=== PATIENT | female | born 1945 | race Caucasian/White ===

== ENCOUNTER 2016-06-07 20:46 | Emergency (ER) | payer MEDICARE, MEDICAID ==
[~2016-06-07] VITALS: Ht 157.5 cm; Wt 67.1 kg
[~2016-06-07 20:46] MED LIST: ASPIRIN 81MG TA81 MG PO; CIPRO 500MG TA500 MG PO; CIPRO500 MG PO; ESTER C 500 MG PO; FLEXERIL10 MG PO; FLUOXETINE20 MG PO; GABAPENTIN300 M1 PO; HYDROCHLOROTHIA25 M1 PO; LEXAPRO20 M1 PO; LISINOPRIL 10MG10 MG PO; LISINOPRIL40 MG PO; MECLIZINE HYDRO25 M2 PO; MELOXICAM15 MG PO; METOPROLOL25 MG PO; PARAFON FORTE500 MG PO; PERCOCET 5/3251 EACH PO; PERCOCET1 TAB PO; PREDNISONE 20MG20 MG PO; QUETIAPINE FUM100 MG PO; TEMAZEPAM15 MG PO; TESSALON PERLE100 M1 PO; Tramadol HCl50 MG PO
[2016-06-07] MEDS ORDERED: LYRICA150 M1 PO (20:59)
[2016-06-07] MEDS ORDERED: ACIDOPHILUS1 CTB PO (21:47)
[2016-06-07] MEDS ORDERED: CLINDAMYCIN HC300 MG PO (21:47)
--- NOTE | 2016-06-07 21:51 | Urgent Treatment Center Report ---
History of Present Issue Date/Time Seen by Provider 06/07/162055 Visit Reason Pt arrived:Wheelchair Presenting Problem:PT NOTED TO HAVE SWELLING TO RIGHT SIDE OF FACE BESIDE EAR THAT SHE STATES BEGAN THIS MORNING. STATES PAIN WITH SWALLOWING AND RIGHT EAR PAIN. STATES HEADACHE. Location if Accident: Onset of symptoms date/time:06/07/16/ or onset unknown for:MEDICAL HX UNKNOWN Have you (or family members/close friends) recently traveled outside the [place]? N If Yes, where/when: Have you had exposure to infectious disease within the past month? TB? Other? Specify: Patient states that she was asleep and when she woke up she notice swelling under right ear and that it was hard to swallow states that she was fine when she laid down and just woke up this way. Statse that after she noticed the swelling she was also having pain in the right ear when she tried to swallow and her family stopped by and was worried and made her come in to be seen. ALLERGIES Coded Allergies: Penicillins (UNKNOWN 04/04/16) Home Medications Active Scripts Oxycodone 5MG/[id number] (Oxycodone-Acetaminophen 5-325) 1 TAB PO TID PRN pain #90 TAB Prov: 02/05/15 Reported Medications ASPIRIN (Aspirin) 81 MG PO DAILY Metoprolol Tartrate (Metoprolol) 25 MG PO DAILY Gabapentin 600 MG PO TID #90 CAPSULE Pregabalin (Lyrica) 150 MG PO BID #60 History Medical History General CAD? No Angina: No DC: No Hypertension? Yes Hyperlipidemia? No CHF? No DVT? No PE? No COPD? No Asthma? No Anemia? No GERD? No Gastric ulcers? No GI Bleed? No Hernia? No Thyroid Problems? No Hypothyroidism? No CVA? No Seizures? No Diabetes? No UTI? No Stones? No GB Disease: No Nephritic Syndrome? No Asplenia? No Hepatitis? No Sickle Cell Disease? No Arthritis? Yes Migraines? No Cataracts? No Glaucoma? No MRSA? No HIV? No TB? No Anxiety? No Depression? No Cancer? No Immunization HX DT/Tetanus NOT SURE Flu UNKNOWN Pneumonia UNKNOWN Surgical Hx Previous Surgery?Y Appendectomy GASTRIC BYPASS TUBUAL Hysterectomy-Total TUBAL Social History Smoking Hx Smoker: Former Smoker Tobacco: No Packs/day N/A Alcohol Alcohol: No Review of Systems All Other Systems Reviewed and Negative Comment Swelling and tenderness on right jaw area just below ear, no reddness Physical Exam Vital Signs Vital Signs Date Time Temp Pulse Resp B/P Pulse O2 O2 Flow FiO2 Ox Delivery Rate 06/07 2052 99.3 77 18 132/78 97 General Appearance Patient sitting in wheelchair no apparent signs of illness with swelling in the right side of face below right ear Respiratory Status Yes: trachea midline, chest symmetrical, non tender chest. No: respiratory distress. 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 Parotid gland swollen, tender no puss observed, no stone felt Medical Decision Making LABS/Meds/Orders Pt receiving controlled substance in ED? No Results/Orders Current Medication Orders Sig/Yani Start time Last Medication Dose Route Stop Time Status Admin Clindamycin HCl 300 MG ONCE ONE 06/08 2199 AC PO 06/08 2200 Clindamycin HCl 300 MG QID 06/08 0900 DC PO 06/15 0859 Clindamycin HCl 0 .STK-MED ONE 06/07 2146 DC PO Orders Procedure Date/time Status MANDIBLES 06/08 2119 Active XRAY/CT/US XRAY/CT/US XRAY mandable XR interpretation by reviewed by me Xray Results no stone observed Departure Departure Time of Disposition 2121 Disposition DC Home or Self Care(routine) Clinical Impression Primary Impression: Parotid gland enlargement Secondary Impressions: Acute parotitis Condition STABLE Referrals German GAITAN,Kaz Morris (Family) Patient Instructions DI for Parotitis-Adult, Parotitis Additional Instructions drinking eight to 10 glasses of water daily with lemon to stimulate saliva and keep glands clear massaging the affected gland applying warm compresses to the affected gland rinsing your mouth with warm salt water sucking on sour augusta or sugar-free lemon candy to encourage saliva flow and reduce swelling Over the counter motrin or tylenol to help with pain Follow up with family doctor if needed or no improvement in symptoms Take medication as prescribed Return if needed Discharge Counseling Counseled pt/family regarding diagnosis, test results, medications/RX, home care, follow up needs Prescriptions Current Visit Scripts Clindamycin Hcl (Clindamycin 300MG) 300 MG PO QID #40 CAP LACTOBACILLUS ACIDOPHILUS (Acidophilus) 1 CTB PO BID #20 CTB at [id number]
[2016-06-07 21:55] VITALS: BP 132/78
--- NOTE | 2016-06-08 08:41 | RADIOLOGY REPORT PS360 ---
MANDIBLES Ordering Physician: RELL BACK APRN Patient Age: 70 years: Female HISTORY: SWELLING TO RIGHT SIDE OF FACE TECHNIQUE: Mandible. series includes 5 images: PA, frontal,, lateral and both oblique views. FINDINGS Swelling in face right side of face. No injury. Mandible series includes AP lateral and oblique views. Panorex can be very helpful in specifically evaluating mandible If concern regarding salivary gland inflammation or stone CT suggested and follow-up. On today's study the osseous mandible bone appears intact although I would note the patient is edentulous. The body, ramus and mentum of mandible all appear intact no destructive lesion. . There 8mm to 4 mm, bone island appearing density projected over I believe the left mandible... No obvious soft tissue calcifications are seen. I would only question some mild fullness radiographically towards the region of the right submandibular gland, right more so than left, but this requires clinical correlation\ Incidental note of engorgement nasal turbinates bilaterally.. Deviation nasal septum convexity to the right. IMPRESSION: -------- The osseous mandible is intact with no significant lesions. Patient is edentulous.. . There is a small sclerotic focus most likely bone island of believe associated with the left mandible Only question some mild soft tissue fullness in the general region of right submandibular gland.- Clinical correlation required. No soft tissue calcifications appreciated here
--- OUTSIDE RECORDS SUMMARY | 2016-06-09 01:48 | External Medical Summary Rpt ---
Author Author , Organization [employer] Address Unknown Phone Unavailable Care Team Providers Care Supervisor Hide House Name Role Phone BEN WEST MD, PSC, Unavailable Unavailable BEN WEST MD, PSC [facility] Unavailable Unavailable MEDICAL GROUP, [facility] ILANA, ILANA Unavailable Unavailable BROWN, BROWN Unavailable Unavailable JOHN REBECA, JOHN Unavailable Unavailable REBECA BUX ANJ, BUX ANJ Unavailable Unavailable BAXTER TARAS, BAXTER Unavailable Unavailable TARAS DAIJA, DAIJA Unavailable Unavailable JAVON STEFAN, Unavailable Unavailable JAVON STEFAN [facility], [facility] Unavailable Unavailable [facility], [facility] [facility] Unavailable Unavailable FALLIS GABRIELA, FALLIS Unavailable Unavailable GABRIELA MARTIN, MARTIN Unavailable Unavailable MARTIN EVELIA, MARTIN Unavailable Unavailable EVELIA [facility] Unavailable Unavailable HOSPITA, [facility], Unavailable Unavailable [facility] Unavailable Unavailable MELV[place], [facility] Unavailable Unavailable CENTER, [facility] Unavailable Unavailable INC, [facility], Unavailable Unavailable [facility] [employer] Unavailable Unavailable CORPORATION, [employer] Unavailable Unavailable CORPORATION, [employer] Unavailable Unavailable CORPORATION, [employer] [facility], [facility] Unavailable Unavailable KALIK, KALIK Unavailable Unavailable [facility] Un[facility] Un[facility], [place] Unavailable Unavailable [facility] YANIV CRI, YANIV CRI Unavailable Unavailable STYLES, STYLES Unavailable Unavailable STYLES NICOLE, STYLES Unavailable Unavailable NICOLE MARJ WEST MD, MARJ Unavailable Unavailable BUX GERAL[facility] ROSE, Unavailable Unavailable [facility], Unavailable [facility]available [facility], [facility] Unavailable Unavailable LAB, [facility] PETTEY JAM, PETTEY Unavailable Unavailable JAM PETTEY JAM, PETTEY Unavailable Unavailable [facility], Unavailable Unavailable [facility] CODY II YINA, CODY Unavailable Unavailable II YINA CODY II YINA, CODY Unavailable Unavailable II DAKOTA DONAHUE, Unavailable Unavailable DAKOTA GAMBLE ANGI, DUANE ANGI Unavailable Unavailable [facility] Unavailable Unavailable [facility], [facility] Unavailable Unavailable [facility], [facility] Purpose Continuity of Care Document - 08-09-2008 through 2016 Problems Code Diagnosis DOS Provider Status G629 POLYNEUROPA 04-23-2016 [facility] THY PHYSICIANS UNSPECIFIED GROUP G8929 OTHER 04-23-2016 [facility] CHRONIC PHYSICIANS PAIN GROUP M5090 CERVICAL 04-23-2016 [facility] DISC PHYSICIANS DISORDER GROUP UNS UNS CERVICAL REGION T14VZED UNSPECIFIED 04-23-2016 [facility] FALL PHYSICIANS INITIAL GROUP ENCOUNTER R0600 DYSPNEA 04-04-2016 [facility] R0602 SHORTNESS 04-04-2016 [facility] R410 DISORIENTAT 04-04-2016 [facility] UNSPECIFIED IMAGING ASS R42 DIZZINESS 04-04-2016 [facility] GIDDINESS [facility] R51 HEADACHE 04-04-2016 [facility] R531 WEAKNESS 04-04-2016 [facility] I10 ESSENTIAL 02-27-2016 [facility] PRIMARY PHYSICIANS HYPERTENSIO GROUP N G83069 WRIST DROP 02-27-2016 [facility] RIGHT WRIST PHYSICIANS GROUP K16935 FOOT DROP 02-27-2016 [facility] RIGHT FOOT PHYSICIANS GROUP M6258 MUSCLE 02-27-2016 [facility] WASTING & PHYSICIANS ATROPHY NEC GROUP OTHER SITE R5383 OTHER 02-27-2016 [facility] FATIGUE PHYSICIANS GROUP T74906 OTHER LONG 02-27-2016 [facility] TERM PHYSICIANS CURRENT GROUP DRUG THERAPY Q55024 DERMATOCHAL 02-19-2016 [facility] RIGHT UPPER INSTITUTE EYELID O40042 DERMATOCHAL 02-19-2016 [facility] LEFT UPPER INSTITUTE EYELID A80014 COMBINED 02-19-2016 [place] [facility] AGE-RELATED INSTITUTE CATARACT LEFT EYE E25723 COMBINED 02-19-2016 [place] CATARACT BILATERAL H538 OTHER 02-19-2016 [facility] DISTURBANCE INSTITUTE S I639 CEREBRAL 01-26-2016 [facility] UNSPECIFIED Z9181 HISTORY OF 01-26-2016 [facility] FALLING CORPORATION R220 LOCALIZED 12-28-2015 [facility] SWELLING PHYSICIANS MASS AND GROUP LUMP HEAD R590 LOCALIZED 12-28-2015 [facility] ENLARGED PHYSICIANS LYMPH NODES GROUP M5030 OTH 12-21-2015 [facility] CERVICAL PHYSICIANS DISC GROUP DEGENERATIO N UNS CERV REGION N289 DISORDER OF 12-21-2015 [facility] KIDNEY AND PHYSICIANS URETER GROUP UNSPECIFIED R269 UNSPECIFIED 12-21-2015 [facility] PHYSICIANS ABNORMALITI GROUP ES OF GAIT AND MOBILITY R296 REPEATED 12-21-2015 [facility] FALLS PHYSICIANS GROUP K116 MUCOCELE OF 12-10-2015 [facility] D1800 HEMANGIOMA 11-16-2015 [facility] UNSPECIFIED PHYSICIANS SITE GROUP Z1211 ENCOUNTER 10-23-2015 [facility] SCREENING PHYSICIANS MALIGNANT GROUP NEOPLASM OF COLON Z23 ENCOUNTER 10-23-2015 [facility] FOR PHYSICIANS IMMUNIZATIO GROUP N D490 NEOPLASM OF 10-19-2015 [facility] BEHAVIOR INC DIGESTIVE SYSTEM G48040E UNSPECIFIED 09-25-2015 [facility] INJURY PHYSICIANS FOOT UNS GROUP SIDE INITIAL ENCNTR K118 OTHER 08-29-2015 [facility] DISEASES OF [facility] SALIVARY INC GLANDS H6123 IMPACTED 07-31-2015 [facility] CERUMEN PHYSICIANS BILATERAL GROUP M9981 OTHER 07-31-2015 [facility] BIOMECHANIC PHYSICIANS AL LESIONS GROUP OF CERVICAL REGION G9050 COMPLEX 07-27-2015 [facility] REGIONAL PHYSICIANS PAIN GROUP SYNDROME I UNSPECIFIED D63362 SPONTANEOUS 04-03-2015 PRO[facility] RUPTURE PODIATRY FLEXOR TENDONS RT ANKLE FOOT M7751 OTHER 04-03-2015 PRO[facility] ENTHESOPATH PODIATRY Y OF RIGHT FOOT F15512 PAIN IN 04-03-2015 PROGR[facility]IVE RIGHT LOWER PODIATRY LEG M5116 INTERVERTEB 04-02-2015 BEN WEST RAL DISC , PSC D/O W/RADICULOP ATHY LUMB RGN M6281 MUSCLE 03-08-2015 [facility] GENERALIZED M5416 RADICULOPAT 02-05-2015 BEN WEST, HY LUMBAR , PSC REGION I959 HYPOTENSION 12-12-2014 [facility] PHYSICIANS UNSPECIFIED GROUP I890 LYMPHEDEMA 11-09-2014 FALLIS GABRIELA NOT ELSEWHERE CLASSIFIED E15317 PAIN IN 11-09-2014 PROGRESSIVE LEFT FOOT PODIATRY I28837R NONDSPL FX 11-09-2014 PROGR[facility]IVE 5TH PODIATRY METATARSAL LT FT INIT ENC CLOS FX 4439 UNSPECIFIED 10-05-2014 FALLIS GABRIELA PERIPHERAL VASCULAR DISEASE 67063 EXOSTOSIS 10-05-2014 FALLIS GABRIELA OF UNSPECIFIED SITE 7295 PAIN IN 10-05-2014 FALLIS GABRIELA SOFT TISSUES OF LIMB 38123 DEGEN 08-07-2014 MARJ WEST LUMBAR/LUMB OSACRANNABELLA INTERVERTEB RAL DISC 7244 THORACIC/PAVEL 08-07-2014 MARJ COTOOSASANTI GAITAN NEURITIS/RA DICULITIS UNSPEC 3559 MONONEURITI 07-31-2014 [facility] S OF PHYSICIANS UNSPECIFIED GROUP SITE 4019 UNSPECIFIED 07-31-2014 [facility] ESSENTIAL PHYSICIANS HYPERTENSIO GROUP N 5939 UNSPECIFIED 07-31-2014 [facility] DISORDER PHYSICIANS OF KIDNEY GROUP AND URETER 07543 OSTEOARTHRO 07-31-2014 [facility] S UNSPEC PHYSICIANS WHETHER GROUP GEN/LOC UNSPEC SITE 7245 UNSPECIFIED 07-31-2014 [facility] BACKACHE PHYSICIANS GROUP 38002 LOSS OF 07-31-2014 [facility] WEIGHT PHYSICIANS GROUP V1588 PERSONAL 07-31-2014 [facility] HISTORY OF PHYSICIANS FALL GROUP 41658 MIGRAINE 07-05-2014 [facility] W/O [facility] W/O INTRACT MEDICAL W/O STAT GROUP MIGRNOSUS 3569 UNSPEC 07-05-2014 [facility] MEDICAL PERIPHERAL GROUP NEUROPATHY 53234 UNSPECIFIED 05-25-2014 [facility] ARTHROPATHY INC , LOWER LEG 7242 LUMBAGO 05-25-2014 [facility] 93401 GEN 02-16-2014 [facility] OSTEOAR[facility] SIS MEDICAL INVOLVING EQUIPME MULTIPLE SITES 82608 PAINFUL 01-14-2014 [facility] RESPIRATION [facility] INC 30339 HYPERTONICI 12-27-2013 [facility] TY OF PHYSICIANS BLADDER GROUP 90564 CYSTOCELE 12-27-2013 [facility] WITHOUT PHYSICIANS MENTION GROUP UTERINE PROLAPSE MIDLN 40161 URGE 12-27-2013 [facility] INCONTINENC PHYSICIANS E GROUP 92114 URINARY 12-27-2013 [facility] FREQUENCY PHYSICIANS GROUP 7804 DIZZINESS 12-15-2013 [facility] GIDDINESS INC 7812 ABNORMALITY 12-14-2013 [facility] OF GAIT [facility] INC V571 OTHER 12-14-2013 [facility] THERAPY INC 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, INC LOWER LEG 5853 CHRONIC 06-14-2013 [facility] [facility] DISEASE INC STAGE III (MODERATE) V069 NEED PROPH 12-07-2012 [facility] VACCINATION HEALTH W/UNSPEC CENTER COMB VACCINE V700 ROUTINE 12-07-2012 [facility] EXAM@HEALTH CARE FACL 4660 ACUTE 04-18-2012 [facility] BRONCHITIS [facility] INC 8796 OPEN WOUND 04-07-2012 C[facility] II OTH&UNSPEC YINA PART TRNK W/O MENTION COMP V1083 PERSONAL 04-07-2012 C[facility] II HISTORY YINA OTHER MALIGNANT NEOPLASM SKIN 7265 ENTHESOPATH 01-15-2012 PETTEY JAM Y OF HIP REGION 11714 PES 01-15-2012 [facility] JAM ANSERINUS TENDINITIS OR BURSITIS V7231 ROUTINE 11-17-2011 PATHOLOGY & GYNECOLOGIC CYTOLOGY AL LAB EXAMINATION 00811 PAIN IN 07-13-2009 [place] JOINT, [facility] LOWER LEG INC 7149 UNSPECIFIED 06-18-2009 A Jose JUSTICE MD PSC INFLAMMATOR Y POLYARTHROP ATHY 17627 INSOMNIA 06-18-2009 A Jose JUSTICE UNSPECIFIED PSC 7840 HEADACHE 03-05-2009 A Jose JUSTICE MD PSC 10992 NUCLEAR 08-09-2008 SOLE, SCLEROSIS GERALD W 20094 UNSPECIFIED 08-09-2008 SOLE SUBJECTIVE GERALD W VISUAL DISTURBANCE R42 DIZZINESS AND GIDDINESS Allergies, Adverse Reactions, Alerts Type Drug Allergy Adverse Reaction to Substance Substance Reaction Severity Penicillin Unknown Unknown Medications Na ND Rx Da Fi Fi Am Da Di Ph RX Ph St me C No te ll ll ou ys ag ar # ys at rm s nt no ma ic us Or Da si cy ia de te s n re d HM 62 12 01 30 30 00 EA Ac 01 -2 -[address] ti 10 6- 7- 00 00 SI ve PI 02 20 20 46 DE RI 00 16 17 49 N 1 96 PH 32 AR 5 MA MG CY TA OF BL CY ET NT HI AN A IN C VE 00 03 0 No NT 17 -1 OL 30 0- Lo IN 68 20 ng 22 13 er HF 4 A Ac 90 ti ve MC G IN JAMES LE R Ae 08 03 0 No ro 37 -1 ch 30 0- Lo am 76 20 ng be 50 13 er r/ 0 Op Ac ti ti james ve le r De 00 03 0 No xa 51 -1 me 74 0- Lo th 90 20 ng as 12 13 er on 5 e Ac 4M ti G/ ve Ml Sd v CE 00 03 0 No FT 78 -1 RI 19 0- Lo AX 32 20 ng ON 89 13 er E 5 1 Ac GM ti ve AL LI 63 03 0 No DO 32 -1 CA 30 0- Lo IN 20 20 ng E 11 13 er HC 0 L Ac 1% ti ve AL Ib 62 03 0 No up 58 -1 ro 40 0- Lo fe 74 20 ng n 70 13 er 60 1 0M Ac G ti Ta ve bl et Immunization Name Date Route CVX Reacti Commen Provid Is Given on t er Refuse d IIV [facility] No ADJUVA 2015 [facility] NTED VACCIN E FOR INTRAM USCULA R USE PCV13 [facility] No VACCIN 2015 EVELIA E FOR INTRAM USCULA R USE Vital Signs 04-18-2012 22:06 Name Value Interpretat Reference Comment ion Range Body 100.8 Temperature [degF] BP 80 mm[Hg] Diastolic BP Systolic 129 mm[Hg] Heart 144 /min Rate/Pulse O2% 98 % Respiratory 22 /min Rate 04-18-2012 19:24 Name Value Interpretat Reference Comment ion Range BP 74 mm[Hg] Diastolic BP Systolic 122 mm[Hg] Heart 112 /min Rate/Pulse O2% 97 % Respiratory 20 /min Rate Results Labs Lab Lab Date Result Refere Interp Status Commen Order Detail nces retati t Range on STREP SCREEN (RAPID) (04-18-2012 19:00) STREP NEGATIV complet SCREEN 013 E ed (RAPID) 19:00 Procedures Procedure [place] [address] [facility] HEAD/BRAI 7 MEDICAL N W/O IMAGING CONTRAST ASS MATERIAL RADIOLOGI 53383 [facility] CHOE C 7 MEDICAL EXAMINATI IMAGING ON [place] [address] [facility] PAT[facility] TROPONIN 7 [facility] QUANTITAT INC INC ANJALI BLOOD 47401 [facility] KENDRICKIK COUNT 7 [facility] COMPLETE INC AUTO&AUTO DIFRNTL WBC NATRIURET 93529 [facility] GARCIA IC 7 [facility] PEPTIDE INC ECG 01995 [facility] ROUTINE 7 [facility] ECG INC INC W/LEAST 12 LDS TRCG ONLY W/O I&R FIBRIN 05899 [facility] DGRADJ 7 [facility] PRODUCTS INC INC D-DIMER QUAL/SEMI KISHAN CREATINE 78740 [facility] KINASE 7 [facility] TOTAL INC INC COMPREHEN 16131 [facility] SIVE 7 [facility] METABOLIC INC INC PANEL CREATINE 65156 J[facility] PAT[facility] KINASE MB 7 [facility] FRACTION INC INC ONLY COMPREHEN 02348 [facility] SIVE 7 [facility] METABOLIC INC INC PANEL BLOOD 69520 [facility] COUNT 7 [facility] COMPLETE INC INC AUTO&AUTO DIFRNTL WBC OPH BMTRY 38839 [facility] 7 EYE ECHOGRAPY INSTITUTE A-SCAN IO LENS PWR SUJATA PWR K0823 [facility] GRP 2 STD 6 CAPTAINS CORPORATI CORPORATI CHAIR PT ON ON TO &=300 LBS PWR K0823 [facility] GRP 2 STD 6 [place] CORPORATI CORPORATI CHAIR PT ON ON TO &=300 [place]BS PET [address] [facility] [address] COMMUNTIY COMMUNTIY ATTENUATI HOSPITA HOSPITA ON SKULL BASE MID-THIGH PWR K0823 [facility] GRP 2 STD 6 CAPTAINS CORPORATI CORPORATI CHAIR PT ON ON TO &=300 LBS PWR K0823 [facility] GRP 2 STD 6 CAPTAINS CORPORATI CORPORATI CHAIR PT ON ON TO &=300 LBS BLOOD 57542 [facility] OCCULT 6 PHYSICIAN EVELIA PEROXIDAS S GROUP E ACTV QUAL FECES 1-3 SPEC PCV13 60448 [facility] VACCINE 6 PHYSICIAN EVELIA FOR S GROUP INTRAMUSC ULAR USE IIV 35218 [facility] ADJUVANTE 6 PHYSICIAN EVELIA D VACCINE S GROUP FOR INTRAMUSC ULAR USE ADMINISTR G0008 [facility] ATION OF 6 PHYSICIAN EVELIA INFLUENZA S GROUP VIRUS VACCINE MRI ORBIT 48020 [facility] PAT[facility] FACE & 6 [facility] NECK W/O INC INC & W/CONTRAS T MATRL COLLECTIO 21641 [facility] STYLES N VENOUS 6 PHYSICIAN NICOLE BLOOD S GROUP VENIPUNCT URE PWR WC K0823 [facility] GRP 2 STD 6 CAPTAINS CORPORATI CORPORATI CHAIR PT ON ON TO &=300 LBS US SOFT 24940 [facility] TISSUE 6 [facility] CARE HEAD & INC NECK REAL TIME IMGE DOCM FINE 59466 [facility] PLASCENCIAON NEEDLE 6 [facility] H[facility] ASPIRATIO INC INC N WITH IMAGING GUIDANCE THERAPEUT 50955 [facility] PAT[facility] IC PX 1/> 6 [facility] AREAS INC INC EACH 15 MIN EXERCISES THERAPEUT 16732 [facility] PATEL IC PX 1/> 6 [facility] AREAS INC INC EACH 15 MIN EXERCISES THERAPEUT 77336 [facility] PATEL IC PX 1/> 6 [facility] AREAS INC INC EACH 15 MIN EXERCISES THERAPEUT 50147 [facility] PAT[facility] IC PX 1/> 6 [facility] AREAS INC INC EACH 15 MIN EXERCISES THERAPEUT 86448 [facility] PATEL IC PX 1/> 6 [facility] AREAS INC INC EACH [address] SOFT 98491 [facility] PLASCENCIAON TISSUE 6 [facility] NECK W/O INC INC CONTRAST MATERIAL THERAPEUT 75695 [facility] PATEL IC PX 1/> 6 [facility] AREAS INC INC EACH 15 MIN EXERCISES THERAPEUT 51241 [facility] PAT[facility] IC PX 1/> 6 [facility] AREAS INC INC EACH 15 MIN EXERCISES 3D 90283 [facility] PAT[facility] RENDERING 6 [facility] W/INTERP INC INC & POSTPROCE SS SUPERVISI ON MRI 36452 [facility] SPINAL 6 [facility] CANAL INC INC CERVICAL W/O CONTRAST MATRL THERAPEUT 78931 [facility] PATEL IC PX 1/> 6 [facility] AREAS INC INC EACH 15 MIN EXERCISES THERAPEUT 06108 [facility] PATEL IC PX 1/> 6 [facility] AREAS INC INC EACH 15 MIN EXERCISES THERAPEUT 74377 [facility] PATEL IC PX 1/> 6 [facility] AREAS INC INC EACH 15 MIN EXERCISES THERAPEUT 87451 [facility] PATEL IC PX 1/> 6 [facility] AREAS INC INC EACH 15 MIN EXERCISES THERAPEUT 36855 [facility] PATEL IC PX 1/> 6 [facility] AREAS INC INC EACH 15 MIN EXERCISES THERAPEUT 57397 [facility] PATEL IC PX 1/> 6 [facility] AREAS INC INC EACH 15 MIN EXERCISES THERAPEUT 53951 [facility] PATEL IC PX 1/> 6 [facility] AREAS INC INC EACH 15 MIN EXERCISES THERAPEUT 60859 [facility] PATEL IC PX 1/> 6 [facility] AREAS INC INC EACH 15 MIN EXERCISES THERAPEUT 81568 [facility] PATEL IC PX 1/> 6 [facility] AREAS INC INC EACH 15 MIN EXERCISES PHYSICAL 01958 JORGEJOEL PATEL THERAPY 6 [facility] EVALUATIO INC INC N COLLECTIO 18395 [facility] N VENOUS 6 PHYSICIAN EVELIA BLOOD S GROUP VENIPUNCT URE INJECTION J3301 PROGRESSI JOHN 6 VE REBECA TRIAMCINO PODIATRY LONE ACETONIDE NOS 10 MG ARTHROCEN 37476 PROGRESSI JOHN TESIS 6 VE REBECA ASPIR&/IN PODIATRY J INTERM JT/BURS W/O US PHYSICAL 37314 [facility] THERAPY 6 [facility] EVALUATIO INC INC N OCCUPATIO 75151 [facility] NAL 6 [facility] THERAPY INC INC EVALUATIO N COLLECTIO 81630 [facility] N VENOUS 6 N N BLOOD COMMUNTIY COMMUNTIY VENIPUNCT HOSPITA HOSPITA URE LIPID 17298 [facility] PANEL 6 N N COMMUNTIY COMMUNTIY HOSPITA HOSPITA HEMOGLOBI 34685 [facility] N 6 N N GLYCOSYLA COMMUNTIY COMMUNTIY CARINA A1C HOSPITA HOSPITA AFO L1970 PROGRESSI JOHN PLASTIC 6 VE REBECA WITH PODIATRY ANKLE JOINT CUSTOM FABRICATE D ADD LW L2275 PROGRESSI JOHN EXTRM 6 VE REBECA VARUS/VUL PODIATRY PAYAL RYAN PLSTC MOD PADD/LN HEEL PAD L3480 PROGRESSI JOHN AND 6 VE REBECA DEPRESSIO PODIATRY N FOR SPUR RADEX 06860 [facility] FOOT 5 [facility] COMPLETE INC INC MINIMUM 3 VIEWS WALKING L4360 PROGRESSI JOHN BOOT 5 VE REBECA PNEUMATC PODIATRY &/ VACUUM PREFAB CUSTM FIT TENS E0730 [facility] EMPI INC DEVICE 5 4/MORE LEADS MULTI NERVE STIMULATI ON APPL 85852 [facility] MODALITY 5 [facility] 1/> AREAS INC INC ELEC STIMJ EA 15 MIN MRI 28972 [facility] SPINAL 5 [facility] CANAL INC INC LUMBAR W/O CONTRAST MATERIAL CANE E0105 [facility] WOLF QUAD/3-ND 5 HOME HOME CHER ALL MEDICAL MEDICAL MATL EQUIPME EQUIPME ADJUSTBL/ FIX W/TIPS RADIOLOGI 74968 [facility] PAT[facility] C EXAM 4 [facility] CHEST 2 INC INC VIEWS FRONTAL&L ATERAL URNLS DIP 53432 [facility] BAXTER 4 PHYSICIAN TARAS STICK/TAB S GROUP LET RGNT NON-AUTO W/O MICRSCP DUPLEX 44698 [facility] SCAN 4 [facility] EXTRACRAN INC INC IAL ART COMPL BI STUDY PHYSICAL 46497 [facility] THERAPY 4 [facility] EVALUATIO INC INC N RADIOLOGI 13669 [facility] C 4 [facility] EXAMINATI INC INC ON KNEE 3 [place] [address] [facility] RETROPERI 4 [facility] TONEAL INC INC REAL TIME W/IMAGE COMPLETE BLOOD 65769 [facility] OCCULT 3 [facility] QUAL FECES 1 DETER THERAPEUT 40222 [facility] IC 3 [facility] PROPHYLAC INC INC TIC/DX INJECTION SUBQ/IM ARTHROCEN PETTEY PETTEY TESIS 2 JAM JAM ASPIR&/IN J MAJOR JT/BURSA W/O US INJ J0702 PETTEY PETTEY BETAMETHA 2 JAM JAM SONE ACETATE & PHOSPHATE 3 MG RADIOLOGI 60788 [facility] PLASCENCIAON C 0 [facility] EXAMINATI INC INC ON KNEE 3 VIEWS RADIOLOGI 42404 [facility] C 9 [facility] EXAMINATI INC INC ON KNEE 3 VIEWS RADEX 91754 [facility] SPINE 9 [facility] LUMBOSACR INC INC AL MINIMUM 4 VIEWS Encounters Encounter Start End Date Code Location Performer Type Date OFFICE 66635 [facility] OUTPATIEN 7 7 PHYSICIAN T VISIT S GROUP 25 MINUTES EMERGENCY 79047 [facility] 7 7 [facility] DEPARTMEN INC T VISIT HIGH/URGE NT SEVERITY HOSPITAL [facility] - 7 7 [facility] OUTPATIEN INC T EMERGENCY 48717 [facility] CISNEROS DEPT 7 7 PHYSICIAN VISIT S, [facility] HIGH SEVERITY& THREAT FUNJ OFFICE 57214 [facility] OUTPATIEN 7 7 PHYSICIAN T VISIT S GROUP 25 MINUTES HOSPITAL [facility] - 7 7 [facility] OUTPATIEN INC T OFFICE 73787 [facility] OUTPATIEN 7 7 EYE T [facility]STITUTE MINUTES OFFICE 18592 [facility] STYLES OUTPATIEN 6 6 PHYSICIAN T VISIT S GROUP 10 MINUTES OFFICE 08646 [facility] OUTPATIEN 6 6 PHYSICIAN T VISIT S GROUP 15 MINUTES HOSPITAL [facility] - 6 6 N OUTPATIEN COMMUNTIY T HOSPITA OFFICE 18682 [facility] OUTPATIEN 6 6 PHYSICIAN T VISIT S GROUP 10 MINUTES OFFICE 03317 [facility] [place] OUT[facility]IEN 6 6 PHYSICIAN EVELIA T VISIT S GROUP 15 MINUTES [facility] - [facility] 6 [facility] INC T OFFICE 14421 [facility] OUTPATIEN 6 6 PHYSICIAN NICOLE T VISIT S GROUP 10 MINUTES OFFICE 79605 [facility] [place] OUT[facility]IEN 6 6 PHYSICIAN EVELIA T VISIT S GROUP 25 MINUTES OFFICE 70829 [facility] OUTPATIEN 6 6 PHYSICIAN NICOLE T VISIT S GROUP 10 MINUTES [facility] - 6 6 [facility] T OFFICE 90431 [facility] [place] OUT[facility]IEN 6 6 PHYSICIAN EVELIA T VISIT S GROUP 10 MINUTES [facility] - 6 6 [facility] T OFFICE 08002 [facility] OUTPATIEN 6 6 PHYSICIAN NICOLE T NEW 20 S GROUP MINUTES [facility] - 6 6 [facility] T OFFICE 47878 [facility] [place] OUT[facility]IEN 6 6 PHYSICIAN EVELIA T VISIT S GROUP 25 MINUTES OFFICE 47607 [facility] [place] OUT[facility]IEN 6 6 PHYSICIAN EVELIA T VISIT S GROUP 15 MINUTES [facility] - 6 6 [facility] T [facility] - 6 6 [facility] INC T OFFICE 45991 [facility] [place] OUT[facility]IEN 6 6 PHYSICIAN EVELIA T VISIT S GROUP 15 MINUTES OFFICE 43438 [facility] [place] OUT[facility]IEN 6 6 PHYSICIAN EVELIA T VISIT S GROUP 10 MINUTES [facility] - 6 6 [facility] T OFFICE 15613 [facility] [place] OUT[facility]IEN 6 6 PHYSICIAN EVELIA T VISIT S GROUP 15 MINUTES OFFICE 89634 [facility] OUTPATIEN 6 6 VE REBECA T VISIT 5 PODIATRY MINUTES OFFICE 37546 [facility] OUTPATIEN 6 6 MD BRETT, T VISIT PSC 10 MINUTES [facility] 6 [facility] INC T OFFICE 02451 [facility] OUTPATIEN 6 6 VE REBECA T VISIT 5 PODIATRY MINUTES HOSPITAL [facility] - 6 6 N OUTPATIEN COMMUNTIY T HOSPITA OFFICE 36189 [facility] OUTPATIEN 6 6 N T NEW 45 NEUROLOGY MINUTES OFFICE 26772 [facility] [place] OUT[facility]IEN 6 6 PHYSICIAN EVELIA T VISIT S GROUP 15 MINUTES OFFICE 84798 [facility] OUTPATIEN 5 5 MD BRETT, T VISIT PSC 25 MINUTES OFFICE 53647 [facility] OUTPATIEN 5 5 GABRIELA REBECA T VISIT 5 MINUTES OFFICE 88880 [facility] OUTPATIEN 5 5 GABRIELA REBECA T VISIT 15 MINUTES OFFICE [id number] [facility] [place] OUTPATIEN 5 5 PHYSICIAN EVELIA T VISIT S GROUP 10 MINUTES OFFICE 34710 [facility] OUTPATIEN 5 5 GABRIELA REBECA T VISIT 15 MINUTES [facility]OSPITAL [facility] - 5 5 [facility] T OFFICE [id number] [facility] OUTPATIEN 5 5 GABRIELA REBECA T NEW 30 MINUTES OFFICE 21359 [facility]TT [facility]UX ANJ OUTPATIEN 5 5 MD T NEW 30 MINUTES OFFICE 07225 [facility] [place] OUTPATIEN 5 5 PHYSICIAN EVELIA T VISIT S GROUP 25 MINUTES OFFICE 41426 [facility] [place] OUTPATIEN 5 5 PHYSICIAN EVELIA T VISIT S GROUP 15 MINUTES OFFICE 50952 YARSANI JAVON OUTPATIEN 5 5 [facility] NEW 45 MEDICAL MINUTES [facility] JORGE - 5 5 [facility]ORGE - 5 5 [facility] JORGE - 4 4 [facility] JORGE - 4 4 [facility] JORGE - 4 4 [facility] JORGE - 4 4 [facility] JORGE - 4 4 [facility] OUTPATIEN [facility] PERIODIC 09082 JORGE PATEL PREVENTIV 3 3 [facility] MED EST CENTER CENTER PATIENT 63YRS& OLDER Emergency SHAAN Porter MD (ER) 3 19:12 3 22:09 [facility] JORGE - 3 3 [facility] OUTPATIEN [facility] OFFICE 94244 CODY II CODY II OUTPATIEN 3 3 [facility] VISIT 10 MINUTES OFFICE 05220 CODY II CODY II OUTPATIEN 3 3 [facility] VISIT 10 MINUTES PERIODIC 05758 JORGE PATEL PREVENTIV 2 2 [facility] EST [facility]IENT 63Y[facility]& O[facility] JORGE - 0 0 [facility] OUTPATIEN [facility] OFFICE 46777 A Jose GAMBLE OUTPATIEN 0 0 [facility] VISIT [facility] 25 MINUTES OFFICE 11738 A Jose GAMBLE OUTPATIEN 0 0 [facility] VISIT P[facility] 15 MINUTES [facility]OSPITAL JORGE - 9 9 [facility] OFFICE 16454 SOLE WHIPPLE, ENRIKE 9 9 GERALD PEREYRA 45 W W MINUTES
--- OUTSIDE RECORDS SUMMARY | 2016-06-09 01:48 | External Medical Summary Rpt ---
Author Author , Organization [employer] Address Unknown Phone Unavailable Care Team Providers Care Scrub Nurse Name Role Phone BEN WEST MD, PSC, Unavailable Unavailable BEN WEST MD, PSC [facility] Unavailable Unavailable MEDICAL GROUP, [facility] ILANA, ILANA Unavailable Unavailable [...] Unavailable MARTIN EVELIA, MARTIN Unavailable Unavailable EVELIA [facility] Unavailable Unavailable HOSPITA, [facility], Unavailable Unavailable [facility] Unavailable Unavailable [facility], [facility] Unavailable Unavailable [facility], [facility] Unavailable Unavailable INC, [facility], Unavailable Unavailable [facility] Unavailable Unavailable CORPORATION, [facility] Unavailable Unavailable [employer]PORATION[facility] [employer] [facility] Unavailable Unavailable CORPORATION, [employer] [facility], [facility] Unavailable Unavailable KALIK, KALIK Unavailable Unavailable [facility], [facility] Unavailable Unavailable [facility], [facility] Unavailable Unavailable [facility] YANIV CRI, YANIV CRI Unavailable Unavailable STYLES, STYLES Unavailable Unavailable STYLES NICOLE, STYLES Unavailable Unavailable NICLOE MARJ WEST MD, MARJ Unavailable Unavailable BUX [...] Diagnosis DOS Provider Status G629 POLYNEUROPA 04-23-2016 [facility] THY PHYSICIANS UNSPECIFIED GROUP G8929 OTHER 04-23-2016 [facility] CHRONIC PHYSICIANS PAIN GROUP M5090 CERVICAL 04-23-2016 [facility] DISC PHYSICIANS DISORDER GROUP UNS UNS CERVICAL REGION [id number] UNSPECIFIED 04-23-2016 [facility] FALL PHYSICIANS INITIAL GROUP ENCOUNTER R0600 DYSPNEA 04-04-2016 [facility] R0602 SHORTNESS 04-04-2016 [facility] R410 DISORIENTAT 04-04-2016 [facility]ON [facility]ICAL UNSPECIFIED IMAGING ASS R42 DIZZINESS 04-04-[address] [facility] [facility] R51 HEADACHE 04-04-2016 [facility] R531 WEAKNESS 04-04-2016 [facility] I10 ESSENTIAL 02-27-2016 [facility] PRIMARY PHYSICIANS HYPERTENSIO GROUP N [id number] WRIST DROP 02-27-2016 [facility] RIGHT WRIST PHYSICIANS GROUP [id number] FOOT DROP 02-27-2016 [facility] RIGHT FOOT PHYSICIANS GROUP M6258 MUSCLE 02-27-2016 [facility] WASTING & PHYSICIANS ATROPHY NEC GROUP OTHER SITE R5383 OTHER 02-27-2016 [facility] FATIGUE PHYSICIANS GROUP [id number] OTHER LONG 02-27-2016 [facility] TERM PHYSICIANS CURRENT GROUP DRUG THERAPY U96361 DERMATOCHAL 02-19-2016 [facility] RIGHT UPPER INSTITUTE EYELID Y04299 DERMATOCHAL 02-19-2016 [facility] LEFT UPPER INSTITUTE EYELID F48487 COMBINED 02-19-2016 [facility] FORMS OF EYE AGE-RELATED INSTITUTE CATARACT LEFT EYE D99864 COMBINED 02-19-2016 [facility]RELATED INSTITUTE CATARACT BILATERAL H538 OTHER 02-19-2016 [facility]ANCE [facility] S I639 CEREBRAL 01-26-2016 [facility] UNSPECIFIED Z9181 HISTORY OF 01-26-2016 [facility] FALLING CORPORATION R220 LOCALIZED 12-28-2015 [facility] SWELLING PHYSICIANS MASS AND GROUP LUMP HEAD R590 LOCALIZED 12-28-2015 [facility] ENLARGED PHYSICIANS LYMPH NODES GROUP M5030 OTH 12-21-2015 [facility] CERVICAL PHYSICIANS DISC GROUP DEGENERATIO N UNS CERV REGION N289 DISORDER OF 12-21-2015 [facility] KIDNEY AND PHYSICIANS URETER GROUP UNSPECIFIED R269 UNSPECIFIED 12-21-2015 [facility] PHYSICIANS ABNORMALITI GROUP ES OF GAIT AND MOBILITY R296 REPEATED 12-21-2015 [facility] FALLS PHYSICIANS GROUP K116 MUCOCELE OF 12-10-2015 [facility] D1800 HEMANGIOMA 11-16-2015 [facility] UNSPECIFIED PHYSICIANS SITE GROUP Z1211 ENCOUNTER 10-23-2015 [facility] SCREENING PHYSICIANS MALIGNANT GROUP NEOPLASM OF COLON Z23 ENCOUNTER 10-23-2015 [facility] FOR PHYSICIANS IMMUNIZATIO GROUP N D490 NEOPLASM OF 10-19-2015 [facility] UNS [facility] BEHAVIOR INC DIGESTIVE SYSTEM S77142O UNSPECIFIED 09-25-2015 [facility] INJURY PHYSICIANS FOOT UNS GROUP SIDE INITIAL ENCNTR K118 OTHER 08-29-2015 [facility] DISEASES OF [facility] SALIVARY INC GLANDS H6123 IMPACTED 07-31-2015 [facility] CERUMEN PHYSICIANS BILATERAL GROUP M9981 OTHER 07-31-2015 [facility] BIOMECHANIC PHYSICIANS AL LESIONS GROUP OF CERVICAL REGION G9050 COMPLEX 07-27-2015 [facility] REGIONAL PHYSICIANS PAIN GROUP SYNDROME I UNSPECIFIED [id number] SPONTANEOUS 04-03-2015 PROGRESSIVE RUPTURE PODIATRY FLEXOR TENDONS RT ANKLE FOOT M7751 OTHER 04-03-2015 PROGRESSIVE ENTHESOPATH PODIATRY Y OF RIGHT FOOT Z32133 PAIN IN 04-03-2015 PROGRESSIVE RIGHT LOWER PODIATRY LEG M5116 INTERVERTEB 04-02-2015 BEN WEST RAL DISC , PSC D/O W/RADICULOP ATHY LUMB RGN M6281 MUSCLE 03-08-2015 [facility] GENERALIZED M5416 RADICULOPAT 02-05-2015 BEN WEST, HY LUMBAR , PSC REGION I959 HYPOTENSION 12-12-2014 [facility] PHYSICIANS UNSPECIFIED GROUP I890 LYMPHEDEMA 11-09-2014 FALL[facility] GABRIELA NOT ELSEWHERE CLASSIFIED N63038 PAIN IN 11-09-2014 PROGRESSIVE LEFT FOOT PODIATRY C06782W NONDSPL FX 11-09-2014 PROGRESSIVE 5TH PODIATRY METATARSAL LT FT INIT ENC CLOS FX 4439 UNSPECIFIED 10-05-2014 [facility] GABRIELA PERIPHERAL VASCULAR DISEASE 48325 EXOSTOSIS 10-05-2014 FALLIS GABRIELA OF UNSPECIFIED SITE 7295 PAIN IN 10-05-2014 [facility] GABRIELA SOFT TISSUES OF LIMB 13054 DEGEN 08-07-2014 MARJ WEST LUMBAR/LUMB OSACRANNABELLA INTERVERTEB RAL DISC 7244 THORACIC/PAVEL 08-07-2014 MARJ COTOOSASANTI GAITAN NEURITIS/RA DICULITIS UNSPEC 3559 MONONEURITI 07-31-2014 [facility] S OF PHYSICIANS UNSPECIFIED GROUP SITE 4019 UNSPECIFIED 07-31-2014 [facility] ESSENTIAL PHYSICIANS HYPERTENSIO GROUP N 5939 UNSPECIFIED 07-31-2014 [facility] DISORDER PHYSICIANS OF KIDNEY GROUP AND URETER 70165 OSTEOARTHRO 07-31-2014 [facility] S UNSPEC PHYSICIANS WHETHER GROUP GEN/LOC UNSPEC SITE 7245 UNSPECIFIED 07-31-2014 [facility] BACKACHE PHYSICIANS GROUP 78719 LOSS OF 07-31-2014 [facility] WEIGHT PHYSICIANS GROUP V1588 PERSONAL 07-31-2014 [facility] HISTORY OF PHYSICIANS FALL GROUP 85136 MIGRAINE 07-05-2014 [facility] W/O [facility] W/O INTRACT MEDICAL W/O STAT GROUP MIGRNOSUS 3569 UNSPEC 07-05-2014 [facility] HEREDIT&IDI HEALTH OPATHIC MEDICAL PERIPHERAL GROUP NEUROPATHY 60905 UNSPECIFIED 05-25-2014 [facility] ARTHROPATHY INC , LOWER LEG 7242 LUMBAGO 05-25-2014 [facility] INC 24638 GEN 02-16-2014 LUCIANO OSTEOARTHRO HOME SIS MEDICAL INVOLVING EQUIPME MULTIPLE SITES 54451 PAINFUL 01-14-2014 [facility] RESPIRATION [facility] INC 21325 HYPERTONICI 12-27-2013 [facility] TY OF PHYSICIANS BLADDER GROUP 37910 CYSTOCELE 12-27-2013 [facility] WITHOUT PHYSICIANS MENTION GROUP UTERINE PROLAPSE MIDLN 84834 URGE 12-27-2013 [facility] INCONTINENC PHYSICIANS E GROUP 00561 URINARY 12-27-2013 [facility] FREQUENCY PHYSICIANS GROUP 7804 DIZZINESS 12-15-2013 [facility] AND [facility] GIDDINESS INC 7812 ABNORMALITY 12-14-2013 [facility] OF GAIT [facility] INC V571 OTHER 12-14-2013 [facility] PHYSICAL [facility] THERAPY INC 94928 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 [facility] RHEUMATISM, INC LOWER LEG 5853 CHRONIC 06-14-2013 [facility]NA[facility] KIDNEY [facility] DISEASE INC STAGE III (MODERATE) V069 NEED PROPH 12-07-2012 [facility] VACCINATION HEALTH W/UNSPEC CENTER COMB VACCINE V700 ROUTINE 12-07-2012 [facility] EXAM@HEALTH CARE FACL 4660 ACUTE 04-18-2012 [facility] BRONCHITIS [facility] INC 8796 OPEN WOUND 04-07-2012 CODY II OTH&UNSPEC YINA PART TRNK W/O MENTION COMP V1083 PERSONAL 04-07-2012 CODY II HISTORY YINA OTHER MALIGNANT NEOPLASM SKIN 7265 ENTHESOPATH 01-15-2012 PETTEY JAM Y OF HIP REGION 52157 PES 01-15-2012 PETTEY JAM ANSERINUS TENDINITIS OR BURSITIS V7231 ROUTINE 11-17-2011 PATHOLOGY & GYNECOLOGIC CYTOLOGY AL LAB EXAMINATION 04942 PAIN IN 07-13-2009 MENAN JOINT, [facility] LOWER LEG INC 7149 UNSPECIFIED 06-18-2009 A Jose JUSTICE MD PSC INFLAMMATOR Y POLYARTHROP ATHY 71538 INSOMNIA 06-18-2009 A Jose JUSTICE UNSPECIFIED PSC 7840 HEADACHE 03-05-2009 A Jose JUSTICE MD PSC 33881 NUCLEAR 08-09-2008 SOLE, [place]OS[place] W 05594 UNSPECIFIED 08-09-2008 SOLE SUBJECTIVE GERALD W VISUAL [...] Given on t er Refuse d IIV [facility] No ADJUVA 2015 EVELIA NTED VACCIN E FOR INTRAM USCULA R USE PCV13 [facility] No VACCIN 2015 EVELIA E FOR INTRAM [...] Procedure [place] [address] [facility]/BRAI 7 MEDICAL N W/O IMAGING CONTRAST ASS MATERIAL RADIOLOGI 11334 [facility] CH[facility] C 7 MEDICAL EXAMINATI IMAGING ON [place] [address] [facility] PATEL TROPONIN 7 [facility] QUANTITAT INC INC ANJALI BLOOD 72449 [facility] KENDRICKIK COUNT 7 [facility] COMPLETE INC AUTO&AUTO DIFRNTL WBC NATRIURET 03197 [facility] GARCIA IC 7 [facility] PEPTIDE INC ECG 07223 [facility] PATEL ROUTINE 7 [facility] ECG INC INC W/LEAST 12 LDS TRCG ONLY W/O I&R FIBRIN 14038 [facility] PATEL DGRADJ 7 [facility] PRODUCTS INC INC D-DIMER QUAL/SEMI KISHAN CREATINE 94131 [facility] PATEL KINASE 7 [facility] TOTAL INC INC COMPREHEN 41429 [facility] PAT[facility] SIVE 7 [facility] METABOLIC INC INC PANEL CREATINE 93178 [facility] PATEL KINASE MB 7 [facility] FRACTION INC INC ONLY COMPREHEN 71439 [facility] PAT[facility] SIVE 7 [facility] METABOLIC INC INC PANEL BLOOD 14253 [facility] PATEL COUNT 7 [facility] COMPLETE INC INC AUTO&AUTO DIFRNTL WBC OPH BMTRY 00030 [facility] 7 EYE ECHOGRAPY INSTITUTE A-SCAN IO LENS PWR SUJATA PWR K0823 [facility] GRP 2 STD 6 CAPTAINS CORPORATI CORPORATI CHAIR PT ON ON TO &=300 LBS PWR K0823 [facility] GRP 2 STD 6 [facility] CORPOR[facility] CORPORATI CHAIR PT ON ON TO &=300 LBS PET 35087 [facility] IMAGING [address] COMMUNTIY COMMUNTIY ATTENUATI HOSPITA HOSPITA ON SKULL BASE MID-THIGH PWR K0823 [facility] GRP 2 STD 6 [facility]TA[facility] CORPORATI CORPORATI CHAIR PT ON ON TO &=300 LBS PWR K0823 [facility] GRP 2 STD 6 CAPTA[place] CORPORATI CORPORATI CHAIR PT ON ON TO &=300 LBS BLOOD 22415 [facility] OCCULT 6 PHYSICIAN EVELIA PEROXIDAS S GROUP E ACTV QUAL FECES 1-3 SPEC PCV13 24190 [facility] VACCINE 6 PHYSICIAN EVELIA FOR S GROUP INTRAMUSC ULAR USE IIV 99490 [facility] ADJUVANTE 6 PHYSICIAN EVELIA D VACCINE S GROUP FOR INTRAMUSC ULAR USE ADMINISTR G0008 [facility] ATION OF 6 PHYSICIAN EVELIA INFLUENZA S GROUP VIRUS VACCINE MRI ORBIT 09326 [facility] PATEL FACE & 6 [facility] NECK W/O INC INC & W/CONTRAS T MATRL COLLECTIO 01129 [facility] STYLES N VENOUS 6 PHYSICIAN NICOLE BLOOD S GROUP VENIPUNCT URE PWR WC K0823 [facility] GRP 2 STD 6 CAPTAINS CORPORATI CORPORATI CHAIR PT ON ON TO &=300 LBS US SOFT 52682 [facility] TISSUE 6 [facility] CARE HEAD & INC NECK REAL TIME IMGE DOCM FINE 44937 [facility] PLASCENCIAON NEEDLE 6 [facility] ASPIRATIO INC INC N WITH IMAGING GUIDANCE THERAPEUT 57655 J[facility] PATEL IC PX 1/> 6 [facility] AREAS INC INC EACH 15 MIN EXERCISES THERAPEUT 15562 JORGE PATEL IC PX 1/> 6 [facility] AREAS INC INC EACH 15 MIN EXERCISES THERAPEUT 91632 JORGE PATEL IC PX 1/> 6 [facility] AREAS INC INC EACH 15 MIN EXERCISES THERAPEUT 03246 JORGE PATEL IC PX 1/> 6 [facility] AREAS INC INC EACH 15 MIN EXERCISES THERAPEUT 62519 JORGE PATEL IC PX 1/> 6 [facility] AREAS INC INC EACH [address] SOFT 59198 [facility] PLASCENCIAON TISSUE 6 [facility] NECK W/O INC INC CONTRAST MATERIAL THERAPEUT 27006 J[facility] PATEL IC PX 1/> 6 [facility] AREAS INC INC EACH 15 MIN EXERCISES THERAPEUT 05641 JORGE PATEL IC PX 1/> 6 [facility] AREAS INC INC EACH 15 MIN EXERCISES 3D 45977 [facility] PATEL RENDERING 6 [facility] W/INTERP INC INC & POSTPROCE SS SUPERVISI ON MRI 85568 [facility] PATEL SPINAL 6 [facility] CANAL INC INC CERVICAL W/O CONTRAST MATRL THERAPEUT 82009 J[facility] PATEL IC PX 1/> 6 [facility] AREAS INC INC EACH 15 MIN EXERCISES THERAPEUT 46880 JORGE PATEL IC PX 1/> 6 [facility] AREAS INC INC EACH 15 MIN EXERCISES THERAPEUT 76212 JORGE PATEL IC PX 1/> 6 [facility] AREAS INC INC EACH 15 MIN EXERCISES THERAPEUT 12303 JORGE PATEL IC PX 1/> 6 [facility] AREAS INC INC EACH 15 MIN EXERCISES THERAPEUT 31521 JORGE PATEL IC PX 1/> 6 [facility] AREAS INC INC EACH 15 MIN EXERCISES THERAPEUT 30288 JORGE PATEL IC PX 1/> 6 [facility] AREAS INC INC EACH 15 MIN EXERCISES THERAPEUT 94679 JORGE PATEL IC PX 1/> 6 [facility] AREAS INC INC EACH 15 MIN EXERCISES THERAPEUT 74072 JORGE PATEL IC PX 1/> 6 [facility] AREAS INC INC EACH 15 MIN EXERCISES THERAPEUT 46118 JORGE PATEL IC PX 1/> 6 [facility] AREAS INC INC EACH 15 MIN EXERCISES PHYSICAL 39871 JORGEJOEL PATEL THERAPY 6 [facility] EVALUATIO INC INC N COLLECTIO 91197 [facility] N VENOUS 6 PHYSICIAN EVELIA BLOOD S GROUP VENIPUNCT URE INJECTION J3301 PROGRESSI JOHN 6 VE REBECA TRIAMCINO PODIATRY LONE ACETONIDE NOS 10 MG ARTHROCEN 83140 PROGRESSI JOHN TESIS 6 VE REBECA ASPIR&/IN PODIATRY J INTERM JT/BURS W/O US PHYSICAL 68666 [facility] PATEL THERAPY 6 [facility] EVALUATIO INC INC N OCCUPATIO 07734 [facility] PATEL NAL 6 [facility] THERAPY INC INC EVALUATIO N COLLECTIO 92579 [facility] N VENOUS 6 N N BLOOD COMMUNTIY COMMUNTIY VENIPUNCT HOSPITA HOSPITA URE LIPID 30990 [facility] PANEL 6 N N COMMUNTIY COMMUNTIY HOSPITA HOSPITA HEMOGLOBI 77138 [facility] N 6 N N GLYCOSYLA COMMUNTIY COMMUNTIY CARINA A1C HOSPITA HOSPITA AFO L1970 PROGRESSI JOHN PLASTIC 6 VE REBECA WITH PODIATRY ANKLE JOINT CUSTOM FABRICATE D ADD LW L2275 PROGRESSI JOHN EXTRM 6 VE REBECA VARUS/VUL PODIATRY PAYAL RYAN PLSTC MOD PADD/LN HEEL PAD L3480 PROGRESSI JOHN AND 6 VE REBECA DEPRESSIO PODIATRY N FOR SPUR RADEX 49989 [facility] FOOT 5 [facility] COMPLETE INC INC MINIMUM 3 VIEWS WALKING L4360 PROGRESSI JOHN BOOT 5 VE REBECA PNEUMATC PODIATRY &/ VACUUM PREFAB CUSTM FIT TENS E0730 EMPI INC EMPI INC DEVICE 5 4/MORE LEADS MULTI NERVE STIMULATI ON APPL 26312 [facility] PATEL MODALITY 5 [facility] 1/> AREAS INC INC ELEC STIMJ EA 15 MIN MRI 49130 [facility] PATEL SPINAL 5 [facility] CANAL INC INC LUMBAR W/O CONTRAST MATERIAL CANE E0105 LUCIANO WOLF QUAD/3-AR 5 HOME HOME CHER ALL MEDICAL MEDICAL MATL EQUIPME EQUIPME ADJUSTBL/ FIX W/TIPS RADIOLOGI 83889 J[facility]GE PATEL C EXAM 4 [facility] CHEST 2 INC INC VIEWS FRONTAL&L ATERAL URNLS DIP 78214 [facility] BAXTER 4 PHYSICIAN TARAS STICK/TAB S GROUP LET RGNT NON-AUTO W/O MICRSCP DUPLEX 81891 [facility] PATEL SCAN 4 [facility] EXTRACRAN INC INC IAL ART COMPL BI STUDY PHYSICAL 14810 [facility] PATEL THERAPY 4 [facility] EVALUATIO INC INC N RADIOLOGI 41440 J[facility] PATEL C 4 [facility] EXAMINATI INC INC ON KNEE 3 [place] [address] [facility] PATEL RETROPERI 4 [facility] TONEAL INC INC REAL TIME W/IMAGE COMPLETE BLOOD 74903 [facility] PATEL OCCULT [address] [facility] E ACTV QUAL FECES 1 DETER THERAPEUT 14072 [facility] PATEL IC 3 [facility] PROPHYLAC INC INC TIC/DX INJECTION SUBQ/IM ARTHROCEN PETTEY PETTEY TESIS 2 JAM JAM ASPIR&/IN J MAJOR JT/BURSA W/O US INJ J0702 PETTEY PETTEY BETAMETHA 2 JAM JAM SONE ACETATE & PHOSPHATE 3 MG RADIOLOGI 37131 [facility] PLASCENCIAON C 0 [facility] EXAMINATI INC INC ON KNEE 3 VIEWS RADIOLOGI 30635 [facility]ORGE C 9 [facility] EXAMINATI INC INC ON KNEE 3 VIEWS RADEX 93783 [facility] JORGE SPINE 9 [facility] LUMBOSACR INC INC AL MINIMUM 4 VIEWS Encounters Encounter Start End Date Code Location Performer Type Date OFFICE 72123 [facility] OUTPATIEN 7 7 PHYSICIAN T VISIT S GROUP 25 MINUTES EMERGENCY 66486 JORGE 7 7 [facility] DEPARTMEN INC T VISIT HIGH/URGE NT SEVERITY HOSPITAL JORGE - 7 7 [facility] OUTPATIEN INC T EMERGENCY 89636 TI[facility] CISNEROS DEPT 7 7 PHYSICIAN VISIT S, [facility] HIGH SEVERITY& THREAT FUNJ OFFICE 58406 [facility] [place] OUTPATIEN 7 7 PHYSICIAN T VISIT S GROUP 25 MINUTES HOSPITAL J[facility]GE - 7 7 [facility] OUTPATIEN INC T OFFICE 41415 [facility] OUTPATIEN 7 7 [facility] MINUTES OFFICE 02416 [facility] STYLES OUTPATIEN 6 6 PHYSICIAN T VISIT S GROUP 10 MINUTES OFFICE 25350 [facility] OUTPATIEN 6 6 PHYSICIAN T VISIT S GROUP 15 MINUTES HOSPITAL [facility] - 6 6 N OUTPATIEN COMMUNTIY T HOSPITA OFFICE 66511 [facility] ST[facility] OUTPATIEN 6 6 PHYSICIAN T VISIT S GROUP 10 MINUTES OFFICE 29619 [facility] [place] OUTPATIEN 6 6 PHYSICIAN EVELIA T VISIT S GROUP 15 MINUTES HOSPITAL J[facility]GE - 6 6 [facility] OUTPATIEN INC T OFFICE 81568 [facility] STYLES OUTPATIEN 6 6 PHYSICIAN NICOLE T VISIT S GROUP 10 MINUTES OFFICE 57731 [facility] OUTPATIEN 6 6 PHYSICIAN EVELIA T VISIT S GROUP 25 MINUTES OFFICE 54472 [facility] OUTPATIEN 6 6 PHYSICIAN NICOLE T VISIT S GROUP 10 MINUTES HOSPITAL [facility]GE - 6 6 [facility] OUTPATIEN INC T OFFICE 40337 [facility] [place] OUTPATIEN 6 6 PHYSICIAN EVELIA T VISIT S GROUP 10 MINUTES HOSPITAL JORGE - 6 6 [facility] OUTPATIEN INC T OFFICE 92149 [facility] OUTPATIEN 6 6 PHYSICIAN NICOLE T NEW 20 S GROUP MINUTES HOSPITAL [facility] - 6 6 [facility] OUTPATIEN INC T OFFICE 56878 [facility] [place] OUTPATIEN 6 6 PHYSICIAN EVELIA T VISIT S GROUP 25 MINUTES OFFICE 04557 [facility] [place] OUTPATIEN 6 6 PHYSICIAN EVELIA T VISIT S GROUP 15 MINUTES HOSPITAL [facility] - 6 6 [facility] OUTPATIEN INC T HOSPITAL [facility] - 6 6 [facility] OUTPATIEN INC T OFFICE [id number] [facility] [place] OUTPATIEN 6 6 [facility]YSIC[facility] [place] T VISIT S GROUP 15 MINUTES OFFICE 54175 [facility] [place] OUTPATIEN 6 6 PHYSICIAN [place] T [facility]ISIT S GROUP 10 MINUTES [facility] 6 6 [facility] OFFICE 49067 [facility] [place] OUTPATIEN 6 6 PHYSICIAN [place] T VISIT S GROUP 15 MINUTES OFFICE 48372 PROGRESSI JOHN OUTPATIEN 6 6 VE REBECA T VISIT 5 PODIATRY MINUTES OFFICE 11652 BEN DATX ANJ OUTPATIEN 6 6 MD BRETT, T VISIT PSC 10 MINUTES [facility] 6 [facility] T OFFICE 04248 PROGRESSI JOHN OUTPATIEN 6 6 VE REBECA T VISIT 5 PODIATRY MINUTES [facility] - 6 6 N OUTPATIEN COMMUNTIY T HOSPITA OFFICE 00150 [facility] OUTPATIEN 6 6 N T NEW 45 NEUROLOGY MINUTES OFFICE 86219 [facility] [place] OUTPATIEN 6 6 PHYSICIAN [place] T VISIT S GROUP 15 MINUTES OFFICE 88289 BENTopher PURVIS CRI OUTPATIEN 5 5 MD BRETT, T VISIT PSC 25 MINUTES OFFICE 96819 [facility] JOHN OUTPATIEN 5 5 GABRIELA REBECA T VISIT 5 MINUTES OFFICE 61554 [facility] JOHN OUTPATIEN 5 5 GABRIELA REBECA T VISIT 15 MINUTES OFFICE 15691 [facility] [place] OUTPATIEN 5 5 PHYSICIAN [place] T VISIT S GROUP 10 MINUTES OFFICE 87327 FALLIS JOHN OUTPATIEN 5 5 GABRIELA REBECA T VISIT 15 MINUTES [facility] - 5 5 [facility] INC T OFFICE 23663 FALLIS JOHN OUTPATIEN 5 5 GABRIELA REBECA T NEW 30 MINUTES OFFICE 02155 [facility] BRETT BUX ANJ OUTPATIEN 5 5 MD T NEW 30 MINUTES OFFICE 07516 [facility] [place] OUTPATIEN 5 5 PHYSICIAN [place] T VISIT S GROUP 25 MINUTES OFFICE 06328 [facility] [place] OUTPATIEN 5 5 PHYSICIAN [place] T VISIT S GROUP 15 MINUTES OFFICE 79422 [facility] JAVON OUTPATIEN 5 5 [facility] NEW 45 MEDICAL MINUTES [facility] - 5 5 [facility] - 5 5 [facility] - 4 4 [facility] - 4 4 [facility] - 4 4 [facility] - 4 4 [facility] - 4 4 [facility] PERIODIC 72338 [facility] PATEL PREVENTIV 3 3 REPLACED BY [facility] CENTER PATIENT 63YRS& OLDER Emergency SHAAN Porter MD (ER) 3 19:12 3 22:[address] [facility] - 3 3 [facility] OFFICE 07510 CODY II CODY II OUTPATIEN 3 3 [facility] VISIT 10 MINUTES OFFICE 14060 CODY II CODY II OUTPATIEN 3 3 [facility] VISIT 10 MINUTES PERIODIC 23040 [facility] PATEL PREVENTIV 2 2 [facility] PATIENT 63YRS& [facility] - 0 0 [facility] OFF[facility] 30033 A Jose GAMBLE OUTPATIEN 0 0 [facility] VISIT PSC 25 MINUTES OFFICE 10393 A Jose GAMBLE OUTPATIEN 0 0 [facility]urt VISIT PSC 15 MINUTES [facility] - 9 9 [facility] OFF[facility] 36284 SOLE WHIPPLE, ENRIKE 9 9 GERALD PEREYRA [address] W MINUTES
--- OUTSIDE RECORDS SUMMARY | 2016-06-09 01:52 | External Medical Summary Rpt ---
Author Author , Organization [employer] Address Unknown Phone Unavailable Care Team Providers Care Trestle Mechanic Name Role Phone BEN WEST MD, PSC, Unavailable Unavailable BEN WEST MD, PSC [facility] Unavailable Unavailable MEDICAL GROUP, [facility] ILANA, ILANA Unavailable Unavailable BROWN, BROWN Unavailable Unavailable JOHN REBECA, JOHN Unavailable Unavailable REBECA BUX ANJ, BUX ANJ Unavailable Unavailable BAXTER TARAS, BAXTER Unavailable Unavailable TARAS JAVON STEFAN, Unavailable Unavailable JAVON STEFAN [facility], [facility] Unavailable Unavailable [facility], [facility] Unavailable Unavailable FALLIS GABRIELA, FALLIS Unavailable Unavailable GABRIELA MARTIN, MARTIN Unavailable Unavailable MARTIN EVELIA, MARTIN Unavailable Unavailable EVELIA [facility] Unavailable Unavailable HOSPITA, [facility], Unavailable Unavailable [facility] Unavailable Unavailable CENTER, [facility] Unavailable Unavailable CENTER, [facility] Unavailable Unavailable INC, [facility], Unavailable Unavailable [facility] Unavailable Unavailable CORPORATION, [facility] Unavailable Unavailable [employer]PORATION, [employer] Unavailable Unavailable CORPORATION, [employer] [facility], [facility] Unavailable Unavailable KALIK, KALIK Unavailable Unavailable [facility], [facility] Unavailable Unavailable [facility], [facility], GUSTAVO Unavailable Unavailable HOME [facility] YANIV CRI, YANIV CRI Unavailable Unavailable STYLES, STYLES Unavailable Unavailable STYLES NICOLE, STYLES Unavailable Unavailable NICOLE MARJ WEST MD, MARJ Unavailable Unavailable DATX GERALD ROSE, Unavailable Unavailable [facility], Unavailable Unavailable [facility], [facility] Unavailable Unavailable LAB, [facility] PETTEY JAM, PETTEY Unavailable Unavailable JAM PETTEY JAM, PETTEY Unavailable Unavailable J[facility], Unavailable Unavailable [facility] CODY II YINA, CODY Unavailable Unavailable II YINA CODY II YINA, CODY Unavailable Unavailable II DAKOTA DONAHUE, Unavailable Unavailable DAKOTA GAMBLE SMITH MEL Unavailable Unavailable [facility] Unavailable Unavailable [facility], [facility] Unavailable Unavailable [facility], [facility] Purpose Continuity of Care Document - 08-09-2008 through 2016 Problems Code Diagnosis DOS Provider Status G629 POLYNEUROPA 04-23-2016 [facility] THY PHYSICIANS UNSPECIFIED GROUP G8929 OTHER 04-23-2016 [facility] CHRONIC PHYSICIANS PAIN GROUP M5090 CERVICAL 04-23-2016 [facility] DISC PHYSICIANS DISORDER GROUP UNS UNS CERVICAL REGION U97NEYO UNSPECIFIED 04-23-2016 [facility] FALL PHYSICIANS INITIAL GROUP ENCOUNTER R0600 DYSPNEA 04-04-2016 [facility] R0602 SHORTNESS 04-04-2016 [facility] R410 DISORIENTAT 04-04-2016 [facility] UNSPECIFIED IMAGING ASS R42 DIZZINESS 04-04-2016 [facility], GIDDINESS [facility] R51 HEADACHE 04-04-2016 [facility] R531 WEAKNESS 04-04-2016 [facility] I10 ESSENTIAL 02-27-2016 [facility] PRIMARY PHYSICIANS HYPERTENSIO GROUP N [id number] WRIST DROP 02-27-2016 [facility] RIGHT WRIST PHYSICIANS GROUP C71197 FOOT DROP 02-27-2016 [facility] RIGHT FOOT PHYSICIANS GROUP M6258 MUSCLE 02-27-2016 [facility] WASTING & PHYSICIANS ATROPHY NEC GROUP OTHER SITE R5383 OTHER 02-27-2016 [facility] FATIGUE PHYSICIANS GROUP N00927 OTHER LONG 02-27-2016 [facility] TERM PHYSICIANS CURRENT GROUP DRUG THERAPY C23975 DERMATOCHAL 02-19-2016 [facility] RIGHT UPPER INSTITUTE EYELID F21306 DERMATOCHAL 02-19-2016 [facility] LEFT UPPER INSTITUTE EYELID U45145 COMBINED 02-19-2016 [facility]RELATED INSTITUTE CATARACT LEFT EYE Q13926 COMBINED 02-19-2016 [facility] CATARACT BILATERAL H538 OTHER 02-19-2016 [facility] S I639 CEREBRAL 01-26-2016 [facility] IN[facility] [employer] UNSPECIFIED Z9181 HISTORY OF 01-26-2016 [facility] FALLING [employer] R220 LOCALIZED 12-28-2015 [facility] SWELLING PHYSICIANS MASS AND GROUP LUMP HEAD R590 LOCALIZED 12-28-2015 [facility] ENLARGED PHYSICIANS LYMPH NODES GROUP M5030 OTH 12-21-2015 [facility] CERVICAL PHYSICIANS DISC GROUP DEGENERATIO N UNS CERV REGION N289 DISORDER OF 12-21-2015 [facility] KIDNEY AND PHYSICIANS URETER GROUP UNSPECIFIED R269 UNSPECIFIED 12-21-2015 [facility] PHYSICIANS ABNORMALITI GROUP ES OF GAIT AND MOBILITY R296 REPEATED 12-21-2015 [facility] FALLS PHYSICIANS GROUP K116 MUCOCELE OF 12-10-2015 [facility] D1800 HEMANGIOMA 11-16-2015 [facility] UNSPECIFIED PHYSICIANS SITE GROUP Z1211 ENCOUNTER 10-23-2015 [facility] SCREENING PHYSICIANS MALIGNANT GROUP NEOPLASM OF COLON Z23 ENCOUNTER 10-23-2015 [facility] FOR PHYSICIANS IMMUNIZATIO GROUP N D490 NEOPLASM OF 10-19-2015 [facility] UNS [facility] BEHAVIOR INC DIGESTIVE SYSTEM F87712O UNSPECIFIED 09-25-2015 [facility] INJURY PHYSICIANS FOOT UNS GROUP SIDE INITIAL ENCNTR K118 OTHER 08-29-2015 [facility] DISEASES OF [facility] SALIVARY INC GLANDS H6123 IMPACTED 07-31-2015 [facility] CERUMEN PHYSICIANS BILATERAL GROUP M9981 OTHER 07-31-2015 [facility] BIOMECHANIC PHYSICIANS AL LESIONS GROUP OF CERVICAL REGION G9050 COMPLEX 07-27-2015 [facility] REGIONAL PHYSICIANS PAIN GROUP SYNDROME I UNSPECIFIED E49925 SPONTANEOUS 04-03-2015 PROGR[facility] RUPTURE PODIATRY FLEXOR TENDONS RT ANKLE FOOT M7751 OTHER 04-03-2015 PROGRESSIVE ENTHESOPATH PODIATRY Y OF RIGHT FOOT F25625 PAIN IN 04-03-2015 PRO[facility] RIGHT LOWER PODIATRY LEG M5116 INTERVERTEB 04-02-2015 BEN WEST RAL DISC , PSC D/O W/RADICULOP ATHY LUMB RGN M6281 MUSCLE 03-08-2015 [facility] GENERALIZED M5416 RADICULOPAT 02-05-2015 BEN WEST HY LUMBAR , PSC REGION I959 HYPOTENSION 12-12-2014 [facility] PHYSICIANS UNSPECIFIED GROUP I890 LYMPHEDEMA 11-09-2014 FALLIS GABRIELA NOT ELSEWHERE CLASSIFIED F68483 PAIN IN 11-09-2014 PROGRESSIVE LEFT FOOT PODIATRY D01799M NONDSPL FX 11-09-2014 PROGRESSIVE 5TH PODIATRY METATARSAL LT FT INIT ENC CLOS FX 4439 UNSPECIFIED 10-05-2014 FALLIS GABRIELA PERIPHERAL VASCULAR DISEASE 55554 EXOSTOSIS 10-05-2014 FALLIS GABRIELA OF UNSPECIFIED SITE 7295 PAIN IN 10-05-2014 FALLIS GABRIELA SOFT TISSUES OF LIMB 77442 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 7244 THORACIC/PAVEL 08-07-2014 MARJ COTOOSASANTI GAITAN NEURITIS/RA DICULITIS UNSPEC 3559 MONONEURITI 07-31-2014 [facility] S OF PHYSICIANS UNSPECIFIED GROUP SITE 4019 UNSPECIFIED 07-31-2014 [facility] ESSENTIAL PHYSICIANS HYPERTENSIO GROUP N 5939 UNSPECIFIED 07-31-2014 [facility] DISORDER PHYSICIANS OF KIDNEY GROUP AND URETER 81616 OSTEOARTHRO 07-31-2014 [facility] S UNSPEC PHYSICIANS WHETHER GROUP GEN/LOC UNSPEC SITE 7245 UNSPECIFIED 07-31-2014 [facility] BACKACHE PHYSICIANS GROUP 72865 LOSS OF 07-31-2014 [facility] WEIGHT PHYSICIANS GROUP V1588 PERSONAL 07-31-2014 [facility] HISTORY OF PHYSICIANS FALL GROUP 96273 MIGRAINE 07-05-2014 YAZDANISM W/O [facility] W/O INTRACT MEDICAL W/O STAT GROUP MIGRNOSUS 3569 UNSPEC 07-05-2014 YAZDANISM HEREDIT&IDI HEALTH OPATHIC MEDICAL PERIPHERAL GROUP NEUROPATHY 40177 UNSPECIFIED 05-25-2014 [facility] ARTHROPATHY INC , LOWER LEG 7242 LUMBAGO 05-25-2014 [facility] 09308 GEN 02-16-2014 [facility] OSTEOARTHRO HOME SIS MEDICAL INVOLVING EQUIPME MULTIPLE SITES 35236 PAINFUL 01-14-2014 [facility] RESPIRATION [facility] INC 92155 HYPERTONICI 12-27-2013 [facility] TY OF PHYSICIANS BLADDER GROUP 90535 CYSTOCELE 12-27-2013 [facility] WITHOUT PHYSICIANS MENTION GROUP UTERINE PROLAPSE MIDLN 72339 URGE 12-27-2013 [facility] INCONTINENC PHYSICIANS E GROUP 00451 URINARY 12-27-2013 [facility] FREQUENCY PHYSICIANS GROUP 7804 DIZZINESS 12-15-2013 [facility] AND [facility] GIDDINESS INC 7812 ABNORMALITY 12-14-2013 [facility] OF GAIT [facility] INC V571 OTHER 12-14-2013 [facility] PHYSICAL [facility] THERAPY INC 11718 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 [facility] RHEUMATISM, INC LOWER LEG 5853 CHRONIC 06-14-2013 [facility] KIDNEY [facility] DISEASE INC STAGE III (MODERATE) V069 NEED PROPH 10-29-[address] VACCINATION HEALTH W/UNSPEC CENTER COMB VACCINE V700 ROUTINE 12-07-2012 [facility] EXAM@HEALTH CARE FACL 4660 ACUTE 04-18-2012 [facility] BRONCHITIS [facility] INC 8796 OPEN WOUND 04-07-2012 CODY II OTH&UNSPEC YINA PART TRNK W/O MENTION COMP V1083 PERSONAL 04-07-2012 CODY II HISTORY YINA OTHER MALIGNANT NEOPLASM SKIN 7265 ENTHESOPATH 01-15-2012 PETTEY JAM Y OF HIP REGION 43466 PES 01-15-2012 PETTEY JAM ANSERINUS TENDINITIS OR BURSITIS V7231 ROUTINE 11-17-2011 PATHOLOGY & GYNECOLOGIC CYTOLOGY AL LAB EXAMINATION 52707 PAIN IN 07-13-2009 [facility] JOINT, [facility] LOWER LEG INC 7149 UNSPECIFIED 06-18-2009 Patsy JUSTICE MD [facility] INFLAMMATOR Y POLYARTHROP ATHY 41191 INSOMNIA 06-18-2009 Patsy MCCORMACK MD PSC 7840 HEADACHE 03-05-2009 [place] PSC 49032 NUCLEAR 08-09-2008 SOLE, SCLEROSIS [place]ERALD W 16638 UNSPECIFIED 08-09-2008 SOLE SUBJECTIVE GERALD [place] [facility]ISUAL DISTURBANCE Medications Na ND Rx Da Fi Fi Am Da Di Ph RX Ph St me C No te ll ll ou ys ag ar # ys at rm s nt no ma ic us Or Da si cy ia de te s n re d HM 62 12 01 30 30 00 EA Ac -2 -[address] ti 10 6- 7- 00 00 SI ve PI 02 20 20 46 DE RI 00 16 17 49 N 1 96 PH 32 AR 5 MA MG CY TA OF BL CY ET NT HI AN A IN C Immunization Name Date Route CVX Reacti Commen Provid Is Given on t er Refuse d PCV13 MARTIN No VACCIN 2016 [facility] E FOR INTRAM USCULA R USE IIV MARTIN No ADJUVA 2016 [facility] NTED VACCIN E FOR INTRAM USCULA R USE Procedures Procedure DOS Code Location Performer Comment ECG 88305 [facility] ROUTINE 7 [facility] ECG INC INC W/LEAST 12 LDS TRCG ONLY W/O I&R FIBRIN 92023 [facility] DGRADJ 7 [facility] PRODUCTS INC INC D-DIMER QUAL/[place] [address] [facility] PAT[facility] TROPONIN 7 [facility] QUANTITAT INC INC ANJALI BLOOD 47068 [facility] KENDRICKIK COUNT 7 [facility] COMPLETE INC AUTO&[place] [address] [facility] PATEL HEAD/BRAI 7 [facility] N W/O INC INC CONTRAST MATERIAL RADIOLOGI 25426 [facility] PAT[facility] C 7 [facility] EXAMINATI INC INC ON CHEST SINGLE VIEW FRONTAL CREATINE 98061 [facility] KINASE 7 [facility] TOTAL INC INC NATRIURET 42958 [facility] GARCIA IC 7 [facility] PEPTIDE INC COMPREHEN 75717 [facility] SIVE 7 [facility] METABOLIC INC INC PANEL CREATINE 62228 [facility] PATEL KINASE MB 7 [facility] FRACTION INC INC ONLY COMPREHEN 74380 [facility] SIVE 7 [facility] METABOLIC INC INC PANEL BLOOD 03701 [facility] PAT[facility] COUNT 7 [facility] COMPLETE INC INC AUTO&AUTO DIFRNTL WBC OPH BMTRY 85325 [facility] 7 EYE ECHOGRAPY INSTITUTE A-SCAN IO LENS PWR SUJATA PWR K0823 [facility] GRP 2 STD 6 [facility] CORPORATI CORPORATI CHAIR PT ON ON TO &=300 LBS PWR WC K0823 [facility] GRP 2 STD 6 [facility] CORPORATI CHAIR PT ON ON TO &=300 LBS PET 03784 [facility] IMAGING [address] COMMUNTIY COMMUNTIY ATTENUATI HOSPITA HOSPITA ON SKULL BASE MID-THIGH PWR K0823 [facility] GRP 2 STD 6 [facility]POR[facility]I CORPORATI CHAIR PT ON ON TO &=300 LBS PWR K0823 [facility] GRP 2 STD 6 [facility]POR[facility]I CORPORATI CHAIR PT ON ON TO &=300 LBS PCV13 46156 [facility] 6 PHYSICIAN EVELIA FOR S GROUP INTRAMUSC ULAR USE IIV 18747 [facility] ADJUVANTE 6 PHYSICIAN EVELIA D VACCINE S GROUP FOR INTRAMUSC ULAR USE BLOOD 97061 [facility] OCCULT 6 PHYSICIAN EVELIA PEROXIDAS S GROUP E ACTV QUAL FECES 1-3 SPEC ADMINISTR G0008 [facility] ATION OF 6 PHYSICIAN EVELIA INFLUENZA S GROUP VIRUS VACCINE MRI ORBIT 12871 [facility] PATEL FACE & 6 [facility] NECK W/O INC INC & W/CONTRAS T MATRL COLLECTIO 89055 [facility] STYLES N VENOUS 6 PHYSICIAN NICOLE BLOOD S GROUP VENIPUNCT URE PWR WC K0823 [facility] GRP 2 STD 6 [facility] CORPORATI CHAIR PT ON ON TO &=300 LBS US SOFT 14607 [facility] GUSTAVO HOME TISSUE 6 [facility] CARE HEAD & INC NECK REAL TIME IMGE DOCM FINE 32859 [facility] NEEDLE 6 [facility] ASPIRATIO INC INC N WITH IMAGING GUIDANCE THERAPEUT 36701 [facility] PATEL IC PX 1/> 6 [facility] AREAS INC INC EACH 15 MIN EXERCISES THERAPEUT 10011 JOR[facility] PLASCENCIAON IC PX 1/> 6 [facility] AREAS INC INC EACH 15 MIN EXERCISES THERAPEUT 38275 [facility] PATEL IC PX 1/> 6 [facility] AREAS INC INC EACH 15 MIN EXERCISES THERAPEUT 03257 [facility] PATEL IC PX 1/> 6 [facility] AREAS INC INC EACH [address] SOFT 50779 [facility] PAT[facility] TISSUE 6 [facility] NECK W/O INC INC CONTRAST MATERIAL THERAPEUT 66384 [facility] PATEL IC PX 1/> 6 [facility] AREAS INC INC EACH 15 MIN EXERCISES THERAPEUT 46168 [facility] PATEL IC PX 1/> 6 [facility] AREAS INC INC EACH 15 MIN EXERCISES THERAPEUT 12048 [facility] PATEL IC PX 1/> 6 [facility] AREAS INC INC EACH 15 MIN EXERCISES 3D 30112 [facility] PATEL RENDERING 6 [facility] W/INTERP INC INC & POSTPROCE SS SUPERVISI ON MRI 62319 [facility] PATEL SPINAL 6 [facility] CANAL INC INC CERVICAL W/O CONTRAST MATRL THERAPEUT 45069 [facility] PATEL IC PX 1/> 6 [facility]OS[facility] AREAS INC INC EACH 15 MIN EXERCISES THERAPEUT 52939 J[facility] PATEL IC PX 1/> 6 [facility] HOSP AREAS INC INC EACH 15 MIN EXERCISES THERAPEUT 47746 [facility] PATEL IC PX 1/> 6 [facility] AREAS INC INC EACH 15 MIN EXERCISES THERAPEUT 07507 [facility] PATEL IC PX 1/> 6 [facility] AREAS INC INC EACH 15 MIN EXERCISES THERAPEUT 24471 [facility] PATEL IC PX 1/> 6 [facility]OS[facility] AREAS INC INC EACH 15 MIN EXERCISES THERAPEUT 09709 J[facility] PATEL IC PX 1/> 6 [facility]OS[facility] AREAS INC INC EACH 15 MIN EXERCISES THERAPEUT 39697 [facility] PATEL IC PX 1/> 6 [facility] AREAS INC INC EACH 15 MIN EXERCISES THERAPEUT 59597 [facility] PATEL IC PX 1/> 6 [facility] AREAS INC INC EACH 15 MIN EXERCISES THERAPEUT 38187 [facility] PATEL IC PX 1/> 6 [facility] HOS[facility] AREAS INC INC EACH 15 MIN EXERCISES PHYSICAL 58164 [facility] PATEL THERAPY 6 [facility] HOSP EVALUATIO INC INC N COLLECTIO 83864 [facility] N VENOUS 6 PHYSICIAN EVELIA BLOOD S GROUP VENIPUNCT URE INJECTION J3301 PROGRESSI JOHN 6 VE REBECA TRIAMCINO PODIATRY LONE ACETONIDE NOS 10 MG ARTHROCEN 07172 PROGRESSI PROGRESSI TESIS 6 VE VE ASPIR&/IN PODIATRY PODIATRY J INTERM JT/BURS W/O US PHYSICAL 64918 [facility] THERAPY 6 [facility] EVALUATIO INC INC N OCCUPATIO 28362 [facility] PATEL NAL 6 [facility] THERAPY INC INC EVALUATIO N HEMOGLOBI 66255 [facility] N 6 N N GLYCOSYLA COMMUNTIY COMMUNTIY CARINA A1C HOSPITA HOSPITA LIPID 84564 [facility] PANEL 6 N N COMMUNTIY COMMUNTIY HOSPITA HOSPITA COLLECTIO 52133 [facility] N VENOUS 6 N N BLOOD COMMUNTIY COMMUNTIY VENIPUNCT HOSPITA HOSPITA URE AFO L1970 PROGRESSI JOHN PLASTIC 6 VE REBECA WITH PODIATRY ANKLE JOINT CUSTOM FABRICATE D ADD LW L2275 PROGRESSI JOHN EXTRM 6 VE REBECA VARUS/VUL PODIATRY PAYAL YRAN PLSTC MOD PADD/LN HEEL PAD L3480 PROGRESSI JOHN AND 6 VE REBECA DEPRESSIO PODIATRY N FOR SPUR RADEX 02474 [facility] FOOT 5 [facility] COMPLETE INC INC MINIMUM 3 VIEWS WALKING L4360 PROGRESSI JOHN BOOT 5 VE REBECA PNEUMATC PODIATRY &/ VACUUM PREFAB CUSTM FIT TENS E0730 [facility] EMPI INC DEVICE 5 4/MORE LEADS MULTI NERVE STIMULATI ON APPL 60024 [facility] MODALITY 5 [facility] 1/> AREAS INC INC ELEC STIMJ EA 15 MIN MRI 70058 [facility] SPINAL 5 [facility] CANAL INC INC LUMBAR W/O CONTRAST MATERIAL CANE E0105 [facility] WOLF QUAD/3-WY 5 HOME HOME CHER ALL MEDICAL MEDICAL MATL EQUIPME EQUIPME ADJUSTBL/ FIX W/TIPS RADIOLOGI 80824 [facility] PATEL C EXAM 4 [facility] CHEST 2 INC INC VIEWS FRONTAL&L ATERAL URNLS DIP 27712 [facility] BAXTER 4 PHYSICIAN TARAS STICK/TAB S GROUP LET RGNT NON-AUTO W/O MICRSCP DUPLEX 39902 [facility] PAT[facility] SCAN 4 [facility] EXTRACRAN INC INC IAL ART COMPL BI STUDY PHYSICAL 43134 [facility] THERAPY 4 [facility] EVALUATIO INC INC N RADIOLOGI 77123 J[facility] PATEL C 4 [facility] EXAMINATI INC INC ON KNEE 3 [place] [address] [facility] PATEL RETROPERI 4 [facility] TONEAL INC INC REAL TIME W/IMAGE COMPLETE BLOOD 70288 [facility] PATEL OCCULT 3 [facility] E ACTV QUAL FECES 1 DETER THERAPEUT 52705 [facility] PATEL IC 3 [facility] PROPHYLAC INC INC TIC/DX INJECTION SUBQ/IM ARTHROCEN 17909 PETTEY PETTEY TESIS 2 JAM JAM ASPIR&/IN J MAJOR JT/BURSA W/O US INJ J0702 PETTEY PETTEY BETAMETHA 2 JAM JAM SONE ACETATE & PHOSPHATE 3 MG RADIOLOGI 39375 [facility] PAT[facility] C 0 [facility] EXAMINATI INC INC ON KNEE 3 VIEWS RADIOLOGI 82117 [facility] C 9 [facility] EXAMINATI INC INC ON KNEE 3 VIEWS RADEX 15621 [facility] PAT[facility] SPINE 9 [facility] LUMBOSACR INC INC AL MINIMUM 4 VIEWS Encounters Encounter Start End Date Code Location Performer Type Date OFFICE 28767 [facility] OUTPATIEN 7 7 PHYSICIAN T VISIT S GROUP 25 MINUTES [facility]OSPITAL [facility] - 7 7 [facility] INC T EMERGENCY 18162 [facility] CISNEROS DEPT 7 7 PHYSICIAN VISIT S, PLLC HIGH SEVERITY& THREAT FUNCJ EMERGENCY 06711 [facility] 7 7 [facility] DEPARTMEN INC T VISIT HIGH/URGE NT SEVERITY OFFICE 65962 [facility] OUTPATIEN 7 7 PHYSICIAN T VISIT S GROUP 25 MINUTES [facility]OSPITAL [facility] - 7 7 [facility] OUTPATIEN INC T OFFICE 68187 [facility] 7 7 [facility] MINUTES OFFICE 26065 [facility] OUTPATIEN 6 6 PHYSICIAN T VISIT S GROUP 10 MINUTES OFFICE 81181 [facility] OUTPATIEN 6 6 PHYSICIAN T VISIT S GROUP 15 MINUTES HOSPITAL [facility] - 6 6 N OUTPATIEN COMMUNTIY T HOSPITA OFFICE 71956 [facility] OUTPATIEN 6 6 PHYSICIAN T VISIT S GROUP 10 MINUTES OFFICE 17648 [facility] OUTPATIEN 6 6 PHYSICIAN EVELIA T VISIT S GROUP 15 MINUTES HOSPITAL [facility] - 6 6 [facility] OUTPATIEN INC T OFFICE 43928 [facility] OUTPATIEN 6 6 PHYSICIAN NICOLE T VISIT S GROUP 10 MINUTES OFFICE 44536 [facility] OUTPATIEN 6 6 PHYSICIAN EVELIA T VISIT S GROUP 25 MINUTES OFFICE 55903 [facility] OUTPATIEN 6 6 PHYSICIAN NICOLE T VISIT S GROUP 10 MINUTES HOSPITAL [facility] - 6 6 [facility] OUTPATIEN INC T OFFICE 27960 [facility] OUTPATIEN 6 6 PHYSICIAN EVELIA T VISIT S GROUP 10 MINUTES OFFICE 36414 [facility] OUTPATIEN 6 6 PHYSICIAN NICOLE T NEW 20 S GROUP MINUTES [facility]OSPITAL [facility] - 6 6 [facility] OUTPATIEN INC T [facility]OSPITAL [facility] - 6 6 [facility] OUTPATIEN INC T OFFICE 45299 [facility] OUTPATIEN 6 6 PHYSICIAN EVELIA T VISIT S GROUP 25 MINUTES HOSPITAL [facility] - 6 6 [facility] OUTPATIEN INC T OFFICE 74589 [facility] OUTPATIEN 6 6 PHYSICIAN EVELIA T VISIT S GROUP 15 MINUTES OFFICE 29957 [facility] OUTPATIEN 6 6 PHYSICIAN EVELIA T VISIT S GROUP 15 MINUTES HOSPITAL [facility] - 6 6 [facility] OUTPATIEN INC T OFFICE 18455 [facility] OUTPATIEN 6 6 PHYSICIAN EVELIA T VISIT S GROUP 10 MINUTES HOSPITAL [facility] - 6 6 [facility] OUTPATIEN INC T OFFICE 01361 [facility] OUTPATIEN 6 6 PHYSICIAN EVELIA T VISIT S GROUP 15 MINUTES OFFICE 14028 PROGRESSI JOHN OUTPATIEN 6 6 VE REBECA T VISIT 5 PODIATRY MINUTES OFFICE 41831 BEN DATX ANJ OUTPATIEN 6 6 MD BRETT, T VISIT PSC 10 MINUTES HOSPITAL [facility] - 6 6 [facility] OUTPATIEN INC T OFFICE 99151 PROGRESSI JOHN OUTPATIEN 6 6 VE REBECA T VISIT 5 PODIATRY MINUTES [facility] - 6 6 N OUTPATIEN COMMUNTIY T HOSPITA OFFICE 69275 [facility] OUTPATIEN 6 6 N T NEW 45 NEUROLOGY MINUTES OFFICE 66256 [facility] OUTPATIEN 6 6 PHYSICIAN EVELIA T VISIT S GROUP 15 MINUTES OFFICE 42689 BEN YANIV CRI OUTPATIEN 5 5 MD BRETT, T VISIT PSC 25 MINUTES OFFICE 79237 [facility] JOHN OUTPATIEN 5 5 GABRIELA REBECA T VISIT 5 MINUTES OFFICE 58605 [facility] JOHN OUTPATIEN 5 5 GABRIELA REBECA T VISIT 15 MINUTES OFFICE 92455 [facility] OUTPATIEN 5 5 PHYSICIAN EVELIA T VISIT S GROUP 10 MINUTES OFFICE 03657 FALLIS JOHN OUTPATIEN 5 5 GABRIELA REBECA T VISIT 15 MINUTES [facility] - [facility] 5 [facility] T OFFICE 27134 FALLIS JOHN OUTPATIEN 5 5 GABRIELA REBECA T NEW 30 MINUTES OFFICE 99299 [facility] OUTPATIEN 5 5 T NEW 30 MINUTES OFFICE 12596 [facility] OUTPATIEN 5 5 PHYSICIAN EVELIA T VISIT S GROUP 25 MINUTES OFFICE 39053 [facility] PHYSIC[facility] EVELIA T VISIT S GROUP 15 MINUTES OFFICE 69546 [facility] 5 5 [facility] NEW 45 MEDICAL MINUTES [facility] JORGE - 5 5 [facility] 5 5 [facility]EN [facility] HOSPITAL JORGE - 4 4 [facility] J[facility]GE - 4 4 [facility] J[facility]GE [facility] 4 4 [facility] J[facility] - 4 4 [facility] HOSP[facility] JORGE - 4 4 [facility]IEN [facility] PERIODIC 48134 JORGE PATEL [facility]VENTIV 3 3 [facility] EST CENTER CENTER PATIENT 63YRS& OLDER [facility] JORGE - 3 3 [facility] OUT[facility]IEN [facility] OFFICE 45189 CODY II CODY II OUTPATIEN 3 3 [facility] VISIT 10 MINUTES OFFICE 81168 CODY II CODY II OUTPATIEN 3 3 [facility] VISIT 10 MINUTES PERIODIC 26422 JORGE PATEL PREVENTIV 2 2 [facility] EST [facility] PATIENT 65YRS& OLDER [facility] JORGE - 0 0 [facility] OUTPATIEN [facility] OFFICE 31539 A Jose GAMBLE, OUTPATIEN 0 0 VINH DUNCAN T VISIT [facility] 25 MINUTES OFFICE 37911 Patsy GAMBLE OUTPATIEN 0 0 VINH Hurt VISIT [facility] 15 MINUTES [facility] JORGE - 9 9 [facility] T OFFICE 46845 SOLE WHIPPLE, OUTPATI 9 9 GERALD PEREYRA 45 W W MINUTES
--- OUTSIDE RECORDS SUMMARY | 2016-06-09 01:52 | External Medical Summary Rpt ---
Author Author , Organization [employer] Address Unknown Phone Unavailable Care Team Providers Care Wheat Washer Name Role Phone BEN WEST MD, PSC, Unavailable Unavailable BEN WEST MD, PSC [facility] Unavailable Unavailable MEDICAL GROUP, [facility] ILANA, ILANA Unavailable Unavailable BROWN, BROWN Unavailable Unavailable JOHN REBECA, JOHN Unavailable Unavailable REBECA BUX ANJ, BUX ANJ Unavailable Unavailable BAXTER TARAS, BAXTER Unavailable Unavailable TARAS JAVON STEFAN, Unavailable Unavailable JAVON STEFAN [facility], [facility] Unavailable Unavailable [facility], [facility] [facility] Unavailable Unavailable FALLIS GABRIELA, FALLIS Unavailable Unavailable GABIRELA MARTIN, MARTIN Unavailable Unavailable MARTIN EVELIA, MARTIN Unavailable Unavailable EVELIA [facility] Unavailable Unavailable HOSPITA, [facility], Unavailable Unavailable [facility] Unavailable Unavailable CENTER, [facility] Unavailable Unavailable CENTER, [facility] Unavailable Unavailable INC, [facility], Unavailable Unavailable [facility] [employer] Unavailable Unavailable [employer]PORATION, [employer] Unavailable Unavailable [employer]PORATION[facility] [employer] Unavailable Unavailable CORPORATION, [employer] [facility], [facility] Unavailable Unavailable KALIK, KALIK Unavailable Unavailable [facility] Unavailable Unavailable [facility], [facility], GUSTAVO Unavailable Unavailable HOME CARE [...] Diagnosis DOS Provider Status G629 POLYNEUROPA 04-23-[address] [facility] THY PHYSICIANS UNSPECIFIED GROUP G8929 OTHER 04-23-[address] [facility] CHRONIC PHYSICIANS PAIN GROUP M5090 CERVICAL 04-23-[address] [facility] DISC PHYSICIANS DISORDER GROUP UNS UNS CERVICAL REGION [id number] UNSPECIFIED 04-23-[address] [facility] FALL PHYSICIANS INITIAL GROUP ENCOUNTER R0600 DYSPNEA 04-04-2016 [facility] R0602 SHORTNESS 04-04-2016 [place] OF BREATH [facility] R410 DISORIENTAT 04-04-2016 [place] ION MEDICAL UNSPECIFIED IMAGING ASS R42 DIZZINESS 04-04-2016 [facility] AND PHYSICIANS, GIDDINESS [facility] R51 HEADACHE 04-04-2016 [facility] R531 WEAKNESS 04-04-2016 [facility] I10 ESSENTIAL 02-27-[address] [facility] PRIMARY PHYSICIANS HYPERTENSIO GROUP N [id number] WRIST DROP 02-27-[address] [facility] RIGHT WRIST PHYSICIANS GROUP [id number] FOOT DROP 02-27-[address] [facility] RIGHT FOOT PHYSICIANS GROUP M6258 MUSCLE 02-27-[address] [facility] WASTING & PHYSICIANS ATROPHY NEC GROUP OTHER SITE R5383 OTHER 02-27-[address] [facility] FATIGUE PHYSICIANS GROUP U89169 OTHER LONG 02-27-[address] [facility] TERM PHYSICIANS CURRENT GROUP DRUG THERAPY W64775 DERMATOCHAL 02-19-2016 [place] [facility] RIGHT UPPER INSTITUTE EYELID I81882 DERMATOCHAL 02-19-2016 [place] [facility] LEFT UPPER INSTITUTE EYELID S37338 COMBINED 02-19-2016 [place] [facility] AGE-RELATED INSTITUTE CATARACT LEFT EYE N95278 COMBINED 02-19-2016 [place] [facility]REL[facility] CATARACT BILATERAL H538 OTHER 02-19-2016 [place] [facility]ANCE [facility] S I639 CEREBRAL 01-26-2016 [facility] INFARCTION [employer] UNSPECIFIED Z9181 HISTORY OF 01-26-2016 [facility] FALLING [employer] R220 LOCALIZED 12-28-[address] [facility] SWELLING PHYSICIANS MASS AND GROUP LUMP HEAD R590 LOCALIZED 12-28-[address] [facility] ENLARGED PHYSICIANS LYMPH NODES GROUP M5030 OTH 12-21-[address] [facility] CERVICAL PHYSICIANS DISC GROUP DEGENERATIO N UNS CERV REGION N289 DISORDER OF 12-21-[address] [facility] KIDNEY AND PHYSICIANS URETER GROUP UNSPECIFIED R269 UNSPECIFIED 12-21-[address] [facility] PHYSICIANS ABNORMALITI GROUP ES OF GAIT AND MOBILITY R296 REPEATED 12-21-[address] [facility] FALLS PHYSICIANS GROUP K116 MUCOCELE OF 12-10-2015 [facility] D1800 HEMANGIOMA 11-16-[address] [facility] UNSPECIFIED PHYSICIANS SITE GROUP Z1211 ENCOUNTER 10-23-[address] [facility] SCREENING PHYSICIANS MALIGNANT GROUP NEOPLASM OF COLON Z23 ENCOUNTER 10-23-[address] [facility] FOR PHYSICIANS IMMUNIZATIO GROUP N D490 NEOPLASM OF 10-19-2015 [facility] UNS [facility] BEHAVIOR INC DIGESTIVE SYSTEM [id number] UNSPECIFIED 09-25-[address] [facility] INJURY PHYSICIANS FOOT UNS GROUP SIDE INITIAL ENCNTR K118 OTHER 08-29-2015 [facility] DISEASES OF [facility] SALIVARY INC GLANDS H6123 IMPACTED 07-31-[address] [facility] CERUMEN PHYSICIANS BILATERAL GROUP M9981 OTHER 07-31-[address] [facility] BIOMECHANIC PHYSICIANS AL LESIONS GROUP OF CERVICAL REGION G9050 COMPLEX 07-27-[address] [facility] REGIONAL PHYSICIANS PAIN GROUP SYNDROME I UNSPECIFIED Y71691 SPONTANEOUS 04-03-2015 PROGRESSIVE RUPTURE PODIATRY FLEXOR TENDONS RT ANKLE FOOT M7751 OTHER 04-03-2015 PROGRESSIVE ENTHESOPATH PODIATRY Y OF RIGHT FOOT C02864 PAIN IN 04-03-2015 PROGRESSIVE RIGHT LOWER PODIATRY LEG M5116 INTERVERTEB 04-02-2015 BEN WEST RAL DISC , PSC D/O W/RADICULOP ATHY LUMB RGN M6281 MUSCLE 03-08-2015 [facility] WE[facility] NEUROLOGY GENERALIZED M5416 RADICULOPAT 02-05-2015 BEN WEST HY LUMBAR , PSC REGION I959 HYPOTENSION 12-12-[address] [facility] PHYSICIANS UNSPECIFIED GROUP I890 LYMPHEDEMA 11-09-2014 FALLIS GABRIELA NOT ELSEWHERE CLASSIFIED Z26130 PAIN IN 11-09-2014 PROGRESSIVE LEFT FOOT PODIATRY G54055T NONDSPL FX 11-09-2014 PROGRESSIVE 5TH PODIATRY METATARSAL LT FT INIT ENC CLOS FX 4439 UNSPECIFIED 10-05-2014 FALLIS GABRIELA PERIPHERAL VASCULAR DISEASE 77009 EXOSTOSIS 10-05-2014 FALLIS GABRIELA OF UNSPECIFIED SITE 7295 PAIN IN 10-05-2014 FALLIS GABRIELA SOFT TISSUES OF LIMB 68163 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 7244 THORACIC/PAVEL 08-07-2014 MARJ COTOOSASANTI GAITAN NEURITIS/RA DICULITIS UNSPEC 3559 MONONEURITI 07-31-[address] [facility] S OF PHYSICIANS UNSPECIFIED GROUP SITE 4019 UNSPECIFIED 07-31-[address] [facility] ESSENTIAL PHYSICIANS HYPERTENSIO GROUP N 5939 UNSPECIFIED 07-31-[address] [facility] DISORDER PHYSICIANS OF KIDNEY GROUP AND URETER 72211 OSTEOARTHRO 07-31-[address] [facility] S UNSPEC PHYSICIANS WHETHER GROUP GEN/LOC UNSPEC SITE 7245 UNSPECIFIED 07-31-[address] [facility] BACKACHE PHYSICIANS GROUP 64034 LOSS OF 07-31-[address] [facility] WEIGHT PHYSICIANS GROUP V1588 PERSONAL 07-31-[address] [facility] HISTORY OF PHYSICIANS FALL GROUP 91243 MIGRAINE 07-05-2014 [facility] W/O [facility] W/O INTRACT MEDICAL W/O STAT GROUP MIGRNOSUS 3569 UNSPEC 07-05-2014 [facility]ISM HEREDIT&IDI [facility] OPATHIC MEDICAL PERIPHERAL GROUP NEUROPATHY 84820 UNSPECIFIED 05-25-2014 [facility] ARTHROPATHY INC , LOWER LEG 7242 LUMBAGO 05-25-2014 [facility] 82527 GEN 02-16-2014 LUCIANO OSTEOARTHRO HOME SIS MEDICAL INVOLVING EQUIPME MULTIPLE SITES 96696 PAINFUL 01-14-2014 [facility] RESPIRATION [facility] INC 74673 HYPERTONICI 12-27-[address] [facility] TY OF PHYSICIANS BLADDER GROUP 47657 CYSTOCELE 12-27-[address] [facility] WITHOUT PHYSICIANS MENTION GROUP UTERINE PROLAPSE MIDLN 36038 URGE 12-27-[address] [facility] INCONTINENC PHYSICIANS E GROUP 69331 URINARY 12-27-[address] 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 [facility] RHEUMATISM, INC LOWER LEG 5853 CHRONIC 06-14-2013 [facility] KIDNEY [facility] DISEASE INC STAGE III (MODERATE) V069 NEED PROPH 10-29-2013 [facility] NE VACCINATION HEALTH W/UNSPEC CENTER COMB VACCINE V700 ROUTINE 12-07-2012 [facility] EXAM@HEALTH CARE FACL 4660 ACUTE 04-18-2012 [facility] BRONCHITIS [facility] INC 8796 OPEN WOUND 04-07-2012 CODY II OTH&UNSPEC YINA PART TRNK W/O MENTION COMP V1083 PERSONAL 04-07-2012 CODY II HISTORY YINA OTHER MALIGNANT NEOPLASM SKIN 7265 ENTHESOPATH 01-15-2012 PETTEY JAM Y OF HIP REGION 25817 PES 01-15-2012 PETTEY JAM ANSERINUS TENDINITIS OR BURSITIS V7231 ROUTINE 11-17-2011 PATHOLOGY & GYNECOLOGIC CYTOLOGY AL LAB EXAMINATION 70421 PAIN IN 07-13-2009 [facility] JOINT, [facility] LOWER LEG INC 7149 UNSPECIFIED 06-18-2009 Patsy JUSTICE MD [facility] INFLAMMATOR Y POLYARTHROP ATHY 89389 INSOMNIA 06-18-2009 Patsy MCCORMACK MD PSC 7840 HEADACHE 03-05-2009 Patsy JUSTICE MD PSC 59957 NUCLEAR 08-09-2008 SOLE, SCLEROSIS GERALD W 77815 UNSPECIFIED 08-09-2008 SOLE SUBJECTIVE GERALD [place] VISUAL [...] Procedure DOS Code Location Performer Comment ECG 64993 [facility] ROUTINE 7 [facility] ECG INC INC W/LEAST 12 LDS TRCG ONLY W/O I&R FIBRIN 96417 [facility] DGRADJ 7 [facility] PRODUCTS INC INC D-DIMER QUAL/[place] [address] [facility] PATEL TROPONIN 7 [facility] QUANTITAT INC INC ANJALI BLOOD 15132 [facility] KENDRICKIK COUNT 7 [facility] COMPLETE INC AUTO&[place] [address] [facility] PATEL HEAD/BRAI 7 [facility] N W/O INC INC CONTRAST MATERIAL RADIOLOGI 88679 [facility] PATEL C 7 [facility] EXAMINATI INC INC ON CHEST SINGLE VIEW FRONTAL CREATINE 22862 [facility] KINASE 7 [facility] TOTAL INC INC NATRIURET 96878 [facility] GARCIA IC 7 [facility] PEPTIDE INC COMPREHEN 60945 [facility] SIVE 7 [facility] METABOLIC INC INC PANEL CREATINE 26492 J[facility] PATEL KINASE MB 7 [facility] FRACTION INC INC ONLY COMPREHEN 51925 [facility] PAT[facility] SIVE 7 [facility] METABOLIC INC INC PANEL BLOOD 32577 [facility] PATEL COUNT 7 [facility] COMPLETE INC INC AUTO&AUTO DIFRNTL WBC OPH BMTRY 61441 [facility] 7 [facility]YE E[facility] INSTITUTE A-SCAN IO LENS PWR SUJATA PWR K0823 [facility] GRP 2 STD 6 CAPTAINS CORPORATI CORPORATI CHAIR PT ON ON TO &=300 LBS PWR WC K0823 [facility] GRP 2 STD 6 [facility] CORPOR[facility] CORPORATI CHAIR PT ON ON TO &=300 LBS PET 23638 [facility] IMAGING [address] COMMUNTIY COMMUNTIY ATTENUATI HOSPITA HOSPITA ON SKULL BASE MID-THIGH PWR K0823 [facility] GRP 2 STD 6 [facility] CORPORATI CORPORATI CHAIR PT ON ON TO &=300 LBS PWR K0823 [facility] GRP 2 STD 6 [facility] CORPORATI CORPORATI CHAIR PT ON ON TO &=300 LBS PCV13 95625 [facility] 6 PHYSICIAN EVELIA FOR S GROUP INTRAMUSC ULAR USE IIV [address] [facility] MARTIN ADJUVANTE 6 PHYSICIAN EVELIA D VACCINE S GROUP FOR INTRAMUSC ULAR USE BLOOD [address] [facility] M[facility]IN OCCULT 6 PHYSICIAN EVELIA PEROXIDAS S GROUP E ACTV QUAL FECES 1-3 SPEC ADMINISTR G[address] [facility] MARTIN ATION OF 6 PHYSICIAN EVELIA INFLUENZA S GROUP VIRUS VACCINE MRI ORBIT 52553 [facility] PATEL FACE & 6 [facility] NECK W/O INC INC & W/CONTRAS T MATRL COLLECTIO [address] [facility] STYLES N VENOUS 6 PHYSICIAN NICOLE BLOOD S GROUP VENIPUNCT URE PWR WC K0823 [facility] GRP 2 STD 6 [facility] CORPOR[facility] CORPORATI CHAIR PT ON ON TO &=300 LBS US SOFT 30822 [facility] GUSTAVO HOME TISSUE 6 [facility] CARE HEAD & INC NECK REAL TIME IMGE DOCM FINE 13046 [facility] PAT[facility] NEEDLE 6 [facility] ASPIRATIO INC INC N WITH IMAGING GUIDANCE THERAPEUT 01917 [facility] PATEL IC PX 1/> 6 [facility] AREAS INC INC EACH 15 MIN EXERCISES THERAPEUT 22018 JRO[facility] PLASCENCIAON IC PX 1/> 6 [facility] AREAS INC INC EACH 15 MIN EXERCISES THERAPEUT 67140 [facility] PATEL IC PX 1/> 6 [facility] AREAS INC INC EACH 15 MIN EXERCISES THERAPEUT 36028 [facility] PATEL IC PX 1/> 6 [facility] AREAS INC INC EACH [address] SOFT 91705 [facility] TISSUE 6 [facility] NECK W/O INC INC CONTRAST MATERIAL THERAPEUT 82748 [facility] PATEL IC PX 1/> 6 [facility] AREAS INC INC EACH 15 MIN EXERCISES THERAPEUT 88278 [facility] PATEL IC PX 1/> 6 [facility] AREAS INC INC EACH 15 MIN EXERCISES THERAPEUT 55152 [facility] PATEL IC PX 1/> 6 [facility] AREAS INC INC EACH 15 MIN EXERCISES 3D 91653 [facility] PATEL RENDERING 6 [facility] W/INTERP INC INC & POSTPROCE SS SUPERVISI ON MRI 61550 [facility] PATEL SPINAL 6 [facility] CANAL INC INC CERVICAL W/O CONTRAST MATRL THERAPEUT 56559 [facility] PATEL IC PX 1/> 6 [facility] AREAS INC INC EACH 15 MIN EXERCISES THERAPEUT 48776 [facility] PATEL IC PX 1/> 6 [facility]OSP AREAS INC INC EACH 15 MIN EXERCISES THERAPEUT 90246 [facility] PATEL IC PX 1/> 6 [facility] AREAS INC INC EACH 15 MIN EXERCISES THERAPEUT 39941 [facility] PATEL IC PX 1/> 6 [facility] AREAS INC INC EACH 15 MIN EXERCISES THERAPEUT 28063 [facility] PATEL IC PX 1/> 6 [facility] AREAS INC INC EACH 15 MIN EXERCISES THERAPEUT 23533 J[facility]GE PATEL IC PX 1/> 6 [facility] AREAS INC INC EACH 15 MIN EXERCISES THERAPEUT 13665 [facility] PATEL IC PX 1/> 6 [facility] AREAS INC INC EACH 15 MIN EXERCISES THERAPEUT 19446 [facility] PATEL IC PX 1/> 6 [facility] AREAS INC INC EACH 15 MIN EXERCISES THERAPEUT 32865 [facility] PATEL IC PX 1/> 6 [facility] HOSP AREAS INC INC EACH 15 MIN EXERCISES PHYSICAL 95250 [facility] PATEL THERAPY 6 [facility] HOSP EVALUATIO INC INC N COLLECTIO 02816 [facility] N VENOUS 6 PHYSICIAN EVELIA BLOOD S GROUP VENIPUNCT URE INJECTION J3301 PROGRESSI JOHN 6 VE REBECA TRIAMCINO PODIATRY LONE ACETONIDE NOS 10 MG ARTHROCEN 91162 PROGRESSI PROGRESSI TESIS 6 VE VE ASPIR&/IN PODIATRY PODIATRY J INTERM JT/BURS W/O US PHYSICAL 30490 [facility] THERAPY 6 [facility] EVALUATIO INC INC N OCCUPATIO 70178 [facility] PATEL NAL 6 [facility] THERAPY INC INC EVALUATIO N HEMOGLOBI 61173 [facility] N 6 N N GLYCOSYLA COMMUNTIY COMMUNTIY CARINA A1C HOSPITA HOSPITA LIPID 81802 [facility] PANEL 6 N N COMMUNTIY COMMUNTIY HOSPITA HOSPITA COLLECTIO 88953 [facility] N VENOUS 6 N N BLOOD COMMUNTIY COMMUNTIY VENIPUNCT HOSPITA HOSPITA URE AFO L1970 PROGRESSI JOHN PLASTIC 6 VE REBECA WITH PODIATRY ANKLE JOINT CUSTOM FABRICATE D ADD LW L2275 PROGRESSI JOHN EXTRM 6 VE REBECA VARUS/VUL PODIATRY PAYAL RYAN PLSTC MOD PADD/LN HEEL PAD L3480 PROGRESSI JOHN AND 6 VE REBECA DEPRESSIO PODIATRY N FOR SPUR RADEX 87913 [facility] FOOT 5 [facility] COMPLETE INC INC MINIMUM 3 VIEWS WALKING L4360 PROGRESSI JOHN BOOT 5 VE REBECA PNEUMATC PODIATRY &/ VACUUM PREFAB CUSTM FIT TENS E0730 [facility] EMPI INC DEVICE 5 4/MORE LEADS MULTI NERVE STIMULATI ON APPL 64297 [facility] MODALITY 5 [facility] 1/> AREAS INC INC ELEC STIMJ EA 15 MIN MRI 02450 [facility] SPINAL 5 [facility] CANAL INC INC LUMBAR W/O CONTRAST MATERIAL CANE E0105 LUCIANO WOLF QUAD/3-GA 5 HOME HOME CHER ALL MEDICAL MEDICAL MATL EQUIPME EQUIPME ADJUSTBL/ FIX W/TIPS RADIOLOGI 37512 [facility] PATEL C EXAM 4 [facility] CHEST 2 INC INC VIEWS FRONTAL&L ATERAL URNLS DIP [address] [facility] BAXTER 4 PHYSICIAN TARAS STICK/TAB S GROUP LET RGNT NON-AUTO W/O MICRSCP DUPLEX 96883 [facility] SCAN 4 [facility] EXTRACRAN INC INC IAL ART COMPL BI STUDY PHYSICAL 33615 [facility] THERAPY 4 [facility] EVALUATIO INC INC N RADIOLOGI 08030 J[facility] PAT[facility] C 4 [facility] EXAMINATI INC INC ON KNEE 3 [place] [address] [facility] PATEL RETROPERI 4 [facility] TONEAL INC INC REAL TIME W/IMAGE COMPLETE BLOOD 24697 [facility] PATEL OCCULT 3 [facility] E ACTV QUAL FECES 1 DETER THERAPEUT 30770 [facility] PATEL IC 3 [facility] PROPHYLAC INC INC TIC/DX INJECTION SUBQ/IM ARTHROCEN 92591 PETTEY PETTEY TESIS 2 JAM JAM ASPIR&/IN J MAJOR JT/BURSA W/O US INJ J0702 PETTEY PETTEY BETAMETHA 2 JAM JAM SONE ACETATE & PHOSPHATE 3 MG RADIOLOGI 71499 [facility] C 0 [facility] EXAMINATI INC INC ON KNEE 3 VIEWS RADIOLOGI 88721 [facility] PAT[facility] C 9 [facility] EXAMINATI INC INC ON KNEE 3 VIEWS RADEX 00904 [facility] PAT[facility] SPINE 9 [facility] LUMBOSACR INC INC AL MINIMUM 4 VIEWS Encounters Encounter Start End Date Code Location Performer Type Date OFFICE [address] [facility] MARTIN OUTPATIEN 7 7 PHYSICIAN T VISIT S GROUP 25 MINUTES HOSPITAL [facility] - 7 7 [facility] OUTPATIEN INC T EMERGENCY 97996 TIARRA CISNEROS DEPT 7 7 PHYSICIAN VISIT S, PLLC HIGH SEVERITY& THREAT FUNCJ EMERGENCY 83323 [facility] 7 7 [facility] DEPARTMEN INC T VISIT HIGH/URGE NT SEVERITY OFFICE [address] [facility] OUTPATIEN 7 7 PHYSICIAN T VISIT S GROUP 25 MINUTES HOSPITAL [facility] - 7 7 [facility] OUTPATIEN INC T OFFICE 06746 [place] [facility] OUTPATIEN 7 7 EYE T NEW 30 INSTITUTE MINUTES OFFICE [address] [facility] STYLES OUTPATIEN 6 6 PHYSICIAN T VISIT S GROUP 10 MINUTES OFFICE [address] [facility] OUTPATIEN 6 6 PHYSICIAN T VISIT S GROUP 15 MINUTES HOSPITAL [place] - 6 6 N OUTPATIEN COMMUNTIY T HOSPITA OFFICE [address] [facility] STYLES OUTPATIEN 6 6 PHYSICIAN T VISIT S GROUP 10 MINUTES OFFICE [address] [facility] OUTPATIEN 6 6 PHYSICIAN EVELIA T VISIT S GROUP 15 MINUTES HOSPITAL [facility] - 6 6 [facility] OUTPATIEN INC T OFFICE [address] [facility] STYLES OUTPATIEN 6 6 PHYSICIAN NICOLE T VISIT S GROUP 10 MINUTES OFFICE [address] [facility] OUTPATIEN 6 6 PHYSICIAN EVELIA T VISIT S GROUP 25 MINUTES OFFICE [address] [facility] ST[facility]LES OUTPATIEN 6 6 PHYSICIAN NICOLE T VISIT S GROUP 10 MINUTES HOSPITAL [facility] - 6 6 [facility] OUTPATIEN INC T OFFICE [address] [facility] OUTPATIEN 6 6 PHYSICIAN EVELIA T VISIT S GROUP 10 MINUTES OFFICE [address] [facility] ST[facility]LES OUTPATIEN 6 6 PHYSICIAN NICOLE T NEW 20 S GROUP MINUTES HOSPITAL [facility] - 6 6 [facility] OUTPATIEN INC T HOSPITAL [facility] - 6 6 [facility] OUTPATIEN INC T OFFICE [address] [facility] OUTPATIEN 6 6 PHYSICIAN EVELIA T VISIT S GROUP 25 MINUTES HOSPITAL [facility] - 6 6 [facility] OUTPATIEN INC T OFFICE [address] [facility] OUTPATIEN 6 6 PHYSICIAN EVELIA T VISIT S GROUP 15 MINUTES OFFICE [address] [facility] OUTPATIEN 6 6 PHYSICIAN EVELIA T VISIT S GROUP 15 MINUTES HOSPITAL [facility] - 6 6 [facility] OUTPATIEN INC T OFFICE [address] [facility] OUTPATIEN 6 6 PHYSICIAN EVELIA T VISIT S GROUP 10 MINUTES HOSPITAL [facility] - 6 6 [facility] OUTPATIEN INC T OFFICE [address] [facility] OUTPATIEN 6 6 PHYSICIAN EVELIA T VISIT S GROUP 15 MINUTES OFFICE 07473 PROGRESSI JOHN OUTPATIEN 6 6 VE REBECA T VISIT 5 PODIATRY MINUTES OFFICE 70073 BEN DATX ANJ OUTPATIEN 6 6 MD BRETT, T VISIT PSC 10 MINUTES HOSPITAL [facility] - 6 6 [facility] OUTPATIEN INC T OFFICE 25797 PROGRESSI JOHN OUTPATIEN 6 6 VE REBECA T VISIT 5 PODIATRY MINUTES LDS [facility] - 6 6 N OUTPATIEN COMMUNTIY T HOSPITA OFFICE 61822 [facility] OUTPATIEN 6 6 N T NEW 45 NEUROLOGY MINUTES OFFICE [address] [facility] OUTPATIEN 6 6 PHYSICIAN EVELIA T VISIT S GROUP 15 MINUTES OFFICE 30089 BEN YANIV CRI OUTPATIEN 5 5 MD BRETT, T VISIT PSC 25 MINUTES OFFICE 67084 [facility] JOHN OUTPATIEN 5 5 GABRIELA REBECA T VISIT 5 MINUTES OFFICE 82022 [facility] JOHN OUTPATIEN 5 5 GABRIELA REBECA T VISIT 15 MINUTES OFFICE [address] [facility] OUTPATIEN 5 5 PHYSICIAN EVELIA T VISIT S GROUP 10 MINUTES OFFICE 23235 [facility] JOHN OUTPATIEN 5 5 GABRIELA REBECA T VISIT 15 MINUTES HOSPITAL [facility] - 5 5 [facility] OUTPATIEN INC T OFFICE 63708 [facility] JOHN OUTPATIEN 5 5 GABRIELA REBECA T NEW 30 MINUTES OFFICE 37543 [facility]J OUTPATIEN 5 5 T NEW 30 MINUTES OFFICE [address] [facility] OUTPATIEN 5 5 PHYSICIAN EVELIA T VISIT S GROUP 25 MINUTES OFFICE 87035 [facility] PHYS[facility] T VISIT S GROUP 15 MINUTES OFFICE 39664 [facility] OUTPATIEN 5 5 [facility] NEW 45 MEDICAL MINUTES [facility] 5 [facility] 5 5 [facility] HOSPITAL JORGE - 4 4 [facility] JORGE - 4 4 [facility] - 4 4 [facility] - 4 4 [facility] HOSPITAL JORGE [facility] 4 4 [facility] PERIODIC [id number] JORGE PATEL [facility]VENTIV 3 3 [facility] PATIENT 63Y[facility]& [facility] - 3 3 [facility] OFFICE 25932 CODY II CODY II OUTPATIEN 3 3 [facility] VISIT 10 MINUTES OFFICE 55406 CODY II CODY II OUTPATIEN 3 3 [facility] VISIT 10 MINUTES PERIODIC 85869 JORGE PATEL [facility]VENTIV 2 2 [facility] [place] [facility]IENT 63Y[facility] - 0 0 [facility] OUT[facility] OFFICE 55172 A Jose GAMBLE, OUTPATIEN 0 0 VINH DNUCAN T VISIT [facility] 25 MINUTES OFFICE 64787 Patsy GAMBLE OUTPATIEN 0 0 VINH Hurt VISIT [facility] 15 MINUTES [facility] JORGE - 9 9 [facility] OUTPATIEN [facility] T OFFICE 75668 SOLE WHIPPLE, OUTPATI 9 9 GERALD PEREYRA 45 W W MINUTES
--- OUTSIDE RECORDS SUMMARY | 2016-06-09 01:53 | External Medical Summary Rpt ---
Author Author MARGARET Juarez, MARGARET Juarez Organization [employer] Address Unknown Phone Unavailable
--- OUTSIDE RECORDS SUMMARY | 2016-06-09 01:53 | External Medical Summary Rpt ---
Demographics Preferred Language Azeri Marital Status Unknown Worship Affiliation Unknown Race Unknown Ethnic Group Unknown Author Author , Organization [employer] Address Unknown Phone Unavailable Purpose Continuity of Care Document - through 2016 Immunization No patient found.
--- OUTSIDE RECORDS SUMMARY | 2016-06-09 01:53 | External Medical Summary Rpt ---
Demographics Preferred Language Thai Marital Status Unknown Spiritism Affiliation Unknown Race Unknown Ethnic Group Unknown Author Author , Organization [employer] Address Unknown Phone Unavailable Purpose Continuity of Care Document - through 2016 Immunization No patient found.
== END 2016-06-07 21:55 | disposition home or self-care (01) ==
LOC: UTC 20:46
DX: K11.21 Acute sialoadenitis (principal)

== ENCOUNTER 2016-11-19 09:27 | Inpatient (IN) | payer MEDICARE, MEDICAID ==
[~2016-11-19] VITALS: Ht 157.5 cm; Wt 66.0 kg
[~2016-11-19 09:27] MED LIST changes: +ACIDOPHILUS1 CTB PO; -ASPIRIN 81MG TA81 MG PO; +ASPIRIN325 M1 PO; +CLINDAMYCIN HC300 MG PO; +LYRICA150 M1 PO
[2016-11-19 09:29] VITALS: BP 106/64
--- NOTE | 2016-11-19 09:38 | Emergency Room Report ---
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 EMS REPORTS PT WAS ABLE TO ANSWER MOST OF THE QUESTIONS AND DENIES ANY COMPLAINTS OF PAIN. 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 N Clinical Suspician of Infection? N Mental Status: 1 - Regular (Normal Baseline) Sepsis Risk:Low Sepsis Risk Have you (or family members/close friends) recently traveled outside the [place]? N If Yes, where/when: Have you had exposure to infectious disease within the past month? TB? Other? Specify: Comment The patient was reportedly found on the floor this morning by a home health care nurse. Patient states she does not know how she got there or how long she had been there. She does not remember falling. She complains that she feels tired, but otherwise has no complaints. She has no pain. No recent illness. No cough, fever, vomiting, diarrhea, urinary complaints. She states she is eating and drinking normally. She lives alone. Primary care provider is Dr. Porter. ALLERGIES Coded Allergies: Penicillins (UNKNOWN 04/04/16) Home Medications Active Scripts Oxycodone 5MG/[id number] (Oxycodone-Acetaminophen 5-325) 1 TAB PO TID PRN pain #90 TAB Prov: 02/05/15 Reported Medications ACETAMINOPHEN WITH CODEINE (Tylenol With Codeine #3 Tablet) 1 TAB PO PRN PRN pain ASPIRIN (Aspirin) 81 MG PO DAILY Metoprolol Tartrate (Metoprolol) 25 MG PO DAILY Pregabalin (Lyrica) 150 MG PO BID #60 History Medical History General CAD? No Angina: No [place]: No Hypertension? Yes Hyperlipidemia? No CHF? No DVT? No PE? No COPD? No Asthma? No Anemia? No GERD? No Gastric ulcers? No GI Bleed? No Hernia? No Thyroid Problems? No Hypothyroidism? No CVA? No Seizures? No Diabetes? No End Stage Renal Disease? No UTI? No Stones? No GB Disease: No Nephritic Syndrome? No Asplenia? No Hepatitis? No Sickle Cell Disease? No Arthritis? Yes Migraines? No Cataracts? No Glaucoma? No MRSA? No HIV? No TB? No Anxiety? No Depression? No Cancer? No Immunization Hx DT/Tetanus NOT SURE Flu UNKNOWN Pneumonia UNKNOWN Surgical Hx Previous Surgery?Y Appendectomy GASTRIC BYPASS TUBUAL Hysterectomy-Total TUBAL Social History Smoking Hx Packs/day N/A Alcohol Alcohol: No Review of Systems All Other Systems Reviewed and Negative Constitutional denies fever Respiratory denies cough, denies shortness of breath Cardiovascular denies chest pain Gastrointestinal denies abdominal pain, denies constipation, denies diarrhea, denies nausea, denies vomiting Genitourinary denies: dysuria. Musculoskeletal denies back pain, denies neck pain Psychiatric/Neurological denies headache, denies numbness, weakness Physical Exam Vital Signs Vital Signs Date Time Temp Pulse Resp B/P Pulse O2 O2 Flow FiO2 Ox Delivery Rate 11/19 1206 70 11/19 1206 98.3 70 16 63 11/19 1206 99 ROOM AIR 11/19 1206 98.3 70 16 99 ROOM AIR 11/19 1150 98.3 77 16 102/56 98 11/19 1054 77 16 102/56 98 11/19 1025 98.3 73 16 110/60 98 11/19 0929 98.3 74 16 106/64 98 General Appearance normal appearance, WD/WN Eye Exam - bilateral eye normal exam, bilateral eye PERRL, bilateral eye EOMI Ear, Nose, Throat hearing grossly normal, mucous membranes tacky Neck normal inspection, non-tender, supple, full range of motion Respiratory Status Yes: trachea midline, chest symmetrical, non tender chest. No: respiratory distress. Lung Sounds bilateral: normal breath sounds, lungs clear. 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 no facial asymmetry or droop. Mental status normal mood/affect Skin normal color, warm/dry, excoriations on dorsal feet and anterior lower legs. Lymphatic no adenopathy Medical Decision Making LABS/Meds/Orders Pt receiving controlled substance in ED? No Results/Orders Laboratory Tests 11/19/16 1047: Urine Color YELLOW, Urine Appearance CLOUDY, Urine pH 6.0, Ur Specific [place] 1.015, Urine Protein TRACE H, Urine Ketones NEGATIVE, Urine Blood NEGATIVE, Urine Nitrate POSITIVE H, Urine Bilirubin NEGATIVE, Urine Urobilinogen 0.2, Ur Leukocyte Esterase TRACE H, Urine RBC NONE, Urine WBC 3-5, Ur Squamous Epith Cells OCC, Amorphous Sediment 2+, Urine Bacteria 3+, Urine Glucose NEGATIVE 11/19/16 0930: Sodium 144, Potassium 2.0 *L, Chloride 107, Carbon Dioxide 28, BUN 39 H, Creatinine 1.9 H, Estimated Creat Clear 23 L, Estimated GFR (MDRD) 26 L, Glucose 88, Calcium 8.1 L, Total Bilirubin 0.7, AST 27, ALT 30, Alkaline Phosphatase 133 H, Creatine Kinase 300 H, CK-MB (CK-2) Rel Index 3.6, CK and CKMB Interp 10.7 *H, Troponin I < 0.02, Total Protein 6.0 L, Albumin 3.0 L, Globulin 3.0, Albumin/Globulin Ratio 1.0 L, WBC 7.9, RBC 3.68 L, Hgb 9.9 L, Hct 32.6 L, MCV 88.5, RDW 15.9, Plt Count 189, MPV 9.3, Gran % 79.8, Gran # 6.3 , Lymphocytes % 10.4, Monocytes % 9.0, Eosinophils % 0.6, Basophils % 0.3, Lymphocytes # 0.8, Monocytes # 0.7, Eosinophils # 0.0, Basophils # 0.0, PUBS MCHC 30.5 L, MCH 27.0 Current Medication Orders Sig/Yani Start time Last Medication Dose Route Stop Time Status Admin Aspirin 81 MG DAILY 11/20 899 AC PO Metoprolol Succinate 25 MG DAILY 11/20 899 AC PO Pregabalin 150 MG BID 11/19 2100 AC PO Influenza Virus 0.5 ML PRN PRN 11/19 1130 AC Vaccine Quadrival IM Nicotine 21 MG DAILYP PRN 11/19 1130 AC TD Sodium Chloride 1,000 ML .Q6H40M 11/19 1130 AC IV Sodium Chloride 10 ML PRN PRN 11/19 1130 AC IV Potassium Chloride 80 MEQ ONCE ONE 11/19 1045 DCr 11/19 PO 11/19 1046 1052 Potassium Chloride/ 100 ML ONCE ONE 11/19 1045 DC 11/19 Water IV 11/19 1244 1052 Sodium Chloride 1,000 ML .Q1H1M 11/19 1000 DC 11/19 IV 11/19 1100 1024 Sodium Chloride 10 ML PRN PRN 11/19 0945 AC IV 11/20 0942 Orders Procedure Date/time Status DIET-NOTHING BY MOUTH 11/19 L Complete DIET-REGULAR ( TOLERATED) 11/19 D Active BASIC METABOLIC PROFILE 11/19 1600 Active OP COURTSEY MEAL 11/19 1115 Active Decision to admit 11/19 1100 Active OP COURTSEY MEAL 11/19 1054 Active CULTURE, URINE 11/[address] HEAD REQ 11/19 0949 Complete ELECTROCARDIOGRAM REQUEST 11/19 0945 Active IV SALINE LOCK 11/19 0945 Active URINALYSIS/COMPLETE 11/19 0945 Complete CBC WITH AUTO DIFF 11/19 0945 Complete CARDIAC ENZYMES 11/19 0945 Complete CHEM 12 PROFILE 11/19 0945 Complete ADMIT PATIENT 11/19 UNK Active 12 LEAD EKG-BESSON (INITIAL) 11/19 UNK Active PHYS. THERAPY EVAL REQUEST 11/19 UNK Active VITAL SIGNS 11/19 UNK Active COKE STILL CLEANER 11/19 UNK Active POM NURSE CARINA HOSE ORDER 11/19 UNK Active IV SALINE LOCK 11/19 UNK Active RECORD I & O 11/19 UNK Active CODE STATUS 11/19 UNK Active PATIENT ACTIVITY ORDER 11/19 UNK Active CM/EKG CM/EKG Comments EKG interpreted by Niko Daly MD: Rhythm: sinus Rate: 73 [place]: normal Ectopy: Premature atrial contractions Conduction: normal ST Segment Changes: none T Wave Changes: none Q Waves: none No evidence of acute ischemia or injury Poor R-wave progression Prior electrocardiagrams reviewed. No change from prior tracings. XRAY/CT/US XRAY/CT/US XRAY chest Comment Chest x-ray interpreted by Niko Daly M.D. No infiltrate, pneumothorax, pleural effusion, or wide mediastinum. CT head Comment CT scan interpreted by radiologist: Age-appropriate atrophy. No acute process. Progress - 10:50 AM: I have discussed the case with Liberty Iraheta who agrees to admit the patient to the hospital. We discussed the patient's clinical information, including history, exam, laboratory and radiology results and ED course. Per hospital procedure, I will write temporary bridge inpatient orders on the patient. Specific orders requested by the admitting physician: IV fluids, potassium replacement, physical therapy consult Departure Departure Disposition Still a Patient Clinical Impression Primary Impression: Hypokalemia Secondary Impressions: Dehydration Condition STABLE Referrals German GAITAN,Kaz Morris (PCP/Family) ED Critical Care Critical Care Yes Time spent 30-74 min Vital system(s) involved: Metabolic Failure I was present at bedside for Coordinating pt's care, Interpreting EKGs/Strips , During my initial exam, Reviewing lab results, Reviewing old records, Discussing pt condition, Examining radiographs at 1318
[2016-11-19 09:51] LABS: LYMPH # 0.8 K/mm3 (0.7-4.5); LYMPH % 10.4 % (10-50.0)
[2016-11-19 09:57] LABS: HEMOGLOBIN 9.9 g/dL (12.2-16.2)
[2016-11-19 10:14] LABS: BUN 39 mg/dL (7-18)
[2016-11-19 10:15] LABS: GFR (ESTIMATED) 26 ML/MIN (59-)
--- NOTE | 2016-11-19 10:29 | RADIOLOGY REPORT PS360 ---
CT HEAD W/O CONTRAST COMPARISON: CT scan of brain noncontrast contrast 04/04/2016 HISTORY: Patient found on the floor, altered mental status TECHNIQUE: Multiaxial scans obtained from base skull to the vertex and were performed without contrast. FINDINGS: The base of skull appears normal, the mastoids are clear. The ventricular system is normal. There is no ischemic infarct or bleed and there are no extra-axial fluid collections. The sylvian fissures and cortical sulci are mildly prominent. There may be some minimal periventricular hypodensities consistent with chronic ischemic white matter changes. The bony calvarium is intact. IMPRESSION: Findings of mild age-appropriate cortical atrophy, no acute intracranial pathology identified.
--- NOTE | 2016-11-19 10:49 | RADIOLOGY REPORT PS360 ---
CHEST-AP VIEW ONLY COMPARISON: Portable upright chest 04/04/2016 HISTORY: Patient found on floor, somewhat unresponsive TECHNIQUE: PA chest FINDINGS: The lung ware are fairly well-expanded and appear clear of infiltrate. There is mild generalized cardio megaly without failure. There is no pleural fluid. IMPRESSION: Nonacute chest findings
[2016-11-19 10:55] LABS: URINE BILIRUBIN - DIPSTICK NEGATIVE (NEG); URINE BLOOD NEGATIVE (NEG)
[2016-11-19 11:12] LABS: URINE SQUAMOUS CELLS OCC #/hpf (0-5)
[2016-11-19 12:06] VITALS: BP 91/63
[2016-11-19] MEDS ORDERED: TYLENOL WITH CO1 TA1 PO (12:21)
[2016-11-19 12:35] VITALS: BP 73/47
--- NOTE | 2016-11-19 15:46 | RADIOLOGY REPORT PS360 ---
PELVIS AP ONLY COMPARISON: None HISTORY: Pelvic pain after a fall TECHNIQUE: Portable AP pelvis FINDINGS: The iliac bones and pubic bones appear intact. The SI joints and symphysis pubis are normal. Both hips are normally articulated with no evidence of fracture. There is moderate hypertrophic spurring of the greater trochanter bilaterally. IMPRESSION: AP pelvis negative for acute fracture
[2016-11-19 16:11] VITALS: BP 107/63
[2016-11-19 19:55] VITALS: BP 91/59
[2016-11-19 21:00] VITALS: BP 91/59
[2016-11-20] VITALS (38 sets, daily range): BP systolic 66–120; BP diastolic 39–70
[2016-11-20 06:50] LABS: ARTERIAL PO2 94.5 MMHG (80-100); ARTERIAL TCO2 23.2 MMOL/L (23-27)
[2016-11-20 06:51] LABS: ALLEN'S TEST NON APPLICABLE; ARTERIAL ABE -4.8 MMOL/L (-2.4-+2.3); OXYGEN 2 LITER
[2016-11-20 07:14] LABS: LYMPH # 0.5 K/mm3 (0.7-4.5); LYMPH % 12.4 % (10-50.0)
--- NOTE | 2016-11-20 07:28 | PHARMACY CLINIC NOTE ---
Patient Demographics Patient Demographics Admission date: 11/19/16 Date: 11/20/16 Time: 07 Allergies Coded Allergies: Penicillins (UNKNOWN 04/04/16) HEIGHT- FT: 5 IN: 2.00 K.573 VTE General Information Labs: Laboratory Tests 11/20 11/19 0705 0930 Hematology Hgb (12.2 - 16.2 g/dL) 9.9 L Hct (37.0 - 47.0 %) 26.9 L 32.6 L Plt Count (142 - 424 K/mm3) 127 L 189 Disclaimer The following section includes nursing documentation that has been pulled in for pharmacy review. Patient's VTE score: 3 Patient's VTE Risk: LOW RISK Clinical trial participant? No VTE prophylaxis [id number] VTE prophylaxis ordered? Yes Type of prophylaxis/treatment: CARINA at 0728
[2016-11-20 08:43] LABS: HEMOGLOBIN 7.9 g/dL (12.2-16.2)
[2016-11-20 09:13] LABS: ABO BLOOD TYPE B; RH BLOOD TYPE POSITIVE
--- NOTE | 2016-11-20 09:27 | HISTORY AND PHYSICAL REPORT ---
See Addendum Demographics: Admit date: 11/19/16 Chief complaint: weakness PRIMARY DIAGNOSIS: hypoakalemia and dehydration Allergies: Coded Allergies: Penicillins (UNKNOWN 04/04/16) History of present illness: History of present illness: pt found on floor for unk period of time and seen in the ed-e patient was reportedly found on the floor this morning by a home health care nurse. Patient states she does not know how she got there or how long she had been there. She does not remember falling. She complains that she feels tired, but otherwise has no complaints. She has no pain. No recent illness. No cough, fever, vomiting, diarrhea, urinary complaints. She states she is eating and drinking normally. She lives alone. Primary care provider is Dr. Porter. this am rapid resp red with dec loc and hypotheramic with hypotension and dec responsive and no bleeding and oliguria and was seen and orders placed - pt seen again this am with grossly unchanged - Past medical history: Family HX Diabetes No CAD No Hypertension Yes Hyperlipidemia Yes Cancer Yes TB No Immunization HX DT/Tetanus > 10 Years Ago Flu 2015-FSN Pneumonia Never Had TB Test in last year No General CAD? No Angina: No [place]: No Hypertension? Yes Hyperlipidemia? No CHF? No DVT? No PE? No COPD? No Asthma? No Anemia? No GERD? No Gastric ulcers? No GI Bleed? No Hernia? No Thyroid Problems? No Hypothyroidism? No CVA? No Seizures? No Diabetes? No UTI? No Stones? No GB Disease: No Nephritic Syndrome? No Asplenia? No Hepatitis? No Sickle Cell Disease? No Arthritis? Yes Migraines? No Cataracts? No Glaucoma? No MRSA? No HIV? No TB? No Anxiety? No Depression? No Cancer? No Past Surgical HX Previous Surgery?Y Appendectomy GASTRIC BYPASS TUBUAL Hysterectomy-Total TUBAL Current home meds: Active Scripts Oxycodone 5MG/[id number] (Oxycodone-Acetaminophen 5-325) 1 TAB PO TID PRN pain #90 TAB Prov: 02/05/15 Reported Medications ACETAMINOPHEN WITH CODEINE (Tylenol With Codeine #3 Tablet) 1 TAB PO PRN PRN pain ASPIRIN (Aspirin) 81 MG PO DAILY Metoprolol Tartrate (Metoprolol) 25 MG PO DAILY Pregabalin (Lyrica) 150 MG PO BID #60 Social Hx: Smoking HX Tobacco No Packs/day N/A Are you/the child exposed to second-hand smoke: No Alcohol Alcohol: No Hx of Drug Use Drug Use? No Patien't marital status is Patient's support system is good Review of systems: Constitutional see HPI, weakness. No: fever. Eyes No: drainage. Ears, Nose, Mouth, Throat No ear discharge, No epistaxis, No throat pain, No throat swelling Respiratory No: cough, shortness of breath, wheezing. Cardiovascular see HPI, No chest pain, No palpitations, other Gastrointestinal/Abdominal No diarrhea, poor appetite, poor fluid intake, No vomiting Genitourinary No: dysuria, frequency, hesitancy, hematuria. Musculoskeletal No: back pain, joint pain, joint swelling, neck pain. Skin No: rash. Neurological Yes: see HPI. No: seizure disorder. Psychiatric No: no symptoms reported. Exam: Lab data for last 24 hours: Laboratory Tests 11/20/16 0830: Miscellaneous Test POSITIVE 11/20/16 0745: Lactic Acid 1.6 11/20/16 0705: Sodium 147 H, Potassium 3.1 L, Chloride 117 H, Carbon Dioxide 24, BUN 32 H, Creatinine 1.4 H, Estimated Creat Clear 31 L, Estimated GFR (MDRD) 37 L, Glucose 65 L, Calcium 6.8 L, Total Bilirubin 0.4, AST 12 L, ALT 19, Alkaline Phosphatase 105, Creatine Kinase 76, CK-MB (CK-2) Rel Index 5.5 H, CK and CKMB Interp 4.2 H, Troponin I 0.03, Total Protein 4.5 L, Albumin 2.2 L, Globulin 2.3, Albumin/Globulin Ratio 1.0 L, WBC 3.9 L, RBC 2.97 L, Hgb 7.9 *L, Hct 26.9 L, MCV 90.6, RDW 16.2, Plt Count 127 L, MPV 9.9, Gran % 78.0, Gran # 3.0, Lymphocytes % 12.4, Monocytes % 8.5, Eosinophils % 0.9, Basophils % 0.2, Lymphocytes # 0.5 L, Monocytes # 0.3, Eosinophils # 0.0, Basophils # 0.0, PUBS MCHC 29.3 L, MCH 26.6 L 11/20/16 0640: ABG pH 7.29 L, ABG pCO2 (Temp Corrct 46.2 H, ABG pO2 (Temp Correct 94.5, ABG HCO3 21.8 L, ABG Total CO2 23.2, ABG O2 Sat (Calculated) 96.2, ABG Base Excess -4.8 L, Chandan Test NON APPLICABLE, Blood Gas Comments LEFT BRACHIAL 11/20/16 0325: Lactic Acid 2.2 H 11/19/16 1552: Sodium 146 H, Potassium 3.0 L, Chloride 111 H, Carbon Dioxide 26, BUN 37 H, Creatinine 1.7 H, Estimated Creat Clear 25 L, Estimated GFR (MDRD) 29 L, Glucose 124 H, Calcium 7.7 L 11/19/16 1047: Urine Color YELLOW, Urine Appearance CLOUDY, Urine pH 6.0, Ur Specific [place] 1.015, Urine Protein TRACE H, Urine Ketones NEGATIVE, Urine Blood NEGATIVE, Urine Nitrate POSITIVE H, Urine Bilirubin NEGATIVE, Urine Urobilinogen 0.2, Ur Leukocyte Esterase TRACE H, Urine RBC NONE, Urine WBC 3-5, Ur Squamous Epith Cells OCC, Amorphous Sediment 2+, Urine Bacteria 3+, Urine Glucose NEGATIVE 11/19/16 0930: Sodium 144, Potassium 2.0 *L, Chloride 107, Carbon Dioxide 28, BUN 39 H, Creatinine 1.9 H, Estimated Creat Clear 23 L, Estimated GFR (MDRD) 26 L, Glucose 88, Calcium 8.1 L, Total Bilirubin 0.7, AST 27, ALT 30, Alkaline Phosphatase 133 H, Creatine Kinase 300 H, CK-MB (CK-2) Rel Index 3.6, CK and CKMB Interp 10.7 *H, Troponin I < 0.02, Total Protein 6.0 L, Albumin 3.0 L, Globulin 3.0, Albumin/Globulin Ratio 1.0 L, WBC 7.9, RBC 3.68 L, Hgb 9.9 L, Hct 32.6 L, MCV 88.5, RDW 15.9, Plt Count 189, MPV 9.3, Gran % 79.8, Gran # 6.3 , Lymphocytes % 10.4, Monocytes % 9.0, Eosinophils % 0.6, Basophils % 0.3, Lymphocytes # 0.8, Monocytes # 0.7, Eosinophils # 0.0, Basophils # 0.0, PUBS MCHC 30.5 L, MCH 27.0 Microbiology 11/20 324 BLOOD: Anaerobic Blood Culture - RECD 11/20 324 BLOOD: Aerobic Blood Culture - RECD 11/20 324 BLOOD: Anaerobic Blood Culture - RECD 11/20 324 BLOOD: Aerobic Blood Culture - RECD 11/19 104 URINE CC: Urine Culture - RES Admission vital signs: 1ST Vital Signs Result Date Time Pulse Ox 98 11/19 928 B/P 106/64 11/19 928 Temp 98.3 11/19 928 Pulse 74 11/19 928 Resp 16 11/19 928 O2 Delivery ROOM AIR 11/19 1206 Exam General appearance: lethargic, arousable with tactile stim Eyes: anicteric, PERRLA ENT: dry mucous membranes Neck: no JVD Cardiovascular: regular rate & rhythm, murmur Respiratory: no respiratory distress, diminished breath sounds ABD: no rebound, soft Genitourinary: catheter in place Extremities: edema Musculoskeletal: no focal changes Skin: dry Neuro: no focal deficit, obtunded w/o posturing Additional information: pt with prob sepsis and has sig anemia with poor perfusion will give abx/fluids and transfusion Plan: Problem List 1. Hypokalemia 2. Hypothermia 3. Renal insufficiency 4. Anemia Plan: will monitor closely in step down at 0900
[2016-11-20 09:36] LABS: ANTIHUMAN GLOB CROSSMATCH COMPAT
[2016-11-20 09:37] LABS: ANTIHUMAN GLOB CROSSMATCH COMPAT
[2016-11-20 09:55] LABS: URINE BILIRUBIN - DIPSTICK NEGATIVE (NEG); URINE BLOOD TRACE-LYSED (NEG)
[2016-11-20 13:08] LABS: ARTERIAL ABE -7.8 MMOL/L (-2.4-+2.3); ARTERIAL PO2 91.1 MMHG (80-100); ARTERIAL TCO2 20.8 MMOL/L (23-27); OXYGEN 2 LITER NASAL CANNUL
[2016-11-20 13:09] LABS: ALLEN'S TEST UNABLE TO PERFORM
[2016-11-20 15:08] LABS: HEMOGLOBIN 11.2 g/dL (12.2-16.2)
[2016-11-21] VITALS (41 sets, daily range): BP systolic 76–136; BP diastolic 50–76
[2016-11-21] MEDS ORDERED: METOPROLOL SUCC25 M2 PO (07:42)
[2016-11-21 08:01] LABS: HEMOGLOBIN 12.3 g/dL (12.2-16.2); LYMPH # 0.7 K/mm3 (0.7-4.5); LYMPH % 11.6 % (10-50.0)
--- NOTE | 2016-11-21 09:10 | ACUTE CARE PROGRESS NOTE (QUA) ---
Progress Notes Subjective Date 11/21/16 Time 0907 Patient/family reports: no complaints, confusion Nursing reports: no complaints, confusion Objective Findings Laboratory Tests 11/21/16 0750: Sodium 150 H, Potassium 3.2 L, Chloride 120 H, Carbon Dioxide 22, BUN 26 H, Creatinine 1.5 H, Estimated Creat Clear 33 L, Estimated GFR (MDRD) 34 L, Glucose 85, Calcium 6.7 L, Troponin I 0.13 H, WBC 6.0, RBC 4.50, Hgb 12.3, Hct 40.6, MCV 90.4, RDW 15.6, Plt Count 105 L, MPV 10.4, Gran % 78.3, Gran # 4.7, Lymphocytes % 11.6, Monocytes % 9.4 H, Eosinophils % 0.5, Basophils % 0.2, Lymphocytes # 0.7, Monocytes # 0.6, Eosinophils # 0.0, Basophils # 0.0, PUBS MCHC 30.4 L, MCH 27.5 11/20/16 2020: Sodium 149 H, Potassium 3.3 L, Chloride 118 H, Carbon Dioxide 23, BUN 28 H, Creatinine 1.5 H, Estimated Creat Clear 29 L, Estimated GFR (MDRD) 34 L, Glucose 82, Calcium 6.6 L 11/20/16 1410: Hgb 11.2 L, Hct 37.2 11/20/16 1300: ABG pH 7.25 L, ABG pCO2 (Temp Corrct 45.0, ABG pO2 (Temp Correct 91.1, ABG HCO3 19.4 L, ABG Total CO2 20.8 L, ABG O2 Sat (Calculated) 95.9, ABG Base Excess - 7.8 L, Chandan Test UNABLE TO PERFORM, Blood Gas Comments LEFT RADIAL 11/20/16 1109: Misc Test Units BLOOD UNIT RELEASE 11/20/16 0945: Misc Test Units BLOOD UNIT RELEASE Vital Signs Date Time Temp Pulse Resp B/P Pulse O2 O2 Flow FiO2 Ox Delivery Rate 11/21 0815 97 18 119/74 100 11/21 0735 97.6 11/21 0735 2 11/21 0730 95 18 131/75 87 11/21 0644 2 11/21 0607 2 11/21 0602 99.2 11/21 0600 99 18 133/75 90 OXYGEN 2 11/21 0509 99.7 93 18 133/75 91 11/21 0500 99.3 11/21 0500 97 18 133/75 90 OXYGEN 2 11/21 0452 2 11/21 0442 2 11/21 0400 99.7 11/21 0400 88 20 116/67 91 OXYGEN 2 11/21 0308 98.4 11/21 0300 98.4 86 16 115/69 90 OXYGEN 2 11/21 0259 2 11/21 0259 98.4 83 18 115/69 90 2 11/21 0212 98.3 11/21 0204 2 11/21 0200 82 19 109/59 93 OXYGEN 2 11/21 0120 98.7 11/21 0100 2 11/21 0100 85 19 101/60 95 OXYGEN 2 11/21 0000 98.9 11/21 0000 2 11/21 0000 98.9 90 105/60 94 OXYGEN 2 11/20 2310 2 11/20 2300 98.5 11/20 2300 98.5 76 120/70 95 OXYGEN 2 11/20 2205 96.9 11/20 2201 2 11/20 2120 2 11/20 2120 97.4 83 18 102/56 90 2 11/20 2120 97.4 83 18 102/56 90 11/20 2100 77 18 98/56 94 OXYGEN 2 11/20 2021 2 11/20 2000 77 18 104/64 92 11/20 1928 2.5 11/21 1927 2.5 11/21 1927 92 OXYGEN 2 11/20 192 87 OXYGEN 2 11/20 1900 98.6 79 16 106/62 95 OXYGEN 2 11/20 1846 2 11/20 1803 2 11/20 1800 97.8 81 16 94/47 95 OXYGEN 2 11/20 1700 2 11/20 1700 97.8 78 16 100/51 95 OXYGEN 2 11/20 1639 97.8 74 16 87/44 95 OXYGEN 2 11/20 1621 2 11/20 1619 97.8 78 16 98/50 95 OXYGEN 2 11/20 1610 97.8 74 18 79/42 95 OXYGEN 2 11/20 1600 97.8 74 18 82/44 95 OXYGEN 2 11/20 1539 97.8 11/20 1500 18 89/50 93 OXYGEN 2 11/20 1456 2 11/20 1449 79 18 90/50 93 OXYGEN 2 11/20 1405 97.6 76 18 84/49 95 OXYGEN 2 11/20 1400 2 11/20 1356 97.7 79 20 79/45 100 OXYGEN 2 11/20 1335 98.2 76 18 84/43 95 OXYGEN 2 11/20 1305 98.0 78 18 95/58 100 OXYGEN 2 11/20 1300 2 11/20 1240 97.7 76 18 70/39 11/20 1225 97.7 74 16 73/47 11/20 1210 97.5 76 16 80/49 11/20 1155 97.5 69 16 72/43 11/20 1155 97.5 69 16 72/43 97 OXYGEN 2 11/20 1150 2 11/20 1140 96.3 68 16 76/45 11/20 1135 96.3 68 16 73/46 11/20 1130 96.8 70 16 78/47 11/20 1125 96.8 66 16 77/51 11/20 1125 96.8 69 16 77/51 98 OXYGEN 2 11/20 1110 96.5 68 15 69/44 98 OXYGEN 2 11/20 1100 2 11/20 1100 96.3 70 18 79/51 11/20 1055 96.3 65 18 72/46 11/20 1055 96.3 65 16 72/46 99 OXYGEN 2 11/20 1040 96.3 67 18 71/43 11/20 1040 96.3 67 16 71/43 99 OXYGEN 2 11/20 1025 95.5 68 16 66/41 11/20 1025 95.5 68 16 66/41 99 OXYGEN 2 11/20 1023 95.5 88 18 66/41 98 11/20 1010 95.8 70 15 74/43 11/20 1010 95.8 70 16 74/43 99 OXYGEN 2 11/20 1005 96.6 75 16 73/46 11/20 1000 96.6 73 16 66/42 11/20 0955 96.6 73 18 69/41 Current Medications Dopamine HCl/Dextrose 250 ML .Q25H IV Ertapenem 1 GM 1300 IV (CAN) Sodium Chloride 50 ML Aspirin 81 MG DAILY PO Enoxaparin Sodium 40 MG DAILY SC Levofloxacin/Dextrose 50 ML Q24H IV (DC) Levofloxacin/Dextrose 50 ML Q24H IV Metoprolol Succinate 25 MG DAILY PO Sodium Chloride 1,000 ML .Q10H IV Pregabalin 150 MG BID PO Sodium Chloride 1,000 ML .Q6H40M IV (DC) Influenza Virus Vaccine Quadrival 0.5 ML PRN PRN IM Nicotine 21 MG DAILYP PRN TD Sodium Chloride 10 ML PRN PRN IV Dopamine HCl/Dextrose 250 ML .Q25H IV Ertapenem 1 GM DAILY IV (DC) Sodium Chloride 50 ML Aspirin 81 MG DAILY PO (DC) Metoprolol Succinate 25 MG DAILY PO (DC) Sodium Chloride 250 ML .Q10H IV (DC) Sodium Chloride 1,000 ML .Q4H IV (DC) Pregabalin 150 MG BID PO (DC) Influenza Virus Vaccine Quadrival 0.5 ML PRN PRN IM (DC) Nicotine 21 MG DAILYP PRN TD (DC) Sodium Chloride 1,000 ML .Q6H40M IV (DC) Sodium Chloride 10 ML PRN PRN IV (DC) Sodium Chloride 10 ML PRN PRN IV (DC) Last VS-Temp:97.6 B/P:119/74 Pulse:97 Resp:18 SaO2:100 OXYGEN Last weight lbs:136 oz:8 K.915 Method:Bed Scales Exam General appearance: normal appearance, alert, awake Eyes: normal exam ENT: normal exam Neck: normal inspection, no carotid bruit, full range of motion Cardiovascular: normal exam, regular rate & rhythm Respiratory: normal exam, clear to auscultation, chest non-tender, good air movement, normal breath sounds ABD: normal exam, normal bowel sounds, soft Genitourinary: catheter in place Extremities: normal exam, moves all, normal capillary refill, chronic foot drop Musculoskeletal: normal exam Skin: normal exam, intact, warm Neuro: normal exam, alert, oriented, disoriented Reviewed: allergies, medications, vital signs, lab results, radiology report Assessment/Plan Problem List 1. Hypokalemia 2. Hypothermia 3. Renal insufficiency 4. 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 at 0909
--- NOTE | 2016-11-21 10:52 | RADIOLOGY REPORT PS360 ---
PROCEDURE: 2-D M-mode and color Doppler study INDICATIONS FOR THE TEST: Chest pain COPD Heart Murmur Tobacco Smoking Palpitations Fatigue Syncope Edema HypertensionXDiabetes Mellitus Rheumatic Fever SOB JEONG Obesity Hyperlipidemia Family History HD Additional History INCREASED TROPONINS PATIENT INFORMATION HEIGHT: 62 WEIGHT:136 GENDER: Female B/P:106/64 2-D/M-MODE INTERPRETATION: 2-D MEASUREMENTS OBSERVED VALUES IN CMS Right Ventricular Dimension (RVDd) 2.9 Interventricular Septum (Thickness)(IVsd) 1.0 Left Ventricular Internal Dimensions(LVIDd) 2.9 Left Ventricular Posterior Wall (Thickness)(LVPWd) 1.0 Aortic Root 3.3 Aortic Cusp Separation 2.0 Left Atrial Dimensions (LAD) 2.8 2D 1. Left atrium is qualitatively mildly enlarged, left ventricle is normal size, there is mild qualitative concentric left ventricular hypertrophy, visually estimated ejection fraction 55% with no obvious regional wall motion abnormality. 2. The right atrium is normal size, right ventricle is mildly enlarged with normal contractility. 3. The aortic valve is minimally thickened and fibrosed. 4. The mitral and tricuspid valves are minimally thickened. 5. The pulmonic valve is poorly visualized. 6. No significant pericardial effusion noted. DOPPLER INTERROGATION: Doppler interrogation of the aortic, mitral and tricuspid valvular presence of mild mitral and tricuspid regurgitation, calculated right ventricular systolic pressure is 62 mmHg consistent with moderate pulmonary hypertension. Grade 1 diastolic dysfunction seen without tissue Doppler evidence of raised left atrial pressure. CONCLUSION: 1. Mildly enlarged left atrium, normal left ventricular size, mild qualitative concentric left ventricular hypertrophy, visually estimated ejection fraction 55% with no obvious regional wall motion abnormality, grade 1 diastolic dysfunction seen without tissue Doppler evidence of raised left atrial pressure. 2. Mildly enlarged right ventricle with normal contractility. 3. Mild mitral and tricuspid regurgitation, calculated right ventricular systolic pressure 62 mmHg consistent with moderate pulmonary hypertension. 4. No significant pericardial effusion noted.
--- NOTE | 2016-11-21 11:58 | RADIOLOGY REPORT PS360 ---
CHEST PORTABLE-PICC PLACEMENT CLINICAL INDICATION: PICC LINE INSERTION ORDERING PHYSICIAN: Kaz Porter MD PATIENT AGE: 71 years COMPARISON: 11/19/2016 FINDINGS: Left upper terminate PICC line has been inserted. The tip is in region of the superior vena cava in good position. Consolidation has developed in the right perihilar region and right lower lobe and there are atelectatic changes in the left lung base. Normal heart size. IMPRESSION: 1. Good position of the PICC line. 2. Right perihilar and right lower lobe pneumonia with left basilar atelectasis
[2016-11-22] VITALS (27 sets, daily range): BP systolic 79–147; BP diastolic 41–91
--- OUTSIDE RECORDS SUMMARY | 2016-11-22 08:10 | External Medical Summary Rpt | CCD ---
Author Author , MARGARET Organization MARGARET Address Unknown Phone [email or web address] Care Team Providers Care Melt Room Operator Name Role Phone YURILUDMILA JR, MARCELL JR Unavailable Unavailable BEN WEST MD, PSC, Unavailable Unavailable BEN WEST MD, PSC [facility] Unavailable Unavailable MEDICAL GROUP, [facility] ILANA PRECIADO Unavailable Unavailable BROWN, BROWN Unavailable Unavailable JOHN REBECA, JOHN Unavailable Unavailable REBECA BUX ANJ, BUX ANJ Unavailable Unavailable BAXTER TARAS, BAXTER Unavailable Unavailable TARAS DAIJA, DAIJA Unavailable Unavailable JAVON STEFAN, Unavailable Unavailable JAVON STEFAN [facility], [facility] Unavailable Unavailable FALLIS GABRIELA, FALLIS Unavailable Unavailable GABRIELA MARTIN, MARTIN Unavailable Unavailable MARTIN EVELIA, MARTIN Unavailable Unavailable EVELIA [facility], Unavailable Unavailable [facility] Unavailable Unavailable CENTER, [facility] Unavailable [facility]available [place], [facility] Unavailable Unavailable CARE, [facility] Unavailable Unavailable CARE, [facility] Unavailable Unavailable INC, [facility], Unavailable Unavailable [facility] Unavailable Unavailable CORPORATION, [facility] Unavailable Unavailable CORPORATION, [facility] Unavailable Unavailable CORPORATION, [facility] [employer], [facility] Unavailable Unavailable KALIK, KALIK Unavailable Unavailable [facility], [facility] Un[facility] Unavailable [facility], [facility] YANIV CRI, YANIV CRI Unavailable Unavailable STYLES, STYLES Unavailable Unavailable STYLES NICOLE, STYLES Unavailable Unavailable NICOLE MARJ WEST MD, MADAR Unavailable Unavailable BUX GERALD ROSE, Unavailable Unavailable [facility], Unavailable Unavailable [facility], [facility] Unavailable Unavailable LAB, [facility] PAVEZ, PAVEZ Unavailable Unavailable PETTEY JAM, PETTEY Unavailable Unavailable JAM PETTEY JAM, PETTEY Unavailable Unavailable [facility], Unavailable Unavailable [facility] CODY II YINA, CODY Unavailable Unavailable II YINA CODY II YINA, CODY Unavailable Unavailable II DAKOTA DONAHUE, Unavailable Unavailable DAKOTA GAMBLE, DUANE WHITLEY Unavailable Unavailable [facility] Unavailable Unavailable EQUIPME, [facility] Unavailable Unavailable EQU[facility]ME, [facility] Purpose Continuity of Care Document - 08-09-2008 through 2016 Problems Code Diagnosis DOS Provider Status G9009 OTHER 10-25-2016 [facility] NEUROPATH[facility] G629 POLYNEUROPA 07-26-2016 [facility] THY Yext UNSPECIFIED I639 CEREBRAL 07-26-2016 [facility] INFARCTION Yext UNSPECIFIED Z9181 HISTORY OF 07-26-2016 [employer] K13980 PAIN IN 07-14-2016 [facility] E78482 PAIN IN 07-14-2016 [facility] R202 PARESTHESIA 07-14-2016 [facility] OF SKIN [facility] T68772 FOOT DROP 06-20-2016 [facility] MEDICAL EQUIP[facility] M5030 OTH 06-20-2016 [facility] CERVICAL HOME DISC MEDICAL DEGENERATIO EQUIPME N UNS CERV REGION M5090 CERVICAL 06-20-2016 [facility] DISC HOME DISORDER MEDICAL UNS UNS EQUIPME CERVICAL REGION I10 ESSENTIAL 06-18-2016 [facility] PRIMARY PHYSICIANS HYPERTENSIO GROUP N K921 MELENA 06-16-2016 [facility] K1121 ACUTE 06-07-2016 [facility] SIALOADENIT [facility] IS INC R220 LOCALIZED 06-07-2016 [facility] SWELLING MEDICAL MASS AND IMAGING ASS LUMP HEAD U45361 PERSONAL 05-26-2016 [facility] HISTORY PHYSICIANS OTHER GROUP DISEASES URINARY SYSTEM R269 UNSPECIFIED 05-21-2016 [facility] PHYSICIANS ABNORMALITI GROUP ES OF GAIT AND MOBILITY G8929 OTHER 04-23-2016 [facility] CHRONIC PHYSICIANS PAIN GROUP S66UPIX UNSPECIFIED 04-23-2016 [facility] FALL PHYSICIANS INITIAL GROUP ENCOUNTER R0600 DYSPNEA 04-04-2016 [facility] R0602 SHORTNESS 04-04-2016 [facility] R410 DISORIENTAT 04-04-2016 [place] ION [facility]ICAL UNSPECIFIED IMAGING ASS R42 DIZZINESS 04-04-2016 [facility], GIDDINESS [facility] R51 HEADACHE 04-04-2016 [facility] R531 WEAKNESS 04-04-2016 [facility] N05569 WRIST DROP 02-27-2016 [facility] RIGHT WRIST PHYSICIANS GROUP M6258 MUSCLE 02-27-2016 [facility] WASTING & PHYSICIANS ATROPHY NEC GROUP OTHER SITE R5383 OTHER 02-27-2016 [facility] FATIGUE PHYSICIANS GROUP V27799 OTHER LONG 02-27-2016 [facility] TERM PHYSICIANS CURRENT GROUP DRUG THERAPY C10610 DERMATOCHAL 02-19-2016 [facility] RIGHT UPPER INSTITUTE EYELID V84490 DERMATOCHAL 02-19-2016 [facility] [facility] LEFT UPPER INSTITUTE EYELID E08290 COMBINED 02-19-2016 [facility] [facility] AGE-RELATED INSTITUTE CATARACT LEFT EYE B57700 COMBINED 02-19-2016 [facility]RELATED IN[facility] CATARACT BILATERAL H538 OTHER 02-19-2016 [facility] [facility] DISTURBANCE INSTITUTE S R590 LOCALIZED 12-28-2015 [facility] ENLARGED PHYSICIANS LYMPH NODES GROUP N289 DISORDER OF 12-21-2015 [facility] KIDNEY AND PHYSICIANS URETER GROUP UNSPECIFIED R296 REPEATED 12-21-2015 [facility] FALLS PHYSICIANS GROUP K116 MUCOCELE OF 12-10-2015 [facility] D1800 HEMANGIOMA 11-16-2015 [facility] UNSPECIFIED PHYSICIANS SITE GROUP Z1211 ENCOUNTER 10-23-2015 [facility] SCREENING PHYSICIANS MALIGNANT GROUP NEOPLASM OF COLON Z23 ENCOUNTER 10-23-2015 [facility] FOR PHYSICIANS IMMUNIZATIO GROUP N D490 NEOPLASM OF 10-19-2015 [facility] UNS [facility] BEHAVIOR INC DIGESTIVE SYSTEM L57342T UNSPECIFIED 09-25-2015 [facility] INJURY PHYSICIANS FOOT UNS GROUP SIDE INITIAL ENCNTR K118 OTHER 08-29-2015 [facility] DISEASES OF MEM [facility]OS[facility] SALIVARY INC GLANDS H6123 IMPACTED 07-31-2015 [facility] CERUMEN PHYSICIANS BILATERAL GROUP M9981 OTHER 07-31-2015 [facility] BIOMECHANIC PHYSICIANS AL LESIONS GROUP OF CERVICAL REGION G9050 COMPLEX 07-27-2015 [facility] REGIONAL PHYSICIANS PAIN GROUP SYNDROME I UNSPECIFIED T94760 SPONTANEOUS 04-03-2015 PROGR[facility] RUPTURE PODIATRY FLEXOR TENDONS RT ANKLE FOOT M7751 OTHER 04-03-2015 PROGR[facility] ENTHESOPATH PODIATRY Y OF RIGHT FOOT K79755 PAIN IN 04-03-2015 PROGRESSIVE RIGHT LOWER PODIATRY LEG M5116 INTERVERTEB 04-02-2015 BEN WEST, RAL DISC , PSC D/O W/RADICULOP ATHY LUMB RGN M6281 MUSCLE 03-08-2015 [facility] NEUROLOGY GENERALIZED M5416 RADICULOPAT 02-05-2015 BEN WEST, HY LUMBAR , PSC REGION I959 HYPOTENSION 12-12-2014 [facility] PHYSICIANS UNSPECIFIED GROUP I890 LYMPHEDEMA 11-09-2014 FALLIS GABRIELA NOT ELSEWHERE CLASSIFIED C51697 PAIN IN 11-09-2014 PROGRESSIVE LEFT FOOT PODIATRY P30046V NONDSPL FX 11-09-2014 PROGR[facility]IVE 5TH PODIATRY METATARSAL LT FT INIT ENC CLOS FX 4439 UNSPECIFIED 10-05-2014 FALLIS GABRIELA PERIPHERAL VASCULAR DISEASE 63138 EXOSTOSIS 10-05-2014 FALLIS GABRIELA OF UNSPECIFIED SITE 7295 PAIN IN 10-05-2014 FALLIS GABRIELA SOFT TISSUES OF LIMB 81672 OTHER 09-03-2014 [facility] CHRONIC [facility] PAIN INC 7242 LUMBAGO 09-03-2014 [facility] INC 58324 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 7244 THORACIC/PAVEL 08-07-2014 MARJ TOMAS MD NEURITIS/RA DICULITIS UNSPEC 3559 MONONEURITI 07-31-2014 [facility] S OF PHYSICIANS UNSPECIFIED GROUP SITE 4019 UNSPECIFIED 07-31-2014 [facility] ESSENTIAL PHYSICIANS HYPERTENSIO GROUP N 5939 UNSPECIFIED 07-31-2014 [facility] DISORDER PHYSICIANS OF KIDNEY GROUP AND URETER 00830 OSTEOARTHRO 07-31-2014 [facility] S UNSPEC PHYSICIANS WHETHER GROUP GEN/LOC UNSPEC SITE 7245 UNSPECIFIED 07-31-2014 [facility] BACKACHE PHYSICIANS GROUP 15340 LOSS OF 07-31-2014 [facility] WEIGHT PHYSICIANS GROUP V1588 PERSONAL 07-31-2014 [facility] HISTORY OF PHYSICIANS FALL GROUP 13373 MIGRAINE 07-05-2014 [facility] W/O [facility] W/O INTRACT MEDICAL W/O STAT GROUP MIGRNOSUS 3569 UNSPEC 07-05-2014 [facility] MED[facility] PERIPHERAL GROUP NEUROPATHY 91884 UNSPECIFIED 05-25-2014 [facility] ARTHROPATHY INC , LOWER LEG 09208 GEN 02-16-2014 [facility] OSTEOARTHRO HOME SIS MEDICAL INVOLVING EQUIPME MULTIPLE SITES 40512 PAINFUL 01-14-2014 [facility] RESPIRATION [facility] INC 22085 HYPERTONICI 12-27-2013 [facility] TY OF PHYSICIANS BLADDER GROUP 00652 CYSTOCELE 12-27-2013 [facility] WITHOUT PHYSICIANS MENTION GROUP UTERINE PROLAPSE MIDLN 51083 URGE 12-27-2013 [facility] INCONTINENC PHYSICIANS E GROUP 36038 URINARY 12-27-2013 [facility] FREQUENCY PHYSICIANS GROUP 7804 DIZZINESS 12-15-2013 [facility] AND [facility] GIDDINESS INC 7812 ABNORMALITY 12-14-2013 [facility] GAIT [facility] INC V571 OTHER 12-14-2013 [facility] PHYSICAL [facility] THERAPY INC 24915 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 [facility] RHEUMATISM, INC LOWER LEG 5853 CHRONIC 06-14-2013 [facility] KIDNEY [facility] DISEASE INC STAGE III (MODERATE) V069 NEED PROPH 12-07-2012 [facility] VACCINATION HEALTH W/UNSPEC CENTER COMB VACCINE V700 ROUTINE 12-07-2012 [facility] EXAM@HEALTH CARE FACL 4660 ACUTE 04-18-2012 [facility] BRONCHITIS [facility] INC 8796 OPEN WOUND 04-07-2012 CODY II OTH&UNSPEC YINA PART TRNK W/O MENTION COMP V1083 PERSONAL 04-07-2012 CODY II HISTORY YINA OTHER MALIGNANT NEOPLASM SKIN 7265 ENTHESOPATH 01-15-2012 [facility] JAM Y OF HIP REGION 82280 PES 01-15-2012 [facility] JAM ANSERINUS TENDINITIS OR BURSITIS V7231 ROUTINE 11-17-2011 PATHOLOGY & GYNECOLOGIC CYTOLOGY AL LAB EXAMINATION 71216 PAIN IN 07-13-2009 [facility] JOINT, [facility] LOWER LEG INC 7149 UNSPECIFIED 06-18-2009 Patsy JUSTICE MD PSC INFLAMMATOR Y POLYARTHROP ATHY 43742 INSOMNIA 06-18-2009 Patsy JACOBOIFIED PSC 7840 HEADACHE 03-05-2009 Patsy JSUTICE MD PSC 69215 NUCLEAR 08-09-2008 SOLE, [place]WO[place]ARTE W [address] UNSPECIFIED 08-09-2008 [facility]IN [facility] VISUAL DISTURBANCE G89.29 OTHER CHRONIC PAIN R07.89 OTHER CHEST PAIN R20.2 PARESTHESIA OF SKIN R42 DIZZINESS AND GIDDINESS Allergies, Adverse Reactions, [...] ia de te s n re d 57 07 09 30 30 00 HO Ac 89 -3 -0 .0 00 ME ti 60 1- 1- 00 06 TO ve 50 20 20 08 WN 11 17 17 67 0 43 PH AR MA CY OF CY NT HI AN A 57 05 06 30 30 00 HO Ac 89 -1 -0 .0 00 ME ti 60 0- 9- 00 06 TO ve 50 20 20 08 WN 11 17 17 67 0 43 PH AR MA CY OF CY NT HI AN A HM 62 12 01 30 30 00 [...] Ta ve bl et Immunization Name Date Rout CVX Reac Dose Comm Prov Is Faci e tion ent ider Refu lity Give sed n IIV 09-1 GAIN No [facility] ADJU 3-20 EY PHYS VANT 16 EVELIA ICIA ED NS VACC GROU INE P FOR INTR AMUS CULA R USE PCV1 10-10 133 GAIN No HMH 3 3-20 EY PHYS VACC 16 EVLEIA ICIA INE NS FOR GROU INTR P AMUS CULA R USE Vital Signs 04-18-2012 22:06 Name [...] Procedures Procedure DOS Code Location Performer Comment PWR K0823 [facility] GRP 2 STD 7 CAPTAINS CORPORATI CORPORATI CHAIR PT ON ON TO &=300 LBS NEEDLE 54101 [facility] EMG EA 7 [facility] EXTREMTY INC INC W/PARASPI NL AREA COMPLETE NERVE 99396 [facility] PAT[facility] CONDUCTIO 7 [facility] N STUDIES INC INC 9-10 STUDIES PWR K0823 [facility] GRP 2 STD 7 CAPTAINS CORPORATI CORPORATI CHAIR PT ON ON TO &=300 LBS STANDARD K0001 [facility] ROSS 7 HOME HOME R MEDICAL MEDICAL EQUIPME [facility] G0463 [facility] PATEL OUTPATIEN 7 [facility] T CLIN INC INC VISIT ASSESS & MGMT PT RADIOLOGI 88013 JP Garcia 7 MEDICAL EXAMINATI IMAGING ON ASS MANDIPLE PRTL <4 VIEWS RADIOLOG 48428 [facility] EXAM 7 [facility] MANDIBLE INC INC COMPL MINIMUM 4 VIEWS COMPREHEN 23996 [facility] PAT[facility] SIVE 7 [facility]OS[facility] METABOLIC INC INC PANEL NATRIURET 53076 [facility] GARCIA IC 7 [place] [address] [facility] PAT[facility] TROPONIN 7 MEM H[facility] QUANTITAT INC INC ANJALI BLOOD 43077 [facility] KENDRICKIK COUNT 7 MEM HOS[facility] COMPLETE INC AUTO&[place] [address] [place] DAIJA HEAD/BRAI 7 MEDICAL N W/O IMAGING CONTRAST ASS MATERIAL RADIOLOGI 94052 [place] DAIJA C 7 MEDICAL EXAMINATI IMAGING ON CHEST ASS SINGLE VIEW FRONTAL CREATINE 79478 [facility] PAT[facility] KINASE 7 [facility] TOTAL INC INC FIBRIN 42294 [facility] DGRADJ 7 [facility] PRODUCTS INC INC D-DIMER QUAL/SEMI KISHAN ECG 48565 [facility] PAT[facility] ROUTINE 7 [facility] ECG INC INC W/LEAST 12 LDS TRCG ONLY W/O I&R CREATINE 85244 [facility] KINASE MB 7 [facility] H[facility] FRACTION INC INC ONLY BLOOD 71368 [facility] PATEL COUNT 7 [facility] COMPLETE INC INC AUTO&AUTO DIFRNTL WBC COMPREHEN 54997 [facility] SIVE 7 [facility] H[facility] METABOLIC INC INC PANEL OPH BMTRY 52695 [facility] 7 EYE ECHOGRAPY INSTITUTE A-SCAN IO LENS PWR SUJATA PWR K0823 [facility]OUND GRP 2 STD 6 CAPTAINS CORPORATI CORPORATI CHAIR PT ON ON TO &=300 LBS PWR K0823 [facility] GRP 2 STD 6 CAPTAINS CORPORATI CORPORATI CHAIR PT ON ON TO &=300 LBS PET 58283 [facility] IMAGING [address] COMMUNTIY COMMUNTIY ATTENUATI HOSPITA HOSPITA ON SKULL BASE MID-THIGH PWR K0823 [facility] GRP 2 STD 6 CAPTAINS CORPORATI CORPORATI CHAIR PT ON ON TO &=300 LBS PWR K0823 [facility] GRP 2 STD 6 CAPTAINS CORPORATI CORPORATI CHAIR PT ON ON TO &=300 LBS ADMINISTR G0008 [facility] ATION OF 6 PHYSICIAN EVELIA INFLUENZA S GROUP VIRUS VACCINE BLOOD 31175 [facility] EVELIA PEROXIDAS S GROUP E ACTV QUAL FECES 1-3 SPEC PCV13 40207 [facility] M[facility]IN VACCINE 6 PHYSICIAN EVELIA FOR S GROUP INTRAMUSC ULAR USE IIV 09155 [facility] ADJUVANTE 6 PHYSICIAN EVELIA D VACCINE S GROUP FOR INTRAMUSC ULAR USE MRI ORBIT 01420 [facility] FACE & 6 MEM HOS[facility] NECK W/O INC INC & W/CONTRAS T MATRL COLLECTIO 81777 [facility] STYLES N VENOUS 6 PHYSICIAN NICOLE BLOOD S GROUP VENIPUNCT URE PWR K0823 [facility] GRP 2 STD 6 CAPTAINS CORPORATI CORPORATI CHAIR PT ON ON TO &=300 LBS FINE 36770 [facility] NEEDLE 6 [facility] ASPIRATIO INC INC N WITH IMAGING GUIDANCE US SOFT 86790 [facility] TISSUE 6 [facility] HEAD & INC INC NECK REAL TIME IMGE DOCM PWR E2365 [facility] WHLCHAIR 6 ACSS U-1 CORPORATI CORPORATI SEALED ON ON LEAD ACID BATTRY EA PWR K0823 [facility] H[facility] GRP 2 STD 6 CAPTAINS CORPORATI CORPORATI CHAIR PT ON ON TO &=300 LBS THERAPEUT 61729 [facility] PATEL IC PX 1/> 6 [facility] AREAS INC INC EACH 15 MIN EXERCISES THERAPEUT 18574 [facility] PATEL IC PX 1/> 6 [facility] AREAS INC INC EACH 15 MIN EXERCISES THERAPEUT 11739 [facility] PATEL IC PX 1/> 6 [facility] AREAS INC INC EACH 15 MIN EXERCISES 3D 06201 [facility] RENDERING 6 [facility] W/INTERP INC INC & POSTPROCE SS SUPERVISI ON MRI 18565 [facility] SPINAL 6 [facility] CANAL INC INC CERVICAL W/O CONTRAST MATRL THERAPEUT 15445 [facility] PATEL IC PX 1/> 6 [facility] AREAS INC INC EACH 15 MIN EXERCISES THERAPEUT 13080 [facility] PATEL IC PX 1/> 6 [facility] AREAS INC INC EACH 15 MIN EXERCISES THERAPEUT 71126 [facility] PATEL IC PX 1/> 6 [facility] AREAS INC INC EACH 15 MIN EXERCISES THERAPEUT 35190 [facility] PATEL IC PX 1/> 6 [facility] AREAS INC INC EACH 15 MIN EXERCISES THERAPEUT 10386 [facility] PATEL IC PX 1/> 6 [facility] AREAS INC INC EACH 15 MIN EXERCISES PHYSICAL 49830 [facility] THERAPY 6 [facility] EVALUATIO INC INC N COLLECTIO 35277 [facility] N VENOUS 6 PHYSICIAN EVELIA BLOOD S GROUP VENIPUNCT URE ARTHROCEN 14496 PROGRESSI JOHN TESIS 6 VE REBECA ASPIR&/IN PODIATRY J INTERM JT/BURS W/O US INJECTION J3301 PROGRESSI JOHN 6 VE REBECA TRIAMCINO PODIATRY LONE ACETONIDE NOS 10 MG OCCUPATIO 97732 [facility] NAL 6 [facility] THERAPY INC INC EVALUATIO N PHYSICAL 35633 [facility] THERAPY 6 [facility] EVALUATIO INC INC N LIPID 29840 [facility] PANEL 6 N N COMMUNTIY COMMUNTIY HOSPITA HOSPITA HEMOGLOBI 54193 [facility] N 6 N N GLYCOSYLA COMMUNTIY COMMUNTIY CARINA A1C HOSPITA HOSPITA COLLECTIO 04736 [facility] N VENOUS 6 N N BLOOD COMMUNTIY COMMUNTI[place] [address] [facility] PATEL HEAD/BRAI 6 [facility] N W/O INC INC CONTRAST MATERIAL AFO L1970 PROGRESSI JOHN PLASTIC 6 VE REBECA WITH PODIATRY ANKLE JOINT CUSTOM FABRICATE D ADD LW L2275 PROGRESSI JOHN EXTRM 6 VE REBECA VARUS/VUL PODIATRY PAYAL RYAN PLSTC MOD PADD/LN HEEL PAD L3480 PROGRESSI JOHN AND 6 VE REBECA DEPRESSIO PODIATRY N FOR SPUR WALKING L4360 PROGRESSI JOHN BOOT 5 VE REBECA PNEUMATC PODIATRY &/ VACUUM PREFAB CUSTM FIT RADEX 20629 [facility] FOOT 5 [facility] COMPLETE INC INC MINIMUM 3 VIEWS THERAPEUT 58450 [facility] PAT[facility] IC 5 [facility] PROPHYLAC INC INC TIC/DX INJECTION SUBQ/IM INJECTION J1040 [facility] PATEL 5 [facility]OS[facility] METHYLPRE INC INC DNISOLONE ACETATE 80 MG APPL 64721 [facility] MODALITY 5 [facility] 1/> AREAS INC INC ELEC STIMJ EA 15 MIN TENS E0730 EMPI INC EMPI INC DEVICE 5 4/MORE LEADS MULTI NERVE STIMULATI ON MRI 69857 [facility] SPINAL 5 [facility] CANAL INC INC LUMBAR W/O CONTRAST MATERIAL CANE E0105 [facility] WOLF QUAD/3-OH 5 HOME HOME CHER ALL MEDICAL MEDICAL MATL EQUIPME EQUIPME ADJUSTBL/ FIX W/TIPS RADIOLOGI 56361 [facility] PAT[facility] C EXAM 4 [facility] CHEST 2 INC INC VIEWS FRONTAL&L ATERAL URNLS DIP 11752 [facility] BAXTER 4 PHYSICIAN TARAS STICK/TAB S GROUP LET RGNT NON-AUTO W/O MICRSCP DUPLEX 87674 [facility] PAT[facility] SCAN 4 [facility] EXTRACRAN INC INC IAL ART COMPL BI STUDY PHYSICAL 66933 [facility] THERAPY 4 [facility]OS[facility] EVALUATIO INC INC N RADIOLOGI 17466 J[facility] PATEL C 4 [facility] EXAMINATI INC INC ON KNEE 3 [place] [address] [facility] PAT[facility] RETROPERI 4 [facility] TONEAL INC INC REAL TIME W/IMAGE COMPLETE BLOOD 66304 [facility] PATEL OCCULT 3 [facility] C[facility] E ACTV QUAL FECES 1 DETER THERAPEUT 73029 [facility] PATEL IC 3 [facility] PROPHYLAC INC INC TIC/DX INJECTION SUBQ/IM INJ J0702 [facility] PETTEY BETAMETHA 2 JAM JAM SONE ACETATE & PHOSPHATE 3 MG ARTHROCEN 44423 PETTE[facility] PETTEY TESIS 2 JAM JAM ASPIR&/IN J MAJOR JT/BURSA W/O US RADIOLOGI 49521 [facility] JORGE C 0 [facility] EXAMINATI INC INC ON KNEE 3 VIEWS RADIOLOGI 93552 [facility] JORGE C 9 [facility] EXAMINATI INC INC ON KNEE 3 VIEWS RADEX 86117 [facility] SPINE 9 [facility] LUMBOSACR INC INC AL MINIMUM 4 VIEWS Encounters Encounter Start End Date Code Location Performer Type Date [facility] J[facility]GE - 7 7 [facility] OUTPATIEN INC T OFFICE 28588 [facility]IN OUTPATIEN 7 7 PHYSICIAN T VISIT S GROUP 15 MINUTES OFFICE 60299 [facility] MARCELL JR OUTPATIEN 7 7 PHYSICIAN T VISIT S GROUP 15 MINUTES HOSPITAL JORGE - 7 7 [facility] OUTPATIEN INC T OFFICE 68512 [facility] PAVEZ OUTPATIEN 7 7 PHYSICIAN T NEW 45 S GROUP MINUTES OFFICE 11689 [facility] OUTPATIEN 7 7 PHYSICIAN T VISIT S GROUP 25 MINUTES OFFICE 38801 [facility] OUTPATIEN 7 7 PHYSICIAN T VISIT S GROUP 25 MINUTES EMERGENCY 40714 [facility] 7 7 MEM [facility] DEPARTMEN INC T VISIT HIGH/URGE NT SEVERITY HOSPITAL JORGE - 7 7 [facility] OUTPATIEN INC T EMERGENCY 13867 [facility] CISNEROS DEPT 7 7 PHYSICIAN VISIT S, PLLC HIGH SEVERITY& THREAT FUNCJ OFFICE 05168 [facility] OUTPATIEN 7 7 PHYSICIAN T VISIT S GROUP 25 MINUTES HOSPITAL JORGE - 7 7 [facility] OUTPATIEN INC T OFFICE 06730 [facility] OUTPATIEN 7 7 EYE T [facility] 30 [facility]STITUTE MINUTES OFFICE 38824 [facility] STYLES OUTPATIEN 6 6 PHYSICIAN T VISIT S GROUP 10 MINUTES OFFICE 10823 H OUTPATIEN 6 6 PHYSICIAN T VISIT S GROUP 15 MINUTES HOSPITAL [facility] - 6 6 N OUTPATIEN COMMUNTIY T HOSPITA OFFICE 19248 [facility] STYLES OUTPATIEN 6 6 PHYSICIAN T VISIT S GROUP 10 MINUTES OFFICE 23799 [facility] OUTPATIEN 6 6 PHYSICIAN EVELIA T VISIT S GROUP 15 MINUTES [facility] - 6 6 [facility] OUTPATI[facility] INC T OFFICE 15207 [facility] OUTPATIEN 6 6 PHYSICIAN NICOLE T VISIT S GROUP 10 MINUTES OFFICE 86846 [facility] OUTPATIEN 6 6 PHYSICIAN EVELIA T VISIT S GROUP 25 MINUTES OFFICE 02979 [facility] OUTPATIEN 6 6 PHYSICIAN NICOLE T VISIT S GROUP 10 MINUTES [facility] - 6 6 [facility] INC T OFFICE 80718 [facility] OUTPATIEN 6 6 PHYSICIAN EVELIA T VISIT S GROUP 10 MINUTES [facility] - 6 6 [facility] OUTPATI[facility] INC T OFFICE 44756 [facility] OUTPATIEN 6 6 PHYSICIAN NICOLE T NEW 20 S GROUP MINUTES OFFICE 48599 [facility] OUTPATIEN 6 6 PHYSICIAN EVELIA T VISIT S GROUP 25 MINUTES OFFICE 68933 [facility] OUTPATIEN 6 6 PHYSICIAN EVELIA T VISIT S GROUP 15 MINUTES [facility] - 6 6 [facility] OUTPATIEN INC T OFFICE 30310 [facility] OUTPATIEN 6 6 PHYSICIAN EVELIA T VISIT S GROUP 15 MINUTES OFFICE 31482 [facility] OUTPATIEN 6 6 PHYSICIAN EVELIA T VISIT S GROUP 10 MINUTES [facility] - 6 6 [facility] OUTPATIEN INC T OFFICE 74995 [facility] OUTPATIEN 6 6 PHYSICIAN EVELIA T VISIT S GROUP 15 MINUTES OFFICE 92099 [facility] OUTPATIEN 6 6 VE REBECA T VISIT 5 PODIATRY MINUTES OFFICE 24130 [facility] OUT[facility] 6 6 MD BRETT, T VISIT PSC 10 MINUTES [facility] - 6 6 [facility] OUTPATIEN INC T OFFICE 26552 PROGRESSI JOHN OUTPATIEN 6 6 VE REBECA T VISIT 5 PODIATRY MINUTES OFFICE 83269 [facility] OUTPATIEN 6 6 N T NEW 45 NEUROLOGY MINUTES [facility] - 6 6 N OUTPATIEN COMMUNTIY T HOSPITA OFFICE 24391 [facility] OUTPATIEN 6 6 PHYSICIAN EVELIA T VISIT S GROUP 15 MINUTES [facility] - 6 6 [facility] OUTPATIEN INC T OFFICE 24351 [facility] OUTPATIEN 5 5 MD BRETT, T VISIT PSC 25 MINUTES OFFICE 60818 [facility] OUTPATIEN 5 5 GABRIELA REBECA T VISIT 5 MINUTES OFFICE 41475 [facility] OUTPATIEN 5 5 GABRIELA REBECA T VISIT 15 MINUTES OFFICE 24655 [facility] OUTPATIEN 5 5 PHYSICIAN EVELIA T VISIT S GROUP 10 MINUTES OFFICE 41413 [facility] OUTPATIEN 5 5 GABRIELA REBECA T VISIT 15 MINUTES [facility] - 5 5 [facility] OUTPATIEN INC T OFFICE 99489 [facility] JOHN OUTPATIEN 5 5 GABIRELA REBECA T NEW 30 MINUTES [facility] - 5 5 [facility] OUTPATIEN INC T EMERGENCY 91296 [facility] 5 5 [facility] DEPARTMEN INC T VISIT LOW/MODER SEVERITY OFFICE 70288 [facility] OUTPATIEN 5 5 ME T NEW 30 MINUTES OFFICE 21818 [facility] OUTPATIEN 5 5 PHYSICIAN EVELIA T VISIT S GROUP 25 MINUTES OFFICE 63078 [facility] EVELIA T VISIT S GROUP 15 MINUTES OFFICE 54626 [facility] OUTPATIEN 5 5 [facility] T NEW 45 MEDICAL MINUTES [facility] - 5 5 [facility] 5 5 [facility] [facility] INC T PERIODIC 20188 JORGE PATEL PREVENTIV 3 3 [facility] CENTER PATIENT 63YRS& OLDER Emergency SHAAN Porter MD (ER) 3 19:12 3 22:09 [facility] JORGE - 3 3 [facility] OUT[facility]IEN INC T OFFICE 17991 CODY II CODY II OUTPATIEN [address] [facility] T VISIT 10 MINUTES OFFICE 63002 CODY II CODY II OUTPATIEN [address] [facility] T VISIT 10 MINUTES [facility] 16808 JORGE PATEL PREVENTIV 2 2 [facility] CENTER PATIENT 63YRS& OLDER [facility] JORGE - 0 0 [facility] OUTPATIEN INC T OFFICE 57478 ENRIKE MUIR 0 0 VINH Hurt VISIT PSC 25 MINUTES OFFICE 77530 ENRIKE MUIR 0 0 VINH Hurt VISIT PSC 15 MINUTES [facility] JORGE - 9 9 [facility] OUTPATIEN INC T OFFICE 11289 SOLE WHIPPLE OUTPATICASTRO 9 9 GERALD PEREYRA [address] W MINUTES
--- OUTSIDE RECORDS SUMMARY | 2016-11-22 08:10 | External Medical Summary Rpt | CCD ---
Author Author , MARGARET Organization MARGARET Address Unknown Phone [email or web address] Care Team Providers Care Schedule Checker Name Role Phone YURILUDMILA JR, MARCELL JR Unavailable Unavailable BEN WEST MD, PSC, Unavailable Unavailable BEN WEST MD, PSC [facility] Unavailable Unavailable MEDICAL GROUP, [facility] ILANA PRECIADO Unavailable Unavailable BROWN, BROWN Unavailable Unavailable JOHN REBECA, JOHN Unavailable Unavailable REBECA BUX ANJ, BUX ANJ Unavailable Unavailable BAXTER TARAS, BAXTER Unavailable Unavailable TARAS DAIJA, DAIJA Unavailable Unavailable JAVON STEFAN, Unavailable Unavailable JAVON STEFAN [facility], [facility] Unavailable Unavailable FALLIS GABRIELA, FALLIS Unavailable Unavailable GABRIELA MARTIN, MARTIN Unavailable Unavailable MARTIN EVELIA, MARTIN Unavailable Unavailable EVELIA [facility] Unavailable Unavailable [facility], [facility], Unavailable Unavailable [facility] Unavailable Unavailable CENTER, [facility] Unavailable Unavailable OMEGA, [facility] Unavailable Unavailable CARE, [facility] Unavailable Unavailable CARE, [facility] Unavailable Unavailable INC, [facility], Unavailable Unavailable [facility] [employer] Unavailable Unavailable [employer]PORATION, [employer] Unavailable Unavailable CORPORATION, [employer] Unavailable Unavailable CORPORATION, [employer] [facility], [facility] Unavailable Unavailable KALIK, KALIK Unavailable Unavailable [facility], [facility] Unavailable Unavailable [facility], [facility] YANIV CRI, YANIV CRI [...] Diagnosis DOS Provider Status [id number] OTHER 10-25-2016 [facility] AUTONOMIC NEUROPATHY G629 POLYNEUROPA 07-26-2016 [facility] [employer] UNSPECIFIED I639 CEREBRAL 07-26-2016 [facility] INFARCTION [employer] UNSPECIFIED Z9181 HISTORY OF 07-26-2016 [employer] [id number] PAIN IN 07-14-2016 [facility] RIGHT LEG [facility] INC M23457 PAIN IN 07-14-2016 [facility] LEFT LEG [facility] INC R202 PARESTHESIA 07-14-2016 [facility] OF SKIN [facility] INC D04244 FOOT DROP 06-20-2016 [facility] RIGHT FOOT HOME MEDICAL EQUIPME M5030 OTH 06-20-2016 [facility] CERVICAL HOME DISC MEDICAL DEGENERATIO EQUIPME N UNS CERV REGION M5090 CERVICAL 06-20-2016 [facility] DISC HOME DISORDER MEDICAL UNS UNS EQUIPME CERVICAL REGION I10 ESSENTIAL 06-18-2016 [facility] PRIMARY PHYSICIANS HYPERTENSIO GROUP N K921 MELENA 06-16-2016 [facility] GROUP K1121 ACUTE 06-07-2016 [facility] SIALOADENIT [facility] IS INC R220 LOCALIZED 06-07-2016 [facility] LUMP HEAD P69532 PERSONAL 05-26-2016 [facility] HISTORY PHYSICIANS OTHER GROUP DISEASES URINARY SYSTEM R269 UNSPECIFIED 05-21-2016 [facility] PHYSICIANS ABNORMALITI GROUP ES OF GAIT AND MOBILITY G8929 OTHER 04-23-2016 [facility] CHRONIC PHYSICIANS PAIN GROUP P20GGBB UNSPECIFIED 04-23-2016 [facility] FALL PHYSICIANS INITIAL GROUP ENCOUNTER R0600 DYSPNEA 04-04-2016 [facility] R0602 SHORTNESS 04-04-2016 [facility] R410 DISORIENTAT 04-04-2016 [place] [facility]ICAL UNSPECIFIED IMAGING ASS R42 DIZZINESS 04-04-2016 [facility] AND PHYSICIANS, GIDDINESS [facility] R51 HEADACHE 04-04-2016 [facility] R531 WEAKNESS 04-04-2016 [facility] Y79490 WRIST DROP 02-27-2016 [facility] RIGHT WRIST PHYSICIANS GROUP M6258 MUSCLE 02-27-2016 [facility] WASTING & PHYSICIANS ATROPHY NEC GROUP OTHER SITE R5383 OTHER 02-27-2016 [facility] FATIGUE PHYSICIANS GROUP H60512 OTHER LONG 02-27-2016 [facility] TERM PHYSICIANS CURRENT GROUP DRUG THERAPY P47103 DERMATOCHAL 02-19-2016 [facility] RIGHT UPPER INSTITUTE EYELID P28090 DERMATOCHAL 02-19-2016 [facility] LEFT UPPER INSTITUTE EYELID V35801 COMBINED 02-19-2016 [facility] AGE-RELATED INSTITUTE CATARACT LEFT EYE K73485 COMBINED 02-19-2016 [facility] CATARACT BILATERAL H538 OTHER 02-19-2016 [place] DISTURBANCE INSTITUTE S R590 LOCALIZED 12-28-2015 [facility] ENLARGED PHYSICIANS LYMPH NODES GROUP N289 DISORDER OF 12-21-2015 [facility] KIDNEY AND PHYSICIANS URETER GROUP UNSPECIFIED R296 REPEATED 12-21-2015 [facility] FALLS PHYSICIANS GROUP K116 MUCOCELE OF 12-10-2015 [facility] D1800 HEMANGIOMA 11-16-2015 [facility] UNSPECIFIED PHYSICIANS SITE GROUP Z1211 ENCOUNTER 10-23-2015 [facility] SCREENING PHYSICIANS MALIGNANT GROUP NEOPLASM OF COLON Z23 ENCOUNTER 10-23-2015 [facility] FOR PHYSICIANS IMMUNIZATIO GROUP N D490 NEOPLASM OF 10-19-2015 [facility] UNS [facility] BEHAVIOR INC DIGESTIVE SYSTEM Y09955G UNSPECIFIED 09-25-2015 [facility] INJURY PHYSICIANS FOOT UNS GROUP SIDE INITIAL ENCNTR K118 OTHER 08-29-2015 [facility] DISEASES OF [facility] SALIVARY INC GLANDS H6123 IMPACTED 07-31-2015 [facility] CERUMEN PHYSICIANS BILATERAL GROUP M9981 OTHER 07-31-2015 [facility] BIOMECHANIC PHYSICIANS AL LESIONS GROUP OF CERVICAL REGION G9050 COMPLEX 07-27-2015 [facility] REGIONAL PHYSICIANS PAIN GROUP SYNDROME I UNSPECIFIED O86066 SPONTANEOUS 04-03-2015 PROGRESSIVE RUPTURE PODIATRY FLEXOR TENDONS RT ANKLE FOOT M7751 OTHER 04-03-2015 PROGRESSIVE ENTHESOPATH PODIATRY Y OF RIGHT FOOT I21290 PAIN IN 04-03-2015 PROGRESSIVE RIGHT LOWER PODIATRY LEG M5116 INTERVERTEB 04-02-2015 [facility] WE[facility], RAL DISC , PSC D/O W/RADICULOP ATHY LUMB RGN M6281 MUSCLE 03-08-2015 [facility] NEUROLOGY GENERALIZED M5416 RADICULOPAT 02-05-2015 [facility]EN WEST, HY LUMBAR , PSC REGION I959 HYPOTENSION 12-12-2014 [facility] PHYSICIANS UNSPECIFIED GROUP I890 LYMPHEDEMA 11-09-2014 FALLIS GABRIELA NOT ELSEWHERE CLASSIFIED C63708 PAIN IN 11-09-2014 PROGRESSIVE LEFT FOOT PODIATRY L25476V NONDSPL FX 11-09-2014 PROGRESSIVE 5TH PODIATRY METATARSAL LT FT INIT ENC CLOS FX 4439 UNSPECIFIED 10-05-2014 FALLIS GABRIELA PERIPHERAL VASCULAR DISEASE 72378 EXOSTOSIS 10-05-2014 FALLIS GABRIELA OF UNSPECIFIED SITE 7295 PAIN IN 10-05-2014 FALLIS GABRIELA SOFT TISSUES OF LIMB 73630 OTHER 09-03-2014 [facility] CHRONIC [facility] PAIN INC 7242 LUMBAGO 09-03-2014 [facility] INC 32627 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 7244 THORACIC/PAVEL 08-07-2014 MARJ TOMAS MD NEURITIS/RA DICULITIS UNSPEC 3559 MONONEURITI 07-31-2014 [facility] S OF PHYSICIANS UNSPECIFIED GROUP SITE 4019 UNSPECIFIED 07-31-2014 [facility] ESSENTIAL PHYSICIANS HYPERTENSIO GROUP N 5939 UNSPECIFIED 07-31-2014 [facility] DISORDER PHYSICIANS OF KIDNEY GROUP AND URETER 31626 OSTEOARTHRO 07-31-2014 [facility] S UNSPEC PHYSICIANS WHETHER GROUP GEN/LOC UNSPEC SITE 7245 UNSPECIFIED 07-31-2014 [facility] BACKACHE PHYSICIANS GROUP 72238 LOSS OF 07-31-2014 [facility] WEIGHT PHYSICIANS GROUP V1588 PERSONAL 07-31-2014 [facility] HISTORY OF PHYSICIANS FALL GROUP 99376 MIGRAINE 07-05-2014 [facility] W/O [facility] W/O INTRACT MEDICAL W/O STAT GROUP MIGRNOSUS 3569 UNSPEC 07-05-2014 [facility] PER[facility]HERAL [facility] NEUROPATHY 55192 UNSPECIFIED 05-25-2014 [facility] ARTHROPATHY INC , LOWER LEG 74206 GEN 02-16-2014 [facility] OSTEOARTHRO HOME SIS MEDICAL INVOLVING EQUIPME MULTIPLE SITES 49992 PAINFUL 01-14-2014 [facility] RESPIRATION [facility] INC 79124 HYPERTONICI 12-27-2013 [facility] TY OF PHYSICIANS BLADDER GROUP 10552 CYSTOCELE 12-27-2013 [facility] WITHOUT PHYSICIANS MENTION GROUP UTERINE PROLAPSE MIDLN 14255 URGE 12-27-2013 [facility] INCONTINENC PHYSICIANS E GROUP 23353 URINARY 12-27-2013 [facility] FREQUENCY PHYSICIANS GROUP 7804 DIZZINESS 12-15-2013 [facility] AND [facility] GIDDINESS INC 7812 ABNORMALITY 12-14-2013 [facility] OF GAIT [facility] INC V571 OTHER 12-14-2013 [facility] PHYSICAL [facility] THERAPY INC 73768 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 [facility] RHEUMATISM, INC LOWER LEG 5853 CHRONIC 06-14-2013 [facility] KIDNEY [facility] DISEASE INC STAGE III (MODERATE) V069 NEED PROPH 12-07-2012 [facility] VACCINATION HEALTH W/UNSPEC CENTER COMB VACCINE V700 ROUTINE 12-07-2012 [facility] EXAM@HEALTH CARE FACL 4660 ACUTE 04-18-2012 [facility] BRONCHITIS [facility] INC 8796 OPEN WOUND 04-07-2012 CODY II OTH&UNSPEC YINA PART TRNK W/O MENTION COMP V1083 PERSONAL 04-07-2012 CODY II HISTORY YINA OTHER MALIGNANT NEOPLASM SKIN 7265 ENTHESOPATH 01-15-2012 [facility] JAM Y OF HIP REGION 17755 PES 01-15-2012 PET[facility]Y JAM ANSERINUS TENDINITIS OR BURSITIS V7231 ROUTINE 11-17-2011 PATHOLOGY & GYNECOLOGIC CYTOLOGY AL LAB EXAMINATION 85662 PAIN IN 07-13-2009 [facility] JOINT, [facility] LOWER LEG INC 7149 UNSPECIFIED 06-18-2009 Patsy JUSTICE MD PSC INFLAMMATOR Y POLYARTHROP ATHY 16707 INSOMNIA 06-18-2009 Patsy JACOBOIFIED PSC 7840 HEADACHE 03-05-2009 Patsy JUSTICE MD PSC 86907 NUCLEAR 08-09-2008 SOLE, [place]WO[place]ARTE W 13562 UNSPECIFIED 08-09-2008 XIN WHIPPLE VISUAL DISTURBANCE G89.29 [...] HMH 3 3-20 EY PHYS VACC 16 EVELIA ICIA INE NS FOR GROU INTR P [...] PT ON ON TO &=300 LBS NEEDLE 63295 JORGE PATEL EMG EA 7 [facility] EXTREMTY INC INC W/PARASPI NL AREA COMPLETE NERVE 89573 JOR[facility] PATEL CONDUCTIO 7 [facility] N STUDIES INC INC 9-10 STUDIES PWR K0823 [facility] GRP 2 STD 7 [facility] CORPORATI CHAIR PT ON ON TO &=300 LBS STANDARD K0001 LUCIANO ROSS 7 HOME HOME R MEDICAL MEDICAL EQUIPME [facility] G0463 JORGE PATEL OUTPATIEN 7 [facility] T CLIN INC INC VISIT ASSESS & MGMT PT RADIOLOGI 33542 JP Garcia 7 MEDICAL EXAMINATI IMAGING ON ASS MANDIPLE PRTL <4 VIEWS RADIOLOG 26611 JORGE PATEL EXAM 7 [facility] MANDIBLE INC INC COMPL MINIMUM 4 VIEWS COMPREHEN 44307 J[facility] PATEL SIVE 7 [facility] METABOLIC INC INC PANEL NATRIURET 12680 JORGE GARCIA IC 7 [place] [address] JORGE PATEL TROPONIN 7 [facility] QUANTITAT INC INC ANJALI BLOOD 43156 JORGE KENDRICKIK COUNT 7 [facility] COMPLETE INC AUTO&[place] [address] [place] [facility] HEAD/BRAI 7 MEDICAL N W/O IMAGING CONTRAST ASS MATERIAL RADIOLOGI 46879 [place] DA[facility] C 7 MEDICAL EXAMINATI IMAGING ON CHEST ASS SINGLE VIEW FRONTAL CREATINE 74304 J[facility] PATEL KINASE 7 [facility] TOTAL INC INC FIBRIN 88655 J[facility] PATEL DGRADJ 7 [facility] PRODUCTS INC INC D-DIMER QUAL/SEMI KISHAN ECG 29326 JORGE PATEL ROUTINE 7 [facility] ECG INC INC W/LEAST 12 LDS TRCG ONLY W/O I&R CREATINE 80369 J[facility] PATEL KINASE MB 7 [facility] FRACTION INC INC ONLY BLOOD 38362 J[facility]GE PATEL COUNT 7 [facility] COMPLETE INC INC AUTO&AUTO DIFRNTL WBC COMPREHEN 01330 [facility] PATEL SIVE 7 [facility] METABOLIC INC INC PANEL OPH BMTRY 65904 [facility] 7 EYE ECHOGRAPY INSTITUTE A-SCAN IO LENS PWR SUJATA PWR K0823 [facility] HOVEROUND GRP 2 STD 6 [facility]POR[facility] CHAIR PT ON ON TO &=300 LBS PWR K0823 [facility] GRP 2 STD 6 [facility] CORPORATI CHAIR PT ON ON TO &=300 LBS PET 21657 [facility] IMAGING [address] COMMUNTIY COMMUNTIY [...] EVELIA INFLUENZA S GROUP VIRUS VACCINE BLOOD 85157 [facility]ICIAN EVELIA PEROXIDAS S GROUP E ACTV QUAL FECES 1-3 SPEC PCV13 89241 [facility] VACCINE 6 PHYSICIAN EVELIA FOR S GROUP INTRAMUSC ULAR USE IIV 93442 [facility] ADJUV[facility]TE 6 PHYSICIAN EVELIA D VACCINE S GROUP FOR INTRAMUSC ULAR USE MRI ORBIT 05398 J[facility] PATEL FACE & 6 [facility] H[facility] NECK W/O INC INC & W/CONTRAS T MATRL COLLECTIO 22344 [facility] STYLES N VENOUS 6 PHYSICIAN NICOLE BLOOD S GROUP VENIPUNCT URE PWR K0823 [facility] GRP 2 STD 6 [facility] CORPORATI CHAIR PT ON ON TO &=300 LBS FINE 38267 [facility] PATEL NEEDLE 6 [facility] ASPIRATIO INC INC N WITH IMAGING GUIDANCE US SOFT 81539 [facility] PATEL TISSUE 6 [facility] HEAD & INC INC NECK REAL TIME IMGE DOCM PWR E2365 [facility] WHLCHAIR 6 ACSS U-1 CORPORATI CORPORATI SEALED ON ON LEAD ACID BATTRY EA PWR K0823 [facility] GRP 2 STD 6 [facility] CORPORATI CHAIR PT ON ON TO &=300 LBS THERAPEUT 28952 JORGE PATEL IC PX 1/> 6 [facility] AREAS INC INC EACH 15 MIN EXERCISES THERAPEUT 78120 JORGE PATEL IC PX 1/> 6 [facility] AREAS INC INC EACH 15 MIN EXERCISES THERAPEUT 37794 JORGE PATEL IC PX 1/> 6 [facility] AREAS INC INC EACH 15 MIN EXERCISES 3D 17720 [facility] PATEL RENDERING 6 [facility] W/INTERP INC INC & POSTPROCE SS SUPERVISI ON MRI 27464 J[facility] PATEL SPINAL 6 [facility] CANAL INC INC CERVICAL W/O CONTRAST MATRL THERAPEUT 04795 JORGE PATEL IC PX 1/> 6 [facility] AREAS INC INC EACH 15 MIN EXERCISES THERAPEUT 64939 JORGE PATLE IC PX 1/> 6 [facility] AREAS INC INC EACH 15 MIN EXERCISES THERAPEUT 87341 JORGE PATEL IC PX 1/> 6 [facility] AREAS INC INC EACH 15 MIN EXERCISES THERAPEUT 95945 JORGE PATEL IC PX 1/> 6 [facility] AREAS INC INC EACH 15 MIN EXERCISES THERAPEUT 19930 JORGE PATEL IC PX 1/> 6 [facility] AREAS INC INC EACH 15 MIN EXERCISES PHYSICAL 94087 J[facility]GE PATEL THERAPY 6 [facility] EVALUATIO INC INC N COLLECTIO 70473 [facility] N VENOUS 6 PHYSICIAN EVELIA BLOOD S GROUP VENIPUNCT URE ARTHROCEN 85772 PROGRESSI JOHN TESIS 6 VE REBECA ASPIR&/IN PODIATRY J INTERM JT/BURS W/O US INJECTION J3301 PROGRESSI JOHN 6 VE REBECA TRIAMCINO PODIATRY LONE ACETONIDE NOS 10 MG OCCUPATIO 37604 J[facility] PATEL NAL 6 [facility] THERAPY INC INC EVALUATIO N PHYSICAL 26013 JORGE PATEL THERAPY 6 [facility] EVALUATIO INC INC N LIPID 37150 [facility] PANEL 6 N N COMMUNTIY COMMUNTIY HOSPITA HOSPITA HEMOGLOBI 76863 [facility] N 6 N N GLYCOSYLA COMMUNTIY COMMUNTIY CARINA A1C HOSPITA HOSPITA COLLECTIO 68584 [facility] N VENOUS 6 N N BLOOD COMMUNTIY [place] [address] JORGE PATEL HEAD/BRAI 6 [facility] N W/O INC INC CONTRAST MATERIAL [...] PODIATRY &/ VACUUM PREFAB CUSTM FIT RADEX 44681 J[facility] PATEL FOOT 5 [facility] COMPLETE INC INC MINIMUM 3 VIEWS THERAPEUT 37257 [facility] PATEL IC 5 [facility] PROPHYLAC INC INC TIC/DX INJECTION SUBQ/IM INJECTION J1040 [facility] PATEL 5 [facility] METHYLPRE INC INC DNISOLONE ACETATE 80 MG APPL 66077 J[facility] PATEL MODALITY 5 [facility] 1/> AREAS INC INC ELEC STIMJ EA 15 MIN TENS E0730 EMPI INC EMPI INC DEVICE 5 4/MORE LEADS MULTI [place]ERVE STIMULATI ON MRI 93602 JRO[facility] PATEL SPINAL 5 [facility] CANAL INC INC LUMBAR W/O CONTRAST MATERIAL CANE E0105 LUCI[facility]O WOLF QUAD/3-SC 5 HOME HOME CHER ALL MEDICAL MEDICAL MATL EQUIPME EQUIPME ADJUSTBL/ FIX W/TIPS RADIOLOGI 52136 J[facility]GE PATEL C EXAM 4 [facility] CHEST 2 INC INC VIEWS FRONTAL&L ATERAL URNLS DIP 96669 [facility] BAXTER 4 PHYSICIAN TARAS STICK/TAB S GROUP LET RGNT NON-AUTO W/O MICRSCP DUPLEX 74562 J[facility] PATEL SCAN 4 [facility] EXTRACRAN INC INC IAL ART COMPL BI STUDY PHYSICAL 12485 [facility] PATEL THERAPY 4 [facility] EVALUATIO INC INC N RADIOLOGI 23106 J[facility] PATEL C 4 [facility] EXAMINATI INC INC ON KNEE 3 [place] [address] J[facility] PATEL RETROPERI 4 [facility] TONEAL INC INC REAL TIME W/IMAGE COMPLETE BLOOD 65746 JORGE PATEL OCCULT 3 [facility] C[facility] E ACTV QUAL FECES 1 DETER THERAPEUT 66284 J[facility]GE PATEL IC 3 [facility] PROPHYLAC INC INC TIC/DX INJECTION SUBQ/IM INJ J0702 [facility] PETTEY BETAMETHA 2 JAM JAM SONE ACETATE & PHOSPHATE 3 MG ARTHROCEN 72169 PETTE[facility] PETTEY TESIS 2 JAM JAM ASPIR&/IN J MAJOR JT/BURSA W/O US RADIOLOGI 04167 J[facility] JORGE C 0 [facility] EXAMINATI INC INC ON KNEE 3 VIEWS RADIOLOGI 31235 J[facility] JORGE C 9 [facility] EXAMINATI INC INC ON KNEE 3 VIEWS RADEX 16883 J[facility] JORGE SPINE 9 [facility] LUMBOSACR INC INC AL MINIMUM 4 VIEWS Encounters Encounter Start End Date Code Location Performer Type Date [facility] J[facility]GE - 7 7 [facility] OUTPATIEN INC T OFFICE 13077 [facility] OUTPATIEN 7 7 PHYSICIAN T VISIT S GROUP 15 MINUTES OFFICE 22399 [facility] MARCELL JR OUTPATIEN 7 7 PHYSICIAN T VISIT S GROUP 15 MINUTES [facility]OSPITAL JORGE - 7 7 [facility] OUTPATIEN INC T OFFICE 90143 [facility] PAVEZ OUTPATIEN 7 7 PHYSICIAN T NEW 45 S GROUP MINUTES OFFICE 58381 [facility] OUTPATIEN 7 7 PHYSICIAN T VISIT S GROUP 25 MINUTES OFFICE 71102 [facility] OUTPATIEN 7 7 PHYSICIAN T VISIT S GROUP 25 MINUTES EMERGENCY 08843 J[facility] 7 7 [facility] DEPARTMEN INC T VISIT HIGH/URGE NT SEVERITY HOSPITAL J[facility]GE - 7 7 [facility] OUTPATIEN INC T EMERGENCY 61921 [facility] CISNEROS DEPT 7 7 PHYSICIAN VISIT S, PLLC HIGH SEVERITY& THREAT FUNCJ OFFICE 92024 [facility] OUTPATIEN 7 7 PHYSICIAN T VISIT S GROUP 25 MINUTES HOSPITAL JORGE - 7 7 [facility] OUTPATIEN INC T OFFICE 28872 [facility] OUTPATIEN 7 7 EYE T NEW 30 INSTITUTE MINUTES OFFICE 89756 [facility] ST[facility] OUTPATIEN 6 6 PHYSICIAN T VISIT S GROUP 10 MINUTES OFFICE 67636 H OUTPATIEN 6 6 PHYSICIAN T VISIT S GROUP 15 MINUTES [facility]OSP[facility] - 6 6 N OUTPATIEN COMMUNTIY T HOSPITA OFFICE 00402 [facility] OUTPATIEN 6 6 PHYSICIAN T VISIT S GROUP 10 MINUTES OFFICE 40492 [facility] OUTPATIEN 6 6 PHYSICIAN EVELIA T VISIT S GROUP 15 MINUTES HOSPITAL JORGE - 6 6 [facility] OUTPATIEN INC T OFFICE 37541 [facility] OUTPATIEN 6 6 PHYSICIAN NICOLE T VISIT S GROUP 10 MINUTES OFFICE 44752 [facility] OUTPATIEN 6 6 PHYSICIAN EVELIA T VISIT S GROUP 25 MINUTES OFFICE 21845 [facility] OUTPATIEN 6 6 PHYSICIAN NICOLE T VISIT S GROUP 10 MINUTES HOSPITAL JORGE - 6 6 [facility] OUTPATIEN INC T OFFICE 76554 [facility] OUTPATIEN 6 6 PHYSICIAN EVELIA T VISIT S GROUP 10 MINUTES HOSPITAL JORGE - 6 6 [facility] OUTPATIEN INC T OFFICE 98742 [facility] OUTPATIEN 6 6 PHYSICIAN NICOLE T NEW 20 S GROUP MINUTES OFFICE 35085 [facility] OUTPATIEN 6 6 PHYSICIAN VEELIA T VISIT S GROUP 25 MINUTES OFFICE 04643 [facility] OUTPATIEN 6 6 PHYSICIAN EVELIA T VISIT S GROUP 15 MINUTES HOSPITAL JORGE - 6 6 [facility] OUTPATIEN INC T OFFICE 80897 [facility] OUTPATIEN 6 6 PHYSICIAN EVELIA T VISIT S GROUP 15 MINUTES OFFICE 16065 [facility] OUTPATIEN 6 6 PHYSICIAN EVELIA T VISIT S GROUP 10 MINUTES HOSPITAL JORGE - 6 6 [facility] OUTPATIEN INC T OFFICE 13416 [facility] OUTPATIEN 6 6 PHYSICIAN EVELIA T VISIT S GROUP 15 MINUTES OFFICE 80730 PROGRESSI JOHN OUTPATIEN 6 6 VE REBECA T VISIT 5 PODIATRY MINUTES OFFICE 53899 [facility]J OUTPATIEN 6 6 MD BRETT, T VISIT PSC 10 MINUTES [facility] JORGE - 6 6 [facility] OUTPATIEN INC T OFFICE 39111 PROGRESSI JOHN OUTPATIEN 6 6 VE REBECA T VISIT 5 PODIATRY MINUTES OFFICE 06242 [facility] OUTPATIEN 6 6 N T NEW 45 NEUROLOGY MINUTES [facility] - 6 6 N OUTPATIEN COMMUNTIY T HOSPITA OFFICE 69385 [facility] OUTPATIEN 6 6 PHYSICIAN EVELIA T VISIT S GROUP 15 MINUTES [facility] - 6 6 [facility] OUTPATIEN INC T OFFICE 08431 BEN YANIV CRI OUTPATIEN 5 5 MD BRETT, T VISIT PSC 25 MINUTES OFFICE 23482 [facility] JOHN OUTPATIEN 5 5 GABRIELA REBECA T VISIT 5 MINUTES OFFICE 24840 [facility] JOHN OUTPATIEN 5 5 GABRIELA REBECA T VISIT 15 MINUTES OFFICE 61461 [facility] OUTPATIEN 5 5 PHYSICIAN EVELIA T VISIT S GROUP 10 MINUTES OFFICE 72670 [facility] JOHN OUTPATIEN 5 5 GABRIELA REBECA T VISIT 15 MINUTES [facility] - 5 5 [facility] OUTPATIEN INC T OFFICE 18561 FALLIS JOHN OUTPATIEN 5 5 GABRIELA REBECA T NEW 30 MINUTES [facility]OSPITAL [facility] - 5 5 [facility] OUTPATIEN INC T EMERGENCY 97153 [facility] 5 5 [facility] DEPARTMEN INC T VISIT LOW/MODER SEVERITY OFFICE 59852 [facility] OUTPATIEN 5 5 OR T NEW 30 MINUTES OFFICE 15639 [facility] OUTPATIEN 5 5 PHYSICIAN EVELIA T VISIT S GROUP 25 MINUTES [facility]ICE 90899 [facility] PHYSIC[facility] EVELIA T VISIT S GROUP 15 MINUTES OFFICE 19211 RASTAFARIAN JAVON OUTPATIEN 5 5 [facility] T NEW 45 MEDICAL MINUTES [facility] JORGE - 5 5 [facility] OUTPATIEN [...] 4 [facility] OUTPATI[facility] INC T PERIODIC 82242 J[facility]GE PATEL PREVENTIV 3 3 [facility]ENTER PATIENT 63YRS& OLDER Emergency SHAAN Porter MD (ER) 3 19:12 3 22:09 [facility] JORGE - 3 3 [facility] OUTPATIEN INC T OFFICE 50258 CODY II CODY II OUTPATIEN 3 3 [facility] T VISIT 10 MINUTES OFFICE 91256 CODY II CODY II OUTPATIEN 3 3 [facility] T VISIT 10 MINUTES [facility] 79565 JROGE PATEL PREVENTIV 2 2 [facility] PATIENT 63YRS& OLDER [facility] JORGE - 0 0 [facility] OUT[facility]IEN INC T OFFICE 33079 ENRIKE MUIR 0 0 VINH Hurt VISIT PSC 25 MINUTES OFFICE 78530 ENRIKE MUIR 0 0 VINH Hurt VISIT PSC 15 MINUTES [facility] JORGE - 9 9 [facility] OUTPATIEN INC T OFFICE 65757 [facility] OUTPATICASTRO 9 9 GERALD PEREYRA [address] W MINUTES
--- OUTSIDE RECORDS SUMMARY | 2016-11-22 08:13 | External Medical Summary Rpt | CCD ---
Author Author , MARGARET Organization MARGARET Address Unknown Phone [email or web address] Immunization Name Date Rout CVX Reac Dose Comm Prov Is Faci e tion ent ider Refu lity Give sed n Tdap 10-2 115 999 Hist H149 No H149 , 9-20 oric Adso 13 al rbed Info rmat ion - Sour ce Unsp ecif ied Td 06-2 9 999 Hist H191 No H191 (nikki 5-20 oric lt), 01 al Info adso rmat rbed ion - Sour ce Unsp ecif ied
--- OUTSIDE RECORDS SUMMARY | 2016-11-22 08:13 | External Medical Summary Rpt | CCD ---
Author Author , MARGARET Organization MARGARET Address Unknown Phone [email or web address] Immunization Name Date Rout CVX Reac Dose [...]
--- OUTSIDE RECORDS SUMMARY | 2016-11-22 08:13 | External Medical Summary Rpt | CCD ---
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 Name Role Phone MARCELL DIAS, MARCELL DIAS Unavailable Unavailable BEN WEST MD, PSC, Unavailable Unavailable BEN WEST MD, PSC [facility] Unavailable Unavailable MEDICAL GROUP, [facility] ILANA, ILANA Unavailable Unavailable BROWN, BROWN Unavailable Unavailable JOHN REBECA, JOHN Unavailable Unavailable REBECA BUX ANJ, BUX ANJ Unavailable Unavailable BAXTER TARAS, BAXTER Unavailable Unavailable TARAS DAIJA, DAIJA Unavailable Unavailable JAVON STEFAN, Unavailable Unavailable JAVON STEFAN [facility], [facility] Unavailable Unavailable FALLIS GABRIELA, FALLIS Unavailable Unavailable GABRIELA MARTIN, MARTIN Unavailable Unavailable MARTIN EVELIA, MARTIN Unavailable Unavailable [facility] Unavailable Unavailable [facility], [facility], Unavailable Unavailable [facility] Unavailable Unavailable CENTER, [facility] Unavailable [facility]available CENTER, [facility] Unavailable [facility]available CARE, [facility] Unavailable Unavailable CARE, [facility] Unavailable Unavailable INC, [facility], [facility]available Unavailable [facility] [employer] Unavailable Unavailable CORPORATION, [employer] Unavailable Unavailable [employer]PORATION[facility] [employer] Unavailable Unavailable CORPORATION, [employer] [facility]ISNER[facility], CIS[facility] Unavailable Unavailable KALIK, KALIK Unavailable Unavailable [facility] Un[facility], [facility] Unavailable Unavailable [facility], [facility] YANIV CRI, YANIV CRI Unavailable Unavailable STYLES, STYLES Unavailable Unavailable STYLES NICOLE, STYLES Unavailable Unavailable NICOLE MARJ WEST MD, MARJ Unavailable Unavailable GERALD GANDHI MD, Unavailable Unavailable [facility], Unavailable Unavailable [...] DAKOTA DONAHUE, Unavailable Unavailable DAKOTA GAMBLE, DUANE ANGI Unavailable Unavailable [facility] Unavailable Unavailable EQUIPME, [facility] Unavailable Unavailable EQU[facility]ME, [facility] Purpose Continuity of Care Document - 08-09-2008 through 2016 Problems Code Diagnosis DOS Provider Status G9009 OTHER 10-25-2016 [facility] AUTONOMIC NEUROPATHY G629 POLYNEUROPA 07-26-2016 [facility] THY [employer]stech UNSPECIFIED I639 CEREBRAL 07-26-2016 [facility] INFARCTION [employer] UNSPECIFIED Z9181 HISTORY OF 07-26-2016 [employer] FALLING Estech Z61390 PAIN IN 07-14-2016 [facility] C90960 PAIN IN 07-14-2016 [facility] R202 PARESTHESIA 07-14-2016 [facility] OF SKIN [facility] E57388 FOOT DROP 06-20-2016 [facility] M5030 OTH 06-20-2016 [facility] CERVICAL [facility] DISC MEDICAL DEGENERATIO EQUIPME N UNS CERV REGION M5090 CERVICAL 06-20-2016 [facility] DISC HOME DISORDER MEDICAL UNS UNS EQUIPME CERVICAL REGION I10 ESSENTIAL 06-18-2016 [facility] PRIMARY PHYSICIANS HYPERTENSIO GROUP N K921 MELENA 06-16-2016 [facility]ANS GROUP K1121 ACUTE 06-07-2016 [facility] SIALOADENIT [facility] IS INC R220 LOCALIZED 06-07-2016 [facility] LUMP HEAD R20540 PERSONAL 05-26-2016 [facility] HISTORY PHYSICIANS OTHER GROUP DISEASES URINARY SYSTEM R269 UNSPECIFIED 05-21-2016 [facility] PHYSICIANS ABNORMALITI GROUP ES OF GAIT AND MOBILITY G8929 OTHER 04-23-2016 [facility] CHRONIC PHYSICIANS PAIN GROUP [id number] UNSPECIFIED 04-23-2016 [facility] FALL PHYSICIANS INITIAL GROUP ENCOUNTER R0600 DYSPNEA 04-04-2016 [facility]PEC[facility] R0602 SHORTNESS 04-04-2016 [facility] OF BREATH MEDICAL IMAGING ASS R410 DISORIENTAT 04-04-2016 [facility] ION MEDICAL UNSPECIFIED IMAGING ASS R42 DIZZINESS 04-04-2016 [facility] AND PHYSICIANS, GIDDINESS PLLC R51 HEADACHE 04-04-2016 [facility] R531 WEAKNESS 04-04-2016 [facility] J41182 WRIST DROP 02-27-2016 [facility] RIGHT WRIST PHYSICIANS GROUP M6258 MUSCLE 02-27-2016 [facility] WASTING & PHYSICIANS ATROPHY NEC GROUP OTHER SITE R5383 OTHER 02-27-2016 [facility] FATIGUE PHYSICIANS GROUP J80775 OTHER LONG 02-27-2016 [facility] TERM PHYSICIANS CURRENT GROUP DRUG THERAPY Y80830 DERMATOCHAL 02-19-2016 [facility] RIGHT UPPER INSTITUTE EYELID Q05322 DERMATOCHAL 02-19-2016 [facility] LEFT UPPER INSTITUTE EYELID W22069 COMBINED 02-19-2016 [facility] FORMS OF [facility] AGE-RELATED INSTITUTE CATARACT LEFT EYE D53883 COMBINED 02-19-2016 [facility]-RELATED INSTITUTE CATARACT BILATERAL H538 OTHER 02-19-2016 [facility] V[facility]UAL [facility] DISTURBANCE INSTITUTE S R590 LOCALIZED 12-28-2015 [facility] ENLARGED PHYSICIANS LYMPH NODES GROUP N289 DISORDER OF 12-21-2015 [facility] KIDNEY AND PHYSICIANS URETER GROUP UNSPECIFIED R296 REPEATED 12-21-2015 [facility] FALLS PHYSICIANS GROUP K116 MUCOCELE OF 12-10-2015 [facility] D1800 HEMANGIOMA 11-16-2015 [facility] UNSPECIFIED PHYSICIANS SITE GROUP Z1211 ENCOUNTER 10-23-2015 [facility] SCREENING PHYSICIANS MALIGNANT GROUP NEOPLASM OF COLON Z23 ENCOUNTER 10-23-2015 [facility] FOR PHYSICIANS IMMUNIZATIO GROUP N D490 NEOPLASM OF 10-19-2015 [facility] UNS [facility] BEHAVIOR INC DIGESTIVE SYSTEM Z59467W UNSPECIFIED 09-25-2015 [facility] INJURY PHYSICIANS FOOT UNS GROUP SIDE INITIAL ENCNTR K118 OTHER 08-29-2015 [facility] DISEASES OF MEM [facility] SALIVARY INC GLANDS H6123 IMPACTED 07-31-2015 [facility] CERUMEN PHYSICIANS BILATERAL GROUP M9981 OTHER 07-31-2015 [facility] BIOMECHANIC PHYSICIANS AL LESIONS GROUP OF CERVICAL REGION G9050 COMPLEX 07-27-2015 [facility] REGIONAL PHYSICIANS PAIN GROUP SYNDROME I UNSPECIFIED W08459 SPONTANEOUS 04-03-2015 PROGRESSIVE RUPTURE PODIATRY FLEXOR TENDONS RT ANKLE FOOT M7751 OTHER 04-03-2015 PROGR[facility]IVE ENTHESOPATH PODIATRY Y OF RIGHT FOOT H05624 PAIN IN 04-03-2015 PROGR[facility]IVE RIGHT LOWER PODIATRY LEG M5116 INTERVERTEB 04-02-2015 CORY ALLEN MD, PSC D/O W/RADICULOP ATHY LUMB RGN M6281 MUSCLE 03-08-2015 [facility]Y GENERALIZED M5416 RADICULOPAT 02-05-2015 BEN WEST, HY LUMBAR , PSC REGION I959 HYPOTENSION 12-12-2014 [facility] PHYSICIANS UNSPECIFIED GROUP I890 LYMPHEDEMA 11-09-2014 FALLIS GABRIELA NOT ELSEWHERE CLASSIFIED S23338 PAIN IN 11-09-2014 PROGR[facility]IVE LEFT FOOT PODIATRY A06057R NONDSPL FX 11-09-2014 PROGRESSIVE 5TH PODIATRY METATARSAL LT FT INIT ENC CLOS FX 4439 UNSPECIFIED 10-05-2014 FALLIS GABRIELA PERIPHERAL VASCULAR DISEASE 58174 EXOSTOSIS 10-05-2014 FALLIS GABRIELA OF UNSPECIFIED SITE 7295 PAIN IN 10-05-2014 FALLIS GABRIELA SOFT TISSUES OF LIMB 83605 OTHER 09-03-2014 [facility] PAIN INC 7242 LUMBAGO 09-03-2014 [facility] 53869 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 7244 THORACIC/PAVEL 08-07-2014 MARJ TOMAS MD NEURITIS/RA DICULITIS UNSPEC 3559 MONONEURITI 07-31-2014 [facility] S OF PHYSICIANS UNSPECIFIED GROUP SITE 4019 UNSPECIFIED 07-31-2014 [facility] ESSENTIAL PHYSICIANS HYPERTENSIO GROUP N 5939 UNSPECIFIED 07-31-2014 [facility] DISORDER PHYSICIANS OF KIDNEY GROUP AND URETER 22024 OSTEOARTHRO 07-31-2014 [facility] S UNSPEC PHYSICIANS WHETHER GROUP GEN/LOC UNSPEC SITE 7245 UNSPECIFIED 07-31-2014 [facility] BACKACHE PHYSICIANS GROUP 98845 LOSS OF 07-31-2014 [facility] WEIGHT PHYSICIANS GROUP V1588 PERSONAL 07-31-2014 [facility] HISTORY OF PHYSICIANS FALL GROUP 30756 MIGRAINE 07-05-2014 [facility] W/O [facility] W/O INTRACT MEDICAL W/O STAT GROUP MIGRNOSUS 3569 UNSPEC 07-05-2014 [facility] OPATHIC MEDICAL PERIPHERAL GROUP NEUROPATHY 02465 UNSPECIFIED 05-25-2014 [facility] ARTHROPATHY INC , LOWER LEG 33378 GEN 02-16-2014 [facility] OSTEOARTHRO HOME SIS MEDICAL INVOLVING EQUIPME MULTIPLE SITES 00118 PAINFUL 01-14-2014 [facility] RESPIRATION [facility] 86072 HYPERTONICI 12-27-2013 [facility] TY OF PHYSICIANS BLADDER GROUP 87589 CYSTOCELE 12-27-2013 [facility] WITHOUT PHYSICIANS MENTION GROUP UTERINE PROLAPSE MIDLN 27361 URGE 12-27-2013 [facility] INCONTINENC PHYSICIANS E GROUP 53701 URINARY 12-27-2013 [facility] FREQUENCY PHYSICIANS GROUP 7804 DIZZINESS 12-15-2013 [facility] GIDDINESS INC 7812 ABNORMALITY 12-14-2013 [facility] GAIT [facility] INC V571 OTHER 12-14-2013 [facility] PHYSICAL [facility] THERAPY INC 29790 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 [facility] RHEUMATISM, INC LOWER LEG 5853 CHRONIC 06-14-2013 [facility] KIDNEY [facility] DISEASE INC STAGE III (MODERATE) V069 NEED PROPH 12-07-2012 [facility] W/UNSPEC CENTER COMB VACCINE V700 ROUTINE 12-07-2012 [facility] EXAM@HEALTH CARE FACL 4660 ACUTE 04-18-2012 [facility]ONCHITIS [facility] 8796 OPEN WOUND 04-07-2012 C[facility] II OTH&UNSPEC YINA PART TRNK W/O MENTION COMP V1083 PERSONAL 04-07-2012 CODY II HISTORY YINA OTHER MALIGNANT NEOPLASM SKIN 7265 ENTHESOPATH 01-15-2012 PETTEY JAM Y OF HIP REGION 74849 PES 01-15-2012 [facility] JAM ANSERINUS TENDINITIS OR BURSITIS V7231 ROUTINE 11-17-2011 PATHOLOGY & GYNECOLOGIC CYTOLOGY AL LAB EXAMINATION 95183 PAIN IN 07-13-2009 [facility] JOINT, [facility] LOWER LEG INC 7149 UNSPECIFIED 06-18-2009 Patsy JUSTICE MD PSC INFLAMMATOR Y POLYARTHROP ATHY 48478 INSOMNIA 06-18-2009 Patsy MCCORMACK MD PSC 7840 HEADACHE 03-05-2009 Patsy JUSTICE MD PSC 37141 NUCLEAR 08-09-2008 SOLE, SCLEROSIS GERALD W 09970 UNSPECIFIED 08-09-2008 SOLE SUBJECTIVE GERALD [place]ley VISUAL [...] AN A IN C Immunization Name Date Rout CVX Reac Dose Comm Prov Is Faci e tion ent ider Refu lity Give sed n IIV 10-10 GAIN No [facility] ADJU 3-20 EY PHYS VANT 16 EVELIA ICIA ED NS VACC GROU INE P FOR INTR AMUS CULA R USE PCV1 10-10 133 GAIN No HMH 3 3-20 EY PHYS VACC 16 EVELIA ICIA INE NS FOR GROU INTR P AMUS CULA R USE Procedures Procedure DOS Code Location Performer Comment PWR K0823 [facility] H[facility]OUND GRP 2 STD 7 [facility] CORPORATI CORPORATI CHAIR PT ON ON TO &=300 LBS NERVE 74412 [facility] CONDUCTIO 7 [facility] N STUDIES INC INC 9-10 STUDIES NEEDLE 89643 [facility] PAT[facility] EMG EA 7 [facility] EXTREMTY INC INC W/PARASPI NL AREA COMPLETE PWR K0823 [facility] HOVEROUND GRP 2 STD 7 [facility] CORPOR[facility]I CORPORATI CHAIR PT ON ON TO &=300 LBS STANDARD K0001 [facility] ROSS 7 HOME HOME R MEDICAL MEDICAL EQUIPME EQUIPME RADIOLOGI 86005 [facility] MEDICAL EXAMINATI IMAGING ON ASS MANDIPLE PRTL <4 VIEWS RADIOLOG 00730 [facility] EXAM 7 [facility] MANDIBLE INC INC COMPL MINIMUM 4 VIEWS HOSPITAL G0463 [facility] PAT[facility] OUTPATIEN 7 [facility] T CLIN INC INC VISIT ASSESS & MGMT PT CREATINE 02-24-201 75173 [facility] PAT[facility] KINASE 7 [facility] TOTAL INC INC FIBRIN 99035 [facility] DGRADJ 7 [facility] PRODUCTS INC INC D-DIMER QUAL/SEMI KISHAN NATRIURET 21029 [facility] GARCIA IC 7 [facility] [place] [address] [facility] PATEL TROPONIN 7 MEM H[facility]OS[facility] QUANTITAT INC INC ANJALI BLOOD 71984 [facility] KALIK COUNT 7 [facility] COMPLETE INC AUTO&[place] [address] [facility] PAT[facility] HEAD/BRAI 7 [facility] N W/O INC INC CONTRAST MATERIAL RADIOLOGI 40492 [facility] PAT[facility] C 7 [facility] EXAMINATI INC INC ON CHEST SINGLE VIEW FRONTAL COMPREHEN 04467 [facility] SIVE 7 [facility] METABOLIC INC INC PANEL CREATINE 31286 [facility] PAT[facility] KINASE MB 7 [facility] FRACTION INC INC ONLY ECG 04697 [facility] PAT[facility] ROUTINE 7 [facility] ECG INC INC W/LEAST 12 LDS TRCG ONLY W/O I&R COMPREHEN 02063 [facility] SIVE 7 [facility] METABOLIC INC INC PANEL BLOOD 91510 [facility] COUNT 7 [facility] COMPLETE INC INC AUTO&AUTO DIFRNTL WBC OPH BMTRY 05532 [facility] 7 EYE ECHOGRAPY INSTITUTE A-SCAN IO LENS PWR SUJATA PWR K0823 [facility] HOVEROUND GRP 2 STD 6 [facility] CORPORATI CORPORATI CHAIR PT ON ON TO &=300 LBS PWR WC K0823 [facility] HOVEROUND GRP 2 STD 6 [facility] CORPORATI CORPORATI CHAIR PT ON ON TO &=300 LBS PET 28121 [facility] [address] COMMUNTIY COMMUNTIY ATTENUATI HOSPITA HOSPITA ON SKULL BASE MID-THIGH PWR K0823 [facility] HOVEROUND GRP 2 STD 6 [facility]TA[facility] CORPORATI CORPORATI CHAIR PT ON ON TO &=300 LBS PWR K0823 [facility] HOVEROUND GRP 2 STD 6 CAPTAINS CORPORATI CORPORATI CHAIR PT ON ON TO &=300 LBS BLOOD 62578 [facility]IN OCCULT 6 PHYSICIAN EVELIA PEROXIDAS S GROUP E ACTV QUAL FECES 1-3 SPEC IIV 45952 [facility] ADJUVANTE 6 PHYSICIAN EVELIA D VACCINE S GROUP FOR INTRAMUSC ULAR USE PCV13 34729 [facility] VACCINE 6 PHYSICIAN EVELIA FOR S GROUP INTRAMUSC ULAR USE ADMINISTR G0008 [facility] ATION OF 6 PHYSICIAN EVELIA INFLUENZA S GROUP VIRUS VACCINE MRI ORBIT 59587 [facility] FACE & 6 [facility] NECK W/O INC INC & W/CONTRAS T MATRL COLLECTIO 46200 [facility] STYLES N VENOUS 6 PHYSICIAN NICOLE BLOOD S GROUP VENIPUNCT URE PWR K0823 [facility] GRP 2 STD 6 [facility]TA[facility] CORPORATI CORPORATI CHAIR PT ON ON TO &=300 LBS FINE 94045 [facility] NEEDLE 6 [facility] ASPIRATIO INC INC N WITH IMAGING GUIDANCE US SOFT 21547 [facility] TISSUE 6 [facility] HEAD & INC INC NECK REAL TIME IMGE DOCM PWR K0823 [facility]OUND GRP 2 STD 6 CAPTAINS CORPORATI CORPORATI CHAIR PT ON ON TO &=300 LBS PWR E2365 [facility] WHLCHAIR 6 ACSS U-1 CORPORATI CORPORATI SEALED ON ON LEAD ACID BATTRY EA THERAPEUT 46671 [facility] PAT[facility] IC PX 1/> 6 [facility] AREAS INC INC EACH 15 MIN EXERCISES THERAPEUT 52548 [facility] PATEL IC PX 1/> 6 [facility] AREAS INC INC EACH 15 MIN EXERCISES THERAPEUT 55123 [facility] PATEL IC PX 1/> 6 [facility] AREAS INC INC EACH 15 MIN EXERCISES 3D 63762 [facility] RENDERING 6 [facility] W/INTERP INC INC & POSTPROCE SS SUPERVISI ON MRI 55548 [facility] SPINAL 6 [facility] CANAL INC INC CERVICAL W/O CONTRAST MATRL THERAPEUT 05110 [facility] PATEL IC PX 1/> 6 [facility] AREAS INC INC EACH 15 MIN EXERCISES THERAPEUT 95425 [facility] PATEL IC PX 1/> 6 [facility] AREAS INC INC EACH 15 MIN EXERCISES THERAPEUT 29458 [facility] PATEL IC PX 1/> 6 [facility] AREAS INC INC EACH 15 MIN EXERCISES THERAPEUT 85782 J[facility] PATEL IC PX 1/> 6 [facility] AREAS INC INC EACH 15 MIN EXERCISES THERAPEUT 86872 [facility] PATEL IC PX 1/> 6 [facility] AREAS INC INC EACH 15 MIN EXERCISES PHYSICAL 25278 [facility] THERAPY 6 [facility] EVALUATIO INC INC N COLLECTIO 69903 [facility] N VENOUS 6 PHYSICIAN EVELIA BLOOD S GROUP VENIPUNCT URE ARTHROCEN 74190 PROGRESSI PROGRESSI TESIS 6 VE VE ASPIR&/IN PODIATRY PODIATRY J INTERM JT/BURS W/O US INJECTION J3301 PROGRESSI JOHN 6 VE REBECA TRIAMCINO PODIATRY LONE ACETONIDE NOS 10 MG OCCUPATIO 66294 [facility] NAL 6 [facility] THERAPY INC INC EVALUATIO N PHYSICAL 49787 [facility] THERAPY 6 [facility] EVALUATIO INC INC N HEMOGLOBI 71533 [facility] N 6 N N GLYCOSYLA COMMUNTIY COMMUNTIY CARINA A1C HOSPITA HOSPITA COLLECTIO 85790 [facility] N VENOUS 6 N N BLOOD COMMUNTIY COMMUNTIY VENIPUNCT HOSPITA HOSPITA URE LIPID 54303 [facility] PANEL 6 N [place] [address] [facility] PAT[facility] HEAD/BRAI 6 [facility] N W/O INC INC CONTRAST MATERIAL AFO L1970 PROGRESSI JOHN PLASTIC 6 VE REBECA WITH PODIATRY ANKLE JOINT CUSTOM FABRICATE D ADD LW L2275 PROGRESSI JOHN EXTRM 6 VE REBECA VARUS/VUL PODIATRY PAYAL RYAN PLSTC MOD PADD/LN HEEL PAD L3480 PROGRESSI JOHN AND 6 VE REBECA DEPRESSIO PODIATRY N FOR SPUR RADEX 39544 [facility] FOOT 5 [facility] COMPLETE INC INC MINIMUM 3 VIEWS WALKING L4360 PROGRESSI JOHN BOOT 5 VE REBECA PNEUMATC PODIATRY &/ VACUUM PREFAB CUSTM FIT INJECTION J1040 [facility] PATEL 5 [facility] METHYLPRE INC INC DNISOLONE ACETATE 80 MG THERAPEUT 43937 [facility] IC 5 [facility] PROPHYLAC INC INC TIC/DX INJECTION SUBQ/IM APPL 23160 [facility] MODALITY 5 [facility] 1/> AREAS INC INC ELEC STIMJ EA 15 MIN TENS E0730 EMPI INC EMPI INC DEVICE 5 4/MORE LEADS MULTI [place]ERVE STIMULATI ON MRI 54918 [facility] SPINAL 5 [facility] CANAL INC INC LUMBAR W/O CONTRAST MATERIAL CANE E0105 [facility] WOLF QUAD/3-WY 5 HOME HOME CHER ALL MEDICAL MEDICAL MATL EQUIPME EQUIPME ADJUSTBL/ FIX W/TIPS RADIOLOGI 09345 [facility] PAT[facility] C EXAM 4 [facility] CHEST 2 INC INC VIEWS FRONTAL&L ATERAL URNLS DIP 91344 [facility] BAXTER 4 PHYSICIAN TARAS STICK/TAB S GROUP LET RGNT NON-AUTO W/O MICRSCP DUPLEX 74117 [facility] SCAN 4 [facility] EXTRACRAN INC INC IAL ART COMPL BI STUDY PHYSICAL 54730 [facility] THERAPY 4 [facility] EVALUATIO INC INC N RADIOLOGI 50351 J[facility] PAT[facility] C 4 [facility] EXAMINATI INC INC ON KNEE 3 [place] [address] [facility] PATEL RETROPERI 4 [facility] TONEAL INC INC REAL TIME W/IMAGE COMPLETE BLOOD 57112 [facility] PAT[facility] OCCULT 3 [facility] E ACTV QUAL FECES 1 DETER THERAPEUT 13246 [facility] PAT[facility] IC 3 [facility] PROPHYLAC INC INC TIC/DX INJECTION SUBQ/IM ARTHROCEN PETTEY PETTEY TESIS 2 JAM JAM ASPIR&/IN J MAJOR JT/BURSA W/O US INJ J0702 PETTEY PETTEY BETAMETHA 2 JAM JAM SONE ACETATE & PHOSPHATE 3 MG RADIOLOGI 90160 [facility] PLASCENCIAON C 0 [facility] EXAMINATI INC INC ON KNEE 3 VIEWS RADIOLOGI 58978 J[facility]GE JORGE C 9 [facility] EXAMINATI INC INC ON KNEE 3 VIEWS RADEX 40173 [facility] SPINE 9 [facility] LUMBOSACR INC INC AL MINIMUM 4 VIEWS Encounters Encounter Start End Date Code Location Performer Type Date HOSPITAL [facility] - 7 7 [facility] OUTPATIEN INC T OFFICE 10339 [facility] MARTIN OUTPATIEN 7 7 PHYSICIAN T VISIT S GROUP 15 MINUTES OFFICE 38753 [facility] MARCELL JR OUTPATIEN 7 7 PHYSICIAN T VISIT S GROUP 15 MINUTES HOSPITAL JORGE - 7 7 [facility] T OFFICE 33259 [facility] FAIZAN OUTPATIEN 7 7 PHYSICIAN T NEW 45 S GROUP MINUTES OFFICE 45542 [facility] [place] OUTPATIEN 7 7 PHYSICIAN T VISIT S GROUP 25 MINUTES OFFICE 11895 [facility] [place] OUTPATIEN 7 7 PHYSICIAN T VISIT S GROUP 25 MINUTES EMERGENCY 35528 TIAR[facility] CISNEROS DEPT 7 7 PHYSICIAN VISIT S, PLLC HIGH SEVERITY& THREAT FUNCJ EMERGENCY 89567 JORGE 7 7 [facility] DEPARTMEN INC T VISIT HIGH/URGE NT SEVERITY HOSPITAL J[facility] - 7 7 [facility] OUTPATIEN INC T HOSPITAL JORGE - 7 7 [facility] OUTPATIEN INC T OFFICE 01363 [facility] [place] OUTPATIEN 7 7 PHYSICIAN T VISIT S GROUP 25 MINUTES OFFICE 22501 [facility] OUT[facility] 7 7 [facility] MINUTES OFFICE 16963 [facility] STYLES OUTPATIEN 6 6 PHYSICIAN T VISIT S GROUP 10 MINUTES OFFICE 56273 [facility] OUTPATIEN 6 6 PHYSICIAN T VISIT S GROUP 15 MINUTES HOSPITAL GEORGETOW - 6 6 N OUTPATIEN COMMUNTIY T HOSPITA OFFICE 71164 [facility] STYLES OUTPATIEN 6 6 PHYSICIAN T VISIT S GROUP 10 MINUTES OFFICE 72971 [facility] [place] OUTPATIEN 6 6 PHYSICIAN EVELIA T VISIT S GROUP 15 MINUTES [facility] - 6 6 [facility] OUTPATIEN INC T OFFICE 04818 [facility] OUTPATIEN 6 6 PHYSICIAN NICOLE T VISIT S GROUP 10 MINUTES OFFICE 62368 [facility] [place] OUTPATIEN 6 6 PHYSICIAN EVELIA T VISIT S GROUP 25 MINUTES OFFICE 03475 [facility] OUTPATIEN 6 6 PHYSICIAN NICOLE T VISIT S GROUP 10 MINUTES [facility] - 6 6 [facility] INC T OFFICE 63840 [facility] [place] OUTPATIEN 6 6 PHYSICIAN EVELIA T VISIT S GROUP 10 MINUTES [facility] - 6 6 [facility] INC T OFFICE 44778 [facility] OUTPATIEN 6 6 PHYSICIAN NICOLE T NEW 20 S GROUP MINUTES OFFICE 45707 [facility] [place] OUTPATIEN 6 6 PHYSICIAN EVELIA T VISIT S GROUP 25 MINUTES [facility] - 6 6 [facility] OUTPATIEN INC T OFFICE 29648 [facility] [place] OUTPATIEN 6 6 PHYSICIAN EVELIA T VISIT S GROUP 15 MINUTES OFFICE 73868 [facility] [place] OUTPATIEN 6 6 PHYSICIAN EVELIA T VISIT S GROUP 15 MINUTES OFFICE 48714 [facility] [place] OUTPATIEN 6 6 PHYSICIAN EVELIA T VISIT S GROUP 10 MINUTES [facility] - 6 6 [facility] OUTPATIEN INC T OFFICE 83190 [facility] [place] OUTPATIEN 6 6 PHYSICIAN EVELIA T VISIT S GROUP 15 MINUTES OFFICE 91057 [facility] OUTPATIEN 6 6 VE REBECA T VISIT 5 PODIATRY MINUTES OFFICE 43266 [facility] OUT[facility] 6 6 MD BRETT, T VISIT PSC 10 MINUTES [facility] J[facility]GE - 6 6 [facility] OUTPATIEN INC T OFFICE 82701 [facility] JOHN OUTPATIEN 6 6 VE REBECA T VISIT 5 PODIATRY MINUTES OFFICE 26309 [facility] OUTPATIEN 6 6 N T NEW 45 NEUROLOGY MINUTES [facility] - 6 6 N OUTPATIEN COMMUNTIY T HOSPITA OFFICE 24227 [facility] [place] OUTPATIEN 6 6 PHYSICIAN EVELIA T VISIT S GROUP 15 MINUTES [facility] - 6 6 [facility] OUTPATIEN INC T OFFICE 48809 [facility] OUTPATIEN 5 5 MD BRETT, T VISIT PSC 25 MINUTES OFFICE 86290 [facility] OUTPATIEN 5 5 GABRIELA REBECA T VISIT 5 MINUTES OFFICE 98958 [facility] OUTPATIEN 5 5 GABRIELA REBECA T VISIT 15 MINUTES OFFICE 18375 [facility] [place] OUTPATIEN 5 5 PHYSICIAN EVELIA T VISIT S GROUP 10 MINUTES [facility] - 5 5 [facility] OUTPATIEN INC T OFFICE 53935 [facility] OUTPATIEN 5 5 GABRIELA REBECA T VISIT 15 MINUTES OFFICE 77647 [facility] OUTPATIEN 5 5 GABRIELA REBECA T NEW 30 MINUTES [facility] - 5 5 [facility] OUTPATIEN INC T EMERGENCY [id number] [facility] 5 5 [facility] DEPARTMEN INC T VISIT LOW/MODER SEVERITY OFFICE 53668 [facility] ANJ OUTPATIEN 5 5 MD T NEW 30 MINUTES OFFICE 48118 [facility] [place] OUTPATIEN 5 5 PHYSICIAN EVELIA T VISIT S GROUP 25 MINUTES OFFICE 13931 [facility] [place] OUTPATIEN 5 5 PHYSICIAN EVELIA T VISIT S GROUP 15 MINUTES OFFICE [id number] JEWISH JAVON OUTPATIEN 5 5 [facility] T NEW 45 MEDICAL MINUTES GROUP [facility] J[facility]GE - 5 5 [facility] [...] 4 [facility] INC T PERIODIC 99073 JORGE PATEL PREVENTIV 3 3 [facility] CENTER PATIENT 63YRS& OLDER [facility] JORGE - 3 3 [facility] INC T OFFICE 20925 CODY II CODY II OUTPATIEN 3 3 [facility] T VISIT 10 MINUTES OFFICE 69238 CODY II CODY II OUTPATIEN 3 3 [facility] VISIT [address] [facility] [facility] [address]2017 JORGE PATEL PREVENTIV 2 2 [facility] PATIENT 63YRS& OLDER [facility] JORGE - 0 0 [facility] INC T OFFICE 18626 ENRIKE MUIR 0 0 VINH Hurt VISIT PSC 25 MINUTES OFFICE 38070 ENRIKE MUIR 0 0 VINH Hurt VISIT PSC 15 MINUTES [facility] JORGE - 9 9 [facility] T OFFICE [id number] SOLE WHIPPLE OUTPATIEN 9 9 GERALD PEREYRA 45 W W MINUTES
--- OUTSIDE RECORDS SUMMARY | 2016-11-22 08:13 | External Medical Summary Rpt | CCD ---
Author Author , MARGARET Organization MARGARET Address Unknown Phone [email or web address] Care Team Providers Care Project [id number] It Specialist Name Role Phone MARCELL DIAS, MARCELL DIAS Unavailable Unavailable BEN WEST MD, PSC, Unavailable Unavailable BEN WEST MD, PSC [facility] Unavailable Unavailable MEDICAL GROUP, [facility] ILANA, ILANA Unavailable Unavailable BROWN, BROWN Unavailable Unavailable JOHN REBECA, JOHN Unavailable Unavailable REBECA BUX ANJ, BUX ANJ Unavailable Unavailable BAXTER TARAS, BAXTER Unavailable Unavailable TARAS DAIJA, DAIJA Unavailable Unavailable JAVON STEFAN, Unavailable Unavailable JAVON STEFAN [employer], [employer] Unavailable Unavailable FALLIS GABRIELA, FALLIS Unavailable Unavailable GABRIELA MARTIN, MARTIN Unavailable Unavailable MARTIN EVELIA, MARTIN Unavailable Unavailable [facility], [facility], [facility]available [facility]available [facility] Unavailable Unavailable CENTER, [facility] Unavailable Unavailable CENTER, [facility] Unavailable Unavailable CARE, [facility] Unavailable Unavailable [facility]ARE, [facility] Unavailable Unavailable INC, [facility], Unavailable Unavailable [facility] [employer] Unavailable Unavailable CORPORATION, [employer] Unavailable Unavailable [employer]PORATION[facility] [employer] Unavailable Unavailable CORPORATION, [employer] [facility], [employer] Unavailable Unavailable KALIK, KALIK Unavailable Unavailable [facility] Unavailable Unavailable [facility], [facility] YANIV CRI, YANIV CRI [...] Diagnosis DOS Provider Status G9009 OTHER 10-25-2016 [facility] AUTONOMIC NEUROPATHY G629 POLYNEUROPA 07-26-2016 [employer] UNSPECIFIED I639 CEREBRAL 07-26-2016 [employer] INFARCTION [employer] UNSPECIFIED Z9181 HISTORY OF 07-26-2016 [employer] FALLING Shape Security V72969 PAIN IN 07-14-2016 [facility] M71058 PAIN IN 07-14-2016 [facility] LEFT [facility]G [facility] R202 PARESTHESIA 07-14-2016 [facility] OF SKIN [facility] INC [id number] FOOT DROP 06-20-2016 [facility] RIGHT FOOT HOME MEDICAL EQUIPME M5030 OTH 06-20-2016 [facility] CERVICAL HOME DISC MEDICAL DEGENERATIO EQUIPME N UNS CERV REGION M5090 CERVICAL 06-20-2016 LU[facility]INO DISC HOME DISORDER MEDICAL UNS UNS EQUIPME CERVICAL REGION I10 ESSENTIAL 06-18-2016 [facility] PRIMARY PHYSICIANS HYPERTENSIO GROUP N K921 MELENA 06-16-2016 [facility] PHYSICIANS GROUP K1121 ACUTE 06-07-2016 [facility] SIALOADENIT [facility] IS INC R220 LOCALIZED 06-07-2016 [facility] LUMP HEAD Q22736 PERSONAL 05-26-2016 [facility] HISTORY PHYSICIANS OTHER GROUP DISEASES URINARY SYSTEM R269 UNSPECIFIED 05-21-2016 [facility] PHYSICIANS ABNORMALITI GROUP ES OF GAIT AND MOBILITY G8929 OTHER 04-23-2016 [facility] CHRONIC PHYSICIANS PAIN GROUP K89EDKG UNSPECIFIED 04-23-2016 [facility] FALL PHYSICIANS INITIAL GROUP ENCOUNTER R0600 DYSPNEA 04-04-2016 [place] UNSPECIFIED [facility]ICAL IMAGING ASS R0602 SHORTNESS 04-04-2016 [facility] BREATH MEDICAL IMAGING ASS R410 DISORIENTAT 04-04-2016 [place] ION MEDICAL UNSPECIFIED IMAGING ASS R42 DIZZINESS 04-04-2016 [facility] AND PHYSICIANS, GIDDINESS PLLC R51 HEADACHE 04-04-2016 [facility] R531 WEAKNESS 04-04-2016 [facility] C87606 WRIST DROP 02-27-2016 [facility] RIGHT WRIST PHYSICIANS GROUP M6258 MUSCLE 02-27-2016 [facility] WASTING & PHYSICIANS ATROPHY NEC GROUP OTHER SITE R5383 OTHER 02-27-2016 [facility] FATIGUE PHYSICIANS GROUP F91156 OTHER LONG 02-27-2016 [facility] TERM PHYSICIANS CURRENT GROUP DRUG THERAPY Y03544 DERMATOCHAL 02-19-2016 [facility] RIGHT UPPER INSTITUTE EYELID S69869 DERMATOCHAL 02-19-2016 [facility] LEFT UPPER INSTITUTE EYELID Q12927 COMBINED 02-19-2016 [facility] FORMS OF E[facility] AGE-RELATED INSTITUTE CATARACT LEFT EYE P21254 COMBINED 02-19-2016 [place] [facility]RELATED INSTITUTE CATARACT BILATERAL H538 OTHER 02-19-2016 [place] V[facility]UAL [facility] DISTURBANCE INSTITUTE S R590 LOCALIZED 12-28-2015 [facility] ENLARGED PHYSICIANS LYMPH NODES GROUP N289 DISORDER OF 12-21-2015 [facility] KIDNEY AND PHYSICIANS URETER GROUP UNSPECIFIED R296 REPEATED 12-21-2015 [facility] FALLS PHYSICIANS GROUP K116 MUCOCELE OF 12-10-2015 [facility] GLAND HOSPITA D1800 HEMANGIOMA 11-16-2015 [facility] UNSPECIFIED PHYSICIANS SITE GROUP Z1211 ENCOUNTER 10-23-2015 [facility] SCREENING PHYSICIANS MALIGNANT GROUP NEOPLASM OF COLON Z23 ENCOUNTER 10-23-2015 [facility] FOR PHYSICIANS IMMUNIZATIO GROUP N D490 NEOPLASM OF 10-19-2015 [facility] UNS [facility] BEHAVIOR INC DIGESTIVE SYSTEM H95831W UNSPECIFIED 09-25-2015 [facility] INJURY PHYSICIANS FOOT UNS GROUP SIDE INITIAL ENCNTR K118 OTHER 08-29-2015 [facility] DISEASES OF [facility] SALIVARY INC GLANDS H6123 IMPACTED 07-31-2015 [facility] CERUMEN PHYSICIANS BILATERAL GROUP M9981 OTHER 07-31-2015 [facility] BIOMECHANIC PHYSICIANS AL LESIONS GROUP OF CERVICAL REGION G9050 COMPLEX 07-27-2015 [facility] REGIONAL PHYSICIANS PAIN GROUP SYNDROME I UNSPECIFIED Y35959 SPONTANEOUS 04-03-2015 PROGRESSIVE RUPTURE PODIATRY FLEXOR TENDONS RT ANKLE FOOT M7751 OTHER 04-03-2015 PROGRESSIVE ENTHESOPATH PODIATRY Y OF RIGHT FOOT M99709 PAIN IN 04-03-2015 PROGRESSIVE RIGHT LOWER PODIATRY LEG M5116 INTERVERTEB 04-02-2015 CORY ALLEN MD, PSC D/O W/RADICULOP ATHY LUMB RGN M6281 MUSCLE 03-08-2015 [facility] GENERALIZED M5416 RADICULOPAT 02-05-2015 BEN WEST, HY LUMBAR , PSC REGION I959 HYPOTENSION 12-12-2014 [facility] PHYSICIANS UNSPECIFIED GROUP I890 LYMPHEDEMA 11-09-2014 FALLIS GABRIELA NOT ELSEWHERE CLASSIFIED N78409 PAIN IN 11-09-2014 PROGRESSIVE LEFT FOOT PODIATRY H95392E NONDSPL FX 11-09-2014 PROGRESSIVE 5TH PODIATRY METATARSAL LT FT INIT ENC CLOS FX 4439 UNSPECIFIED 10-05-2014 FALLIS GABRIELA PERIPHERAL VASCULAR DISEASE 97290 EXOSTOSIS 10-05-2014 FALLIS GABRIELA OF UNSPECIFIED SITE 7295 PAIN IN 10-05-2014 FALLIS GABRIELA SOFT TISSUES OF LIMB 56637 OTHER 09-03-2014 [facility] PAIN INC 7242 LUMBAGO 09-03-2014 [facility] 11630 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 7244 THORACIC/PAVEL 08-07-2014 MARJ TOMAS MD NEURITIS/RA DICULITIS UNSPEC 3559 MONONEURITI 07-31-2014 [facility] S OF PHYSICIANS UNSPECIFIED GROUP SITE 4019 UNSPECIFIED 07-31-2014 [facility] ESSENTIAL PHYSICIANS HYPERTENSIO GROUP N 5939 UNSPECIFIED 07-31-2014 [facility] DISORDER PHYSICIANS OF KIDNEY GROUP AND URETER 48338 OSTEOARTHRO 07-31-2014 [facility] S UNSPEC PHYSICIANS WHETHER GROUP GEN/LOC UNSPEC SITE 7245 UNSPECIFIED 07-31-2014 [facility] BACKACHE PHYSICIANS GROUP 47162 LOSS OF 07-31-2014 [facility] WEIGHT PHYSICIANS GROUP V1588 PERSONAL 07-31-2014 [facility] HISTORY OF PHYSICIANS FALL GROUP 43646 MIGRAINE 07-05-2014 [facility] W/O INTRACT MEDICAL W/O STAT GROUP MIGRNOSUS 3569 UNSPEC 07-05-2014 [facility] OPATHIC MEDICAL PERIPHERAL GROUP NEUROPATHY 48078 UNSPECIFIED 05-25-2014 [facility] ARTHROPATHY INC , LOWER LEG 92059 GEN 02-16-2014 [facility] OSTEOARTHRO HOME SIS MEDICAL INVOLVING EQUIPME MULTIPLE SITES 23664 PAINFUL 01-14-2014 [facility]PIRATION [facility] 39157 HYPERTONICI 12-27-2013 [facility] TY OF PHYSICIANS BLADDER GROUP 09067 CYSTOCELE 12-27-2013 [facility] WITHOUT PHYSICIANS MENTION GROUP UTERINE PROLAPSE MIDLN 32483 URGE 12-27-2013 [facility] INCONTINENC PHYSICIANS E GROUP 61281 URINARY 12-27-2013 [facility] FREQUENCY PHYSICIANS GROUP 7804 DIZZINESS 12-15-2013 [facility] AND [facility] GIDDINESS INC 7812 ABNORMALITY 12-14-2013 [facility] OF GAIT [facility] INC V571 OTHER 12-14-2013 [facility] PHYSICAL [facility] THERAPY INC 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 W/UNSPEC CENTER COMB VACCINE V700 ROUTINE 12-07-2012 [facility] EXAM@HEALTH CARE FACL 4660 ACUTE 04-18-2012 [facility] BRONCHITIS [facility] INC 8796 OPEN WOUND 04-07-2012 [facility] OTH&UNSPEC YINA PART TRNK W/O MENTION COMP V1083 PERSONAL 04-07-2012 C[facility] II HISTORY YINA OTHER MALIGNANT NEOPLASM SKIN 7265 ENTHESOPATH 01-15-2012 PETTE[facility] JAM Y OF HIP REGION 25770 PES 01-15-2012 [facility] JAM ANSERINUS TENDINITIS OR BURSITIS V7231 ROUTINE 11-17-2011 PATHOLOGY & GYNECOLOGIC CYTOLOGY AL LAB EXAMINATION 88100 PAIN IN 07-13-2009 [facility] JOINT, [facility] LOWER LEG INC 7149 UNSPECIFIED 06-18-2009 Patsy JUSTICE MD PSC INFLAMMATOR Y POLYARTHROP ATHY 22436 INSOMNIA 06-18-2009 Patsy MCCORMACK MD PSC 7840 HEADACHE 03-05-2009 Patsy JUSTICE MD PSC 55564 NUCLEAR 08-09-2008 SOLE, SCLEROSIS GERALD W 80011 UNSPECIFIED 08-09-2008 SOLE SUBJECTIVE GERALD Bentley VISUAL [...] PT ON ON TO &=300 LBS NERVE 80469 [facility] PATEL CONDUCTIO 7 [facility] N STUDIES INC INC 9-10 STUDIES NEEDLE 04029 [facility] PATEL EMG EA 7 MEM [facility] EXTREMTY INC INC W/PARASPI NL AREA COMPLETE PWR K0823 [facility] GRP 2 STD 7 CAPTAINS CORPORATI CORPORATI CHAIR PT ON ON TO &=300 LBS STANDARD K0001 [facility] ROSS 7 HOME HOME R MEDICAL MEDICAL EQUIPME EQUIPME RADIOLOGI 71415 [facility] 7 MEDICAL EXAMINATI IMAGING ON ASS MANDIPLE PRTL <4 VIEWS RADIOLOG 36574 [facility] PATEL EXAM 7 MEM HOS[facility] MEM [facility]OS[facility] MANDIBLE INC INC COMPL MINIMUM 4 VIEWS HOSPITAL G0463 [facility] PATEL OUTPATIEN 7 MEM H[facility] MEM [facility]OS[facility] T CLIN INC INC VISIT ASSESS & MGMT PT CREATINE 02-24-201 73061 [facility] PAT[facility] KINASE 7 MEM [facility]OS[facility] TOTAL INC INC FIBRIN 47853 [facility] PATEL DGRADJ 7 [facility] PRODUCTS INC INC D-DIMER QUAL/SEMI KISHAN NATRIURET 43893 [facility] GARCIA IC 7 [facility] [place] [address] [facility] PATEL TROPONIN 7 MEM HOS[facility] QUANTITAT INC INC ANJALI BLOOD 79883 [facility] KALIK COUNT 7 [facility] COMPLETE INC AUTO&[place] [address] [facility] PATEL HEAD/BRAI 7 [facility] N W/O INC INC CONTRAST MATERIAL RADIOLOGI 19840 [facility] PATEL C 7 [facility] EXAMINATI INC INC ON CHEST SINGLE VIEW FRONTAL COMPREHEN 33838 [facility] PAT[facility] SIVE 7 [facility]OS[facility] METABOLIC INC INC PANEL CREATINE 91834 [facility] PATEL KINASE MB 7 [facility] FRACTION INC INC ONLY ECG 66060 [facility] PAETL ROUTINE 7 [facility] ECG INC INC W/LEAST 12 LDS TRCG ONLY W/O I&R COMPREHEN 95299 [facility] PAT[facility] SIVE 7 [facility] METABOLIC INC INC PANEL BLOOD 74741 [facility] PAT[facility] COUNT 7 [facility] COMPLETE INC INC AUTO&AUTO DIFRNTL WBC OPH BMTRY 65832 [facility] SAULT 7 EYE ECHOGRAPY INSTITUTE A-SCAN IO LENS PWR SUJATA PWR K0823 [facility] HOVEROUND GRP 2 STD 6 CAPTAINS CORPORATI CORPORATI CHAIR PT ON ON TO &=300 LBS PWR WC K0823 [facility]OUND GRP 2 STD 6 CAPTAINS CORPORATI CORPORATI CHAIR PT ON ON TO &=300 LBS PET 56217 [facility] [address] COMMUNTIY COMMUNTIY ATTENUATI HOSPITA HOSPITA ON SKULL BASE MID-THIGH PWR K0823 [facility]OUND GRP 2 STD 6 CAPTAINS CORPORATI CORPORATI CHAIR PT ON ON TO &=300 LBS PWR K0823 [facility]OUND GRP 2 STD 6 CAPTAINS CORPORATI CORPORATI CHAIR PT ON ON TO &=300 LBS BLOOD 90929 [facility] M[facility]IN OCCULT 6 PHYSICIAN EVELIA PEROXIDAS S GROUP E ACTV QUAL FECES 1-3 SPEC IIV 80839 [facility] ADJUVANTE 6 PHYSICIAN EVELIA D VACCINE S GROUP FOR INTRAMUSC ULAR USE PCV13 18610 [facility] VACCINE 6 PHYSICIAN EVELIA FOR S GROUP INTRAMUSC ULAR USE ADMINISTR G0008 [facility] ATION OF 6 PHYSICIAN EVELIA INFLUENZA S GROUP VIRUS VACCINE MRI ORBIT 13224 [facility] FACE & 6 MEM HOS[facility] NECK W/O INC INC & W/CONTRAS T MATRL COLLECTIO 77047 [facility] STYLES N VENOUS 6 PHYSICIAN NICOLE BLOOD S GROUP VENIPUNCT URE PWR K0823 [facility] GRP 2 STD 6 CAPTAINS CORPORATI CORPORATI CHAIR PT ON ON TO &=300 LBS FINE 26495 [facility] NEEDLE 6 [facility]OS[facility] ASPIRATIO INC INC N WITH IMAGING GUIDANCE US SOFT 64272 [facility] PAT[facility] TISSUE 6 [facility] HEAD & INC INC NECK REAL TIME IMGE DOCM PWR K0823 [facility] GRP 2 STD 6 CAPTAINS CORPORATI CORPORATI CHAIR PT ON ON TO &=300 LBS PWR E2365 [facility]OUND WHLCHAIR 6 ACSS U-1 CORPORATI CORPORATI SEALED ON ON LEAD ACID BATTRY EA THERAPEUT 46478 [facility] PATEL IC PX 1/> 6 MEM HOS[facility]OS[facility] AREAS INC INC EACH 15 MIN EXERCISES THERAPEUT 61546 [facility] PATEL IC PX 1/> 6 [facility]OS[facility] AREAS INC INC EACH 15 MIN EXERCISES THERAPEUT 19681 JOR[facility] PTAEL IC PX 1/> 6 [facility] AREAS INC INC EACH 15 MIN EXERCISES 3D 68468 [facility] PAT[facility] RENDERING 6 [facility] W/INTERP INC INC & POSTPROCE SS SUPERVISI ON MRI 46052 [facility] PAT[facility] SPINAL 6 [facility] CANAL INC INC CERVICAL W/O CONTRAST MATRL THERAPEUT 99252 [facility] PATEL IC PX 1/> 6 [facility] AREAS INC INC EACH 15 MIN EXERCISES THERAPEUT 81229 [facility] PATEL IC PX 1/> 6 [facility] AREAS INC INC EACH 15 MIN EXERCISES THERAPEUT 88101 [facility] PATEL IC PX 1/> 6 [facility] AREAS INC INC EACH 15 MIN EXERCISES THERAPEUT 04118 [facility] PATEL IC PX 1/> 6 [facility] AREAS INC INC EACH 15 MIN EXERCISES THERAPEUT 96959 [facility] PATEL IC PX 1/> 6 [facility] AREAS INC INC EACH 15 MIN EXERCISES PHYSICAL 37546 [facility] PAT[facility] THERAPY 6 [facility] H[facility] EVALUATIO INC INC N COLLECTIO 09014 [facility] N VENOUS 6 PHYSICIAN EVELIA BLOOD S GROUP VENIPUNCT URE ARTHROCEN 13320 PROGRESSI PROGRESSI TESIS 6 VE VE ASPIR&/IN PODIATRY PODIATRY J INTERM JT/BURS W/O US INJECTION J3301 PROGRESSI JOHN 6 VE REBECA TRIAMCINO PODIATRY LONE ACETONIDE NOS 10 MG OCCUPATIO 12116 [facility] PAT[facility] NAL 6 [facility] THERAPY INC INC EVALUATIO N PHYSICAL 17895 J[facility] PAT[facility] THERAPY 6 [facility] H[facility] EVALUATIO INC INC N HEMOGLOBI 18633 [facility] N 6 N N GLYCOSYLA COMMUNTIY COMMUNTIY CARINA A1C HOSPITA HOSPITA COLLECTIO 34004 [facility] N VENOUS 6 N N BLOOD COMMUNTIY COMMUNTIY VENIPUNCT HOSPITA HOSPITA URE LIPID 18113 [facility] PANEL 6 N [place] [address] [facility] PATEL HEAD/BRAI 6 [facility] N W/O INC INC CONTRAST MATERIAL AFO L1970 PROGRESSI JOHN PLASTIC 6 VE REBECA WITH PODIATRY ANKLE JOINT CUSTOM FABRICATE D ADD LW L2275 PROGRESSI JOHN EXTRM 6 VE REBECA VARUS/VUL PODIATRY PAYAL RYAN PLSTC MOD PADD/LN HEEL PAD L3480 PROGRESSI JOHN AND 6 VE REBECA DEPRESSIO PODIATRY N FOR SPUR RADEX 92494 [facility] FOOT 5 [facility] COMPLETE INC INC MINIMUM 3 VIEWS WALKING L4360 PROGRESSI JOHN BOOT 5 VE REBECA PNEUMATC PODIATRY &/ VACUUM PREFAB CUSTM FIT INJECTION J1040 [facility] PATEL 5 [facility] METHYLPRE INC INC DNISOLONE ACETATE 80 MG THERAPEUT 09865 [facility] PAT[facility] IC 5 [facility] PROPHYLAC INC INC TIC/DX INJECTION SUBQ/IM APPL 84818 [facility] PATEL MODALITY 5 [facility] 1/> AREAS INC INC ELEC STIMJ EA 15 MIN TENS E0730 [facility] EMPI INC DEVICE 5 4/MORE LEADS MULTI NERVE STIMULATI ON MRI 55880 [facility] SPINAL 5 [facility] CANAL INC INC LUMBAR W/O CONTRAST MATERIAL CANE E0105 [facility] WOLF QUAD/3-IL 5 HOME HOME CHER ALL MEDICAL MEDICAL MATL EQUIPME EQUIPME ADJUSTBL/ FIX W/TIPS RADIOLOGI 14153 [facility] PATEL C EXAM 4 [facility] CHEST 2 INC INC VIEWS FRONTAL&L ATERAL URNLS DIP 38941 [facility] BAXTER 4 PHYSICIAN TARAS STICK/TAB S GROUP LET RGNT NON-AUTO W/O MICRSCP DUPLEX 55425 [facility] SCAN 4 [facility] EXTRACRAN INC INC IAL ART COMPL BI STUDY PHYSICAL 84913 [facility] THERAPY 4 [facility] EVALUATIO INC INC N RADIOLOGI 57336 J[facility] PATEL C 4 [facility] EXAMINATI INC INC ON KNEE 3 [place] [address] [facility] PATEL RETROPERI 4 [facility] TONEAL INC INC REAL TIME W/IMAGE COMPLETE BLOOD 77401 [facility] PATEL OCCULT 3 [facility] E ACTV QUAL FECES 1 DETER THERAPEUT 65079 [facility] PATEL IC 3 [facility] PROPHYLAC INC INC TIC/DX INJECTION SUBQ/IM ARTHROCEN PETTEY PETTEY TESIS 2 JAM JAM ASPIR&/IN J MAJOR JT/BURSA W/O US INJ J0702 PET[facility] PETTEY BETAMETHA 2 JAM JAM SONE ACETATE & PHOSPHATE 3 MG RADIOLOGI 92919 [facility] PLASCENCIAON C 0 [facility] EXAMINATI INC INC ON KNEE 3 VIEWS RADIOLOGI 19817 J[facility]GE JORGE C 9 [facility] EXAMINATI INC INC ON KNEE 3 VIEWS RADEX 87216 [facility] PAT[facility] SPINE 9 [facility] LUMBOSACR INC INC AL MINIMUM 4 VIEWS Encounters Encounter Start End Date Code Location Performer Type Date HOSPITAL [facility] - 7 7 [facility] OUTPATIEN INC T OFFICE 50647 [facility] OUTPATIEN 7 7 PHYSICIAN T VISIT S GROUP 15 MINUTES OFFICE 95709 [facility] MARCELL JR OUTPATIEN 7 7 PHYSICIAN T VISIT S GROUP 15 MINUTES HOSPITAL JORGE - 7 7 [facility] 11163 [facility] FAIZAN OUTPATIEN 7 7 PHYSICIAN T NEW 45 S GROUP MINUTES OFFICE 14972 [facility] OUTPATIEN 7 7 PHYSICIAN T VISIT S GROUP 25 MINUTES OFFICE 17843 [facility] OUTPATIEN 7 7 PHYSICIAN T VISIT S GROUP 25 MINUTES EMERGENCY 98046 [facility] CISNEROS DEPT 7 7 PHYSICIAN VISIT S, PLLC HIGH SEVERITY& THREAT FUNCJ EMERGENCY 19615 JOR[facility] 7 7 [facility] DEPARTMEN INC T VISIT HIGH/URGE NT SEVERITY HOSPITAL [facility] - 7 7 [facility] OUTPATIEN INC T HOSPITAL JORGE - 7 7 [facility] OUTPATIEN INC T OFFICE 25176 [facility] OUTPATIEN 7 7 PHYSICIAN T VISIT S GROUP 25 MINUTES OFFICE 51059 [place] [facility] OUTPATIEN 7 7 [facility] MINUTES OFFICE 30743 [facility] STYLES OUTPATIEN 6 6 PHYSICIAN T VISIT S GROUP 10 MINUTES OFFICE 02401 [facility] OUTPATIEN 6 6 PHYSICIAN T VISIT S GROUP 15 MINUTES HOSPITAL GEORGETOW - 6 6 N OUTPATIEN COMMUNTIY T HOSPITA OFFICE 45670 [facility] STYLES OUTPATIEN 6 6 PHYSICIAN T VISIT S GROUP 10 MINUTES OFFICE 02399 [facility] OUTPATIEN 6 6 PHYSICIAN EVELIA T VISIT S GROUP 15 MINUTES HOSPITAL JORGE - 6 6 [facility] OUTPATIEN INC T OFFICE 90601 [facility] STYLES OUTPATIEN 6 6 PHYSICIAN NICOLE T VISIT S GROUP 10 MINUTES OFFICE 02765 [facility] M[facility] OUTPATIEN 6 6 PHYSICIAN EVELIA T VISIT S GROUP 25 MINUTES OFFICE 12578 [facility] STYLES OUTPATIEN 6 6 PHYSICIAN NICOLE T VISIT S GROUP 10 MINUTES HOSPITAL JORGE - 6 6 [facility] OUTPATIEN INC T OFFICE 93072 [facility] OUTPATIEN 6 6 PHYSICIAN EVELIA T VISIT S GROUP 10 MINUTES HOSPITAL JORGE - 6 6 [facility] OUTPATIEN INC T OFFICE 00425 [facility] STYLES OUTPATIEN 6 6 PHYSICIAN NICOLE T NEW 20 S GROUP MINUTES OFFICE 32656 [facility] OUTPATIEN 6 6 PHYSICIAN EVELIA T VISIT S GROUP 25 MINUTES HOSPITAL JORGE - 6 6 [facility] OUTPATIEN INC T OFFICE 25007 [facility] OUTPATIEN 6 6 PHYSICIAN EVELIA T VISIT S GROUP 15 MINUTES OFFICE 94292 [facility] OUTPATIEN 6 6 PHYSICIAN EVELIA T VISIT S GROUP 15 MINUTES OFFICE 42478 [facility] OUTPATIEN 6 6 PHYSICIAN EVELIA T VISIT S GROUP 10 MINUTES HOSPITAL JORGE - [facility] 6 [facility] T OFFICE 66242 [facility] OUTPATI[facility] 6 6 [facility] T VISIT S GROUP 15 MINUTES OFFICE 51741 PROGRESSI JOHN OUTPATIEN 6 6 VE REBECA T VISIT 5 PODIATRY MINUTES OFFICE 70534 [facility] 6 6 MD BRETT, T VISIT PSC 10 MINUTES [facility] - 6 6 [facility] T OFFICE 66416 PROGRESSI JOHN OUTPATIEN 6 6 VE REBECA T VISIT 5 PODIATRY MINUTES OFFICE 28719 [facility] OUTPATIEN 6 6 N T NEW 45 NEUROLOGY MINUTES [facility] - 6 6 N OUTPATIEN COMMUNTIY T HOSPITA OFFICE 87105 [facility] OUTPATIEN 6 6 PHYSICIAN [facility]ELIA T VISIT S GROUP 15 MINUTES [facility] - 6 6 [facility] OUTPATI[facility] INC T OFFICE 90825 BEN YANIV CRI OUTPATIEN 5 5 MD BRETT, T VISIT PSC 25 MINUTES OFFICE 89403 [facility] JOHN OUTPATIEN 5 5 GABRIELA REBECA T VISIT 5 MINUTES OFFICE 29090 [facility] JOHN OUTPATIEN 5 5 GABRIELA REBECA T VISIT 15 MINUTES OFFICE 97112 [facility] OUTPAT[facility] 5 5 PHYSICIAN [facility]ELIA T VISIT S GROUP 10 MINUTES [facility] - 5 5 [facility] OUTPATI[facility] INC T OFFICE 25297 [facility] JOHN OUTPATIEN 5 5 GABRIELA REBECA T VISIT 15 MINUTES OFFICE 85904 [facility]ALL[facility] JOHN OUTPATIEN 5 5 GABRIELA REBECA T NEW 30 MINUTES [facility] - 5 5 [facility] OUTPATIEN INC T EMERGENCY 63546 [facility] 5 5 [facility] DEPARTMEN INC T VISIT LOW/MODER SEVERITY OFFICE 42093 MARJ BUX BUX ANJ OUTPATIEN 5 5 MD T NEW 30 MINUTES OFFICE 76661 [facility] OUTPAT[facility]EN 5 5 [facility]YSICIAN [facility]ELIA T VISIT S GROUP 25 MINUTES OFFICE 50367 [facility] OUTPATIEN 5 5 PHYSICIAN [facility]IA T VISIT S GROUP 15 MINUTES OFFICE 42733 [facility] 5 5 [facility] T NEW 45 MEDICAL MINUTES GROUP [facility] - 5 5 [facility] [...] 4 [facility] OUTPATIEN INC T PERIODIC 27057 [facility] PATEL PREVENTIV 3 3 [facility] PATIENT 63YRS& OLDER [facility] - 3 3 [facility] OUT[facility] INC T OFFICE 45972 CODY II CODY II OUTPATIEN 3 3 [facility] T VISIT 10 MINUTES OFFICE 36552 CODY II CODY II OUTPATIEN 3 3 [facility] VISIT 10 MINUTES [facility] 22657 JORGE PATEL PREVENTIV 2 2 [facility] PATIENT 63YRS& OLDER [facility] - 0 0 [facility] INC T OFFICE 75973 ENRIKE MUIR 0 0 VINH Hurt VISIT PSC 25 MINUTES OFFICE 74807 ENRIKE MUIR 0 0 VINH Hurt VISIT PSC 15 MINUTES [facility] - 9 9 [facility] T OFF[facility] 62264 [facility] OUTPATIEN 9 9 GERALD PEREYRA 45 W W MINUTES
--- OUTSIDE RECORDS SUMMARY | 2016-11-22 08:14 | External Medical Summary Rpt ---
Author Author [facility] [employer], [facility] [employer] Organization [facility] [employer] Address Unknown Phone Unavailable Results CBC W Auto Differential panel in Blood Observa Value Referen Units Interpr Notes Date tion ce etation Range Basophils 0 - 0.2 K/MM3 Normal No Nov 19 informati 2016 9:30 [#/volume on in AM ] in source Blood by data Automated count Basophils 0.1 - 2.0 % Normal No Nov 19 informati 2017 9:30 leukocyte on in AM s in source Blood by data Automated count Eosinophi 0.0 - 0.4 K/mm3 Normal No Nov 19 ls informati 2016 9:30 [#/volume on in AM ] in source Blood by data Automated count Eosinophi 0.1 - % Normal No Nov 19 ls/100 12.0 informati 2017 9:30 leukocyte on in AM s in source Blood by data Automated count Granulocy 1.8 - 7.8 K/mm3 Normal No Nov 19 alexa informati 2017 9:30 [#/volume on in AM ] in source Blood by data Automated count Granulocy 37.0 - % Normal No Nov 19 alexa/100 80.0 informati 2017 9:30 leukocyte on in AM s in source Blood by data Automated count Hematocri 37.0 - % Low No Nov 19 t [Volume 47.0 informati 2016 9:30 on in AM Fraction] source of Blood data Hemoglobi 12.2 - g/dL Low No Nov 19 n 16.2 informati 2016 9:30 [Mass/vol on in AM ume] in source Blood data Lymphocyt 0.7 - 4.5 K/mm3 Normal No Nov 19 es informati 2016 9:30 [#/volume on in AM ] in source Unspecifi data ed specimen by Automated count Lymphocyt 10 - 50.0 % Normal No Nov 19 es informati 2016 9:30 [#/volume on in AM ] in source Unspecifi data ed specimen by Automated count Erythrocy 27 - 31.2 pg Normal No Nov 19 te mean informati 2017 9:30 corpuscul on in AM ar source hemoglobi data n [Entitic mass] Erythrocy 31.8 - g/dl Low No Nov 19 te mean 35.4 informati 2017 9:30 corpuscul on in AM ar source hemoglobi data n concentra tion [Mass/vol ume] by Automated count Erythrocy 82.2 - fl Normal No Nov 19 te mean 97.8 informati 2016 9:30 corpuscul on in AM ar volume source [Entitic data volume] by Automated count Monocytes 0.1 - 1.0 K/mm3 Normal No Nov 11 informati 2016 9:30 [#/volume on in AM ] in source Blood by data Automated count Monocytes 1.7 - 9.3 % Normal No Nov 19 / informati 2017 9:30 leukocyte on in AM s in source Blood by data Automated count Platelet 7.4 - fl Normal No Nov 19 mean 10.4 informati 2017 9:30 volume on in AM [Entitic source volume] data in Blood by Automated count Platelets 142 - 424 K/mm3 Normal No Nov 11 informati 2017 9:30 [#/volume on in AM ] in source Blood data Erythrocy 4.2 - 5.4 M/mm3 Low No Nov 11 alxea informati 2016 9:30 [#/volume on in AM ] in source Amniotic data fluid Erythrocy 11.5 - % Normal No Nov 11 te 17.5 informati 2016 9:30 distribut on in AM ion width source [Entitic data volume] by Automated count Leukocyte 4.8 - K/MM3 Normal No Nov 11 s 10.8 informati 2016 9:30 [#/volume on in AM ] in source Blood data
--- OUTSIDE RECORDS SUMMARY | 2016-11-22 08:14 | External Medical Summary Rpt ---
[...] - 5.4 M/mm3 Low No Nov 11 alexa informati 2016 9:30 [#/volume on in AM [...]
--- OUTSIDE RECORDS SUMMARY | 2016-11-22 08:28 | External Medical Summary Rpt | CCD ---
Author Author , MARGARET Organization MARGARET Address Unknown Phone [email or web address] [facility] Service Care Team Providers Care Photographic Laboratory Supervisor Name Role Phone YURILUDMILA JR, MARCELL JR Unavailable Unavailable BEN WEST MD, PSC, Unavailable Unavailable BEN WEST MD, PSC [facility] Unavailable Unavailable MEDICAL GROUP, [facility] ILANA PRECIADO Unavailable Unavailable BROWN, BROWN Unavailable Unavailable JOHN REBECA, JOHN Unavailable Unavailable REBECA BUX ANJ, BUX ANJ Unavailable Unavailable BAXTER TARAS, BAXTER Unavailable Unavailable TARAS DAIJA, DAIJA Unavailable Unavailable JAVON STEFAN, Unavailable Unavailable JAVON STEFAN [employer], [employer] Unavailable Unavailable FALLIS GABRIELA, FALLIS Unavailable Unavailable GABRIELA MARTIN, MARTIN Unavailable Unavailable MARTIN EVELIA, MARTIN Unavailable Unavailable EVELIA [facility] Unavailable Unavailable [facility], [facility], Unavailable Unavailable [facility] Unavailable Unavailable CENTER, [facility] Unavailable Unavailable [place], [facility] Unavailable Unavailable CARE, [facility] Unavailable Unavailable CARE, [facility] Unavailable Unavailable INC, [facility], [facility]available Unavailable [facility] [employer] Unavailable Unavailable CORPORATION, [employer] Unavailable Unavailable [employer]PORATION, [employer] Unavailable Unavailable CORPORATION, [employer] [facility], [employer] Unavailable Unavailable KALIK, KALIK Unavailable Un[facility] Un[facility] Unavailable [facility], [facility] YANIV CRI, YANIV CRI [...] Diagnosis DOS Provider Status G9009 OTHER 10-25-2016 [facility] AUTONOMIC NEUROPATHY G629 POLYNEUROPA 07-26-2016 [facility] THY [employer] UNSPECIFIED I639 CEREBRAL 07-26-2016 [facility] INFAR[facility] [employer] UNSPECIFIED Z9181 HISTORY OF 07-26-2016 [place] [id number] PAIN IN 07-14-2016 [facility] Y48101 PAIN IN 07-14-2016 [facility] LEFT [facility]G [facility] R202 PARESTHESIA 07-14-2016 [facility] OF SKIN [facility] S88320 FOOT DROP 06-20-2016 [facility] RIGHT FOOT HOME MEDICAL EQUIPME M5030 OTH 06-20-2016 [facility] CERVICAL HOME DISC MEDICAL DEGENERATIO EQUIPME N UNS CERV REGION M5090 CERVICAL 06-20-2016 [facility] DISC HOME DISORDER MEDICAL UNS UNS EQUIPME CERVICAL REGION I10 ESSENTIAL 06-18-2016 [facility] PRIMARY PHYSICIANS HYPERTENSIO GROUP N K921 MELENA 06-16-2016 [facility] PHYSICIANS GROUP K1121 ACUTE 06-07-2016 [facility] SIALOADENIT [facility] IS INC R220 LOCALIZED 06-07-2016 [facility] LUMP HEAD O80151 PERSONAL 05-26-2016 [facility] HISTORY PHYSICIANS OTHER GROUP DISEASES URINARY SYSTEM R269 UNSPECIFIED 05-21-2016 [facility] PHYSICIANS ABNORMALITI GROUP ES OF GAIT AND MOBILITY G8929 OTHER 04-23-2016 [facility] CHRONIC PHYSICIANS PAIN GROUP S28PEEG UNSPECIFIED 04-23-2016 [facility] FALL PHYSICIANS INITIAL GROUP ENCOUNTER R0600 DYSPNEA 04-04-2016 [facility] R0602 SHORTNESS 04-04-2016 [facility] R410 DISORIENTAT 04-04-2016 [facility] ION [facility]ICAL UNSPECIFIED IMAGING ASS R42 DIZZINESS 04-04-2016 [facility] AND PHYSICIANS, GIDDINESS [facility] R51 HEADACHE 04-04-2016 [facility] R531 WEAKNESS 04-04-2016 [facility] A33196 WRIST DROP 02-27-2016 [facility] RIGHT WRIST PHYSICIANS GROUP M6258 MUSCLE 02-27-2016 [facility] WASTING & PHYSICIANS ATROPHY NEC GROUP OTHER SITE R5383 OTHER 02-27-2016 [facility] FATIGUE PHYSICIANS GROUP [id number] OTHER LONG 02-27-2016 [facility] TERM PHYSICIANS CURRENT GROUP DRUG THERAPY Y82960 DERMATOCHAL 02-19-2016 [facility] RIGHT [facility]PPER INSTITUTE EYELID X20955 DERMATOCHAL 02-19-2016 [facility] LEFT UPPER INSTITUTE EYELID M03041 COMBINED 02-19-2016 [facility] A[facility]-RELATED INSTITUTE CATARACT LEFT EYE G46318 COMBINED 02-19-2016 [facility] CATARACT BILATERAL H538 OTHER 02-19-2016 [facility] DIST[facility]ANCE IN[facility] S R590 LOCALIZED 12-28-2015 [facility] ENLARGED PHYSICIANS LYMPH NODES GROUP N289 DISORDER OF 12-21-2015 [facility] KIDNEY AND PHYSICIANS URETER GROUP UNSPECIFIED R296 REPEATED 12-21-2015 [facility] FALLS PHYSICIANS GROUP K116 MUCOCELE OF 12-10-2015 [facility] D1800 HEMANGIOMA 11-16-2015 [facility] UNSPECIFIED PHYSICIANS SITE GROUP Z1211 ENCOUNTER 10-23-2015 [facility] SCREENING PHYSICIANS MALIGNANT GROUP NEOPLASM OF COLON Z23 ENCOUNTER 10-23-2015 [facility] FOR PHYSICIANS IMMUNIZATIO GROUP N D490 NEOPLASM OF 10-19-2015 [facility] UNS [facility] BEHAVIOR INC DIGESTIVE SYSTEM [id number] UNSPECIFIED 09-25-2015 [facility] INJURY PHYSICIANS FOOT UNS GROUP SIDE INITIAL ENCNTR K118 OTHER 08-29-2015 [facility] DISEASES OF MEM [facility]OS[facility] SALIVARY INC GLANDS H6123 IMPACTED 07-31-2015 [facility] CERUMEN PHYSICIANS BILATERAL GROUP M9981 OTHER 07-31-2015 [facility] BIOMECHANIC PHYSICIANS AL LESIONS GROUP OF CERVICAL REGION G9050 COMPLEX 07-27-2015 [facility] REGIONAL PHYSICIANS PAIN GROUP SYNDROME I UNSPECIFIED U59867 SPONTANEOUS 04-03-2015 PROGRESSIVE RUPTURE PODIATRY FLEXOR TENDONS RT ANKLE FOOT M7751 OTHER 04-03-2015 PROGRESSIVE ENTHESOPATH PODIATRY Y OF RIGHT FOOT D93161 PAIN IN 04-03-2015 PROGRESSIVE RIGHT LOWER PODIATRY LEG M5116 INTERVERTEB 04-02-2015 [facility]EN WEST, RAL DISC , PSC D/O W/RADICULOP ATHY LUMB RGN M6281 MUSCLE 03-08-2015 [facility] NEUROLOGY GENERALIZED M5416 RADICULOPAT 02-05-2015 BEN WEST, HY LUMBAR , PSC REGION I959 HYPOTENSION 12-12-2014 [facility] PHYSICIANS UNSPECIFIED GROUP I890 LYMPHEDEMA 11-09-2014 FALLIS GABRIELA NOT ELSEWHERE CLASSIFIED Q06605 PAIN IN 11-09-2014 PROGRESSIVE LEFT FOOT PODIATRY B10340A NONDSPL FX 11-09-2014 PROGRESSIVE 5TH PODIATRY METATARSAL LT FT INIT ENC CLOS FX 4439 UNSPECIFIED 10-05-2014 FALLIS GABRIELA PERIPHERAL VASCULAR DISEASE 18750 EXOSTOSIS 10-05-2014 FALLIS GABRIELA OF UNSPECIFIED SITE 7295 PAIN IN 10-05-2014 FALLIS GABRIELA SOFT TISSUES OF LIMB 23994 OTHER 09-03-2014 [facility] CHRONIC [facility] PAIN INC 7242 LUMBAGO 09-03-2014 [facility] INC 48647 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 7244 THORACIC/PAVEL 08-07-2014 MARJ TOMAS MD NEURITIS/RA DICULITIS UNSPEC 3559 MONONEURITI 07-31-2014 [facility] S OF PHYSICIANS UNSPECIFIED GROUP SITE 4019 UNSPECIFIED 07-31-2014 [facility] ESSENTIAL PHYSICIANS HYPERTENSIO GROUP N 5939 UNSPECIFIED 07-31-2014 [facility] DISORDER PHYSICIANS OF KIDNEY GROUP AND URETER 23625 OSTEOARTHRO 07-31-2014 [facility] S UNSPEC PHYSICIANS WHETHER GROUP GEN/LOC UNSPEC SITE 7245 UNSPECIFIED 07-31-2014 [facility] BACKACHE PHYSICIANS GROUP 51640 LOSS OF 07-31-2014 [facility] WEIGHT PHYSICIANS GROUP V1588 PERSONAL 07-31-2014 [facility] HISTORY OF PHYSICIANS FALL GROUP 97986 MIGRAINE 07-05-2014 [facility] W/O [facility] W/O INTRACT MEDICAL W/O STAT GROUP MIGRNOSUS 3569 UNSPEC 07-05-2014 [facility] HER[facility] PERIPHERAL GROUP NEUROPATHY 91014 UNSPECIFIED 05-25-2014 [facility] ARTHROPATHY INC , LOWER LEG 71072 GEN 02-16-2014 [facility] OSTEOARTHRO HOME SIS MEDICAL INVOLVING EQUIPME MULTIPLE SITES 44109 PAINFUL 01-14-2014 [facility] RESPIRATION [facility] INC 69964 HYPERTONICI 12-27-2013 [facility] TY OF PHYSICIANS BLADDER GROUP 60856 CYSTOCELE 12-27-2013 [facility] WITHOUT PHYSICIANS MENTION GROUP UTERINE PROLAPSE MIDLN 10601 URGE 12-27-2013 [facility] INCONTINENC PHYSICIANS E GROUP 31910 URINARY 12-27-2013 [facility] FREQUENCY PHYSICIANS GROUP 7804 DIZZINESS 12-15-2013 [facility] AND [facility] GIDDINESS INC 7812 ABNORMALITY 12-14-2013 [facility] OF GAIT [facility] INC V571 OTHER 12-14-2013 [facility] PHYSICAL [facility] THERAPY INC 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, INC LOWER LEG 5853 CHRONIC 06-14-2013 [facility] DISEASE INC STAGE III (MODERATE) V069 NEED PROPH 12-07-2012 [facility] VACCINATION HEALTH W/UNSPEC CENTER COMB VACCINE V700 ROUTINE 12-07-2012 [facility] EXAM@HEALTH CARE FACL 4660 ACUTE 04-18-2012 [facility] BRONCHITIS [facility] INC 8796 OPEN WOUND 04-07-2012 CODY II OTH&UNSPEC YINA PART TRNK W/O MENTION COMP V1083 PERSONAL 04-07-2012 CODY II HISTORY YINA OTHER MALIGNANT NEOPLASM SKIN 7265 ENTHESOPATH 01-15-2012 PETTEY JAM Y OF HIP REGION 77945 PES 01-15-2012 PETTEY JAM ANSERINUS TENDINITIS OR BURSITIS V7231 ROUTINE 11-17-2011 PATHOLOGY & GYNECOLOGIC CYTOLOGY AL LAB EXAMINATION 47897 PAIN IN 07-13-2009 [facility] JOINT, [facility] LOWER LEG INC 7149 UNSPECIFIED 06-18-2009 Patsy JUSTICE MD PSC INFLAMMATOR Y POLYARTHROP ATHY 00509 INSOMNIA 06-18-2009 Patsy MCCORMACK MD PSC 7840 HEADACHE 03-05-2009 Patsy JUSTICE MD PSC 20864 NUCLEAR 08-09-2008 SOLE, [place] W [address]14 UNSPECIFIED 08-09-2008 XIN WHIPPLE VISUAL DISTURBANCE Allergies, Adverse Reactions, Alerts Type Drug Allergy [...] 00 ST ti 10 6- 7- 00 SI ve PI 02 20 20 [...] ent ider Refu lity Give sed n PCV1 09- 133 GAIN No HMH 3 3-20 EY PHYS VACC 16 EVELIA ICIA INE NS FOR GROU INTR P AMUS CULA R USE IIV 09- GAIN No HMH ADJU 3-20 EY PHYS VANT 16 EVELIA ICIA ED NS VACC GROU INE P FOR INTR AMUS CULA R USE Vital Signs 04-18-2012 [...] PT ON ON TO &=300 LBS NERVE 70885 [facility] PATEL CONDUCTIO 7 [facility] N STUDIES INC INC 9-10 STUDIES NEEDLE 77193 [facility] PATEL EMG EA 7 MEM H[facility] EXTREMTY INC INC W/PARASPI NL AREA COMPLETE PWR K0823 [facility] GRP 2 STD 7 CAPTAINS CORPORATI CORPORATI CHAIR PT ON ON TO &=300 LBS STANDARD K0001 LU[facility]O ROSS 7 HOME HOME R [facility] G0463 [facility] PATEL OUTPATIEN 7 MEM H[facility] T CLIN INC INC VISIT ASSESS & MGMT PT RADIOLOGI 62877 [place] DAIJA Garcia 7 MEDICAL EXAMINATI IMAGING ON ASS MANDIPLE PRTL <4 VIEWS RADIOLOG 87676 [facility] PAT[facility] EXAM 7 [facility] MANDIBLE INC [place] COM[place] MIN[place] [address] [place] [address] J[facility] PATEL HEAD/BRAI 7 [facility] N W/O INC INC CONTRAST MATERIAL NATRIURET 08966 J[facility] GARCIA IC 7 [facility] [place] [place] [address] J[facility] PATEL TROPONIN 7 MEM H[facility] QUANTITAT INC INC ANJALI BLOOD 99026 J[facility] KALIK COUNT 7 MEM [facility]OS[facility] COMPLETE INC AUTO&AUTO DIFRNTL WBC CREATINE 52247 [facility] PAT[facility] KINASE 7 [facility] TOTAL INC INC FIBRIN 24818 [facility] PATEL DGRADJ 7 [facility] PRODUCTS INC INC D-DIMER QUAL/SEMI KISHAN CREATINE 36241 [facility] PATEL KINASE MB 7 [facility] FRACTION INC INC ONLY COMPREHEN 73781 J[facility]GE JORGE SIVE 7 [facility] METABOLIC INC INC PANEL ECG 16387 [facility] PATEL ROUTINE 7 [facility] ECG INC INC W/LEAST 12 LDS TRCG ONLY W/O I&R RADIOLOGI 85539 [facility] PATEL C 7 [facility] EXAMINATI INC INC ON CHEST SINGLE VIEW FRONTAL COMPREHEN 08854 JORGE JORGE SIVE 7 [facility]OS[facility] METABOLIC INC INC PANEL BLOOD 87506 [facility] PATEL COUNT 7 [facility]OS[facility] COMPLETE INC INC AUTO&AUTO DIFRNTL WBC OPH BMTRY 42870 [facility] 7 EYE ECHOGRAPY INSTITUTE A-SCAN IO LENS PWR SUJATA PWR K0823 [facility] HOVEROUND GRP 2 STD 6 [facility] CORPORATI CORPORATI CHAIR PT ON ON TO &=300 LBS PWR WC K0823 [facility] HOVEROUND GRP 2 STD 6 CAPTAINS CORPORATI CORPORATI CHAIR PT ON ON TO &=300 LBS PET 28619 [facility] IMAGING [address] COMMUNTIY COMMUNTIY ATTENUATI HOSPITA HOSPITA ON SKULL BASE MID-THIGH PWR K0823 [facility]OVEROUND GRP 2 STD 6 CAPTAINS CORPORATI CORPORATI CHAIR PT ON ON TO &=300 LBS PWR K0823 [facility]OVEROUND GRP 2 STD 6 CAPTAINS CORPORATI CORPORATI CHAIR PT ON ON TO &=300 LBS BLOOD 30620 [facility] MARTIN OCCULT 6 PHYSICIAN EVELIA PEROXIDAS S GROUP E ACTV QUAL FECES 1-3 SPEC ADMINISTR G0008 [facility] MARTIN ATION OF 6 PHYSICIAN EVELIA INFLUENZA S GROUP VIRUS VACCINE PCV13 76248 [facility] MARTIN VACCINE 6 PHYSICIAN EVELIA FOR S GROUP INTRAMUSC ULAR USE IIV 03989 [facility] ADJUVANTE 6 PHYSICIAN EVELIA D VACCINE S GROUP FOR INTRAMUSC ULAR USE MRI ORBIT 72514 [facility] PAT[facility] FACE & 6 MEM [facility] NECK W/O INC INC & W/CONTRAS T MATRL COLLECTIO 83334 [facility] STYLES N VENOUS 6 PHYSICIAN NICOLE BLOOD S GROUP VENIPUNCT URE PWR K0823 [facility] GRP 2 STD 6 CAPTAINS CORPORATI CORPORATI CHAIR PT ON ON TO &=300 LBS FINE 08972 [facility] NEEDLE 6 MEM [facility]OS[facility] ASPIRATIO INC INC N WITH IMAGING GUIDANCE US SOFT 96520 [facility] PAT[facility] TISSUE 6 [facility] HEAD & INC INC NECK REAL TIME IMGE DOCM PWR K0823 [facility] GRP 2 STD 6 CAPTAINS CORPORATI CORPORATI CHAIR PT ON ON TO &=300 LBS PWR E2365 [facility] WHLCHAIR 6 ACSS U-1 CORPORATI CORPORATI SEALED ON ON LEAD ACID BATTRY EA THERAPEUT 73747 [facility] PATEL IC PX 1/> 6 [facility] AREAS INC INC EACH 15 MIN EXERCISES THERAPEUT 63664 J[facility] PATEL IC PX 1/> 6 [facility] AREAS INC INC EACH 15 MIN EXERCISES THERAPEUT 55429 J[facility] PATEL IC PX 1/> 6 [facility] AREAS INC INC EACH 15 MIN EXERCISES 3D 66319 [facility] PAT[facility] RENDERING 6 [facility] W/INTERP INC INC & POSTPROCE SS SUPERVISI ON MRI 36294 [facility] PAT[facility] SPINAL 6 [facility] CANAL INC INC CERVICAL W/O CONTRAST MATRL THERAPEUT 90997 [facility] PATEL IC PX 1/> 6 [facility] AREAS INC INC EACH 15 MIN EXERCISES THERAPEUT 56795 JORGE PTAEL IC PX 1/> 6 [facility] AREAS INC INC EACH 15 MIN EXERCISES THERAPEUT 43124 JORGE PATEL IC PX 1/> 6 [facility] H[facility] AREAS INC INC EACH 15 MIN EXERCISES THERAPEUT 05533 JORGE PATEL IC PX 1/> 6 [facility] AREAS INC INC EACH 15 MIN EXERCISES THERAPEUT 18225 JORGE PATEL IC PX 1/> 6 [facility] AREAS INC INC EACH 15 MIN EXERCISES PHYSICAL 41897 [facility] PAT[facility] THERAPY 6 [facility] EVALUATIO INC INC N COLLECTIO 73116 [facility] N VENOUS 6 PHYSICIAN EVELIA BLOOD S GROUP VENIPUNCT URE INJECTION J3301 PROGRESSI JOHN 6 VE REBECA TRIAMCINO PODIATRY LONE ACETONIDE NOS 10 MG ARTHROCEN 22809 PROGRESSI PROGRESSI TESIS 6 VE VE ASPIR&/IN PODIATRY PODIATRY J INTERM JT/BURS W/O US PHYSICAL 84227 [facility] PATEL THERAPY 6 [facility] EVALUATIO INC INC N OCCUPATIO 53710 [facility] PAT[facility] NAL 6 [facility] THERAPY INC INC EVALUATIO N COLLECTIO 99900 [facility] N VENOUS 6 N N BLOOD COMMUNTIY COMMUNTIY VENIPUNCT HOSPITA HOSPITA URE HEMOGLOBI 61264 [facility] N 6 N N GLYCOSYLA COMMUNTIY COMMUNTIY CARINA A1C HOSPITA HOSPITA LIPID 00782 [facility] PANEL 6 N [place] [address] JORGE PATEL HEAD/BRAI 6 [facility] N W/O INC INC CONTRAST MATERIAL AFO L1970 PROGRESSI JOHN PLASTIC 6 VE REBECA WITH PODIATRY ANKLE JOINT CUSTOM FABRICATE D ADD LW L2275 PROGRESSI JOHN EXTRM 6 VE REBECA VARUS/VUL PODIATRY PAYAL RYAN PLSTC MOD PADD/LN HEEL PAD L3480 PROGRESSI JOHN AND 6 VE REBECA DEPRESSIO PODIATRY N FOR SPUR RADEX 20127 [facility] FOOT 5 [facility] COMPLETE INC INC MINIMUM 3 VIEWS WALKING L4360 PROGRESSI JOHN BOOT 5 VE REBECA PNEUMATC PODIATRY &/ VACUUM PREFAB CUSTM FIT THERAPEUT 96473 [facility] PAT[facility] IC 5 [facility] PROPHYLAC INC INC TIC/DX INJECTION SUBQ/IM INJECTION J1040 [facility] PATEL 5 [facility] METHYLPRE INC INC DNISOLONE ACETATE 80 MG TENS E0730 EMPI INC EMPI INC DEVICE 5 4/MORE LEADS MULTI NERVE STIMULATI ON APPL 03618 J[facility] PATEL MODALITY 5 [facility] 1/> AREAS INC INC ELEC STIMJ EA 15 MIN MRI 45602 [facility] PATEL SPINAL 5 [facility] CANAL INC INC LUMBAR W/O CONTRAST MATERIAL CANE E0105 LUCIANO WOLF QUAD/3-IN 5 HOME HOME CHER ALL MEDICAL MEDICAL MATL EQUIPME EQUIPME ADJUSTBL/ FIX W/TIPS RADIOLOGI 50535 J[facility] PATEL C EXAM 4 [facility] CHEST 2 INC INC VIEWS FRONTAL&L ATERAL URNLS DIP 07317 [facility] BAXTER 4 PHYSICIAN TARAS STICK/TAB S GROUP LET RGNT NON-AUTO W/O MICRSCP DUPLEX 35211 [facility] PATEL SCAN 4 [facility] EXTRACRAN INC INC IAL ART COMPL BI STUDY PHYSICAL 27902 [facility] PATEL THERAPY 4 [facility] EVALUATIO INC INC N RADIOLOGI 01026 [facility] PATEL C 4 [facility] EXAMINATI INC [place] [address] JORGE PATEL RETROPERI 4 [facility] TONEAL INC INC REAL TIME W/IMAGE COMPLETE BLOOD 07122 [facility] PATEL OCCULT 3 [facility] CENTER CENTER E ACTV QUAL FECES 1 DETER THERAPEUT 84721 [facility] PATEL IC 3 [facility] PROPHYLAC INC INC TIC/DX INJECTION SUBQ/IM INJ J0702 PETTEY PETTEY BETAMETHA 2 JAM JAM SONE ACETATE & PHOSPHATE 3 MG ARTHROCEN 66732 SOPHIA STRAUSS 2 JAM JAM ASPIR&/IN J MAJOR JT/BURSA W/O US RADIOLOGI 24282 JORGEJOEL PATEL C 0 [facility] EXAMINATI INC INC ON KNEE 3 VIEWS RADIOLOGI 34935 JORGE JORGE C 9 [facility] EXAMINATI INC INC ON KNEE 3 VIEWS RADEX 62366 [facility] J[facility] SPINE 9 [facility] LUMBOSACR INC INC AL MINIMUM 4 VIEWS Encounters Encounter Start End Date Code Location Performer Type Date HOSPITAL [facility] - 7 7 [facility] OUTPATIEN INC T OFFICE 48435 [facility]ARTIN OUTPATIEN 7 7 PHYSICIAN T VISIT S GROUP 15 MINUTES OFFICE 11355 [facility] MARCELL JR OUTPATIEN 7 7 PHYSICIAN T VISIT S GROUP 15 MINUTES [facility] JORGE - 7 7 [facility] OUTPATIEN INC T OFFICE 91723 [facility] PAVEZ OUTPATIEN 7 7 PHYSICIAN T NEW 45 S GROUP MINUTES OFFICE 86251 [facility] MARTIN OUTPATIEN 7 7 PHYSICIAN T VISIT S GROUP 25 MINUTES OFFICE 99422 [facility] [place] OUTPATIEN 7 7 PHYSICIAN T VISIT S GROUP 25 MINUTES HOSPITAL J[facility]GE - 7 7 [facility] OUTPATIEN INC T EMERGENCY 86859 [facility] 7 7 [facility] DEPARTMEN INC T VISIT HIGH/URGE NT SEVERITY EMERGENCY 14151 [facility] CISNEROS DEPT 7 7 PHYSICIAN VISIT S, PLLC HIGH SEVERITY& THREAT FUNJ HOSPITAL JORGE - 7 7 [facility] OUTPATIEN INC T OFFICE 57371 [facility] MARTIN OUTPATIEN 7 7 PHYSICIAN T VISIT S GROUP 25 MINUTES OFFICE 73909 [facility] OUTPATIEN 7 7 EYE T NEW 30 INSTITUTE MINUTES OFFICE 27434 [facility] STYLES OUTPATIEN 6 6 PHYSICIAN T VISIT S GROUP 10 MINUTES OFFICE 55880 [facility] OUTPATIEN 6 6 PHYSICIAN T VISIT S GROUP 15 MINUTES HOSPITAL [facility] - 6 6 N OUTPATIEN COMMUNTIY T HOSPITA OFFICE 31235 [facility] STYLES OUTPATIEN 6 6 PHYSICIAN T VISIT S GROUP 10 MINUTES OFFICE 64778 [facility] [place] OUTPATIEN 6 6 PHYSICIAN EVELIA T VISIT S GROUP 15 MINUTES HOSPITAL JORGE - 6 6 [facility] OUTPATIEN INC T OFFICE 57163 [facility] STYLES OUTPATIEN 6 6 PHYSICIAN NICOLE T VISIT S GROUP 10 MINUTES OFFICE 74319 [facility] MARTIN OUTPATIEN 6 6 PHYSICIAN EVELIA T VISIT S GROUP 25 MINUTES OFFICE 54041 [facility] STYLES OUTPATIEN 6 6 PHYSICIAN NICOLE T VISIT S GROUP 10 MINUTES [facility] T OFFICE 28275 [facility] [place] OUTPATIEN 6 6 PHYSICIAN EVELIA T VISIT S GROUP 10 MINUTES OFFICE 10629 [facility] [place] OUTPATIEN 6 6 PHYSICIAN NICOLE T NEW 20 S GROUP MINUTES [facility] T OFFICE 21825 [facility] [place] OUTPATIEN 6 6 PHYSICIAN EVELIA T VISIT S GROUP 25 MINUTES OFFICE 04727 [facility] [place] OUTPATIEN 6 6 PHYSICIAN EVELIA T VISIT S GROUP 15 MINUTES [facility] T OFFICE 23079 [facility] [place] OUTPATIEN 6 6 PHYSICIAN EVELIA T VISIT S GROUP 15 MINUTES OFFICE 45964 [facility] [place] OUTPATIEN 6 6 PHYSICIAN EVELIA T VISIT S GROUP 10 MINUTES [facility] T OFFICE 26792 [facility] [place] OUTPATIEN 6 6 PHYSICIAN EVELIA T VISIT S GROUP 15 MINUTES OFFICE 64051 PROGR[facility]I JOHN OUTPATIEN 6 6 VE REBECA T VISIT 5 PODIATRY MINUTES OFFICE 49977 [facility] BRETT ANJ OUTPATIEN 6 6 MD BRETT, T VISIT PSC 10 MINUTES [facility] T OFFICE 20496 PROGRESSI JOHN OUTPATIEN 6 6 VE REBECA T VISIT 5 PODIATRY MINUTES OFFICE 96305 [facility] OUTPATIEN 6 6 N T NEW 45 NEUROLOGY MINUTES [facility] - 6 6 N OUTPATIEN COMMUNTIY T HOSPITA OFF[facility] 95269 [facility] [place] OUTPATIEN 6 6 PHYSICIAN EVELIA T VISIT S GROUP 15 MINUTES [facility] T OFFICE 16984 [facility] PURVIS [facility]RI OUTPATIEN 5 5 MD BRETT, T VISIT PSC 25 MINUTES OFFICE 13395 [facility] JOHN OUTPATIEN 5 5 GABRIELA REBECA T VISIT 5 MINUTES OFFICE 13802 [facility] JOHN OUTPATIEN 5 5 GABRIELA REBECA T VISIT 15 MINUTES OFFICE 08570 [facility] [place] OUTPATIEN 5 5 PHYSICIAN EVELIA T VISIT S GROUP 10 MINUTES OFFICE 27460 [facility] JOHN OUTPATIEN 5 5 GABRIELA REBECA T VISIT 15 MINUTES [facility] T OFFICE 50437 [facility] JOHN OUTPATIEN 5 5 GABRIELA REBECA T NEW 30 MINUTES EMERGENCY 81047 [facility] 5 5 [facility] T VISIT LOW/MODER SEVERITY [facility] OFFICE 52421 MARJ DAUGHERTYX ANJ OUTPATIEN 5 5 SD T NEW 30 MINUTES OFFICE 94492 [facility] EVELIA T VISIT S GROUP 25 MINUTES OFFICE 16523 [facility] 5 5 PHYSICIAN EVELIA T VISIT S GROUP 15 MINUTES OFFICE 50724 [facility] OUTPATIEN 5 5 [facility] NEW 45 MEDICAL MINUTES [facility]GE - 5 5 [facility] - 5 5 [facility] JORGE - 4 4 [facility] J[facility]GE - 4 4 [facility] PERIODIC [id number] JORGE PATEL PREVENTIV 3 3 [facility] CENTER PATIENT 63YRS& OLDER Emergency SHAAN Porter MD (ER) 3 19:12 3 22:09 [facility] JORGE - 3 3 [facility] OFFICE [id number] CODY II CODY II OUTPATIEN [address] [facility] VISIT 10 MINUTES OFFICE [id number] CODY II CODY II OUTPATIEN 3 3 [facility] VISIT 10 MINUTES PERIODIC [id number] JORGE JORGE PREVENTIV 2 2 [facility] PATIENT 63YRS& OLDER [facility] JORGE - 0 0 [facility] T OFFICE [id number] ENRIKE MUIR 0 0 VINH Hurt VISIT [facility] 25 MINUTES OFFICE [id number] ENRIKE MUIR 0 0 VINH Hurt VISIT [facility] 15 MINUTES [facility] JORGE - 9 9 [facility] T OFFICE [id number] SOLE WHIPPLE OUTPATIEN 9 9 GERALD PEREYRA 45 W W MINUTES
--- OUTSIDE RECORDS SUMMARY | 2016-11-22 08:28 | External Medical Summary Rpt | CCD ---
Author Author , MARGARET Organization MARGARET Address Unknown Phone [email or web address] Care Team Providers Care Lineman Service Or Work Dispatcher Name Role Phone YURILUDMILA JR, MARCELL JR Unavailable Unavailable BEN WEST MD, PSC, Unavailable Unavailable BEN WEST MD, PSC [facility] Unavailable Unavailable MEDICAL GROUP, [facility] ILANA PRECIADO Unavailable Unavailable BROWN, BROWN Unavailable Unavailable JOHN REBECA, JOHN Unavailable Unavailable REBECA BUX ANJ, BUX ANJ Unavailable Unavailable BAXTER TARAS, BAXTER Unavailable Unavailable TARAS DAIJA, DAIJA Unavailable Unavailable JAVON STEFAN, Unavailable Unavailable JAVON STEFAN [facility] Unavailable Unavailable FALLIS GABRIELA, FALLIS Unavailable Unavailable GABRIELA MARTIN, MARTIN Unavailable Unavailable MARTIN EVELIA, MARTIN Unavailable Unavailable EVELIA [facility] Unavailable Unavailable [facility], [facility], Unavailable Unavailable [facility] Unavailable Unavailable CENTER, [facility] Unavailable Unavailable [place], [facility] Unavailable Unavailable CARE, [facility] Unavailable Unavailable CARE, [facility] Unavailable Unavailable INC, [facility], Unavailable Unavailable [facility] Unavailable Unavailable CORPORATION, [...] Diagnosis DOS Provider Status G9009 OTHER 10-25-2016 [facility] AUTONOMIC NEUROPATHY G629 POLYNEUROPA 07-26-2016 [facility] THY Inductly UNSPECIFIED I639 CEREBRAL 07-26-2016 [facility] INFARCTION Inductly UNSPECIFIED Z9181 HISTORY OF 07-26-2016 [facility] F42266 PAIN IN 07-14-2016 [facility] E97387 PAIN IN 07-14-2016 [facility] LEFT [facility]G [facility] R202 PARESTHESIA 07-14-2016 [facility] OF SKIN [facility] F64162 FOOT DROP 06-20-2016 [facility] RIGHT FOOT HOME MEDICAL EQUIPME M5030 OTH 06-20-2016 [facility] CERVICAL HOME DISC MEDICAL DEGENERATIO EQUIPME N UNS CERV REGION M5090 CERVICAL 06-20-2016 [facility] DISC HOME DISORDER MEDICAL UNS UNS EQUIPME CERVICAL REGION I10 ESSENTIAL 06-18-2016 [facility] PRIMARY PHYSICIANS HYPERTENSIO GROUP N K921 MELENA 06-16-2016 [facility] K1121 ACUTE 06-07-2016 [facility] SIALOADENIT [facility] IS INC R220 LOCALIZED 06-07-2016 [facility] SWELLING MEDICAL MASS AND IMAGING ASS LUMP HEAD E01794 PERSONAL 05-26-2016 [facility] HISTORY PHYSICIANS OTHER GROUP DISEASES URINARY SYSTEM R269 UNSPECIFIED 05-21-2016 [facility] PHYSICIANS ABNORMALITI GROUP ES OF GAIT AND MOBILITY G8929 OTHER 04-23-2016 [facility] CHRONIC PHYSICIANS PAIN GROUP P52MFUN UNSPECIFIED 04-23-2016 [facility] FALL PHYSICIANS INITIAL GROUP ENCOUNTER R0600 DYSPNEA 04-04-2016 [place] UNSPECIFIED MEDICAL IMAGING ASS R0602 SHORTNESS 04-04-2016 [facility] R410 DISORIENTAT 04-04-2016 [place] ION MEDICAL UNSPECIFIED IMAGING ASS R42 DIZZINESS 04-04-2016 [facility] AND PHYSICIANS, GIDDINESS [facility] R51 HEADACHE 04-04-2016 [place] [facility] R531 WEAKNESS 04-04-2016 [place] [facility] F64806 WRIST DROP 02-27-2016 [facility] RIGHT WRIST PHYSICIANS GROUP M6258 MUSCLE 02-27-2016 [facility] WASTING & PHYSICIANS ATROPHY NEC GROUP OTHER SITE R5383 OTHER 02-27-2016 [facility] FATIGUE PHYSICIANS GROUP Z18066 OTHER LONG 02-27-2016 [facility] TERM PHYSICIANS CURRENT GROUP DRUG THERAPY F33903 DERMATOCHAL 02-19-2016 [place] ASIS OF EYE RIGHT UPPER INSTITUTE EYELID Z34327 DERMATOCHAL 02-19-2016 [place] ASIS OF EYE LEFT UPPER INSTITUTE EYELID Z63048 COMBINED 02-19-2016 [place] FORMS OF EYE AGE-RELATED INSTITUTE CATARACT LEFT EYE X92418 COMBINED 02-19-2016 [place] FORMS OF EYE AGE-RELATED INSTITUTE CATARACT BILATERAL H538 OTHER 02-19-2016 [place] VISUAL EYE DISTURBANCE INSTITUTE S R590 LOCALIZED 12-28-2015 [facility] ENLARGED PHYSICIANS LYMPH NODES GROUP N289 DISORDER OF 12-21-2015 [facility] KIDNEY AND PHYSICIANS URETER GROUP UNSPECIFIED R296 REPEATED 12-21-2015 [facility] FALLS PHYSICIANS GROUP K116 MUCOCELE OF 12-10-2015 [facility] D1800 HEMANGIOMA 11-16-2015 [facility] UNSPECIFIED PHYSICIANS SITE GROUP Z1211 ENCOUNTER 10-23-2015 [facility] SCREENING PHYSICIANS MALIGNANT GROUP NEOPLASM OF COLON Z23 ENCOUNTER 10-23-2015 [facility] FOR PHYSICIANS IMMUNIZATIO GROUP N D490 NEOPLASM OF 10-19-2015 [facility] UNS [facility] BEHAVIOR INC DIGESTIVE SYSTEM B60450C UNSPECIFIED 09-25-2015 [facility] INJURY PHYSICIANS FOOT UNS GROUP SIDE INITIAL ENCNTR K118 OTHER 08-29-2015 [facility] DISEASES OF MEM HOSP SALIVARY INC GLANDS H6123 IMPACTED 07-31-2015 [facility] CERUMEN PHYSICIANS BILATERAL GROUP M9981 OTHER 07-31-2015 [facility] BIOMECHANIC PHYSICIANS AL LESIONS GROUP OF CERVICAL REGION G9050 COMPLEX 07-27-2015 [facility] REGIONAL PHYSICIANS PAIN GROUP SYNDROME I UNSPECIFIED D95392 SPONTANEOUS 04-03-2015 PROGRESSIVE RUPTURE PODIATRY FLEXOR TENDONS RT ANKLE FOOT M7751 OTHER 04-03-2015 PROGRESSIVE ENTHESOPATH PODIATRY Y OF RIGHT FOOT C17907 PAIN IN 04-03-2015 PROGRESSIVE RIGHT LOWER PODIATRY LEG M5116 INTERVERTEB 04-02-2015 BEN WEST, RAL DISC , PSC D/O W/RADICULOP ATHY LUMB RGN M6281 MUSCLE 03-08-2015 [facility] NEUROLOGY GENERALIZED M5416 RADICULOPAT 02-05-2015 BEN WEST, HY LUMBAR , PSC REGION I959 HYPOTENSION 12-12-2014 [facility] PHYSICIANS UNSPECIFIED GROUP I890 LYMPHEDEMA 11-09-2014 FALLIS GABRIELA NOT ELSEWHERE CLASSIFIED D43184 PAIN IN 11-09-2014 PROGRESSIVE LEFT FOOT PODIATRY O78363M NONDSPL FX 11-09-2014 PROGRESSIVE 5TH PODIATRY METATARSAL LT FT INIT ENC CLOS FX 4439 UNSPECIFIED 10-05-2014 FALLIS GABRIELA PERIPHERAL VASCULAR DISEASE 25066 EXOSTOSIS 10-05-2014 FALLIS GABRIELA OF UNSPECIFIED SITE 7295 PAIN IN 10-05-2014 FALLIS GABRIELA SOFT TISSUES OF LIMB 29040 OTHER 09-03-2014 [facility] CHRONIC [facility] PAIN INC 7242 LUMBAGO 09-03-2014 [facility] 07372 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 7244 THORACIC/PAVEL 08-07-2014 MARJ TOMAS MD NEURITIS/RA DICULITIS UNSPEC 3559 MONONEURITI 07-31-2014 [facility] S OF PHYSICIANS UNSPECIFIED GROUP SITE 4019 UNSPECIFIED 07-31-2014 [facility] ESSENTIAL PHYSICIANS HYPERTENSIO GROUP N 5939 UNSPECIFIED 07-31-2014 [facility] DISORDER PHYSICIANS OF KIDNEY GROUP AND URETER 01004 OSTEOARTHRO 07-31-2014 [facility] S UNSPEC PHYSICIANS WHETHER GROUP GEN/LOC UNSPEC SITE 7245 UNSPECIFIED 07-31-2014 [facility] BACKACHE PHYSICIANS GROUP 41042 LOSS OF 07-31-2014 [facility] WEIGHT PHYSICIANS GROUP V1588 PERSONAL 07-31-2014 [facility] HISTORY OF PHYSICIANS FALL GROUP 17584 MIGRAINE 07-05-2014 [facility]TER[facility]DAY W/O [facility] W/O INTRACT MEDICAL W/O STAT GROUP MIGRNOSUS 3569 UNSPEC 07-05-2014 [facility] MEDICAL PERIPHERAL GROUP NEUROPATHY 04987 UNSPECIFIED 05-25-2014 [facility] ARTHROPATHY INC , LOWER LEG 21528 GEN 02-16-2014 [facility] OSTEOARTHRO HOME SIS MEDICAL INVOLVING EQUIPME MULTIPLE SITES 15059 PAINFUL 01-14-2014 [facility] RESPIRATION [facility] INC 98627 HYPERTONICI 12-27-2013 [facility] TY OF PHYSICIANS BLADDER GROUP 60247 CYSTOCELE 12-27-2013 [facility] WITHOUT PHYSICIANS MENTION GROUP UTERINE PROLAPSE MIDLN 17817 URGE 12-27-2013 [facility] INCONTINENC PHYSICIANS E GROUP 98448 URINARY 12-27-2013 [facility] FREQUENCY PHYSICIANS GROUP 7804 DIZZINESS 12-15-2013 [facility] AND [facility] GIDDINESS INC 7812 ABNORMALITY 12-14-2013 [facility] OF GAIT [facility] INC V571 OTHER 12-14-2013 [facility] PHYSICAL [facility] THERAPY INC 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 [facility] RHEUMATISM, INC LOWER LEG 5853 CHRONIC 06-14-2013 [facility] DISEASE INC STAGE III (MODERATE) V069 NEED PROPH 12-07-2012 [facility] VACCINATION HEALTH W/UNSPEC CENTER COMB VACCINE V700 ROUTINE 12-07-2012 [facility] EXAM@HEALTH CARE FACL 4660 ACUTE 04-18-2012 [facility] BRONCHITIS [facility] INC 8796 OPEN WOUND 04-07-2012 [facility] II OTH&UNSPEC YINA PART TRNK W/O MENTION COMP V1083 PERSONAL 04-07-2012 CODY II HISTORY YINA OTHER MALIGNANT NEOPLASM SKIN 7265 ENTHESOPATH 01-15-2012 PETTE[facility] JAM Y OF HIP REGION 05211 PES 01-15-2012 [facility] JAM ANSERINUS TENDINITIS OR BURSITIS V7231 ROUTINE 11-17-2011 PATHOLOGY & GYNECOLOGIC CYTOLOGY AL LAB EXAMINATION 59378 PAIN IN 07-13-2009 [facility] JOINT, [facility] LOWER LEG INC 7149 UNSPECIFIED 06-18-2009 Patsy JUSTICE MD PSC INFLAMMATOR Y POLYARTHROP ATHY 43156 INSOMNIA 06-18-2009 Patsy MCCORMACK MD PSC 7840 HEADACHE 03-05-2009 Patsy JUSTICE MD PSC 30759 NUCLEAR 08-09-2008 SOLE, ADWOA DUARTE W 12626 UNSPECIFIED 08-09-2008 XIN WHIPPLE VISUAL DISTURBANCE Allergies, [...] PT ON ON TO &=300 LBS NERVE 20644 [facility] PATEL CONDUCTIO 7 [facility] N STUDIES INC INC 9-10 STUDIES NEEDLE 33427 [facility] PATEL EMG EA 7 MEM [facility] EXTREMTY INC INC W/PARASPI NL AREA COMPLETE PWR K0823 [facility] HOVEROUND GRP 2 STD 7 CAPTAINS CORPORATI CORPORATI CHAIR PT ON ON TO &=300 LBS STANDARD K0001 [facility] ROSS 7 HOME HOME R MEDICAL MEDICAL [facility] G0463 [facility] PATEL OUTPATIEN 7 MEM H[facility] MEM [facility]OS[facility] T CLIN INC INC VISIT ASSESS & MGMT PT RADIOLOGI 70720 [place] DAIJA Garcia 7 MEDICAL EXAMINATI IMAGING ON ASS MANDIPLE PRTL <4 VIEWS RADIOLOG 17085 [facility] PATEL EXAM 7 [facility] MANDIBLE INC [place] COM[place] MIN[place] [address] [place] [address] J[facility] PATEL HEAD/BRAI 7 [facility] N W/O INC INC CONTRAST MATERIAL NATRIURET 43770 [facility] GARCIA IC 7 [facility] [place] [address] J[facility] PATEL TROPONIN 7 MEM HOSP MEM HOS[facility] QUANTITAT INC INC ANJALI BLOOD 85996 [facility] KALIK COUNT 7 MEM HOS[facility] COMPLETE INC AUTO&AUTO DIFRNTL WBC CREATINE 99868 [facility] PAT[facility] KINASE 7 [facility] TOTAL INC INC FIBRIN 58220 [facility] PAT[facility] DGRADJ 7 [facility] PRODUCTS INC INC D-DIMER QUAL/SEMI KISHAN CREATINE 98668 [facility] PAT[facility] KINASE MB 7 [facility] FRACTION INC INC ONLY COMPREHEN 12456 [facility] J[facility]GE SIVE 7 [facility] METABOLIC INC INC PANEL ECG 73238 [facility] PATEL ROUTINE 7 [facility] ECG INC INC W/LEAST 12 LDS TRCG ONLY W/O I&R RADIOLOGI 15338 [facility] PATEL C 7 [facility] EXAMINATI INC INC ON CHEST SINGLE VIEW FRONTAL COMPREHEN 16510 J[facility] JORGE SIVE 7 [facility] METABOLIC INC INC PANEL BLOOD 37535 [facility] PAT[facility] COUNT 7 [facility] COMPLETE INC INC AUTO&AUTO DIFRNTL WBC OPH BMTRY 73859 [facility] 7 EYE ECHOGRAPY INSTITUTE A-SCAN IO LENS PWR SUJATA PWR K0823 [facility] HOVEROUND GRP 2 STD 6 CAPTA[place] CORPORATI CORPORATI CHAIR PT ON ON TO &=300 LBS PWR WC K0823 [facility] HOVEROUND GRP 2 STD 6 CAPTAINS CORPORATI CORPORATI CHAIR PT ON ON TO &=300 [place] [address] [facility] IMAGING [address] COMMUNTIY COMMUNTIY ATTENUATI HOSPITA HOSPITA ON SKULL BASE MID-THIGH PWR K0823 [facility] HOVEROUND GRP 2 STD 6 CAPTAINS CORPORATI CORPORATI CHAIR PT ON ON TO &=300 LBS PWR K0823 [facility] HOVEROUND GRP 2 STD 6 CAPTAINS CORPORATI CORPORATI CHAIR PT ON ON TO &=300 LBS BLOOD 62572 [facility] OCCULT 6 PHYSICIAN EVELIA PEROXIDAS S GROUP E ACTV QUAL FECES 1-3 SPEC ADMINISTR G0008 [facility] ATION OF 6 PHYSICIAN EVELIA INFLUENZA S GROUP VIRUS VACCINE PCV13 22775 [facility] VACCINE 6 PHYSICIAN EVELIA FOR S GROUP INTRAMUSC ULAR USE IIV 95360 [facility] ADJUVANTE 6 PHYSICIAN EVELIA D VACCINE S GROUP FOR INTRAMUSC ULAR USE MRI ORBIT 81274 [facility] PAT[facility] FACE & 6 MEM H[facility] NECK W/O INC INC & W/CONTRAS T MATRL COLLECTIO 99721 [facility] STYLES N VENOUS 6 PHYSICIAN NICOLE BLOOD S GROUP VENIPUNCT URE PWR K0823 [facility]OUND GRP 2 STD 6 CAPTAINS CORPORATI CORPORATI CHAIR PT ON ON TO &=300 LBS FINE 38826 [facility] NEEDLE 6 [facility] ASPIRATIO INC INC N WITH IMAGING GUIDANCE US SOFT 87521 [facility] PAT[facility] TISSUE 6 [facility] HEAD & INC INC NECK REAL TIME IMGE DOCM PWR K0823 [facility]OUND GRP 2 STD 6 CAPTAINS CORPORATI CORPORATI CHAIR PT ON ON TO &=300 LBS PWR E2365 [facility] WHLCHAIR 6 ACSS U-1 CORPORATI CORPORATI SEALED ON ON LEAD ACID BATTRY EA THERAPEUT 96273 [facility] PATEL IC PX 1/> 6 [facility] AREAS INC INC EACH 15 MIN EXERCISES THERAPEUT 82493 [facility] PATEL IC PX 1/> 6 [facility] AREAS INC INC EACH 15 MIN EXERCISES THERAPEUT 40762 [facility] PATEL IC PX 1/> 6 [facility] AREAS INC INC EACH 15 MIN EXERCISES 3D 74232 [facility] PAT[facility] RENDERING 6 [facility] W/INTERP INC INC & POSTPROCE SS SUPERVISI ON MRI 26534 [facility] SPINAL 6 [facility] CANAL INC INC CERVICAL W/O CONTRAST MATRL THERAPEUT 95573 [facility] PATEL IC PX 1/> 6 [facility] AREAS INC INC EACH 15 MIN EXERCISES THERAPEUT 60982 [facility] PATEL IC PX 1/> 6 [facility] AREAS INC INC EACH 15 MIN EXERCISES THERAPEUT 64272 J[facility]GE PATEL IC PX 1/> 6 [facility] AREAS INC INC EACH 15 MIN EXERCISES THERAPEUT 14718 JORGE PATEL IC PX 1/> 6 [facility] AREAS INC INC EACH 15 MIN EXERCISES THERAPEUT 68544 [facility] PAT[facility] IC PX 1/> 6 [facility] AREAS INC INC EACH 15 MIN EXERCISES PHYSICAL 71178 [facility] PATEL THERAPY 6 [facility] EVALUATIO INC INC N COLLECTIO 70025 [facility] N VENOUS 6 PHYSICIAN EVELIA BLOOD S GROUP VENIPUNCT URE INJECTION J3301 PROGRESSI JOHN 6 VE REBECA TRIAMCINO PODIATRY LONE ACETONIDE NOS 10 MG ARTHROCEN 70571 PROGRESSI PROGRESSI TESIS 6 VE VE ASPIR&/IN PODIATRY PODIATRY J INTERM JT/BURS W/O US PHYSICAL 09549 [facility] PAT[facility] THERAPY 6 [facility] EVALUATIO INC INC N OCCUPATIO 91325 [facility] NAL 6 [facility] THERAPY INC INC EVALUATIO N COLLECTIO [address] [facility] N VENOUS 6 N N BLOOD COMMUNTIY COMMUNTIY VENIPUNCT HOSPITA HOSPITA URE HEMOGLOBI [address] [facility] [address] [facility] N 6 N N GLYCOSYLA COMMUNTIY COMMUNTIY CARINA A1C HOSPITA HOSPITA LIPID [address] [facility] [address] [facility] PANEL 6 N [place] [address] J[facility] PATEL HEAD/BRAI 6 [facility] N W/O INC INC CONTRAST MATERIAL AFO L1970 PROGRESSI JOHN PLASTIC 6 VE REBECA WITH PODIATRY ANKLE JOINT CUSTOM FABRICATE D ADD LW L2275 PROGRESSI JOHN EXTRM 6 VE REBECA VARUS/VUL PODIATRY PAYAL RYAN PLSTC MOD PADD/LN HEEL PAD L3480 PROGRESSI JOHN AND 6 VE REBECA DEPRESSIO PODIATRY N FOR SPUR RADEX 38078 [facility] FOOT 5 [facility] COMPLETE INC INC MINIMUM 3 VIEWS WALKING L4360 PROGRESSI JOHN BOOT 5 VE REBECA PNEUMATC PODIATRY &/ VACUUM PREFAB CUSTM FIT THERAPEUT 62521 [facility] PATEL IC 5 [facility] PROPHYLAC INC INC TIC/DX INJECTION SUBQ/IM INJECTION J1040 [facility] PATEL 5 [facility] METHYLPRE INC INC DNISOLONE ACETATE 80 MG TENS E0730 EMPI INC EMPI INC DEVICE 5 4/MORE LEADS MULTI NERVE STIMULATI ON APPL 29398 [facility] PATEL MODALITY 5 [facility] 1/> AREAS INC INC ELEC STIMJ EA 15 MIN MRI 48203 [facility] PAT[facility] SPINAL 5 [facility] CANAL INC INC LUMBAR W/O CONTRAST MATERIAL CANE E0105 [facility] WOLF QUAD/3-NE 5 HOME HOME CHER ALL MEDICAL MEDICAL MATL EQUIPME EQUIPME ADJUSTBL/ FIX W/TIPS RADIOLOGI 56605 [facility] PAT[facility] C EXAM 4 [facility] CHEST 2 INC INC VIEWS FRONTAL&L ATERAL URNLS DIP 44177 [facility] BAXTER 4 PHYSICIAN TARAS STICK/TAB S GROUP LET RGNT NON-AUTO W/O MICRSCP DUPLEX 74523 [facility] PATEL SCAN 4 [facility] EXTRACRAN INC INC IAL ART COMPL BI STUDY PHYSICAL 97273 [facility] PATEL THERAPY 4 [facility] EVALUATIO INC INC N RADIOLOGI 09295 J[facility] PATEL C 4 [facility] EXAMINATI INC INC ON KNEE [address] [place] [address] J[facility] RETROPERI 4 [facility] TONEAL INC INC REAL TIME W/IMAGE COMPLETE BLOOD 60054 [facility] PATEL OCCULT 3 [facility] C[facility] E ACTV QUAL FECES 1 DETER THERAPEUT 23064 [facility] PATEL IC 3 [facility]OS[facility] PROPHYLAC INC INC TIC/DX INJECTION SUBQ/IM INJ J0702 PETTEY PETTEY BETAMETHA 2 JAM JAM SONE ACETATE & PHOSPHATE 3 MG ARTHROCEN 48252 SOPHIA STRAUSS 2 JAM JAM ASPIR&/IN J MAJOR JT/BURSA W/O US RADIOLOGI 43984 JORGEJOEL PATEL C 0 MEM [facility]OS[facility] EXAMINATI INC INC ON KNEE 3 VIEWS RADIOLOGI 36406 JORGE JORGE C 9 [facility] EXAMINATI INC INC ON KNEE 3 VIEWS RADEX 37005 [facility] J[facility]GE SPINE 9 [facility]OS[facility] LUMBOSACR INC INC AL MINIMUM 4 VIEWS Encounters Encounter Start End Date Code Location Performer Type Date HOSPITAL J[facility]GE - 7 7 [facility] OUTPATIEN INC T OFFICE 36489 [facility] OUTPATIEN 7 7 PHYSICIAN T VISIT S GROUP 15 MINUTES OFFICE 36581 [facility] MARCELL JR OUTPATIEN 7 7 PHYSICIAN T VISIT S GROUP 15 MINUTES [facility] - [facility] 7 [facility] OUTPATIEN INC T OFFICE 74155 [facility] PAVEZ OUTPATIEN 7 7 PHYSICIAN T NEW 45 S GROUP MINUTES OFFICE 29344 [facility] OUTPATIEN 7 7 PHYSICIAN T VISIT S GROUP 25 MINUTES OFFICE 79759 [facility] OUTPATIEN 7 7 PHYSICIAN T VISIT S GROUP 25 MINUTES HOSPITAL JORGE - 7 7 [facility] OUTPATIEN INC T EMERGENCY 10201 [facility] 7 7 MEM [facility] DEPARTMEN INC T VISIT HIGH/URGE NT SEVERITY EMERGENCY 86133 [facility] CISNEROS DEPT 7 7 PHYSICIAN VISIT S, PLLC HIGH SEVERITY& THREAT FUNJ HOSPITAL JORGE - 7 7 [facility] OUTPATIEN INC T OFFICE 38725 [facility] OUTPATIEN 7 7 PHYSICIAN T VISIT S GROUP 25 MINUTES OFFICE 58968 [facility] 7 7 EYE [facility] MINUTES OFFICE 39308 [facility] STYLES OUTPATIEN 6 6 PHYSICIAN T VISIT S GROUP 10 MINUTES OFFICE 52038 [facility] OUTPATIEN 6 6 PHYSICIAN T VISIT S GROUP 15 MINUTES HOSPITAL GEORGETOW - 6 6 N OUTPATIEN COMMUNTIY T HOSPITA OFFICE 89138 [facility] STYLES OUTPATIEN 6 6 PHYSICIAN T VISIT S GROUP 10 MINUTES OFFICE 81951 [facility] OUTPATIEN 6 6 PHYSICIAN EVELIA T VISIT S GROUP 15 MINUTES HOSPITAL JORGE - 6 6 [facility] OUTPATIEN INC T OFFICE 81478 [facility] ST[facility]LES OUTPATIEN 6 6 PHYSICIAN NICOLE T VISIT S GROUP 10 MINUTES OFFICE 51765 [facility] OUTPATIEN 6 6 PHYSICIAN EVELIA T VISIT S GROUP 25 MINUTES OFFICE 55370 [facility] OUTPATIEN 6 6 PHYSICIAN NICOLE T VISIT S GROUP 10 MINUTES [facility] - 6 6 [facility] T OFFICE 40006 [facility] [place] OUTPATIEN 6 6 PHYSICIAN EVELIA T VISIT S GROUP 10 MINUTES OFFICE 68631 [facility] OUTPATIEN 6 6 PHYSICIAN NICOLE T NEW 20 S GROUP MINUTES [facility] - 6 6 [facility] T OFFICE 22958 [facility] [place] OUTPATIEN 6 6 PHYSICIAN EVELIA T VISIT S GROUP 25 MINUTES OFFICE 22315 [facility] OUTPATIEN 6 6 PHYSICIAN EVELIA T VISIT S GROUP 15 MINUTES [facility] - 6 6 [facility] T OFFICE 28050 [facility] OUTPATIEN 6 6 PHYSICIAN EVELIA T VISIT S GROUP 15 MINUTES OFFICE 79380 [facility] OUTPATIEN 6 6 PHYSICIAN EVELIA T VISIT S GROUP 10 MINUTES [facility] - 6 6 [facility] T OFFICE 68928 [facility] OUTPATIEN 6 6 PHYSICIAN EVELIA T VISIT S GROUP 15 MINUTES OFFICE 98029 PROGRESSI JOHN OUTPATIEN 6 6 VE REBECA T VISIT 5 PODIATRY MINUTES OFFICE 59901 [facility] BRETT ANJ OUTPATIEN 6 6 MD BRETT, T VISIT PSC 10 MINUTES [facility] - 6 6 [facility] T OFFICE 10041 PROGRESSI JOHN OUTPATIEN 6 6 VE REBECA T VISIT 5 PODIATRY MINUTES OFFICE 45793 [facility] OUTPATIEN 6 6 N T NEW 45 NEUROLOGY MINUTES [facility] - 6 6 N OUTPATIEN COMMUNTIY T HOSPITA OFFICE 79492 [facility] OUTPATIEN 6 6 PHYSICIAN EVELIA T VISIT S GROUP 15 MINUTES [facility] - 6 6 [facility] T OFFICE 86018 BEN PURVIS CRI OUTPATIEN 5 5 MD BRETT, T VISIT PSC 25 MINUTES OFFICE 30428 [facility]ALLIS JOHN OUTPATIEN 5 5 GABRIELA REBECA T VISIT 5 MINUTES OFFICE 94791 FALLIS JOHN OUTPATIEN 5 5 GABRIELA REBECA T VISIT 15 MINUTES OFFICE 00824 [facility] OUTPATIEN 5 5 PHYSICIAN EVELIA T VISIT S GROUP 10 MINUTES OFFICE 91811 [facility]ALLIS JOHN OUTPATIEN 5 5 GABRIELA REBECA T VISIT 15 MINUTES [facility] - 5 5 [facility] T OFFICE 78922 FALLIS JOHN OUTPATIEN 5 5 GABRIELA REBECA T NEW 30 MINUTES EMERGENCY 33108 [facility] 5 5 [facility] T VISIT LOW/MODER SEVERITY [facility] - 5 5 [facility] INC OFFICE 81876 MARJ DAUGHERTYX ANJ OUTPATIEN 5 5 SC T NEW 30 MINUTES OFFICE 32067 [facility] OUTPATIEN 5 5 PHYSICIAN EVELIA T VISIT S GROUP 25 MINUTES OFFICE 76846 [facility] OUTPATIEN 5 5 PHYSICIAN EVELIA T VISIT S GROUP 15 MINUTES OFFICE 40406 LATTER-DAY JAVON OUTPATIEN 5 5 [facility] NEW 45 MEDICAL MINUTES [facility]GE - 5 5 [facility] OUTPATI[facility] - 5 5 [facility] OUTPATI[facility] INC [facility] 4 4 [facility] - 4 4 [facility]IEN [facility] - 4 4 [facility] - 4 4 [facility] - 4 4 [facility] OUTPATIEN INC PERIODIC 95167 [facility] PATEL PREVENTIV [address] [facility] CENTER PATIENT 63YRS& OLDER Emergency SHAAN Porter MD (ER) 3 19:12 3 22:09 [facility]ORGE - 3 3 [facility] OUTPATIEN INC OFFICE [id number] CODY II CODY II OUTPATIEN 3 3 [facility] T VISIT 10 MINUTES OFFICE 08689 CODY II CODY II OUTPATIEN 3 3 [facility] 10 MINUTES PERIODIC 14986 JORGE JORGE PREVENTIV 2 2 [facility] PATIENT 63YRS[facility] T OFFICE 88238 ENRIKE MUIR 0 0 VINH Hurt VISIT [facility] 25 MINUTES OFFICE 72163 ENRIKE MUIR 0 0 VINH Hurt VISIT [facility] 15 MINUTES [facility] 9 [facility] T OFFICE 83857 [facility] OUTPATIEN 9 9 GERALD PEREYRA [address] W MINUTES
--- OUTSIDE RECORDS SUMMARY | 2016-11-22 08:30 | External Medical Summary Rpt | CCD ---
Author Author , MARGARET Organization MARGARET Address Unknown Phone [email or web address] Care Team Providers Care Administration Specialist Name Role Phone MARCELL DIAS, MARCELL DIAS Unavailable Unavailable BEN WEST MD, PSC, Unavailable Unavailable BEN WEST MD, PSC [facility] Unavailable Unavailable MEDICAL GROUP, [facility] ILANA, ILANA Unavailable Unavailable BROWN, BROWN Unavailable Unavailable JOHN REBECA, JOHN Unavailable Unavailable REBECA BUX ANJ, BUX ANJ Unavailable Unavailable BAXTER TARAS, BAXTER Unavailable Unavailable TARAS DAIJA, DAIJA Unavailable Unavailable JAVON STEFAN, Unavailable Unavailable JAVON STEFAN [facility], [facility] Unavailable Unavailable FALLIS GABRIELA, FALLIS Unavailable Unavailable GABRIELA AMRTIN, MARTIN Unavailable Unavailable MARTIN EVELIA, MARTIN Unavailable Unavailable [facility], [facility], Unavailable [facility]available [facility] Unavailable Unavailable CENTER, [facility] Unavailable Unavailable [facility]ENTER, [facility] Unavailable Unavailable CARE, [facility] Unavailable Unavailable CARE, [facility] Unavailable Unavailable INC, [facility], Unavailable Unavailable [facility] [employer] Unavailable Unavailable CORPORATION, [employer] Unavailable Unavailable [employer]PORATION[facility] [employer] Unavailable Unavailable CORPORATION, [employer] [facility], [facility] Unavailable Unavailable KALIK, KALIK Unavailable [facility]available [facility], [facility] Unavailable Unavailable [facility], [facility] YANIV CRI, YANIV CRI [...] Diagnosis DOS Provider Status [id number] OTHER 10-25-2016 [facility] AUTONOMIC NEUROPATHY G629 POLYNEUROPA 07-26-2016 [facility] THY [email or web address] UNSPECIFIED I639 CEREBRAL 07-26-2016 [facility] INFARCTION [email or web address] UNSPECIFIED Z9181 HISTORY OF 07-26-2016 [employer] FALLING [email or web address] [id number] PAIN IN 07-14-2016 [facility] S89845 PAIN IN 07-14-2016 [facility] LEFT [facility]G [facility] R202 PARESTHESIA 07-14-2016 [facility] OF SKIN [facility] X15318 FOOT DROP 06-20-2016 [facility] RIGHT FOOT HOME MEDICAL EQUIPME M5030 OTH 06-20-2016 [facility] CERVICAL HOME DISC MEDICAL DEGENERATIO EQUIPME N UNS CERV REGION M5090 CERVICAL 06-20-2016 [facility] DISC HOME DISORDER MEDICAL UNS UNS EQUIPME CERVICAL REGION I10 ESSENTIAL 06-18-2016 [facility] PRIMARY PHYSICIANS HYPERTENSIO GROUP N K921 MELENA 06-16-2016 [facility] K1121 ACUTE 06-07-2016 [facility] SIALOADENIT [facility] IS INC R220 LOCALIZED 06-07-2016 [facility] LUMP HEAD V41789 PERSONAL 05-26-2016 [facility] HISTORY PHYSICIANS OTHER GROUP DISEASES URINARY SYSTEM R269 UNSPECIFIED 05-21-2016 [facility] PHYSICIANS ABNORMALITI GROUP ES OF GAIT AND MOBILITY G8929 OTHER 04-23-2016 [facility] CHRONIC PHYSICIANS PAIN GROUP [id number] UNSPECIFIED 04-23-2016 [facility] FALL PHYSICIANS INITIAL GROUP ENCOUNTER R0600 DYSPNEA 04-04-2016 [facility] R0602 SHORTNESS 04-04-2016 [facility] OF BREATH MEDICAL IMAGING ASS R410 DISORIENTAT 04-04-2016 [facility] ION [facility]ICAL UNSPECIFIED IMAGING ASS R42 DIZZINESS 04-04-2016 [facility] AND PHYSICIANS, GIDDINESS PLLC R51 HEADACHE 04-04-2016 [facility] R531 WEAKNESS 04-04-2016 [facility] W78190 WRIST DROP 02-27-2016 [facility] RIGHT WRIST PHYSICIANS GROUP M6258 MUSCLE 02-27-2016 [facility] WASTING & PHYSICIANS ATROPHY NEC GROUP OTHER SITE R5383 OTHER 02-27-2016 [facility] FATIGUE PHYSICIANS GROUP D84391 OTHER LONG 02-27-2016 [facility] TERM PHYSICIANS CURRENT GROUP DRUG THERAPY H83443 DERMATOCHAL 02-19-2016 [facility] RIGHT UPPER INSTITUTE EYELID K24066 DERMATOCHAL 02-19-2016 [facility] LEFT UPPER INSTITUTE EYELID L41901 COMBINED 02-19-2016 [facility] AGE-RELATED INSTITUTE CATARACT LEFT EYE A47692 COMBINED 02-19-2016 [facility] CATARACT BILATERAL H538 OTHER 02-19-2016 [facility] S R590 LOCALIZED 12-28-2015 [facility] ENLARGED PHYSICIANS LYMPH NODES GROUP N289 DISORDER OF 12-21-2015 [facility] KIDNEY AND PHYSICIANS URETER GROUP UNSPECIFIED R296 REPEATED 12-21-2015 [facility] FALLS PHYSICIANS GROUP K116 MUCOCELE OF 12-10-2015 [facility] D1800 HEMANGIOMA 11-16-2015 [facility] UNSPECIFIED PHYSICIANS SITE GROUP Z1211 ENCOUNTER 10-23-2015 [facility] SCREENING PHYSICIANS MALIGNANT GROUP NEOPLASM OF COLON Z23 ENCOUNTER 10-23-2015 [facility] FOR PHYSICIANS IMMUNIZATIO GROUP N D490 NEOPLASM OF 10-19-2015 [facility] UNS [facility] BEHAVIOR INC DIGESTIVE SYSTEM [id number] UNSPECIFIED 09-25-2015 [facility] INJURY PHYSICIANS FOOT UNS GROUP SIDE INITIAL ENCNTR K118 OTHER 08-29-2015 [facility] DISEASES OF [facility] SALIVARY INC GLANDS H6123 IMPACTED 07-31-2015 [facility] CERUMEN PHYSICIANS BILATERAL GROUP M9981 OTHER 07-31-2015 [facility] BIOMECHANIC PHYSICIANS AL LESIONS GROUP OF CERVICAL REGION G9050 COMPLEX 07-27-2015 [facility] REGIONAL PHYSICIANS PAIN GROUP SYNDROME I UNSPECIFIED F97525 SPONTANEOUS 04-03-2015 PROGRESSIVE RUPTURE PODIATRY FLEXOR TENDONS RT ANKLE FOOT M7751 OTHER 04-03-2015 PROGR[facility]IVE ENTHESOPATH PODIATRY Y OF RIGHT FOOT L53898 PAIN IN 04-03-2015 PRO[facility] RIGHT LOWER PODIATRY LEG M5116 INTERVERTEB 04-02-2015 CORY ALLEN MD, PSC D/O W/RADICULOP ATHY LUMB RGN M6281 MUSCLE 03-08-2015 [facility] GENERALIZED M5416 RADICULOPAT 02-05-2015 [facility] WEST, HY LUMBAR , PSC REGION I959 HYPOTENSION 12-12-2014 [facility] PHYSICIANS UNSPECIFIED GROUP I890 LYMPHEDEMA 11-09-2014 FALLIS GABRIELA NOT ELSEWHERE CLASSIFIED F44036 PAIN IN 11-09-2014 PROGRESSIVE LEFT FOOT PODIATRY I36142T NONDSPL FX 11-09-2014 PROGRESSIVE 5TH PODIATRY METATARSAL LT FT INIT ENC CLOS FX 4439 UNSPECIFIED 10-05-2014 FALLIS GABRIELA PERIPHERAL VASCULAR DISEASE 02740 EXOSTOSIS 10-05-2014 FALLIS GABRIELA OF UNSPECIFIED SITE 7295 PAIN IN 10-05-2014 FALLIS GABRIELA SOFT TISSUES OF LIMB 86850 OTHER 09-03-2014 [facility] PAIN INC 7242 LUMBAGO 09-03-2014 [facility] 11522 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 7244 THORACIC/PAVEL 08-07-2014 MARJ TOMAS MD NEURITIS/RA DICULITIS UNSPEC 3559 MONONEURITI 07-31-2014 [facility] S OF PHYSICIANS UNSPECIFIED GROUP SITE 4019 UNSPECIFIED 07-31-2014 [facility] ESSENTIAL PHYSICIANS HYPERTENSIO GROUP N 5939 UNSPECIFIED 07-31-2014 [facility] DISORDER PHYSICIANS OF KIDNEY GROUP AND URETER 94412 OSTEOARTHRO 07-31-2014 [facility] S UNSPEC PHYSICIANS WHETHER GROUP GEN/LOC UNSPEC SITE 7245 UNSPECIFIED 07-31-2014 [facility] BACKACHE PHYSICIANS GROUP 73467 LOSS OF 07-31-2014 [facility] WEIGHT PHYSICIANS GROUP V1588 PERSONAL 07-31-2014 [facility] HISTORY OF PHYSICIANS FALL GROUP 94369 MIGRAINE 07-05-2014 [facility] W/[facility] W/O INTRACT MEDICAL W/O STAT GROUP MIGRNOSUS 3569 UNSPEC 07-05-2014 [facility] HEREDIT&[facility]I [facility] OPATHIC MEDICAL PERIPHERAL GROUP NEUROPATHY 88968 UNSPECIFIED 05-25-2014 [facility] HOSP ARTHROPATHY INC , LOWER LEG 87517 GEN 02-16-2014 [facility] OSTEOARTHRO HOME SIS MEDICAL INVOLVING EQUIPME MULTIPLE SITES 39890 PAINFUL 01-14-2014 [facility] RESPIRATION [facility] INC 08719 HYPERTONICI 12-27-2013 [facility] TY OF PHYSICIANS BLADDER GROUP 45158 CYSTOCELE 12-27-2013 [facility] WITHOUT PHYSICIANS MENTION GROUP UTERINE PROLAPSE MIDLN 76686 URGE 12-27-2013 [facility] INCONTINENC PHYSICIANS E GROUP 06942 URINARY 12-27-2013 [facility] FREQUENCY PHYSICIANS GROUP 7804 DIZZINESS 12-15-2013 [facility] AND [facility] GIDDINESS INC 7812 ABNORMALITY 12-14-2013 [facility] OF GAIT [facility] INC V571 OTHER 12-14-2013 [facility] PHYSICAL [facility] THERAPY INC 12453 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 HEALTH W/UNSPEC CENTER COMB VACCINE V700 ROUTINE 12-07-2012 [facility] EXAM@HEALTH CARE FACL 4660 ACUTE 04-18-2012 [facility] BRONCHITIS [facility] INC 8796 OPEN WOUND 04-07-2012 C[facility] II OTH&UNSPEC YINA PART TRNK W/O MENTION COMP V1083 PERSONAL 04-07-2012 CODY II HISTORY YINA OTHER MALIGNANT NEOPLASM SKIN 7265 ENTHESOPATH 01-15-2012 [facility] JAM Y OF HIP REGION 47312 PES 01-15-2012 [facility] JAM ANSERINUS TENDINITIS OR BURSITIS V7231 ROUTINE 11-17-2011 PATHOLOGY & GYNECOLOGIC CYTOLOGY AL LAB EXAMINATION 10813 PAIN IN 07-13-2009 [facility] JOINT, [facility] LOWER LEG INC 7149 UNSPECIFIED 06-18-2009 Patsy JUSTICE MD PSC INFLAMMATOR Y POLYARTHROP ATHY 35086 INSOMNIA 06-18-2009 Patsy MCCORMACK MD PSC 7840 HEADACHE 03-05-2009 Patsy JUSTICE MD PSC 57972 NUCLEAR 08-09-2008 SOLE, SCLEROSIS GERALD W 08026 UNSPECIFIED 08-09-2008 SOLE SUBJECTIVE GERALD Bentley VISUAL [...] ider Refu lity Give sed n PCV1 10-10 133 GAIN No HMH 3 3-20 EY PHYS VACC 16 EVELIA ICIA INE NS FOR GROU INTR P AMUS CULA R USE IIV 10-10 GAIN No [facility]H ADJU 3-20 EY PHYS VANT 16 EVELIA ICIA ED NS VACC GROU INE P FOR INTR AMUS CULA R USE Procedures Procedure DOS Code Location Performer Comment PWR K0823 [facility] GRP 2 STD 7 [facility] CORPORATI CORPORATI CHAIR PT ON ON TO &=300 LBS NEEDLE 16347 [facility] PATEL EMG EA 7 [facility] EXTREMTY INC INC W/PARASPI NL AREA COMPLETE NERVE 09185 [facility] PATEL CONDUCTIO 7 [facility] N STUDIES INC INC 9-10 STUDIES PWR K0823 [facility] GRP 2 STD 7 [facility]POR[facility] CORPORATI CHAIR PT ON ON TO &=300 LBS STANDARD K0001 LUCI[facility]O ROSS 7 HOME HOME R MEDICAL MEDICAL EQUIPME [facility] G0463 [facility] PATEL OUTPATIEN 7 [facility] T CLIN INC INC VISIT ASSESS & MGMT PT RADIOLOGI 76226 JP Garcia 7 MEDICAL EXAMINATI IMAGING ON ASS MANDIPLE PRTL <4 VIEWS RADIOLOG 13919 [facility] PATEL EXAM 7 [facility] MANDIBLE INC INC COMPL MINIMUM 4 VIEWS CREATINE 02-24-201 92237 [facility] PATEL KINASE 7 MEM H[facility] TOTAL INC INC FIBRIN 68005 [facility] PATEL DGRADJ 7 [facility] PRODUCTS INC INC D-DIMER QUAL/SEMI KISHAN NATRIURET 35509 J[facility]GE GARCIA IC 7 [facility] [place] [address] J[facility] PATEL TROPONIN 7 MEM HOS[facility] QUANTITAT INC INC ANJALI BLOOD 45478 [facility] KALIK COUNT 7 [facility] COMPLETE INC AUTO&AUTO DIFRNTL WBC CREATINE 96075 [facility] PATEL KINASE MB 7 [facility] FRACTION INC INC ONLY ECG 54536 [facility] PATEL ROUTINE 7 [facility] ECG INC INC W/LEAST 12 LDS TRCG ONLY W/O I&[place] [address] J[facility] PATEL HEAD/BRAI 7 [facility] N W/O INC INC CONTRAST MATERIAL RADIOLOGI 04131 [facility] PATEL C 7 [facility] EXAMINATI INC INC ON CHEST SINGLE VIEW FRONTAL COMPREHEN 12132 [facility] PAT[facility] SIVE 7 [facility] METABOLIC INC INC PANEL COMPREHEN 57726 [facility] PAT[facility] SIVE 7 [facility] METABOLIC INC INC PANEL BLOOD 63157 [facility] PATEL COUNT 7 [facility] COMPLETE INC INC AUTO&AUTO DIFRNTL WBC OPH BMTRY 03519 [facility] 7 EYE ECHOGRAPY INSTITUTE A-SCAN IO LENS PWR SUJATA PWR K0823 [facility] H[facility]OUND GRP 2 STD 6 [facility] CORPORATI CHAIR PT ON ON TO &=300 LBS PWR WC K0823 [facility] GRP 2 STD 6 [facility]POR[facility]I CORPORATI CHAIR PT ON ON TO &=300 LBS PET 07607 [facility] [address] COMMUNTIY COMMUNTIY ATTENUATI HOSPITA HOSPITA ON SKULL BASE MID-THIGH PWR K0823 [facility] H[facility]OUND GRP 2 STD 6 [facility] CORPORATI CORPORATI CHAIR PT ON ON TO &=300 LBS PWR K0823 [facility]OUND GRP 2 STD 6 [facility] CORPORATI CORPORATI CHAIR PT ON ON TO &=300 LBS IIV 70477 [facility] ADJUVANTE 6 PHYSICIAN EVELIA D VACCINE S GROUP FOR INTRAMUSC ULAR USE PCV13 74119 [facility] VACCINE 6 PHYSICIAN EVELIA FOR S GROUP INTRAMUSC ULAR USE BLOOD 97037 [facility] EVELIA PEROXIDAS S GROUP E ACTV QUAL FECES 1-3 SPEC ADMINISTR G0008 [facility] ATION OF 6 PHYSICIAN EVELIA INFLUENZA S GROUP VIRUS VACCINE MRI ORBIT 62437 [facility] PAT[facility] FACE & 6 [facility] H[facility] NECK W/O INC INC & W/CONTRAS T MATRL COLLECTIO 41098 [facility] STYLES N VENOUS 6 PHYSICIAN NICOLE BLOOD S GROUP VENIPUNCT URE PWR K0823 [facility] GRP 2 STD 6 [facility] CORPORATI CORPORATI CHAIR PT ON ON TO &=300 LBS US SOFT 94554 [facility] TISSUE 6 [facility] HEAD & INC INC NECK REAL TIME IMGE DOCM FINE 99321 [facility] NEEDLE 6 [facility] ASPIRATIO INC INC N WITH IMAGING GUIDANCE PWR E2365 [facility] WHLCHAIR 6 ACSS U-1 CORPORATI CORPORATI SEALED ON ON LEAD ACID BATTRY EA PWR K0823 [facility] GRP 2 STD 6 [facility] CORPORATI CORPORATI CHAIR PT ON ON TO &=300 LBS THERAPEUT 33608 [facility] PATEL IC PX 1/> 6 [facility] AREAS INC INC EACH 15 MIN EXERCISES THERAPEUT 74073 [facility] PATEL IC PX 1/> 6 [facility] AREAS INC INC EACH 15 MIN EXERCISES THERAPEUT 07479 [facility] PATEL IC PX 1/> 6 [facility] AREAS INC INC EACH 15 MIN EXERCISES 3D 17360 [facility] RENDERING 6 [facility] W/INTERP INC INC & POSTPROCE SS SUPERVISI ON MRI 64554 [facility] SPINAL 6 [facility] CANAL INC INC CERVICAL W/O CONTRAST MATRL THERAPEUT 54485 [facility] PATEL IC PX 1/> 6 [facility] AREAS INC INC EACH 15 MIN EXERCISES THERAPEUT 44412 [facility] PATEL IC PX 1/> 6 [facility] AREAS INC INC EACH 15 MIN EXERCISES THERAPEUT 88964 [facility] PATEL IC PX 1/> 6 [facility] AREAS INC INC EACH 15 MIN EXERCISES THERAPEUT 82002 [facility] PATEL IC PX 1/> 6 [facility] AREAS INC INC EACH 15 MIN EXERCISES THERAPEUT 89916 [facility] PATEL IC PX 1/> 6 [facility] AREAS INC INC EACH 15 MIN EXERCISES PHYSICAL 70160 [facility] PAT[facility] THERAPY 6 [facility] EVALUATIO INC INC N COLLECTIO 51514 [facility] N VENOUS 6 PHYSICIAN EVELIA BLOOD S GROUP VENIPUNCT URE INJECTION J3301 PROGRESSI JOHN 6 VE REBECA TRIAMCINO PODIATRY LONE ACETONIDE NOS 10 MG ARTHROCEN 39571 PROGRESSI PROGRESSI TESIS 6 VE VE ASPIR&/IN PODIATRY PODIATRY J INTERM JT/BURS W/O US PHYSICAL 24857 [facility] PAT[facility] THERAPY 6 [facility] EVALUATIO INC INC N OCCUPATIO 11602 [facility] PAT[facility] NAL 6 [facility] THERAPY INC INC EVALUATIO N COLLECTIO 75776 [facility] N VENOUS 6 N N BLOOD COMMUNTIY COMMUNTIY VENIPUNCT HOSPITA HOSPITA URE LIPID 57432 [facility] PANEL 6 N N COMMUNTIY COMMUNTIY HOSPITA HOSPITA HEMOGLOBI 99193 [facility] N 6 N N GLYCOSYLA COMMUNTIY [place]TI[place] [address] JORGE PATEL HEAD/BRAI 6 MEM HOSP MEM [...] PODIATRY &/ VACUUM PREFAB CUSTM FIT RADEX 99210 [facility] FOOT 5 [facility] COMPLETE INC INC MINIMUM 3 VIEWS INJECTION J1040 [facility] PATEL 5 [facility] METHYLPRE INC INC DNISOLONE ACETATE 80 MG THERAPEUT 66416 [facility] PATEL IC 5 [facility] PROPHYLAC INC INC TIC/DX INJECTION SUBQ/IM TENS E0730 [facility] EMPI INC DEVICE 5 4/MORE LEADS MULTI NERVE STIMULATI ON APPL 67437 [facility] PATLE MODALITY 5 [facility] 1/> AREAS INC INC ELEC STIMJ EA 15 MIN MRI 51693 [facility] PATEL SPINAL 5 [facility] CANAL INC INC LUMBAR W/O CONTRAST MATERIAL CANE E0105 [facility] QUAD/3-CT 5 HOME HOME CHER ALL MEDICAL MEDICAL MATL EQUIPME EQUIPME ADJUSTBL/ FIX W/TIPS RADIOLOGI 36629 [facility] PATEL C EXAM 4 [facility] CHEST 2 INC INC VIEWS FRONTAL&L ATERAL URNLS DIP 55160 [facility] BAXTER 4 PHYSICIAN TARAS STICK/TAB S GROUP LET RGNT NON-AUTO W/O MICRSCP DUPLEX 37879 [facility] PATEL SCAN 4 [facility] EXTRACRAN INC INC IAL ART COMPL BI STUDY PHYSICAL 69545 [facility] PAT[facility] THERAPY 4 [facility] EVALUATIO INC INC N RADIOLOGI 54506 J[facility] PATEL C 4 [facility] EXAMINATI INC INC ON KNEE 3 [place] [address] [facility] PATEL RETROPERI 4 [facility] TONEAL INC INC REAL TIME W/IMAGE COMPLETE BLOOD 79489 [facility] PATEL OCCULT 3 [facility] CENTER E ACTV QUAL FECES 1 DETER THERAPEUT 32699 [facility] PATEL IC 3 [facility] PROPHYLAC INC INC TIC/DX INJECTION SUBQ/IM INJ J0702 [facility] PETTEY BETAMETHA 2 JAM JAM SONE ACETATE & PHOSPHATE 3 MG ARTHROCEN 91456 [facility] PETTEY TESIS 2 JAM JAM ASPIR&/IN J MAJOR JT/BURSA W/O US RADIOLOGI 16475 [facility] PATEL C 0 [facility] EXAMINATI INC INC ON KNEE 3 VIEWS RADIOLOGI 56513 [facility] PLASCENCIAON C 9 [facility] EXAMINATI INC INC ON KNEE 3 VIEWS RADEX 32452 [facility] PAT[facility] SPINE 9 [facility] LUMBOSACR INC INC AL MINIMUM 4 VIEWS Encounters Encounter Start End Date Code Location Performer Type Date HOSPITAL [facility] - 7 7 [facility] OUTPATIEN INC T OFFICE 48871 [facility] OUTPATIEN 7 7 PHYSICIAN T VISIT S GROUP 15 MINUTES OFFICE 64498 [facility] MARCELL JR OUTPATIEN 7 7 PHYSICIAN T VISIT S GROUP 15 MINUTES HOSPITAL [facility] - 7 7 [facility] OUTPATIEN INC T OFFICE 26622 [facility] FAIZAN OUTPATIEN 7 7 PHYSICIAN T NEW 45 S GROUP MINUTES OFFICE 72015 [facility] OUTPATIEN 7 7 PHYSICIAN T VISIT S GROUP 25 MINUTES OFFICE 54541 [facility] MARITN OUTPATIEN 7 7 PHYSICIAN T VISIT S GROUP 25 MINUTES EMERGENCY 15000 [facility] CISNEROS DEPT 7 7 PHYSICIAN VISIT S, PLLC HIGH SEVERITY& TH[facility]AT [facility] - 7 7 [facility] OUTPATIEN INC T EMERGENCY 33753 [facility] 7 7 [facility] DEPARTMEN INC T VISIT HIGH/URGE NT SEVERITY OFFICE 99832 [facility] OUTPATIEN 7 7 PHYSICIAN T VISIT S GROUP 25 MINUTES HOSPITAL [facility] - 7 7 [facility] OUTPATIEN INC T OFFICE 86357 [facility] OUTPATIEN 7 7 EYE T NEW 30 INSTITUTE MINUTES OFFICE 66287 [facility] STYLES OUTPATIEN 6 6 PHYSICIAN T VISIT S GROUP 10 MINUTES OFFICE 12626 [facility] OUTPATIEN 6 6 PHYSICIAN T VISIT S GROUP 15 MINUTES HOSPITAL [facility] - 6 6 N OUTPATIEN COMMUNTIY T HOSPITA OFFICE 57211 [facility] STYLES OUTPATIEN 6 6 PHYSICIAN T VISIT S GROUP 10 MINUTES OFFICE 89296 [facility] OUTPATIEN 6 6 PHYSICIAN EVELIA T VISIT S GROUP 15 MINUTES HOSPITAL [facility] - 6 6 [facility] OUTPATIEN INC T OFFICE 21511 [facility] STYLES OUTPATIEN 6 6 PHYSICIAN NICOLE T VISIT S GROUP 10 MINUTES OFFICE 55795 [facility] OUTPATIEN 6 6 PHYSICIAN EVELIA T VISIT S GROUP 25 MINUTES OFFICE 74039 [facility] STYLES OUTPATIEN 6 6 PHYSICIAN NICOLE T VISIT S GROUP 10 MINUTES HOSPITAL [facility] - 6 6 [facility] OUTPATIEN INC T OFFICE 82463 [facility] OUTPATIEN 6 6 PHYSICIAN EVELIA T VISIT S GROUP 10 MINUTES OFFICE 96675 [facility] STYLES OUTPATIEN 6 6 PHYSICIAN NICOLE T NEW S GROUP MINUTES HOSPITAL [facility] - 6 6 [facility] OUTPATIEN INC T OFFICE 82806 [facility] OUTPATIEN 6 6 PHYSICIAN EVELIA T VISIT S GROUP 25 MINUTES HOSPITAL [facility] - 6 6 [facility] OUTPATIEN INC T OFFICE 89606 [facility] OUTPATIEN 6 6 PHYSICIAN EVELIA T VISIT S GROUP 15 MINUTES OFFICE 60532 [facility] OUTPATIEN 6 6 PHYSICIAN EVELIA T VISIT S GROUP 15 MINUTES OFFICE 83678 [facility] OUTPATIEN 6 6 PHYSICIAN EVELIA T VISIT S GROUP 10 MINUTES HOSPITAL [facility] - 6 6 [facility] OUTPATIEN INC T OFFICE 66790 [facility] OUTPATIEN 6 6 PHYSICIAN EVELIA T VISIT S GROUP 15 MINUTES OFFICE 28461 PROGRESSI JOHN OUTPATIEN 6 6 VE REBECA T VISIT 5 PODIATRY MINUTES OFFICE 09718 [facility] ANJ OUTPATIEN 6 6 MD BRETT, T VISIT PSC 10 MINUTES HOSPITAL [facility] - 6 6 [facility] OUTPATIEN INC T OFFICE 07740 PROGRESSI JOHN OUTPATIEN 6 6 VE REBECA T VISIT 5 PODIATRY MINUTES [facility] 6 6 N OUTPATIEN COMMUNTIY T HOSPITA OFFICE 12964 [facility] 6 N T NEW 45 NEUROLOGY MINUTES OFFICE 87412 [facility] OUTPATIEN 6 6 PHYSICIAN EVELIA T VISIT S GROUP 15 MINUTES [facility] - 6 6 [facility] T OFFICE 56638 BEN YANIV CRI OUTPATIEN 5 5 MD BRETT, T VISIT PSC 25 MINUTES OFFICE 62348 [facility] JOHN OUTPATIEN 5 5 GABRIELA REBECA T VISIT 5 MINUTES OFFICE 21872 [facility] JOHN OUTPATIEN 5 5 GABRIELA REBECA T VISIT 15 MINUTES OFFICE 45282 [facility] OUTPATIEN 5 5 PHYSICIAN EVELIA T VISIT S GROUP 10 MINUTES [facility] - 5 5 [facility] T OFFICE 31472 [facility] JOHN OUTPATIEN 5 5 GABRIELA REBECA T VISIT 15 MINUTES OFFICE 60915 [facility] JOHN OUTPATIEN 5 5 GABRIELA REBECA T NEW 30 MINUTES EMERGENCY 83924 [facility] 5 5 [facility] DEPARTMEN INC T VISIT LOW/MODER SEVERITY [facility] - 5 5 [facility] T OFFICE 93957 MARJ BUX BUX ANJ OUTPATIEN 5 5 MD T NEW 30 MINUTES OFFICE 42860 [facility] OUTPATIEN 5 5 PHYSICIAN EVELIA T VISIT S GROUP 25 MINUTES OFFICE 48930 [facility] OUTPATIEN 5 5 PHYSICIAN EVELIA T VISIT S GROUP 15 MINUTES OFFICE 34491 [facility] JAVON OUTPATIEN 5 5 [facility]ALTH STEFAN T NEW 45 MEDICAL MINUTES [facility] JORGE - 5 5 MEM [...] 4 4 [facility] OUT[facility]IEN INC PERIODIC 44032 J[facility] PATEL PREVENTIV 3 3 [facility] PATIENT 63YRS& OLDER [facility] JORGE - 3 3 [facility] OUT[facility] INC T OFFICE 91837 CODY II CODY II OUTPATIEN 3 3 [facility] T VISIT 10 MINUTES OFFICE 72652 CODY II CODY II OUTPATIEN 3 3 [facility] VISIT 10 MINUT[facility] 82975 [facility]GE PATEL PREVENTIV 2 2 [facility] PATIENT 63YRS& OLDER [facility] JORGE - 0 0 [facility] T OFFICE 23033 ENRIKE MUIR 0 0 VINH Hurt VISIT PSC 25 MINUTES OFFICE 75675 ENRIKE MUIR 0 0 VINH Hurt VISIT PSC 15 MINUTES [facility] JORGE - 9 9 [facility] T [facility]ICE 81330 [facility] OUTPATIEN 9 9 GERALD PEREYRA 45 W W MINUTES
--- OUTSIDE RECORDS SUMMARY | 2016-11-22 08:30 | External Medical Summary Rpt | CCD ---
Author Author , MARGARET Organization MARGARET Address Unknown Phone [email or web address] Care Team Providers Care Manager Chinese Name Role Phone MARCELL DIAS, MARCELL DIAS Unavailable Unavailable BEN WEST MD, PSC, Unavailable Unavailable BEN WEST MD, PSC [facility] Unavailable Unavailable MEDICAL GROUP, [facility] ILANA, ILANA Unavailable Unavailable BROWN, BROWN Unavailable Unavailable JOHN REBECA, JOHN Unavailable Unavailable REBECA BUX ANJ, BUX ANJ Unavailable Unavailable BAXTER TARAS, BAXTER Unavailable Unavailable TARAS DAIJA, DAIJA Unavailable Unavailable JAVON STEFAN, Unavailable Unavailable JAVON STEFAN [facility], [facility] [facility] Unavailable Unavailable FALLIS GABRIELA, FALLIS Unavailable Unavailable GABRIELA MARTIN, MARTIN Unavailable Unavailable MARTIN EVELIA, MARTIN Unavailable Unavailable [facility]ELIA [facility] Un[facility], Unavailable Unavailable [facility] Unavailable [facility]available CENTER, [facility] Unavailable Unavailable CENTER, [facility] Unavailable [facility]available CARE, [facility] Unavailable Unavailable CARE, [facility] Unavailable Unavailable INC, [facility], [facility]available Unavailable [facility] [employer] Unavailable Unavailable CORPORATION, [employer] Unavailable Unavailable [employer]PORATION, [employer] Unavailable Unavailable CORPORATION, [employer] [facility], [facility] Unavailable Unavailable KALIK, KALIK Unavailable Unavailable [facility] Un[facility] Un[facility], [facility] Unavailable Unavailable [facility], [facility] YANIV CRI, YANIV CRI [...] Diagnosis DOS Provider Status G9009 OTHER 10-25-2016 [facility] AUTONOMIC NEUROPATHY G629 POLYNEUROPA 07-26-2016 [facility] THY Cervilenz UNSPECIFIED I639 CEREBRAL 07-26-2016 [facility] INFARCTION Cervilenz UNSPECIFIED Z9181 HISTORY OF 07-26-2016 [facility] FALLING Cervilenz A18557 PAIN IN 07-14-2016 [facility] P91937 PAIN IN 07-14-2016 [facility] LEFT [facility]G [facility] R202 PARESTHESIA 07-14-2016 [facility] OF SKIN [facility] [id number] FOOT DROP 06-20-2016 [facility] RIGHT FOOT HOME MEDICAL EQUIPME M5030 OTH 06-20-2016 [facility] CERVICAL HOME DISC MEDICAL DEGENERATIO EQUIPME N UNS CERV REGION M5090 CERVICAL 06-20-2016 [facility] DISC HOME DISORDER MEDICAL UNS UNS EQUIPME CERVICAL REGION I10 ESSENTIAL 06-18-2016 [facility] PRIMARY PHYSICIANS HYPERTENSIO GROUP N K921 MELENA 06-16-2016 [facility] PHYSICIANS GROUP K1121 ACUTE 06-07-2016 [facility] SIALOADENIT [facility] IS INC R220 LOCALIZED 06-07-2016 [facility] LUMP HEAD E56146 PERSONAL 05-26-2016 [facility] HISTORY PHYSICIANS OTHER GROUP DISEASES URINARY SYSTEM R269 UNSPECIFIED 05-21-2016 [facility] PHYSICIANS ABNORMALITI GROUP ES OF GAIT AND MOBILITY G8929 OTHER 04-23-2016 [facility] CHRONIC PHYSICIANS PAIN GROUP [id number] UNSPECIFIED 04-23-2016 [facility] FALL PHYSICIANS INITIAL GROUP ENCOUNTER R0600 DYSPNEA 04-04-2016 [facility] R0602 SHORTNESS 04-04-2016 [facility] IM[facility] ASS R410 DISORIENTAT 04-04-2016 [facility] UNSPECIFIED IMAGING ASS R42 DIZZINESS 04-04-2016 [facility] AND PHYSICIANS, GIDDINESS PLLC R51 HEADACHE 04-04-2016 [facility] R531 WEAKNESS 04-04-2016 [facility] V55373 WRIST DROP 02-27-2016 [facility] RIGHT WRIST PHYSICIANS GROUP M6258 MUSCLE 02-27-2016 [facility] WASTING & PHYSICIANS ATROPHY NEC GROUP OTHER SITE R5383 OTHER 02-27-2016 [facility] FATIGUE PHYSICIANS GROUP V16895 OTHER LONG 02-27-2016 [facility] TERM PHYSICIANS CURRENT GROUP DRUG THERAPY J49208 DERMATOCHAL 02-19-2016 [facility] RIGHT UPPER INSTITUTE EYELID U36768 DERMATOCHAL 02-19-2016 [facility] LEFT UPPER INSTITUTE EYELID C10340 COMBINED 02-19-2016 [facility] AGE-RELATED INSTITUTE CATARACT LEFT EYE U97520 COMBINED 02-19-2016 [facility] CATARACT BILATERAL H538 OTHER 02-19-2016 [facility] S R590 LOCALIZED 12-28-2015 [facility] ENLARGED PHYSICIANS LYMPH NODES GROUP N289 DISORDER OF 12-21-2015 [facility] KIDNEY AND PHYSICIANS URETER GROUP UNSPECIFIED R296 REPEATED 12-21-2015 [facility] FALLS PHYSICIANS GROUP K116 MUCOCELE OF 12-10-2015 [facility] D1800 HEMANGIOMA 11-16-2015 [facility] UNSPECIFIED PHYSICIANS SITE GROUP Z1211 ENCOUNTER 10-23-2015 [facility] SCREENING PHYSICIANS MALIGNANT GROUP NEOPLASM OF COLON Z23 ENCOUNTER 10-23-2015 [facility] FOR PHYSICIANS IMMUNIZATIO GROUP N D490 NEOPLASM OF 10-19-2015 [facility] UNS [facility] BEHAVIOR INC DIGESTIVE SYSTEM [id number] UNSPECIFIED 09-25-2015 [facility] INJURY PHYSICIANS FOOT UNS GROUP SIDE INITIAL ENCNTR K118 OTHER 08-29-2015 [facility] DISEASES OF [facility] SALIVARY INC GLANDS H6123 IMPACTED 07-31-2015 [facility] CERUMEN PHYSICIANS BILATERAL GROUP M9981 OTHER 07-31-2015 [facility] BIOMECHANIC PHYSICIANS AL LESIONS GROUP OF CERVICAL REGION G9050 COMPLEX 07-27-2015 [facility] REGIONAL PHYSICIANS PAIN GROUP SYNDROME I UNSPECIFIED P32337 SPONTANEOUS 04-03-2015 PROGR[facility] RUPTURE PODIATRY FLEXOR TENDONS RT ANKLE FOOT M7751 OTHER 04-03-2015 PROGR[facility]IVE ENTHESOPATH PODIATRY Y OF RIGHT FOOT X75207 PAIN IN 04-03-2015 PRO[facility] RIGHT LOWER PODIATRY LEG M5116 INTERVERTEB 04-02-2015 CORY ALLEN MD, PSC D/O W/RADICULOP ATHY LUMB RGN M6281 MUSCLE 03-08-2015 [facility] GENERALIZED M5416 RADICULOPAT 02-05-2015 BEN WEST, HY LUMBAR , PSC REGION I959 HYPOTENSION 12-12-2014 [facility] PHYSICIANS UNSPECIFIED GROUP I890 LYMPHEDEMA 11-09-2014 FALLIS GABRIELA NOT ELSEWHERE CLASSIFIED V13602 PAIN IN 11-09-2014 PROGR[facility]IVE LEFT FOOT PODIATRY V60022J NONDSPL FX 11-09-2014 PROGRESSIVE 5TH PODIATRY METATARSAL LT FT INIT ENC CLOS FX 4439 UNSPECIFIED 10-05-2014 FALLIS GABRIELA PERIPHERAL VASCULAR DISEASE 55263 EXOSTOSIS 10-05-2014 FALLIS GABRIELA OF UNSPECIFIED SITE 7295 PAIN IN 10-05-2014 FALLIS GABRIELA SOFT TISSUES OF LIMB 93586 OTHER 09-03-2014 [facility] PAIN INC 7242 LUMBAGO 09-03-2014 [facility] 37225 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 7244 THORACIC/PAVEL 08-07-2014 MARJ TOMAS MD NEURITIS/RA DICULITIS UNSPEC 3559 MONONEURITI 07-31-2014 [facility] S OF PHYSICIANS UNSPECIFIED GROUP SITE 4019 UNSPECIFIED 07-31-2014 [facility] ESSENTIAL PHYSICIANS HYPERTENSIO GROUP N 5939 UNSPECIFIED 07-31-2014 [facility] DISORDER PHYSICIANS OF KIDNEY GROUP AND URETER 32085 OSTEOARTHRO 07-31-2014 [facility] S UNSPEC PHYSICIANS WHETHER GROUP GEN/LOC UNSPEC SITE 7245 UNSPECIFIED 07-31-2014 [facility] BACKACHE PHYSICIANS GROUP 69612 LOSS OF 07-31-2014 [facility] WEIGHT PHYSICIANS GROUP V1588 PERSONAL 07-31-2014 [facility] HISTORY OF PHYSICIANS FALL GROUP 45167 MIGRAINE 07-05-2014 [facility] W[facility] W/O INTRACT MEDICAL W/O STAT GROUP MIGRNOSUS 3569 UNSPEC 07-05-2014 [facility] HEREDIT&[facility] OPATHIC MEDICAL PERIPHERAL GROUP NEUROPATHY 06768 UNSPECIFIED 05-25-2014 [facility] HOSP ARTHROPATHY INC , LOWER LEG 35493 GEN 02-16-2014 [facility] OSTEOARTHRO HOME SIS MEDICAL INVOLVING EQUIPME MULTIPLE SITES 60354 PAINFUL 01-14-2014 [facility] RESPIRATION [facility] 04255 HYPERTONICI 12-27-2013 [facility] TY OF PHYSICIANS BLADDER GROUP 24391 CYSTOCELE 12-27-2013 [facility] WITHOUT PHYSICIANS MENTION GROUP UTERINE PROLAPSE MIDLN 64814 URGE 12-27-2013 [facility] INCONTINENC PHYSICIANS E GROUP 83901 URINARY 12-27-2013 [facility] FREQUENCY PHYSICIANS GROUP 7804 DIZZINESS 12-15-2013 [facility] AND [facility] GIDDINESS INC 7812 ABNORMALITY 12-14-2013 [facility] OF GAIT [facility] INC V571 OTHER 12-14-2013 [facility] PHYSICAL [facility] THERAPY INC 23497 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 [facility] RHEUMATISM, INC LOWER LEG 5853 CHRONIC 06-14-2013 [facility] KIDNEY [facility] DISEASE INC STAGE III (MODERATE) V069 NEED PROPH 12-07-2012 [facility] HEALTH W/UNSPEC CENTER COMB VACCINE V700 ROUTINE 12-07-2012 [facility] EXAM@HEALTH CARE FACL 4660 ACUTE 04-18-2012 [facility] BRONCHITIS [facility] 8796 OPEN WOUND 04-07-2012 C[facility] II OTH&UNSPEC YINA PART TRNK W/O MENTION COMP V1083 PERSONAL 04-07-2012 CODY II HISTORY YINA OTHER MALIGNANT NEOPLASM SKIN 7265 ENTHESOPATH 01-15-2012 [facility] JAM Y OF HIP REGION 61611 PES 01-15-2012 [facility] JAM ANSERINUS TENDINITIS OR BURSITIS V7231 ROUTINE 11-17-2011 PATHOLOGY & GYNECOLOGIC CYTOLOGY AL LAB EXAMINATION 26388 PAIN IN 07-13-2009 [facility] JOINT, [facility] LOWER LEG INC 7149 UNSPECIFIED 06-18-2009 Patsy JUSTICE MD PSC INFLAMMATOR Y POLYARTHROP ATHY 48024 INSOMNIA 06-18-2009 Patsy MCCORMACK MD PSC 7840 HEADACHE 03-05-2009 aPtsy JUSTICE MD PSC 46925 NUCLEAR 08-09-2008 SOLE, SCLEROSIS GERALD W 20207 UNSPECIFIED 08-09-2008 SOLE SUBJECTIVE GERALD Bentley VISUAL [...] PT ON ON TO &=300 LBS NEEDLE 10305 [facility] PATEL EMG EA 7 [facility] EXTREMTY INC INC W/PARASPI NL AREA COMPLETE NERVE 48711 [facility] PAT[facility] CONDUCTIO 7 [facility] N STUDIES INC INC 9-10 STUDIES PWR K0823 [facility] GRP 2 STD 7 [facility]POR[facility]I CORPORATI CHAIR PT ON ON TO &=300 LBS STANDARD K0001 LUCI[facility]O ROSS 7 HOME HOME R MEDICAL MEDICAL EQUIPME [facility] G0463 [facility] PATEL OUTPATIEN 7 MEM H[facility] T CLIN INC INC VISIT ASSESS & MGMT PT RADIOLOGI 22858 JP Garcia 7 MEDICAL EXAMINATI IMAGING ON ASS MANDIPLE PRTL <4 VIEWS RADIOLOG 68908 [facility] PATEL EXAM 7 [facility] MANDIBLE INC INC COMPL MINIMUM 4 VIEWS CREATINE 02-24-201 59833 [facility] PAT[facility] KINASE 7 MEM H[facility] TOTAL INC INC FIBRIN 29612 [facility] PAT[facility] DGRADJ 7 [facility] PRODUCTS INC INC D-DIMER QUAL/SEMI KISHAN NATRIURET 40514 J[facility] GARCIA IC [address] [facility] [place] [address] [facility] PATEL TROPONIN 7 MEM H[facility] QUANTITAT INC INC ANJALI BLOOD 27662 [facility] KALIK COUNT 7 MEM [facility]OS[facility] COMPLETE INC AUTO&AUTO DIFRNTL WBC CREATINE 09669 [facility] KINASE MB 7 [facility] FRACTION INC INC ONLY ECG 87995 [facility] ROUTINE 7 [facility] ECG INC INC W/LEAST 12 LDS TRCG ONLY W/O I&[place] [address] J[facility] PATEL HEAD/BRAI 7 [facility] N W/O INC INC CONTRAST MATERIAL RADIOLOGI 64265 [facility] PATEL C 7 [facility] EXAMINATI INC INC ON CHEST SINGLE VIEW FRONTAL COMPREHEN 80772 [facility] PAT[facility] SIVE 7 [facility] METABOLIC INC INC PANEL COMPREHEN 84904 [facility] SIVE 7 [facility] METABOLIC INC INC PANEL BLOOD 31798 [facility] PAT[facility] COUNT 7 [facility]OS[facility] COMPLETE INC INC AUTO&AUTO DIFRNTL WBC OPH BMTRY 57091 [facility] 7 EYE ECHO[facility]APY INSTITUTE A-SCAN IO LENS PWR SUJATA PWR K0823 [facility] HOVEROUND GRP 2 STD 6 [facility] CORPORATI CHAIR PT ON ON TO &=300 LBS PWR WC K0823 [facility] GRP 2 STD 6 [facility] CORPORATI CHAIR PT ON ON TO &=300 LBS PET 39537 [facility] [address] COMMUNTIY COMMUNTIY ATTENUATI HOSPITA HOSPITA ON SKULL BASE MID-THIGH PWR K0823 [facility] GRP 2 STD 6 CAPTAINS CORPORATI CORPORATI CHAIR PT ON ON TO &=300 LBS PWR K0823 [facility] GRP 2 STD 6 CAPTAINS CORPORATI CORPORATI CHAIR PT ON ON TO &=300 LBS IIV 58410 [facility] ADJUVANTE 6 PHYSICIAN EVELIA D VACCINE S GROUP FOR INTRAMUSC ULAR USE PCV13 00244 [facility] VACCINE 6 PHYSICIAN EVELIA FOR S GROUP INTRAMUSC ULAR USE BLOOD 58313 [facility] EVELIA PEROXIDAS S GROUP E ACTV QUAL FECES 1-3 SPEC ADMINISTR G0008 [facility] ATION OF 6 PHYSICIAN EVELIA INFLUENZA S GROUP VIRUS VACCINE MRI ORBIT 14757 [facility] PAT[facility] FACE & 6 MEM H[facility] NECK W/O INC INC & W/CONTRAS T MATRL COLLECTIO 88538 [facility] STYLES N VENOUS 6 PHYSICIAN NICOLE BLOOD S GROUP VENIPUNCT URE PWR K0823 [facility] GRP 2 STD 6 [facility] CORPORATI CHAIR PT ON ON TO &=300 LBS US SOFT 97299 [facility] TISSUE 6 [facility] HEAD & INC INC NECK REAL TIME IMGE DOCM FINE 67622 [facility] NEEDLE 6 [facility]OS[facility] ASPIRATIO INC INC N WITH IMAGING GUIDANCE PWR E2365 [facility] WHLCHAIR 6 ACSS U-1 CORPORATI CORPORATI SEALED ON ON LEAD ACID BATTRY EA PWR K0823 [facility] GRP 2 STD 6 [facility] CORPORATI CORPORATI CHAIR PT ON ON TO &=300 LBS THERAPEUT 60131 [facility] PATEL IC PX 1/> 6 [facility] AREAS INC INC EACH 15 MIN EXERCISES THERAPEUT 48916 [facility] PATEL IC PX 1/> 6 [facility] AREAS INC INC EACH 15 MIN EXERCISES THERAPEUT 42848 [facility] PATEL IC PX 1/> 6 [facility] AREAS INC INC EACH 15 MIN EXERCISES 3D 99396 [facility] RENDERING 6 [facility] W/INTERP INC INC & POSTPROCE SS SUPERVISI ON MRI 33794 [facility] SPINAL 6 [facility] CANAL INC INC CERVICAL W/O CONTRAST MATRL THERAPEUT 84859 [facility] PATEL IC PX 1/> 6 [facility] AREAS INC INC EACH 15 MIN EXERCISES THERAPEUT 98527 [facility] PATEL IC PX 1/> 6 [facility] AREAS INC INC EACH 15 MIN EXERCISES THERAPEUT 25475 [facility] PATEL IC PX 1/> 6 [facility] AREAS INC INC EACH 15 MIN EXERCISES THERAPEUT 27247 [facility] PATEL IC PX 1/> 6 [facility] AREAS INC INC EACH 15 MIN EXERCISES THERAPEUT 36025 [facility] PATEL IC PX 1/> 6 [facility] AREAS INC INC EACH 15 MIN EXERCISES PHYSICAL 30935 [facility] THERAPY [address] [facility] EVALUATIO INC INC N COLLECTIO 79854 [facility] N VENOUS 6 PHYSICIAN EVELIA BLOOD S GROUP VENIPUNCT URE INJECTION J3301 PROGRESSI JOHN 6 VE REBECA TRIAMCINO PODIATRY LONE ACETONIDE NOS 10 MG ARTHROCEN 82013 PROGRESSI PROGRESSI TESIS 6 VE VE ASPIR&/IN PODIATRY PODIATRY J INTERM JT/BURS W/O US PHYSICAL 59214 [facility] THERAPY 6 [facility] EVALUATIO INC INC N OCCUPATIO 65155 [facility] NAL [address] [facility] THERAPY INC INC EVALUATIO N COLLECTIO 61474 [facility] N VENOUS 6 N N BLOOD COMMUNTIY COMMUNTIY VENIPUNCT HOSPITA HOSPITA URE LIPID 48051 [facility] PANEL 6 N N COMMUNTIY COMMUNTIY HOSPITA HOSPITA HEMOGLOBI 49979 [facility] N 6 N N GLYCOSYLA COMMUNTIY COMMUNTI[place] [address] JORGE PATEL HEAD/BRAI 6 MEM HOSP MEM [...] PODIATRY &/ VACUUM PREFAB CUSTM FIT RADEX 62593 [facility] FOOT 5 [facility] COMPLETE INC INC MINIMUM 3 VIEWS INJECTION J1040 [facility] PATEL 5 [facility] METHYLPRE INC INC DNISOLONE ACETATE 80 MG THERAPEUT 89039 [facility] IC 5 [facility] PROPHYLAC INC INC TIC/DX INJECTION SUBQ/IM TENS E0730 EMPI INC EMPI INC DEVICE 5 4/MORE LEADS MULTI NERVE STIMULATI ON APPL 56271 [facility] MODALITY 5 [facility] 1/> AREAS INC INC ELEC STIMJ EA 15 MIN MRI 16545 [facility] PAT[facility] SPINAL [address] [facility] CANAL INC INC LUMBAR W/O CONTRAST MATERIAL CANE E0105 [facility] WLOF QUAD/3-LA 5 HOME HOME CHER ALL MEDICAL MEDICAL MATL EQUIPME EQUIPME ADJUSTBL/ FIX W/TIPS RADIOLOGI 85294 [facility] PAT[facility] C EXAM [address] [facility] CHEST 2 INC INC VIEWS FRONTAL&L ATERAL URNLS DIP 17261 [facility] BAXTER 4 PHYSICIAN TARAS STICK/TAB S GROUP LET RGNT NON-AUTO W/O MICRSCP DUPLEX 67328 [facility] PAT[facility] SCAN 4 [facility]OS[facility] EXTRACRAN INC INC IAL ART COMPL BI STUDY PHYSICAL 30233 [facility] THERAPY [address] [facility] EVALUATIO INC INC N RADIOLOGI 00402 [facility] C 4 [facility] EXAMINATI INC INC ON KNEE 3 [place] [address] [facility] PATEL RETROPERI [address] [facility] TONEAL INC INC REAL TIME W/IMAGE COMPLETE BLOOD 13093 [facility] OCCULT 3 [facility] E ACTV QUAL FECES 1 DETER THERAPEUT 49206 [facility] PATEL IC 3 [facility] PROPHYLAC INC INC TIC/DX INJECTION SUBQ/IM INJ J0702 [facility] PETTEY BETAMETHA 2 JAM JAM SONE ACETATE & PHOSPHATE 3 MG ARTHROCEN 78730 PETTE[facility] PETTEY TESIS 2 JAM JAM ASPIR&/IN J MAJOR JT/BURSA W/O US RADIOLOGI 20759 [facility] PAT[facility] C 0 [facility] EXAMINATI INC INC ON KNEE 3 VIEWS RADIOLOGI 55875 [facility] PLASCENCIAON C 9 [facility] EXAMINATI INC INC ON KNEE 3 VIEWS RADEX 33057 [facility] SPINE 9 [facility] LUMBOSACR INC INC AL MINIMUM 4 VIEWS Encounters Encounter Start End Date Code Location Performer Type Date HOSPITAL [facility] - 7 7 [facility] OUTPATIEN INC T OFFICE 32953 [facility] OUTPATIEN 7 7 PHYSICIAN T VISIT S GROUP 15 MINUTES OFFICE 61585 [facility] MARCELL JR OUTPATIEN 7 7 PHYSICIAN T VISIT S GROUP 15 MINUTES HOSPITAL JORGE - 7 7 [facility] OUTPATIEN INC T OFFICE 26812 [facility] FAIZAN OUTPATIEN 7 7 PHYSICIAN T NEW 45 S GROUP MINUTES OFFICE 10042 [facility] [place] OUTPATIEN 7 7 PHYSICIAN T VISIT S GROUP 25 MINUTES OFFICE 62413 [facility] [place] OUTPATIEN 7 7 PHYSICIAN T VISIT S GROUP 25 MINUTES EMERGENCY 81120 [facility] CISNEROS DEPT 7 7 PHYSICIAN VISIT S, PLLC HIGH SEVERITY& [facility] - 7 7 [facility] OUTPATIEN INC T EMERGENCY 29229 [facility] 7 7 [facility] DEPARTMEN INC T VISIT HIGH/URGE NT SEVERITY OFFICE 63056 [facility] [place] OUTPATIEN 7 7 PHYSICIAN T VISIT S GROUP 25 MINUTES HOSPITAL JORGE - 7 7 [facility] OUTPATIEN INC T OFFICE 07406 [facility] OUTPATIEN 7 7 EYE T NEW 30 INSTITUTE MINUTES OFFICE 83050 [facility] STYLES OUTPATIEN 6 6 PHYSICIAN T VISIT S GROUP 10 MINUTES OFFICE 64348 [facility] OUTPATIEN 6 6 PHYSICIAN T VISIT S GROUP 15 MINUTES HOSPITAL [facility] - 6 6 N OUTPATIEN COMMUNTIY T HOSPITA OFFICE 97735 [facility] ST[facility]LES OUTPATIEN 6 6 PHYSICIAN T VISIT S GROUP 10 MINUTES OFFICE 88923 [facility] [place] OUTPATIEN 6 6 PHYSICIAN EVELIA T VISIT S GROUP 15 MINUTES HOSPITAL JORGE - 6 6 [facility] OUTPATIEN INC T OFFICE 20616 [facility] [place] OUTPATIEN 6 6 PHYSICIAN NICOLE T VISIT S GROUP 10 MINUTES OFFICE 29177 [facility] [place] OUTPATIEN 6 6 PHYSICIAN EVELIA T VISIT S GROUP 25 MINUTES OFFICE 41648 [facility] [place] OUTPATIEN 6 6 PHYSICIAN NICOLE T VISIT S GROUP 10 MINUTES HOSPITAL JORGE - 6 6 [facility] OUTPATIEN INC T OFFICE 33101 [facility] [place] OUTPATIEN 6 6 PHYSICIAN EVELIA T VISIT S GROUP 10 MINUTES OFFICE 42777 [facility] [place] OUTPATIEN 6 6 PHYSICIAN NICOLE T NEW S GROUP MINUTES HOSPITAL JORGE - 6 6 MEM [facility] OUTPATIEN INC T OFFICE 59811 [facility] [place] OUTPATIEN 6 6 PHYSICIAN EVELIA T VISIT S GROUP 25 MINUTES HOSPITAL JORGE - 6 6 [facility] OUTPATIEN INC T OFFICE 63829 [facility] [place] OUTPATIEN 6 6 PHYSICIAN EVELIA T VISIT S GROUP 15 MINUTES OFFICE 09738 [facility] [place] OUTPATIEN 6 6 PHYSICIAN EVELIA T VISIT S GROUP 15 MINUTES OFFICE 56364 [facility] [place] OUTPATIEN 6 6 [facility] T VISIT S GROUP 10 MINUTES [facility] T OFFICE 62697 [facility] OUTPATIEN 6 6 PHYSICIAN EVELAI T VISIT S GROUP 15 MINUTES OFFICE 05562 PROGRESSI JOHN OUTPATIEN 6 6 VE REBECA T VISIT 5 PODIATRY MINUTES OFFICE 87115 [facility] 6 6 MD BRETT, T VISIT PSC 10 MINUTES [facility] T OFFICE 75374 PROGRESSI JOHN OUTPATIEN 6 6 VE REBECA T VISIT 5 PODIATRY MINUTES [facility] 6 6 N OUTPATIEN COMMUNTIY T HOSPITA OFFICE 85569 [facility] OUTPATIEN 6 6 N T NEW 45 NEUROLOGY MINUTES OFFICE 83682 [facility] OUTPATIEN 6 6 PHYSICIAN [facility]IA T VISIT S GROUP 15 MINUTES [facility] - [facility] 6 [facility] T OFFICE 99636 [facility] YANIV CRI OUTPATIEN 5 5 MD BRETT, T VISIT PSC 25 MINUTES OFFICE 14006 [facility] JOHN OUTPATIEN 5 5 GABRIELA REBECA T VISIT 5 MINUTES OFFICE 59830 [facility] JOHN OUTPATIEN 5 5 GABRIELA REBECA T VISIT 15 MINUTES OFFICE 39561 [facility] OUTPATIEN 5 5 PHYSICIAN EVELIA T VISIT S GROUP 10 MINUTES [facility] - 5 5 [facility] T OFFICE 48732 [facility] JOHN OUTPATIEN 5 5 GABRIELA REBCEA T VISIT 15 MINUTES OFFICE 89982 [facility] JOHN OUTPATIEN 5 5 GABRIELA REBECA T NEW 30 MINUTES EMERGENCY 16228 [facility] 5 5 [facility] DEPART[facility] T VISIT LOW/MODER SEVERITY [facility] - 5 5 [facility] T OFFICE 28058 MARJ BUX BUX ANJ OUTPATIEN 5 5 MD T NEW 30 MINUTES OFFICE 16258 [facility] OUTPATIEN 5 5 PHYSICIAN [place]IA T VISIT S GROUP 25 MINUTES OFFICE 74935 [facility] OUTPATIEN 5 5 PHYSICIAN [place]IA T VISIT S GROUP 15 MINUTES OFFICE 23624 [facility] JAVON OUTPATIEN 5 5 [facility] ST[facility]AN T NEW 45 MEDICAL MINUTES [facility] JORGE - 5 5 [facility] 5 [facility] 4 4 [facility] INC PERIODIC 98809 [facility] PATEL PREVENTIV 3 3 [facility] PATIENT 63YRS& OLDER [facility] JORGE - 3 3 [facility] T OFFICE 26781 CODY II CODY II [facility]PATIEN 3 3 [facility]ES OFFICE 43027 CODY II CODY II OUTPATIEN [address] [facility] VISIT 10 MINUTES [facility] 24429 [facility] PATEL PREVENTIV 2 2 [facility] PATIENT 63YRS& OLDER [facility] JORGE - 0 0 [facility] T OFFICE 93871 ENRIKE MUIR 0 0 VINH Hurt VISIT PSC 25 MINUTES OFFICE 26770 ENRIKE MUIR 0 0 VINH Hurt VISIT PSC 15 MINUTES [facility] JORGE - [address] [facility] OUTPATIEN INC T OFFICE 73789 [facility] OUTPATIEN 9 9 GERALD PEREYRA 45 W W MINUTES
--- OUTSIDE RECORDS SUMMARY | 2016-11-22 08:30 | External Medical Summary Rpt | CCD ---
Author Author , MARGARET Organization MARGARET Address Unknown Phone [email or web address] Immunization Name Date Rout CVX Reac Dose [...]
--- OUTSIDE RECORDS SUMMARY | 2016-11-22 08:30 | External Medical Summary Rpt | CCD ---
Author Author , MARGARET Organization MARGARET Address Unknown Phone [email or web address] Immunization Name Date Rout CVX Reac Dose [...]
--- OUTSIDE RECORDS SUMMARY | 2016-11-22 08:30 | External Medical Summary Rpt ---
[...] Erythrocy 31.8 - g/dl Low No Nov 11 te mean 35.4 informati 2017 9:30 corpuscul on in AM ar source hemoglobi data n concentra tion [Mass/vol ume] by Automated count Erythrocy 82.2 - fl Normal No Nov 11 te mean 97.8 informati 2017 9:30 corpuscul on in AM ar volume source [Entitic data volume] by Automated count Monocytes 0.1 - 1.0 K/mm3 Normal No Nov 11 informati 2017 9:30 [#/volume on in AM ] in source Blood by data Automated count Monocytes 1.7 - 9.3 % Normal No Nov 11 /100 informati 2017 9:30 leukocyte on in AM [...] M/mm3 Low No Nov 11 alexa informati 2017 9:30 [#/volume on in [...]
--- NOTE | 2016-11-22 11:38 | ACUTE CARE PROGRESS NOTE (QUA) ---
Progress Notes Subjective Date 11/22/16 Time 0845 Patient/family reports: confusion Nursing reports: alert, confusion Objective Findings Vital Signs Date Time Temp Pulse Resp B/P Pulse O2 O2 Flow FiO2 Ox Delivery Rate 11/22 1124 2 11/22 1054 2 11/22 0919 2.0 11/22 0900 2 11/22 0742 97.4 11/22 0742 2.0 11/22 0715 2 11/22 0708 73 15 106/49 99 OXYGEN 2.0 11/22 0706 2.0 11/22 0600 2.0 11/22 0500 2.0 11/22 0500 72 16 120/79 96 OXYGEN 2.0 11/22 0430 81 16 79/49 92 OXYGEN 2.0 11/22 0400 2.5 11/22 0400 97.3 85 16 122/44 94 OXYGEN 2.0 11/22 0327 2.5 11/22 0300 95 15 106/67 93 OXYGEN 2 11/22 0211 98.1 75 16 126/77 93 2.5 11/22 0200 2.5 11/22 0200 98.1 77 17 126/77 92 OXYGEN 2 11/22 0100 79 16 91/62 93 OXYGEN 2 11/22 0055 2.5 11/22 0000 2.5 11/22 0000 96 16 117/81 92 OXYGEN 2.5 11/21 2343 2.5 11/21 2343 91 OXYGEN 2.5 11/21 2307 102 14 102/68 91 OXYGEN 2 11/21 2251 2 11/21 2203 94 16 109/71 95 OXYGEN 2 11/21 2200 2 11/21 2130 90 16 118/73 94 OXYGEN 2 11/21 2100 76 16 93/57 92 OXYGEN 2 11/219 2 11/21 2030 76 14 98/61 92 OXYGEN 2 11/22 1999 97.4 76 15 99/59 91 OXYGEN 2 11/22 1999 97.4 76 14 104/65 91 2 11/21 1953 2 11/21 1945 90 16 107/66 92 OXYGEN 2 11/21 1923 2 11/21 1915 77 16 117/74 92 OXYGEN 2 11/21 1900 79 15 98/63 91 OXYGEN 2 11/21 1831 2 11/21 1830 82 20 100/58 92 OXYGEN 2 11/21 1800 77 20 100/58 92 OXYGEN 2 11/21 1735 2 11/21 1730 74 20 104/60 94 OXYGEN 2 11/21 1700 2 11/21 1700 97.6 96 20 76/50 94 OXYGEN 2 11/21 1700 97.6 96 20 76/50 94 11/21 1600 78 20 89/56 94 OXYGEN 2 11/21 1545 2 11/21 1518 2 11/21 1500 83 20 89/55 93 OXYGEN 2 11/21 1400 84 18 87/53 98 OXYGEN 2 11/21 1354 2 11/21 1330 83 20 83/51 100 OXYGEN 2 11/21 1300 2 11/21 1300 76 20 136/58 99 OXYGEN 2 11/21 1230 80 18 91/59 99 OXYGEN 2 11/21 1200 97.6 83 20 83/51 100 2 11/21 1200 76 20 83/53 100 OXYGEN 2 Current Medications Levofloxacin/Dextrose 150 ML Q48H IV Dopamine HCl/Dextrose 250 ML .STK-MED ONE IV (DC) Sodium Chloride 1,000 ML .STK-MED ONE IV (DC) Sodium Chloride 1,000 ML .STK-MED ONE IV (DC) Dopamine HCl/Dextrose 250 ML .Q25H IV Aspirin 81 MG DAILY PO Enoxaparin Sodium 40 MG DAILY SC Levofloxacin/Dextrose 50 ML Q24H IV (DC) Metoprolol Succinate 25 MG DAILY PO Sodium Chloride 1,000 ML .Q10H IV Pregabalin 150 MG BID PO Influenza Virus Vaccine Quadrival 0.5 ML PRN PRN IM Nicotine 21 MG DAILYP PRN TD Sodium Chloride 10 ML PRN PRN IV Dopamine HCl/Dextrose 250 ML .Q25H IV (DC) Last VS-Temp:97.4 B/P:106/49 Pulse:73 Resp:15 SaO2:99 OXYGEN Last weight lbs:139 oz:6 K.219 Method:Bed Scales Exam General appearance: normal appearance, mild distress Eyes: normal exam ENT: normal exam Neck: normal inspection, full range of motion Cardiovascular: normal exam, regular rate & rhythm Respiratory: on oxygen, diminished breath sounds, rhonchi ABD: normal exam, non-distended, normal bowel sounds, no rebound, soft, no tenderness Genitourinary: catheter in place Extremities: normal exam, moves all, warm Musculoskeletal: normal exam Skin: normal exam, intact, warm Neuro: normal exam, alert, ANSWERS ALL QUESTIONS APPROPRIATELY BUT CONFUSED WITH CERTAIN QUESTIONS Reviewed: allergies, medications, vital signs, lab results, radiology report Assessment/Plan Problem List 1. Hypokalemia 2. Hypothermia 3. Renal insufficiency 4. Anemia Patient condition Stable Plan: continue current care This inpt stay is expected to cross 2 MNs from start of care Yes Comments: yoselin rounded earlier. monitor temp, contiune care at 2391
[2016-11-23] VITALS (17 sets, daily range): BP systolic 94–151; BP diastolic 34–94
[2016-11-23 06:22] LABS: LYMPH # 0.5 K/mm3 (0.7-4.5); LYMPH % 11.4 % (10-50.0)
[2016-11-23 06:23] LABS: HEMOGLOBIN 10.3 g/dL (12.2-16.2)
--- NOTE | 2016-11-23 08:08 | ACUTE CARE PROGRESS NOTE (QUA) ---
Progress Notes Subjective Date 11/23/16 Time 0808 Note doing better Patient/family reports: feeling better Nursing reports: no complaints Objective Findings Last VS-Temp:98.7 B/P:146/80 Pulse:112 Resp:20 SaO2:95 OXYGEN Last weight lbs:145 oz:9 K.026 Method:Bed Scales Exam General appearance: awake Eyes: PERRLA ENT: dry mucous membranes Neck: no JVD Cardiovascular: regular rate & rhythm Respiratory: no respiratory distress ABD: soft Genitourinary: no hematuria Extremities: moves all Musculoskeletal: equal muscle strength Skin: dry Neuro: no focal deficit Reviewed: allergies, medications, vital signs, lab results Assessment/Plan Problem List 1. Hypokalemia 2. Hypothermia 3. Renal insufficiency 4. Anemia Patient condition Improving Plan: continue current care This inpt stay is expected to cross 2 MNs from start of care Yes Comments: doing better overall at 0752
[2016-11-24] VITALS (28 sets, daily range): BP systolic 71–152; BP diastolic 33–801
[2016-11-24 05:35] LABS: LYMPH # 0.5 K/mm3 (0.7-4.5); LYMPH % 7.7 % (10-50.0)
[2016-11-24 05:37] LABS: HEMOGLOBIN 11.6 g/dL (12.2-16.2)
[2016-11-24 05:53] LABS: NEUTROPHILS 86 % (42-76)
--- NOTE | 2016-11-24 09:23 | ACUTE CARE PROGRESS NOTE (QUA) ---
Progress Notes Subjective Date 11/24/16 Time 0916 Note dec mental status Patient/family reports: unable to communicate Nursing reports: shortness of breath Objective Findings Last VS-Temp:98.7 B/P:146/80 Pulse:112 Resp:20 SaO2:95 OXYGEN Last weight lbs:145 oz:9 K.026 Method:Bed Scales Exam General appearance: obtunded Eyes: PERRLA ENT: dry mucous membranes Neck: no JVD Cardiovascular: regular rate & rhythm Respiratory: diminished breath sounds ABD: soft Genitourinary: catheter in place Extremities: edema Musculoskeletal: no focal changes Skin: intact Neuro: obtunded with no focal changes or posturing Reviewed: allergies, medications, vital signs, lab results Assessment/Plan Problem List 1. Hypokalemia 2. Hypothermia 3. Renal insufficiency 4. Anemia Patient condition Guarded Plan: make medication changes, order additional tests This inpt stay is expected to cross 2 MNs from start of care Yes Comments: pt with sig change this am with dec mental status with dec bp and inc sob Antibiotic Stewardship (2) Current Culture Results Microbiology 11/20 0900 URINE CATH: Urine Culture - RES ESCHERICHIA COLI 11/20 0325 BLOOD: Anaerobic Blood Culture - RES 11/20 0325 BLOOD: Aerobic Blood Culture - RES 11/19 1047 URINE CC: Urine Culture - COMP ESCHERICHIA COLI PROTEUS MIRABILIS
--- NOTE | 2016-11-24 11:24 | CONSULT NOTE ---
Pharmacokinetic Consult Date of consult: 11/24/16 Time of consult: 1121 Referring provider: DR. SALAZAR Reason for consult: GENTAMICIN DOSING Allergies: Coded Allergies: Penicillins (UNKNOWN 04/04/16) Home Medications: Reported Medications Aspirin 325 MG PO DAILY ACETAMINOPHEN WITH CODEINE (Tylenol With Codeine #3 Tablet) 1 TAB PO TIDP PRN PAIN Metoprolol Succinate 25 MG PO BID #60 Pregabalin (Lyrica) 150 MG PO BID #60 Height (feet): 5 Height (inches): 2.00 Medical History: CAD? No Angina: No AR: No Hypertension? Yes Hyperlipidemia? No CHF? No DVT? No PE? No COPD? No Asthma? No Anemia? No GERD? No Gastric ulcers? No GI Bleed? No Hernia? No Thyroid Problems? No Hypothyroidism? No CVA? No Seizures? No Diabetes? No UTI? No Stones? No GB Disease: No Nephritic Syndrome? No Asplenia? No Hepatitis? No Sickle Cell Disease? No Arthritis? Yes Migraines? No Cataracts? No Glaucoma? No MRSA? No HIV? No TB? No Anxiety? No Depression? No Cancer? No Labs: Laboratory Tests 11/24/16 0515: Sodium 146 H, Potassium 3.9, Chloride 116 H, Carbon Dioxide 25, BUN 18, Creatinine 1.0, Estimated Creat Clear 52, Estimated GFR (MDRD) 54 L, Glucose 96 , Calcium 7.6 L, Total Bilirubin 0.6, AST 15, ALT 18, Alkaline Phosphatase 101, Total Protein 4.6 L, Albumin 2.0 L, Globulin 2.6, Albumin/Globulin Ratio 0.8 L, WBC 6.3, RBC 4.15 L, Hgb 11.6 L, Hct 38.2, MCV 92.0, RDW 15.8, Plt Count 66 L, MPV 9.1, Gran % 85.0 H, Gran # 5.4, Total Counted 100, Lymphocytes % 7.7 L , Monocytes % 6.4, Eosinophils % 0.7, Basophils % 0.2, Neutrophils 86 H, Band Neutrophils 7, Lymphocytes (Manual) 5 L, Lymphocytes # 0.5 L, Monocytes ( Manual) 2, Monocytes # 0.4, Eosinophils # 0.0, Basophils # 0.0, Hypersegmented Polys FEW, Platelet Estimate MOD DECREASE, Polychromasia 1+, Hypochromasia 1+, Poikilocytosis 1+, Anisocytosis 1+, Rouleaux SL., PUBS MCHC 30.3 L, MCH 27.9 Microbiology 11/24 1100 URINE,FO: Organism ID (Sequencing 2)(EVELIA) - ORD 11/24 1100 URINE,FO: Urine Culture - ORD Problem List: 1. UTI (urinary tract infection) Plan: BASED ON PATIENT FACTORS, RECOMMEND GENTAMICIN 280 MG (5 MG/KG/DBW) IV Q36H. WILL OBTAIN POST-INFUSION LEVELS AND ADJUST APPROPRIATE. at 1124
--- NOTE | 2016-11-24 14:09 | RADIOLOGY REPORT PS360 ---
CTA-CHEST HISTORY: SOA, R/O PE, AMS ORDERING PHYSICIAN: Kaz Porter MD PATIENT AGE: 71 years TECHNIQUE: Helical acquisition obtained following the bolus administration of 60 mL of Isovue 370 followed by a saline bolus. Axial, sagittal, and coronal reformatted images are generated and reviewed. COMPARISON: None FINDINGS: No evidence of pulmonary embolus or aortic aneurysm. There are moderate-sized bilateral posterior layering pleural effusions with compressive atelectatic changes. Atelectasis or infiltrate is present in the upper lobes as well posteriorly. There is normal heart size. Upper abdominal images demonstrates mild distention of the stomach. There is also mild distention of the esophagus. There is linear increased density within the stomach suggesting sutures from prior gastric surgery. Please correlate clinically There is mild diffuse small and large bowel wall thickening. IMPRESSION: 1. No evidence of pulmonary embolus or aortic aneurysm. 2. Moderate-sized bilateral pleural effusions with moderate bilateral lower lobe compressive atelectasis with patchy infiltrate or atelectasis in the lung apices. 3. Diffuse thickening of the visualized small and large bowel loops consistent with enterocolitis versus diffuse thickening from anasarca. Postsurgical changes of the stomach suggesting prior vertical banded gastroplasty however there is mild distention of the stomach. The esophagus is also somewhat distended.
--- NOTE | 2016-11-24 14:11 | RADIOLOGY REPORT PS360 ---
CT HEAD-W/WO CONTRAST INDICATION: Altered mental status, altered level of consciousness, confusion SOA, R/O PE, AMS ORDERING PHYSICIAN: Kaz Porter MD PATIENT AGE: 71 years COMPARISON: 11/19/2016 TECHNIQUE: Axial images are obtained without and with contrast. FINDINGS: No midline shift, mass effect, intracranial hemorrhage, hydrocephalus, or enhancing lesion is evident. No intra or extra-axial hemorrhage. No acute calvarial findings. Mild mucosal thickening involves the ethmoid sinuses. IMPRESSION: 1. No acute finding. 2. Mild ethmoid sinus disease
[2016-11-24 21:20] LABS: ALLEN'S TEST PATIENT UNABLE; ARTERIAL ABE -24.2 MMOL/L (-2.4-+2.3); ARTERIAL PO2 131.7 MMHG (80-100); ARTERIAL TCO2 10.3 MMOL/L (23-27); OXYGEN 100%
[2016-11-24 21:31] LABS: LYMPH # 0.5 K/mm3 (0.7-4.5); LYMPH % 28.3 % (10-50.0)
[2016-11-24 21:39] LABS: HEMOGLOBIN 9.8 g/dL (12.2-16.2)
[2016-11-24 22:51] LABS: ALLEN'S TEST PATIENT UNABLE; ARTERIAL PO2 76.3 MMHG (80-100); ARTERIAL TCO2 15.1 MMOL/L (23-27); OXYGEN 100
[2016-11-25] VITALS (9 sets, daily range): BP systolic 53–109; BP diastolic 26–49
--- NOTE | 2016-11-25 02:22 | Procedure Note ---
Bedside procedures Intubation Date of procedure: 11/24/16 Time of procedure: 2044 Intubation: Risks/benefits discussed with pt/guardian? No Time of Intubation 2044 Intubation Method orotracheal Tube Size (cm) 6.0 Medications Other (none) Breath Sounds after Intubation: equal Intubation Complications no complications Post Intubation Xray Yes (ET above gabby) Additional information: Vocal cords visualized as ET tube sliding through the larynx, CO2 detector color chages confirming "yellow" position, ET tube fogging, equal chest rise, bilateral breath sounds heard bilaterally, chest x-ray confirms good positioning of the ET tube, 1 cm above gabby. ET tube was suctioned, confirming aspiration. ABG ordered, results reviewed consistent with severe metabolic acidosis. I have instructed the nurse to administer 4 additional amps of sodium bicarbonate. Patient coded with PA, asystole, and V. tach. Was defibrillated a couple of times, a bolus of amiodarone 150 mg given IV push times one, subsequently amiodarone drip started. Patient lost pulse twice, resuscitation efforts restarted. We were able to get a strong palpable peripheral pulses, the blood pressure of 127/76, while sitting on vasopressors. I have collected blood for blood work from RIGHT femoral venipuncture. Nurse to inform Dr. Porter of patient's condition and call back with lab results. Care turned over to PCP/Dr. Porter at this time. Discussed with family members at length about patient's condition and prognosis, which remains grim at this time. Family is requesting at this time no further cardiopulmonary resuscitation if patient's pulse is lost again. at 0229
--- NOTE | 2016-11-25 04:13 | RADIOLOGY REPORT PS360 ---
CHEST-PORTABLE 2049 hours HISTORY: CODE BLUE, respiratory failure PER PROTOCOL ORDERING PHYSICIAN: Kaz Porter MD PATIENT AGE: 71 years COMPARISON: 11/21/2016 FINDINGS: Endotracheal tube has been inserted. The tip is in good position 3 cm above the gabby.. Increasing density is present in the right mid and lower lung zone consistent with worsening pneumonia. PICC line remains in place in good position with the tip in the region of the superior vena cava. Overlying monitor device is in the fibrillation device noted. Nodular opacity projected over the right lung base at 11 mm.. IMPRESSION: 1. Good position of endotracheal tube. 2. Worsening right-sided pneumonia
== END 2016-11-25 07:13 | disposition expired | DRG 690 ==
LOC: ER 09:27 → 2ND 11:23
PROVIDERS: Emergency Medicine
PROC: 05HC33Z Insertion of Infusion Device into Left Basilic Vein, Percutaneous Approach (ICD-10-PCS; 2016-11-21)
PROC: 0BH17EZ Insertion of Endotracheal Airway into Trachea, Via Natural or Artificial Opening (ICD-10-PCS; principal; 2016-11-25)
PROC: 5A1935Z Respiratory Ventilation, Less than 24 Consecutive Hours (ICD-10-PCS; principal; 2016-11-25)
DX: N39.0 Urinary tract infection, site not specified (principal); J80 Acute respiratory distress syndrome; E86.0 Dehydration; I10 Essential (primary) hypertension; E87.6 Hypokalemia; B96.20 Unspecified Escherichia coli [E. coli] as the cause of diseases classified elsewhere; R68.0 Hypothermia, not associated with low environmental temperature
CPT/HCPCS: C1751; J0282; J1335; J7060; P9016; Q9967